=== PATIENT | female | born 1955 | race Caucasian/White ===

== ENCOUNTER → 2016-08-04 | Outpatient (CLI) | payer BC ==
[2016-08-04 10:11] LABS: Anion Gap 9 mmol/L; Blood Urea Nitrogen 7 mg/dL (7-17); Carbon Dioxide 29 mmol/L (22-30); Chloride 103 mmol/L (98-107); Non-African American GFR(MDRD) >60 (>60 ml/min/1.73 sqM); Sodium 141 mmol/L (137-145)
== END | disposition home or self-care (01) ==
LOC: LABWHC1 09:13
PROVIDERS: ATTEND Internal Medicine Clinical Cardiac Electrophysiology
DX: E78.00 Pure hypercholesterolemia, unspecified (principal)
CPT/HCPCS: 36415; 80051; 82565; 84520

== ENCOUNTER 2016-08-05 08:43 | Day surgery (SDC) | payer BC ==
[2016-07-31 12:44] VITALS: BMI 24.1
[~2016-08-05 08:43] MED LIST: ALPRAZolam 0.25 MG TAB PO PRN; ALPRAZolam 0.5 MG TAB PO PRN; ASPIRIN 325 MG TAB PO STA; ATORVASTATIN 80 MG TAB PO STA; NITROGLYCERIN SL TABS 0.4 MG TAB SUBLINGUAL PRN; SODIUM CHLORIDE 0.9% 1,000 ML in EMPTY BAG 1 BAG IV ONE
[2016-08-05] MEDS ORDERED: diphenhydrAMINE 50 MG/ML 1 ML VIAL IVP ONE (10:22)
[2016-08-05] MEDS: MIDAZOLAM 2 MG/2 ML VIAL IV ONE ×2 (10:23→10:28)
[2016-08-05] MEDS ORDERED: LIDOCAINE 2% INJ 20 MG/ML SQ ONE (10:27)
[2016-08-05] MEDS ORDERED: RX INFO: IV CONTRAST WAS GIVEN 1 EACH MISC MISCELLANE PRN (10:53)
[2016-08-05] MEDS ORDERED: IOHEXOL 350 MG/ML 100 ML BOTTLE INJ ONE (11:11)
--- NOTE | 2016-08-05 11:32 | CC ---
DATE OF SERVICE: INDICATION: Ischemic cardiomyopathy. This is a 61-year-old lady that I was asked to do a cardiac catheterization because of cardiomyopathy and abnormal stress test. The patient was explained of risks, benefits, and alternatives, understood and accepted. The patient had hyperkalemia prior to cardiac cath, the exact etiology of which was unclear. PROCEDURE NOTE: After obtaining informed consent, left heart catheterization and coronary angiogram are performed via the right femoral artery using standard Catarino catheters. Patient tolerated the procedure well without any obvious immediate complications. FINDINGS: 1. HEMODYNAMICS: Left ventricular end-diastolic pressure is 18 mm. There is no significant gradient across the aortic valve. 2. LEFT VENTRICULOGRAM: Left ventriculogram was performed in [place] position, shows a dilated left ventricle with severe LV dysfunction with an ejection fraction of around 30%. Basal inferior wall is akinetic and there is diffuse global hypokinesis noted. There is 1 to 2+ mitral regurgitation noted. 3. ANGIOGRAPHIC DATA: LEFT MAIN CORONARY ARTERY: Left main coronary artery is a normal-sized vessel and is free of stenosis. It divides into left anterior descending coronary artery and circumflex coronary artery. Mid LAD shows a 70% stenosis. Circumflex coronary artery segment has segmental lesions that are 60% to 70% stenosed. Right coronary artery is a large dominant vessel that is subtotally occluded in its midportion. CONCLUSION: 1. Three-vessel coronary artery disease as described above. 2. Ischemic cardiomyopathy with severe left ventricular dysfunction. 3. One to two+ mitral regurgitation. PLAN: I am going to ask cardiothoracic surgeon Dr. Manzo to evaluate the patient for bypass surgery. Patient will need a ANDREA prior to cath to rule out significant mitral regurgitation. I will keep her here overnight and she will need lytes, BUN, and creatinine done in the morning too.
[2016-08-05 11:58] VITALS: RESP 16
[2016-08-05] MEDS: NICOTINE 21MG/24HR PATCH TRANSDERM SCH (14:16)
[2016-08-05 14:37] LABS: Basophils # (A) 0.1 k/uL (0-0.2); Basophils % (A) 2 %; CHCM 32.6; Eosinophils # (A) 0.3 k/uL (0-0.7); Eosinophils % (A) 4 %; HCT 39.6 % (34.0-46.0); HDW 2.61; HGB 12.8 gm/dL (11.4-16.0); Luc # (Auto) 0.14; Luc % (Auto) 2; Lymphocytes # (A) 2.2 k/uL (1.0-4.8); Lymphocytes % (A) 34 %; MCHC 32.4 g/dL (31.0-37.0); MCV 92.5 fL (80.0-100.0); Monocytes # (A) 0.3 k/uL (0-1.0); Monocytes % (A) 5 %; Neutrophils # (A) 3.4 k/uL (1.3-7.7); Neutrophils % (A) 53 %; RBC 4.28 m/uL (3.80-5.40); RDW 13.7 % (11.5-15.5); WBC 6.5 k/uL (3.8-10.6); WBC (Perox) 6.72
[2016-08-05 14:45] LABS: Partial Thromboplastin Time 24.7 sec (22.0-30.0); Prothrombin Time 10.4 sec (9.0-12.0)
[2016-08-05 14:51] LABS: ALT 26 U/L (9-52); AST 16 U/L (14-36); Alkaline Phosphatase 70 U/L (38-126); Anion Gap 8 mmol/L; Blood Urea Nitrogen 8 mg/dL (7-17); Calcium 8.9 mg/dL (8.4-10.2); Carbon Dioxide 25 mmol/L (22-30); Chloride 108 mmol/L (98-107); Cholesterol 169 mg/dL (<200); Glucose 122 mg/dL (74-99); HDL Cholesterol 43 mg/dL (40-60); Magnesium 1.9 mg/dL (1.6-2.3); Non-African American GFR(MDRD) >60 (>60 ml/min/1.73 sqM); Sodium 141 mmol/L (137-145); Total Bilirubin 0.3 mg/dL (0.2-1.3); Total Protein 6.4 g/dL (6.3-8.2); Triglycerides 146 mg/dL (<150)
--- NOTE | 2016-08-05 15:16 | P.GSCN ---
History of Present Illness Consult date: 08/05/16 Reason for Consult: Evaluation for potential coronary artery bypass grafting Requesting physician: Eric Geiger History of present illness: 61 y old lady followed by Dr. murphy history of palpitation and presyncope found to have evidence of recent decline in her left ventricular function on stress test. Cardiac catheterization today performed by Dr Geiger showed an old super-dominant right coronary artery occlusion with [id number]-[id number] collateral, as well as significant stenosis in the LAD and the proximal circumflex. On further questioning patient admits to effort angina that's been going on for around 1 year along with dyspnea on exertion. She recalls an episode of severe epigastric pain that lasted several hours and 2 years ago. Occasional orthopnea. No rest pain Review of Systems - EENT Ears, nose, mouth and throat: Reports nasal congestion, Reports post-nasal drip , Reports sinus pressure - Cardiovascular Reports chest pain, Reports dyspnea on exertion, Reports palpitations, Reports shortness of breath - Respiratory Reports congestion, Reports cough Past Medical History Past Medical History: Chest Pain / Angina, Fibromyalgia, GERD/Reflux, Hyperlipidemia, Hypertension, Musculoskeletal Disorder, Osteoarthritis (OA), Vascular Disorder Additional Past Medical History / Comment(s): recent EKG abnormal per pt. & echo , SOB w/exertion recently, herniated discs in neck & lower back, tingling lower legs-"they fall asleep" History of Any Multi-Drug Resistant Organisms: None Reported Past Surgical History: Hysterectomy, Orthopedic Surgery Additional Past Surgical History / Comment(s): foot surg. Past Anesthesia/Blood Transfusion Reactions: Previous Problems w/ Anesthesia Additional Past Anesthesia/Blood Transfusion Reaction / Comm: slow to wake up Past Psychological History: ADD/ADHD Smoking Status: Current every day smoker Past Alcohol Use History: None Reported Additional Past Alcohol Use History / Comment(s): down to 1ppd, smoked since age of 17 Past Drug Use History: None Reported - Past Family History Mother Family Medical History: No Reported History Medications and Allergies Home Medications Medication Instructions Recorded Confirmed Type Aspirin 162 mg PO DAILY 07/24/16 08/05/16 History Atorvastatin [Lipitor] 20 mg PO HS 07/24/16 08/05/16 History Dextroamphetamine/Amphetamine 30 mg PO TID 07/24/16 08/05/16 History [Adderall] HYDROcodone/APAP 10-325MG [[place] 1 tab PO Q6H PRN 07/24/16 08/05/16 History 10-325] Metoprolol Succinate [Toprol XL] 25 mg PO HS 07/24/16 08/05/16 History Allergies Allergy/AdvReac Type Severity Reaction Status Date / Time acetaminophen [From Percocet] Allergy Unknown Verified 07/31/16 12:41 oxycodone [From Percocet] Allergy Unknown Verified 07/31/16 12:41 sulfamethoxazole Allergy Hallucinati Verified 07/31/16 12:41 [From Bactrim] ons trimethoprim [From Bactrim] Allergy Hallucinati Verified 07/31/16 12:41 ons aspirin AdvReac GI upset Verified 07/31/16 12:41 Surgical - Exam Vital Signs Temp Pulse Resp BP Pulse Ox 99.0 F 104 H 18 158/79 100 08/05/16 09:01 08/05/16 09:01 08/05/16 09:01 08/05/16 09:01 08/05/16 09:01 Negative left-sided modified Raman's test, no varicose veins, 2+ dorsalis pedis bilaterally Results - Labs 08/05/16 13:51 08/05/16 09:10 Diabetes panel 08/05/16 Range/Units 09:10 Potassium 5.1 (3.5-5.1) mmol/L Pituitary panel 08/05/16 Range/Units 09:10 Potassium 5.1 (3.5-5.1) mmol/L Adrenal panel 08/05/16 Range/Units 09:10 Potassium 5.1 (3.5-5.1) mmol/L - Imaging Additional studies: Patient had a carotid duplex that was normal as an outpatient on 07/04/2016. Holter monitor had ruled out any atrial fibrillation 2-D echo showed an EF of 50% with hypokinesia of the basal inferior and inferior septal romero without significant mitral valve regurgitation. Lexiscan performed on 07/15/2016 showed a technically suboptimal nuclear scan with moderate to severe left ventricular dysfunction and ejection fraction estimated at 30% with suggestion of a fixed distal anterior wall defect which could be due to soft tissue attenuation. She did not have significant EKG changes. Heart catheterization shows totally occluded collateralized dominant right coronary artery, proximal LAD stenosis as well as a mid stenosis beyond the takeoff of a diagonal proximal circumflex artery stenosis leading to a mid ventricular marginal artery. There is moderate left ventricular dysfunction and evidence of 1-2+ mitral valve regurgitation Assessment and Plan Plan: 61s old lady with evidence of ischemic cardiomyopathy and a totally occluded right coronary artery with what seems to be a proximal basal inferior wall aneurysm and significant left system disease. Patient needs ANDREA to rule out any significant mitral valve regurgitation in view of the basal aneurysm. Pulmonary consult to be obtained to optimize her pulmonary status and smoking cessation is strongly recommended before surgery. Patient would benefit from afterload reduction in view of her left ventricular dysfunction. We will be following the patient closely with you. Final plan to follow ANDREA and pulmonary assessment. Thank you Dr. Geiger for the privilege of this consult.
[2016-08-05 15:21] LABS: Hepatitis B Surface Ag Index 0.07
[2016-08-05 15:27] LABS: Hepatitis B Core IgM Index 0.07
[2016-08-05 15:38] LABS: Hepatitis C Virus IgG Index 0.01
[2016-08-05 15:53] LABS: Hepatitis C Virus IgG Ab Negative (Negative)
--- NOTE | 2016-08-05 15:53 | P.CNPUL ---
History of Present Illness Consult date: 08/05/16 Requesting physician: Dennis Shrestha Reason for consult: COPD Chief complaint: Shortness of breath History of present illness: This is a very pleasant 61-year-old female patient who follows with Dr. Shrestha as her primary care physician who has a history of chronic and ongoing nicotine addiction, ADHD, cardiomyopathy and recent positive stress test for ischemia. She presented here today for an elective cardiac catheterization which was performed by Dr. Geiger. She was found to have significant triple-vessel disease including mid LAD stenosis of 70%, circumflex artery was 77% stenosis and a subtotally occluded right coronary artery. She was also noted to have severe left ventricular systolic dysfunction with ejection fraction of 30%. There is also 1-2+ mitral valve regurgitation. An echocardiogram dated 05/30/2016 revealed preserved left ventricular systolic function with estimated ejection fraction 50-55%. She is seen today in the observation unit for preop evaluation prior to proposed coronary artery bypass surgery. A ANDREA is also to be performed to rule out significant mitral regurgitation prior to her surgery. She currently denies any significant shortness of breath. She did have issues with a bronchitis type picture which she states she gets this time of year. She has had a dry nonproductive cough. No chills or night sweats. Afebrile. No leukocytosis. No chest pain, palpitations, lightheadedness or dizziness. Review of Systems 14 point review of system was conducted. All negative other than as mentioned in HPI. Past Medical History Past Medical History: Chest Pain / Angina, Fibromyalgia, GERD/Reflux, Hyperlipidemia, Hypertension, Musculoskeletal Disorder, Osteoarthritis (OA), Vascular Disorder Additional Past Medical History / Comment(s): recent EKG abnormal per pt. & echo , SOB w/exertion recently, herniated discs in neck & lower back, tingling lower legs-"they fall asleep" History of Any Multi-Drug Resistant Organisms: None Reported Past Surgical History: Hysterectomy, Orthopedic Surgery Additional Past Surgical History / Comment(s): foot surg. Past Anesthesia/Blood Transfusion Reactions: Previous Problems w/ Anesthesia Additional Past Anesthesia/Blood Transfusion Reaction / Comment(s): slow to wake up Past Psychological History: ADD/ADHD Smoking Status: Current every day smoker Past Alcohol Use History: None Reported Additional Past Alcohol Use History / Comment(s): down to 1ppd, smoked since age of 17 Past Drug Use History: None Reported - Past Family History Mother Family Medical History: No Reported History Medications and Allergies Home Medications Medication Instructions Recorded Confirmed Type Aspirin 162 mg PO DAILY 07/24/16 08/05/16 History Atorvastatin [Lipitor] 20 mg PO HS 07/24/16 08/05/16 History Dextroamphetamine/Amphetamine 30 mg PO TID 07/24/16 08/05/16 History [Adderall] HYDROcodone/APAP 10-325MG [[place] 1 tab PO Q6H PRN 07/24/16 08/05/16 History 10-325] Metoprolol Succinate [Toprol XL] 25 mg PO HS 07/24/16 08/05/16 History Allergies Allergy/AdvReac Type Severity Reaction Status Date / Time acetaminophen [From Percocet] Allergy Unknown Verified 07/31/16 12:41 oxycodone [From Percocet] Allergy Unknown Verified 07/31/16 12:41 sulfamethoxazole Allergy Hallucinati Verified 07/31/16 12:41 [From Bactrim] ons trimethoprim [From Bactrim] Allergy Hallucinati Verified 07/31/16 12:41 ons aspirin AdvReac GI upset Verified 07/31/16 12:41 Physical Exam Vitals: Vital Signs Temp Pulse Pulse Resp BP BP BP 08/05/16 13:35 145/65 08/05/16 13:05 76 146/66 08/05/16 12:40 79 148/67 08/05/16 12:25 90 150/66 08/05/16 12:10 83 168/71 08/05/16 11:55 94 16 143/80 08/05/16 11:30 98.8 F 78 16 156/73 08/05/16 09:01 99.0 F 104 H 18 158/79 161/91 Pulse Ox 08/05/16 13:35 08/05/16 13:05 98 08/05/16 12:40 92 L 08/05/16 12:25 86 L 08/05/16 12:10 94 L 08/05/16 11:55 97 08/05/16 11:30 98 08/05/16 09:01 100 Intake and Output 08/05/16 08/05/16 08/05/16 06:59 14:59 22:59 Intake Total 75 Balance 75 Intake: IV 75 Results - Laboratory Findings CBC and BMP: 08/05/16 13:51 08/05/16 13:51 PT/INR, D-dimer PT 10.4 sec (9.0-12.0) 08/05/16 13:51 INR 1.0 (<1.1) 08/05/16 13:51 Abnormal lab findings: Abnormal Labs 08/05/16 13:51 Chloride 108 H Glucose 122 H Assessment and Plan Plan: Impression: #1 Triple-vessel coronary artery disease including 70% stenosis of the mid LAD, 70% stenosis of the circumflex, subtotally occluded midportion of the right coronary artery. #2 Severe ischemic cardiomyopathy with estimated ejection fraction 30%. #3 Mitral regurgitation, outpatient ANDREA is pending. #4 Chronic and ongoing tobacco dependence, 40+ years at greater than or equal to 1 pack per day. #5 Attention deficit disorder. #6 Hyperlipidemia. #7 Hypertension. #8 Fibromyalgia. #9 Gastric esophageal reflux disease. Plan: The patient was seen and evaluated by Dr. Ty. She is currently stable from the pulmonary standpoint however based on her recent complaints of cough and congestion we will treat her with the azithromycin Felix along with the Medrol Dosepak to optimize her prior to her surgery. We'll obtain a chest x- ray. She is also educated regarding the importance of complete smoking cessation. A NicoDerm patch has been applied. She'll need full pulmonary function testing to evaluate the suspected chronic obstructive pulmonary disease and an to optimize her medications. She'll be educated regarding the use of the incentive spirometer. The plan is for discharge home and return for an elective surgery in 1-2 weeks' time. We'll continue to follow make further recommendations based on her clinical status.
[2016-08-05] MEDS ORDERED: AZITHROMYCIN 500 MG TAB PO SCH (16:00)
--- NOTE | 2016-08-05 17:04 | XR ---
EXAMINATION TYPE: XR chest 2V DATE OF EXAM: 08/05/2016 4:51 PM COMPARISON: Prior chest x-ray 26 July 2014 HISTORY: Preop cardiac surgery TECHNIQUE: Frontal and lateral views of the chest are obtained. FINDINGS: There is no focal air space opacity, pleural effusion, or pneumothorax seen. The cardiac silhouette size is within normal limits. The patient is rotated. There are overlying cardiac leads. Prominent lung volume could be indicative of underlying COPD. The osseous structures are intact. IMPRESSION: No acute cardiopulmonary process.
[2016-08-05] MEDS ORDERED: HYDROcodone/APAP 10-325MG 1 EACH TAB PO PRN (18:11)
[2016-08-05] MEDS: hydrALAZINE HCL 25 MG TAB PO SCH ×3 (18:25→22:43)
[2016-08-05] MEDS: SODIUM CHLORIDE 0.9% 1,000 ML IV SCH (18:55)
[2016-08-05 19:21] LABS: Appearance,Urine Clear (Clear); Bilirubin,Urine Negative (Negative); Glucose,Urine (UA) Negative (Negative); Ketones,Urine Negative (Negative); Leukocyte Esterase,Urine Negative (Negative); Nitrite,Urine Negative (Negative); PH, Urine 5.5 (5.0-8.0); Protein,Urine Negative (Negative); Specific Gravity,Urine 1.034 (1.001-1.035); UA Billing (MACRO vs. MICRO) CHEM; Urobilinogen,Urine <2.0 mg/dL (<2.0)
[2016-08-05] MEDS: MUPIROCIN 2% OINT 22 GM TUBE NASAL SCH (20:29)
[2016-08-05] MEDS ORDERED: ATORVASTATIN 20 MG TAB PO SCH (21:00)
[2016-08-05] MEDS ORDERED: METOPROLOL SUCCINATE (ER) 25 MG TAB.ER.24H PO SCH (21:00)
[2016-08-05 22:23] LABS: Hemoglobin A1C 5.4 % (4.2-6.1)
[2016-08-06 00:54] VITALS: TEMP 98
[2016-08-06 07:32] LABS: Anion Gap 9 mmol/L; Blood Urea Nitrogen 8 mg/dL (7-17); Calcium 8.9 mg/dL (8.4-10.2); Carbon Dioxide 23 mmol/L (22-30); Chloride 111 mmol/L (98-107); Glucose 101 mg/dL (74-99); Non-African American GFR(MDRD) >60 (>60 ml/min/1.73 sqM); Potassium 4.7 mmol/L (3.5-5.1); Sodium 143 mmol/L (137-145)
[2016-08-06] MEDS ORDERED: MIDAZOLAM 2 MG/2 ML VIAL ONE (07:47)
[2016-08-06] MEDS ORDERED: fentaNYL (PF) 50 MCG/ML 2 ML AMP ONE (07:48)
[2016-08-06] MEDS ORDERED: IV FLUID CONTINUATION 700 ML IV ONE (08:22)
[2016-08-06] MEDS: BENZOCAINE SPRAY 100 APPLIC/CAN TOPICAL ONE ×2 (08:24→08:27)
[2016-08-06] MEDS ORDERED: MIDAZOLAM 2 MG/2 ML VIAL IVP ONE (08:27)
[2016-08-06] MEDS ORDERED: fentaNYL (PF) 50 MCG/ML 2 ML AMP IV ONE (08:27)
--- NOTE | 2016-08-06 08:54 | P.PN ---
<RenettaFarzad T - Last Filed: 08/06/16 08:46> Progress Note - Text CV Surgery Preop Nursing Patient having transesophageal echocardiogram right now Vital Signs: Afebrile, T-max 98.7F Labs: Short CBC 08/05/16 Range/Units 13:51 WBC 6.5 (3.8-10.6) k/uL Hgb 12.8 (11.4-16.0) gm/dL Hct 39.6 (34.0-46.0) % Plt Count 225 (150-450) k/uL Neutrophils # 3.4 (1.3-7.7) k/uL BMP 08/05/16 08/05/16 08/06/16 09:10 13:51 06:45 Sodium 141 143 Potassium 5.1 4.0 4.7 Chloride 108 H 111 H Carbon Dioxide 25 23 BUN 8 8 Creatinine 0.92 0.92 Glucose 122 H 101 H Calcium 8.9 8.9 Cardiac Enzymes 08/05/16 Range/Units 13:51 Troponin I <0.012 (0.000-0.034) ng/mL Liver Function 08/05/16 Range/Units 13:51 Total Bilirubin 0.3 (0.2-1.3) mg/dL AST 16 (14-36) U/L ALT 26 (9-52) U/L Alkaline Phosphatase 70 (38-126) U/L Albumin 3.6 (3.5-5.0) g/dL Urine 08/05/16 Range/Units 18:05 Urine Color Light Yellow Urine Appearance Clear (Clear) Urine pH 5.5 (5.0-8.0) Ur Specific [place] 1.034 (1.001-1.035) Urine Protein Negative (Negative) Urine Glucose (UA) Negative (Negative) O2 sat: 99% on room air CBGs: 101-122 mg/dl Intake & Output 08/04/16 08/05/16 08/06/16 08/07/16 06:59 06:59 06:59 06:59 Intake Total 275 75 Balance 275 75 Weight 65.771 kg Active Medications Acetaminophen/Hydrocodone Bitart ([place] 10) 1 each PO Q6H PRN PRN Reason: Pain Last Admin: 08/05/16 18:53 Dose: 1 each Alprazolam (Xanax) 0.25 mg PO Q6HR PRN PRN Reason: Mild Anxiety Last Admin: 08/05/16 09:30 Dose: 0.25 mg Alprazolam (Xanax) 0.5 mg PO Q6HR PRN PRN Reason: Moderate Anxiety Aspirin (Aspirin) 162 mg PO DAILY [facility] Atorvastatin Calcium (Lipitor) 20 mg PO HS [facility] Last Admin: 08/05/16 20:09 Dose: 20 mg Azithromycin (Zithromax) 500 mg PO DAILY@1600 [facility] Last Admin: 08/05/16 18:54 Dose: 500 mg Hydralazine HCl (Apresoline) 25 mg PO QID [facility] Last Admin: 08/05/16 22:43 Dose: Not Given Sodium Chloride (Saline 0.9%) 1,000 mls @ 75 mls/hr IV .[id number] [facility] Last Admin: 08/05/16 18:55 Dose: 75 mls/hr Isosorbide Mononitrate (Imdur) 30 mg PO DAILY [facility] Methylprednisolone (Medrol Dose Pack) 24 mg PO DAILY [facility] PRN Reason: Taper Stop: 08/12/16 08:59 Metoprolol Succinate (Toprol Xl) 25 mg PO [facility] Last Admin: 08/05/16 20:09 Dose: 25 mg Miscellaneous Information (Rx Info: Iv Contrast Was Given) 1 each MISCELLANE DAILY PRN PRN Reason: Per Protocol Stop: 08/07/16 10:53 Mupirocin (Bactroban Oint) 1 applic NASAL BID [facility] Stop: 08/10/16 21:01 Last Admin: 08/05/16 20:29 Dose: 1 applic Nicotine (Habitrol 21mg/24hr Patch) 1 patch TRANSDERM DAILY [facility] Last Admin: 08/05/16 14:16 Dose: 1 patch Nitroglycerin (Nitrostat) 0.4 mg SUBLINGUAL Q5M PRN PRN Reason: Chest Pain Plan: Await transesophageal echocardiogram result. Probable discharge home later today to return for elective CABG in the future. <Tyron Manzo - Last Filed: 08/06/16 14:22> Progress Note - Text ANDREA showed moderate mitral central MR with dyskinetic infero-basal wall, PFO, and EF 30%. In view of above, I am deciding to combine mitral valve repair to her CABG along with exclusion DARION and closure PFO. Patient to come back to the office on Aug 15 before final planning as we are optimizing her pulmonary status.
[2016-08-06 08:56] VITALS: BP 148/67; PULSE 70
[2016-08-06] MEDS ORDERED: methylPREDNISolone 4 MG TAB TAPER PO SCH (09:00)
[2016-08-06] MEDS ORDERED: ASPIRIN 81 MG CHEW PO SCH (09:00)
[2016-08-06] MEDS ORDERED: ISOSORBIDE MONONITRATE ER 30 MG TAB.ER.24H PO SCH (09:00)
--- NOTE | 2016-08-06 09:13 | ECHOT ---
DATE OF SERVICE: INDICATION: Mitral regurgitation. Balbina is a 61-year-old lady who underwent cardiac catheterization yesterday for cardiomyopathy and was found to have severe 3-vessel coronary artery disease with akinetic inferior wall and 1 to 2+ mitral regurgitation. She was advised to undergo transesophageal echo to rule out transesophageal echo to rule out significant MR prior to bypass surgery. Patient had been explained of risks, benefits, and alternatives, understood and accepted. PROCEDURE NOTE: After obtaining informed consent, transesophageal echocardiogram was performed in the left lateral position using an Omniplane probe. Local and IV sedation were obtained using Xylocaine spray and intravenous Versed. Patient tolerated the procedure well without any obvious immediate complications. FINDINGS: MITRAL VALVE: Mitral valve appears anatomically normal. There is dilatation of the mitral annulus noted with poor coaptation of the mitral leaflets. There is mild to moderate central mitral regurgitation noted. Aortic valve is a 3 leaflet valve. There is no evidence of aortic stenosis or regurgitation. Tricuspid valve appears normal. Left atrium appears mildly enlarged. Right atrium and right ventricle seen within normal limits. Left ventricle appears enlarged shows severe LV dysfunction with an ejection fraction of 30% to 35%. Inferior wall is akinetic. Proximal third of the inferior wall appears dyskinetic. INTERATRIAL SEPTUM: There is no evidence of gafbz-[id number] shunt by agitated saline contrast study but there is evidence of vfzm-[id number]-[id number] shunt by color flow Doppler. CONCLUSIONS: 1. Mild to moderate central mitral regurgitation secondary to mitral annulus dilatation. 2. Ischemic cardiomyopathy with severe left ventricular dysfunction. 3. Evidence of [id number]-[id number] shunt across the interatrial septum. PLAN: Patient will undergo bypass surgery. May have the PFO closure. I will inform the surgeon of these findings.
--- NOTE | 2016-08-06 09:28 | DS ---
DATE OF ADMISSION: 08/05/2016 DATE OF DISCHARGE: 08/06/2016 PROCEDURES PERFORMED: 1. Left heart catheterization. 2. Transesophageal echocardiogram. CONSULTATIONS: The patient was seen by cardiothoracic surgeon. Balbina is a 61-year-old lady with history of cardiomyopathy who was brought in electively for cardiac catheterization. She was found to have three-vessel coronary artery disease and underwent transesophageal echo to evaluate the mitral regurgitation. The patient has mild to moderate mitral regurgitation with severe LV systolic dysfunction and evidence of [id number] shunting across the interatrial septum. I do not believe mitral regurgitation is significant enough for her to require mitral valve repair at this time, but she however will undergo bypass surgery. She currently on aspirin, metoprolol, Imdur and hydralazine along with the statin. CONDITION AT THE TIME OF DISCHARGE: Patient is comfortable at rest. Vital signs are stable. There is no jugular venous distention. Carotid upstroke is normal. There is no bruit. Chest exam reveals good air entry bilaterally. Heart exam reveals first and second heart sounds. No gallop. Abdomen is soft. Exam of extremities did not reveal edema. Groin is free of bleeding, bruit, hematoma. O2 sat is a 99% on room air. FOLLOW-UP PLAN: Patient will be followed by Dr. Mota in the office and will come back for bypass surgery.
[2016-08-06] MEDS: hydrALAZINE HCL 25 MG TAB PO SCH (09:54)
[2016-08-06] MEDS: NICOTINE 21MG/24HR PATCH TRANSDERM SCH (12:50)
[2016-08-06] MEDS: SODIUM CHLORIDE 0.9% 1,000 ML IV SCH (12:52)
[2016-08-06] MEDS: MUPIROCIN 2% OINT 22 GM TUBE NASAL SCH (12:52)
--- NOTE | 2016-08-13 13:28 | P.VSCSTY ---
Greater Saphenous Vein Mapping This is bilateral lower extremity greater saphenous vein mapping. Date of service 08/05/2016 Vein quality and ultrasound appearance normal appearance. Vein size groin right 6.1 x 4.5 groin left 6.2 x 4.7 High thigh right 5.3 x 4.9 high thigh left 4.4 x 4.0 Mid thigh right 5.1 x 4.7 mid thigh left 4.4 x 4.0 Above-knee right 5.8 x 4.9 above- knee left 4.6 x 3.4 Below knee right 4.5 x 3.2 below-knee left 3.0 x 2.3 Mid calf right 4.1 x 3.7 mid calf left 3.3 x 2.9 Ankle right 4.1 x 2.8 ankle left 3.8 x 2.7 Impression usable bilateral greater saphenous vein..
--- NOTE | 2016-08-13 13:29 | P.ARTDOP ---
Arterial Doppler LOWER EXTREMITY ARTERIAL DOPPLER: DATE OF SERVICE: 08/06/2016 Reason for study: Pre-CABG. Doppler waveforms: Multiphasic bilaterally throughout. Pulse volume recording: Normal configuration. Pressure gradients: None. Ankle-brachial indices: Greater than 1 bilaterally. Toe pressures: 129 on the right, 129 on the left Impression: Normal study.
== END 2016-08-06 12:10 | disposition home or self-care (01) ==
LOC: CATHCVL 08:43 → 3OBS 11:10 → CATHCVL 08-06 12:10
PROVIDERS: ATTEND Internal Medicine Cardiovascular Disease
DX: I25.118 Atherosclerotic heart disease of native coronary artery with other forms of angina pectoris (principal); I25.5 Ischemic cardiomyopathy; E78.00 Pure hypercholesterolemia, unspecified; F90.9 Attention-deficit hyperactivity disorder, unspecified type; E78.5 Hyperlipidemia, unspecified; I10 Essential (primary) hypertension; M19.90 Unspecified osteoarthritis, unspecified site; M79.7 Fibromyalgia; F17.210 Nicotine dependence, cigarettes, uncomplicated; Z79.82 Long term (current) use of aspirin; Z79.899 Other long term (current) drug therapy; Z88.5 Allergy status to narcotic agent; Z88.2 Allergy status to sulfonamides; Z82.49 Family history of ischemic heart disease and other diseases of the circulatory system
CPT/HCPCS: 93458 ×2; 94150; 93312; 93320; 93325; 86900; 86901; 83880; 80061; 80053; 80048; 80074; 84443; 83036; 83735; 84132; 84484; 85025; 85610; 85730; 86850; 81003; 87070; 87086; 71020; 93970; 93923; C1760; C1894; C1769; S4990; J2001; J2250 ×2; J1200; Q9967; J3010; J7509

== ENCOUNTER 2016-08-19 05:50 | Inpatient (IN) | payer BC ==
[~2016-08-19 05:50] MED LIST changes: +ALBUMIN HUMAN 25% 50 ML IV ONE; +ALBUMIN HUMAN 5% 500 ML IVPB ONE; -ALPRAZolam 0.25 MG TAB PO PRN; -ALPRAZolam 0.5 MG TAB PO PRN; +AMINOCAPROIC ACID 250 MG/ML 20 ML VIAL IV ONE; +AMINOCAPROIC ACID 5,000 MG in DEXTROSE 5% IN WATER 50 ML IV ONE; +ASPIRIN 325 MG TAB PO ONE; -ASPIRIN 325 MG TAB PO STA; +ATORVASTATIN 10 MG TAB PO ONE; -ATORVASTATIN 80 MG TAB PO STA; +CALCIUM CHLORIDE 100 MG/ML 10 ML SYRINGE IV ONE; +CHLORHEXIDINE GLUCONATE 15 ML CUP MUCOUS MEM ONE; +CLEVIDIPINE BUTYRATE 25 MG in EMPTY BAG 1 BAG IV ONE; +DEXTROSE 5% IN WATER 1,000 ML with POTASSIUM CHLORIDE 110 MEQ, MAGNESIUM SULFATE 16 MEQ... IV ONE; +DEXTROSE 5% IN WATER 1,000 ML with POTASSIUM CHLORIDE 25 MEQ, SODIUM CHLORIDE 4MEQ/ML V... IV ONE; +HEPARIN SODIUM 1,000 UNIT/ML VIAL IV ONE; +HEPARIN SODIUM,PORCINE 5,000 UNIT in SODIUM CHLORIDE 0.9% 500 ML IV ONE; +INSULIN REGULAR 100 UNIT in SODIUM CHLORIDE 0.9% 100 ML IV ONE; +LACTATED RINGERS 1,000 ML IV ONE; +LACTATED RINGERS 1,000 ML IV SCH; +MAGNESIUM SULFATE MG 500 MG/ML VIAL IV ONE; +MANNITOL 25% 12.5 GM/50 ML VIAL IV ONE; +METOPROLOL TARTRATE 12.5 MG TAB PO ONE; +MIDAZOLAM 2 MG/2 ML VIAL IV PRN; +NITROGLYCERIN SL TABS 0.4 MG TAB SUBLINGUAL ONE; -NITROGLYCERIN SL TABS 0.4 MG TAB SUBLINGUAL PRN; +NITROGLYCERIN-D5W PMX 25 MG/250 ML BTL IV ONE; +NITROGLYCERIN-D5W PMX 50 MG in DEXTROSE/WATER 1 250ML.BAG IV ONE; +NOREPINEPHRINE 4 MG in SODIUM CHLORIDE 0.9% 250 ML IV ONE; +PAPAVERINE 360 MG in SODIUM CHLORIDE 0.9% 90 ML IV ONE; +PHENYLEPHRINE 40 MG in SODIUM CHLORIDE 0.9% 250 ML IV ONE; +PHENYLEPHRINE-0.9% NACL SYG 1 MG/10 ML SYRINGE IV ONE; +PROPOFOL 50 ML IV ONE; +PROTAMINE SULFATE 10 MG/ML 25 ML VIAL IV ONE; +PROTAMINE SULFATE 250 MG in EMPTY BAG 1 BAG IV ONE; +SODIUM BICARB 8.4% 50 ML SYR (1 MEQ/ML) IV ONE; +SODIUM CHLORIDE 0.9% 1,000 ML IV ONE; -SODIUM CHLORIDE 0.9% 1,000 ML in EMPTY BAG 1 BAG IV ONE; +ceFAZolin 2,000 MG in SODIUM CHLORIDE 0.9% 30 ML IVPB ONE
[2016-08-19] MEDS ORDERED: MAGNESIUM SULFATE 4 MEQ/ML 2 ML VIAL ONE (07:46)
[2016-08-19] MEDS ORDERED: LIDOCAINE 2% SYG (PF) 100 MG/5 ML ONE (07:46)
[2016-08-19] MEDS ORDERED: VASOPRESSIN 20 UNIT/ML 1 ML VIAL ONE (07:46)
[2016-08-19] MEDS ORDERED: SUFentanil 50 MCG/ML 2ML AMP ONE (07:46)
[2016-08-19] MEDS ORDERED: POTASSIUM CHLORIDE OPEN HEART 20 MEQ/50 ML BAG IVPB ONE (07:46)
[2016-08-19] MEDS ORDERED: ALBUTEROL INHALER 60 PUFF/8 GM INHALER INHALATION ONE (07:46)
[2016-08-19] MEDS ORDERED: SODIUM CHLORIDE 0.9% IRRIG 1,000 ML BTL IRRIGATION ONE (07:46)
[2016-08-19] MEDS ORDERED: VECURONIUM 10 MG VIAL IV ONE (07:46)
[2016-08-19] MEDS ORDERED: fentaNYL (PF) 50 MCG/ML 50 ML VIAL ONE (07:46)
[2016-08-19] MEDS ORDERED: ELECTROLYTE-R (PH 7.4) 1,000 ML IV.SOLN IV ONE (07:46)
[2016-08-19] MEDS ORDERED: PROPOFOL 10 MG/ML 20 ML VIAL IV ONE (07:46)
[2016-08-19] MEDS ORDERED: HEPARIN SODIUM 1,000 UNIT/ML VIAL ONE (07:46)
[2016-08-19] MEDS ORDERED: fentaNYL (PF) 50 MCG/ML 2 ML AMP ONE (07:46)
[2016-08-19] MEDS ORDERED: MIDAZOLAM 2 MG/2 ML VIAL ONE (07:46)
[2016-08-19] MEDS ORDERED: HEPARIN SODIUM,PORCINE 10,000 UNIT/ML 1 ML VIAL ONE (07:46)
[2016-08-19 09:07] LABS: Glucose,Whole Blood 99 mg/dL (75-99)
[2016-08-19 09:16] LABS: Appearance,Urine Clear (Clear); Bilirubin,Urine Negative (Negative); Glucose,Urine (UA) Negative (Negative); Ketones,Urine Negative (Negative); Leukocyte Esterase,Urine Negative (Negative); Nitrite,Urine Negative (Negative); Protein,Urine Negative (Negative); Specific Gravity,Urine 1.005 (1.001-1.035); UA Billing (MACRO vs. MICRO) CHEM; Urobilinogen,Urine <2.0 mg/dL (<2.0)
[2016-08-19 10:52] LABS: Glucose,Whole Blood 130 mg/dL (75-99)
[2016-08-19 12:26] LABS: Glucose,Whole Blood 107 mg/dL (75-99)
[2016-08-19] MEDS ORDERED: SODIUM CHLORIDE 0.9% 99 ML with VASOPRESSIN 20 UNIT IV SCH ×2 (12:45)
[2016-08-19 13:07] LABS: Glucose,Whole Blood 205 mg/dL (75-99)
[2016-08-19 13:58] LABS: Glucose,Whole Blood 232 mg/dL (75-99)
[2016-08-19] MEDS: ceFAZolin 1,000 MG in SODIUM CHLORIDE 0.9% IRRIGATIO 1,000 ML IRRIGATION ONE ×2 (14:06→16:51)
[2016-08-19 14:07] LABS: Glucose,Whole Blood 291 mg/dL (75-99)
[2016-08-19 14:40] LABS: Glucose,Whole Blood 261 mg/dL (75-99)
[2016-08-19 15:17] LABS: Glucose,Whole Blood 230 mg/dL (75-99)
[2016-08-19 15:54] LABS: Glucose,Whole Blood 217 mg/dL (75-99)
[2016-08-19 16:34] LABS: Glucose,Whole Blood 201 mg/dL (75-99)
[2016-08-19 17:21] LABS: Glucose,Whole Blood 138 mg/dL (75-99)
[2016-08-19] MEDS: PROPOFOL 500 MG in EMPTY BAG 1 BAG IV SCH (18:00)
[2016-08-19] MEDS: LACTATED RINGERS 1,000 ML IV SCH (18:00)
[2016-08-19] MEDS ORDERED: INSULIN REGULAR 100 UNIT in SODIUM CHLORIDE 0.9% 100 ML IV SCH (18:00)
[2016-08-19] MEDS ORDERED: PHENYLEPHRINE 40 MG in SODIUM CHLORIDE 0.9% 250 ML IV SCH (18:00)
[2016-08-19] MEDS ORDERED: NOREPINEPHRINE 16 MG in SODIUM CHLORIDE 0.9% 250 ML IV SCH (18:00)
[2016-08-19] MEDS ORDERED: ONDANSETRON 4 MG/2 ML VIAL IVP PRN (18:09)
[2016-08-19] MEDS ORDERED: BENZOCAINE/MENTHOL LOZENG 1 EACH LOZENGE MUCOUS MEM PRN (18:09)
[2016-08-19] MEDS ORDERED: Potassium Replacement Protocol 1 EACH MISC MISCELLANE PRN (18:09)
[2016-08-19] MEDS ORDERED: INSULIN REGULAR BOLUS (FROM DRIP BAG) IV PRN (18:09)
[2016-08-19] MEDS ORDERED: CALCIUM GLUCONATE 2,000 MG in SODIUM CHLORIDE 0.9% 100 ML IVPB ONE (18:09)
[2016-08-19] MEDS ORDERED: MILRINONE-D5W PMX 20 MG in DEXTROSE/WATER 1 100ML.BAG IV SCH (18:09)
[2016-08-19] MEDS ORDERED: ALBUMIN HUMAN 5% 250 ML in EMPTY BAG 1 BAG IVPB PRN (18:09)
[2016-08-19] MEDS ORDERED: MORPHINE SULFATE 2 MG/ML SYRINGE IVP PRN (18:09)
[2016-08-19] MEDS ORDERED: Magnesium Replacement Protocol 1 EACH MISC MISCELLANE PRN (18:09)
[2016-08-19] MEDS ORDERED: NOREPINEPHRINE 4 MG in SODIUM CHLORIDE 0.9% 250 ML IV SCH (18:09)
[2016-08-19] MEDS ORDERED: Phosphorus Replacement Protoco 1 EACH MISC MISCELLANE PRN (18:09)
[2016-08-19 18:10] LABS: Glucose,Whole Blood 83 mg/dL (75-99)
[2016-08-19 18:23] LABS: ABG Base Excess -0.6 mmol/L; ABG HCO3 23 mmol/L (21-25); ABG PCO2 37 mmHg (35-45); ABG PH 7.42 (7.35-7.45); ABG PO2 196 mmHg (83-108); ABG TCO2 25 mmol/L (19-24)
[2016-08-19 18:24] LABS: ABG Oxygen Saturation 99.7 % (94-97)
[2016-08-19 18:32] LABS: Basophils # (A) 0.1 k/uL (0-0.2); Basophils % (A) 0 %; CH 29.5; CHCM 33.1; Eosinophils # (A) 0.1 k/uL (0-0.7); Eosinophils % (A) 0 %; HCT 20.1 % (34.0-46.0); HDW 2.79; Luc # (Auto) 0.16; Luc % (Auto) 1; Lymphocytes # (A) 1.1 k/uL (1.0-4.8); Lymphocytes % (A) 7 %; MCH 30.2 pg (25.0-35.0); MCHC 33.6 g/dL (31.0-37.0); MCV 89.8 fL (80.0-100.0); Mean Platelet Volume 7.6; Monocytes # (A) 0.9 k/uL (0-1.0); Monocytes % (A) 6 %; Neutrophils # (A) 13.9 k/uL (1.3-7.7); Neutrophils % (A) 86 %; RBC 2.24 m/uL (3.80-5.40); RDW 14.4 % (11.5-15.5); WBC 16.2 k/uL (3.8-10.6); WBC (Perox) 16.73
--- NOTE | 2016-08-19 18:32 | XR ---
EXAMINATION TYPE: XR chest 1V portable DATE OF EXAM: 08/19/2016 6:18 PM COMPARISON: NONE HISTORY: Cardiac surgery TECHNIQUE: Single frontal view of the chest is obtained. FINDINGS: There are bilateral chest tubes. There are sternal wires. Endotracheal tube is in good pos ition. There is right jugular catheter with tip in the main pulmonary artery. There is no pneumothora x. Trachea is midline. There is a nasogastric tube. There is mild subsegmental atelectasis at the doris g bases. IMPRESSION: Mild subsegmental atelectasis at the lung bases. Recent surgery. No pulmonary consolidat ion or heart failure.
[2016-08-19 18:34] LABS: HGB 6.7 gm/dL (11.4-16.0)
[2016-08-19 18:35] LABS: Glucose,Whole Blood 69 mg/dL (75-99)
[2016-08-19 18:57] LABS: Glucose,Whole Blood 111 mg/dL (75-99)
[2016-08-19 19:12] LABS: Ionized Calcium 4.3 mg/dL (4.5-5.3)
[2016-08-19 19:13] LABS: Glucose,Whole Blood 101 mg/dL (75-99)
[2016-08-19 19:19] LABS: ALT 33 U/L (9-52); AST 44 U/L (14-36); Alkaline Phosphatase 27 U/L (38-126); Anion Gap 9 mmol/L; Blood Urea Nitrogen 7 mg/dL (7-17); Carbon Dioxide 26 mmol/L (22-30); Chloride 109 mmol/L (98-107); Glucose 73 mg/dL (74-99); Magnesium 2.5 mg/dL (1.6-2.3); Non-African American GFR(MDRD) >60 (>60 ml/min/1.73 sqM); Potassium 3.3 mmol/L (3.5-5.1); Sodium 144 mmol/L (137-145); Total Bilirubin 1.3 mg/dL (0.2-1.3); Total Protein 3.7 g/dL (6.3-8.2)
[2016-08-19 19:21] LABS: Calcium 6.5 mg/dL (8.4-10.2)
[2016-08-19] MEDS: IPRATROPIUM-ALBUTEROL 3 ML NEB INHALATION SCH ×2 (19:41→23:34)
[2016-08-19 19:45] LABS: INR 1.5 (<1.1); Partial Thromboplastin Time 44.3 sec (22.0-30.0); Prothrombin Time 14.2 sec (9.0-12.0)
[2016-08-19 19:48] LABS: Glucose,Whole Blood 102 mg/dL (75-99)
[2016-08-19 20:01] LABS: Glucose,Whole Blood 103 mg/dL (75-99)
[2016-08-19 20:35] LABS: Hemoglobin A1C 5.6 % (4.2-6.1)
[2016-08-19] MEDS: ceFAZolin 2 GM in SODIUM CHLORIDE 0.9% 100 ML IVPB SCH (20:38)
[2016-08-19] MEDS: NITROGLYCERIN-D5W PMX 50 MG in DEXTROSE/WATER 1 250ML.BAG IV SCH (20:45)
[2016-08-19] MEDS: SODIUM CHLORIDE 0.9% 99 ML with VASOPRESSIN 20 UNIT IV SCH ×2 (20:47)
[2016-08-19] MEDS: ACETAMINOPHEN IV (For NPO) 1,000 MG in EMPTY BAG 1 BAG IVPB SCH (20:54)
[2016-08-19 21:13] LABS: Glucose,Whole Blood 122 mg/dL (75-99)
[2016-08-19] MEDS ORDERED: CALCIUM GLUCONATE 1,000 MG in SODIUM CHLORIDE 0.9% 100 ML IVPB ONE (22:06)
[2016-08-19] MEDS: MUPIROCIN 2% OINT 22 GM TUBE NASAL SCH (22:08)
[2016-08-19 22:11] LABS: Glucose,Whole Blood 131 mg/dL (75-99)
[2016-08-19 22:24] LABS: Basophils # (A) 0.1 k/uL (0-0.2); Basophils % (A) 0 %; CH 29.9; CHCM 34.1; Eosinophils % (A) 0 %; HCT 20.7 % (34.0-46.0); HDW 3.05; Luc # (Auto) 0.15; Luc % (Auto) 1; Lymphocytes # (A) 0.7 k/uL (1.0-4.8); Lymphocytes % (A) 4 %; MCH 29.6 pg (25.0-35.0); MCHC 33.5 g/dL (31.0-37.0); MCV 88.4 fL (80.0-100.0); Mean Platelet Volume 9.2; Monocytes # (A) 1.3 k/uL (0-1.0); Monocytes % (A) 7 %; Neutrophils # (A) 16.1 k/uL (1.3-7.7); Neutrophils % (A) 88 %; RBC 2.34 m/uL (3.80-5.40); RDW 14.3 % (11.5-15.5); WBC 18.2 k/uL (3.8-10.6); WBC (Perox) 18.82
[2016-08-19 22:33] LABS: HGB 6.9 gm/dL (11.4-16.0)
[2016-08-19 22:59] LABS: Ionized Calcium 4.3 mg/dL (4.5-5.3)
[2016-08-19 23:06] LABS: ALT 39 U/L (9-52); AST 76 U/L (14-36); Alkaline Phosphatase 25 U/L (38-126); Anion Gap 6 mmol/L; Blood Urea Nitrogen 9 mg/dL (7-17); Calcium 6.8 mg/dL (8.4-10.2); Carbon Dioxide 27 mmol/L (22-30); Chloride 112 mmol/L (98-107); Glucose 113 mg/dL (74-99); Magnesium 2.5 mg/dL (1.6-2.3); Non-African American GFR(MDRD) >60 (>60 ml/min/1.73 sqM); Potassium 3.9 mmol/L (3.5-5.1); Sodium 145 mmol/L (137-145); Total Bilirubin 1.6 mg/dL (0.2-1.3); Total Protein 3.8 g/dL (6.3-8.2)
[2016-08-19 23:17] LABS: Glucose,Whole Blood 136 mg/dL (75-99)
[2016-08-19 23:18] LABS: Phosphorous 0.8 mg/dL (2.5-4.5)
[2016-08-20] MEDS ORDERED: POTASSIUM CHLORIDE ORAL LIQUID 40 MEQ/30 ML CUP NG-TUBE SCH
[2016-08-20 00:05] LABS: Glucose,Whole Blood 136 mg/dL (75-99)
[2016-08-20] MEDS: POTASSIUM PHOSPHATE 10 MMOL in SODIUM CHLORIDE 0.9% 100 ML IV SCH ×2 (01:07→01:08)
[2016-08-20] MEDS: HEPARIN SODIUM,PORCINE 5,000 UNIT/ML 1 ML VIAL SQ SCH ×3 (01:11→17:04)
[2016-08-20 01:14] LABS: Glucose,Whole Blood 133 mg/dL (75-99)
[2016-08-20] MEDS: ACETAMINOPHEN IV (For NPO) 1,000 MG in EMPTY BAG 1 BAG IVPB SCH ×4 (01:15→16:53)
[2016-08-20] MEDS: PROPOFOL 500 MG in EMPTY BAG 1 BAG IV SCH ×4 (01:16→09:07)
[2016-08-20 02:09] LABS: Glucose,Whole Blood 133 mg/dL (75-99)
[2016-08-20] MEDS: SODIUM PHOSPHATE 10 MMOL in SODIUM CHLORIDE 0.9% 250 ML IVPB SCH ×3 (02:38→07:52)
[2016-08-20 03:05] LABS: Glucose,Whole Blood 134 mg/dL (75-99)
[2016-08-20] MEDS: IPRATROPIUM-ALBUTEROL 3 ML NEB INHALATION SCH ×8 (03:15→19:21)
[2016-08-20 04:01] LABS: Glucose,Whole Blood 127 mg/dL (75-99)
[2016-08-20 05:04] LABS: ABG Base Excess -2.1 mmol/L; ABG HCO3 22 mmol/L (21-25); ABG PCO2 33 mmHg (35-45); ABG PH 7.43 (7.35-7.45); ABG PO2 144 mmHg (83-108); ABG TCO2 23 mmol/L (19-24)
[2016-08-20 05:05] LABS: Basophils % (A) 0 %; Eosinophils % (A) 0 %; HCT 20.5 % (34.0-46.0); HDW 3.26; Luc % (Auto) 1; Lymphocytes # (A) 0.9 k/uL (1.0-4.8); Lymphocytes % (A) 7 %; MCH 29.5 pg (25.0-35.0); MCHC 33.2 g/dL (31.0-37.0); MCV 88.8 fL (80.0-100.0); Mean Platelet Volume 9.9; Monocytes # (A) 0.8 k/uL (0-1.0); Monocytes % (A) 6 %; Neutrophils # (A) 11.2 k/uL (1.3-7.7); Neutrophils % (A) 86 %; RBC 2.31 m/uL (3.80-5.40); RDW 14.8 % (11.5-15.5); WBC 12.9 k/uL (3.8-10.6); WBC (Perox) 14.12
[2016-08-20 05:07] LABS: Ionized Calcium 4.5 mg/dL (4.5-5.3)
[2016-08-20 05:16] LABS: ALT 40 U/L (9-52); AST 161 U/L (14-36); Alkaline Phosphatase 28 U/L (38-126); Anion Gap 5 mmol/L; Blood Urea Nitrogen 9 mg/dL (7-17); Calcium 7.1 mg/dL (8.4-10.2); Carbon Dioxide 26 mmol/L (22-30); Chloride 114 mmol/L (98-107); Glucose 125 mg/dL (74-99); Magnesium 2.3 mg/dL (1.6-2.3); Non-African American GFR(MDRD) >60 (>60 ml/min/1.73 sqM); Phosphorous 3.5 mg/dL (2.5-4.5); Potassium 4.6 mmol/L (3.5-5.1); Sodium 145 mmol/L (137-145); Total Bilirubin 0.7 mg/dL (0.2-1.3); Total Protein 3.9 g/dL (6.3-8.2)
[2016-08-20 05:18] LABS: HGB 6.8 gm/dL (11.4-16.0)
[2016-08-20] MEDS: ceFAZolin 2 GM in SODIUM CHLORIDE 0.9% 100 ML IVPB SCH ×2 (05:24→13:28)
[2016-08-20 05:54] LABS: INR 1.2 (<1.1); Prothrombin Time 11.5 sec (9.0-12.0)
[2016-08-20 06:03] LABS: Glucose,Whole Blood 134 mg/dL (75-99)
[2016-08-20 06:56] LABS: Glucose,Whole Blood 138 mg/dL (75-99)
[2016-08-20 08:30] LABS: Glucose,Whole Blood 130 mg/dL (75-99)
[2016-08-20] MEDS ORDERED: ASPIRIN 325 MG TAB PO SCH (09:00)
--- NOTE | 2016-08-20 09:00 | P.CNPUL ---
History of Present Illness Consult date: 08/20/16 Reason for consult: other Chief complaint: Postoperative respiratory failure, status post bypass grafting History of present illness: This is a 61-year-old female who is postop day #1 status post four-vessel bypass grafting and mitral valve repair patent foramen ovale repair and excision of left atrial appendage. The patient's doing reasonably well. There was a long procedure. The patient's on the ventilator. Vent settings include the assist control mode rate of 14 Atabrine 550 FiO2 50% PEEP of 8. Blood gases on the same settings except a PEEP of 10 show pO2 of 144 pCO2 33 to patient 0.43. The patient's currently on propofol at 40 mics per kilogram per minute LR at 50 mL an hour insulin drip at 1 unit an hour and Primacor 0.2 g kilogram per minute. Again she is postop day #1. Review of Systems ROS unobtainable: due to endotracheal tube Past Medical History Past Medical History: Chest Pain / Angina, Fibromyalgia, GERD/Reflux, Hyperlipidemia, Hypertension, Musculoskeletal Disorder, Osteoarthritis (OA), Vascular Disorder Additional Past Medical History / Comment(s): recent EKG abnormal per pt. & echo , SOB w/exertion recently, herniated discs in neck & lower back, tingling lower legs-"they fall asleep" History of Any Multi-Drug Resistant Organisms: None Reported Past Surgical History: Hysterectomy, Orthopedic Surgery Additional Past Surgical History / Comment(s): foot surg. Past Anesthesia/Blood Transfusion Reactions: Previous Problems w/ Anesthesia Additional Past Anesthesia/Blood Transfusion Reaction / Comment(s): slow to wake up Past Psychological History: ADD/ADHD Smoking Status: Current every day smoker Past Alcohol Use History: None Reported Additional Past Alcohol Use History / Comment(s): down <1ppd, smoked since age of 17 Past Drug Use History: None Reported - Past Family History Mother Family Medical History: No Reported History Medications and Allergies Home Medications Medication Instructions Recorded Confirmed Type Aspirin 162 mg PO DAILY 07/24/16 08/19/16 History Atorvastatin [Lipitor] 20 mg PO HS 07/24/16 08/19/16 History Dextroamphetamine/Amphetamine 30 mg PO TID 07/24/16 08/19/16 History [Adderall] HYDROcodone/APAP 10-325MG [[place] 1 tab PO Q6H PRN 07/24/16 08/19/16 History 10-325] Metoprolol Succinate [Toprol XL] 25 mg PO QAM 07/24/16 08/19/16 History ALPRAZolam [Xanax] 1 mg PO Q8HR PRN 08/15/16 08/19/16 History Isosorbide Mononitrate ER [Imdur] 30 mg PO DAILY 08/15/16 08/19/16 History hydrALAZINE HCL [Apresoline] 25 mg PO TID 08/15/16 08/19/16 History Allergies Allergy/AdvReac Type Severity Reaction Status Date / Time acetaminophen [From Percocet] Allergy Unknown Verified 08/15/16 15:46 oxycodone [From Percocet] Allergy Unknown Verified 08/15/16 15:46 sulfamethoxazole Allergy Hallucinati Verified 08/15/16 15:46 [From Bactrim] ons trimethoprim [From Bactrim] Allergy Hallucinati Verified 08/15/16 15:46 ons aspirin AdvReac GI upset Verified 08/15/16 15:46 Physical Exam Osteopathic Statement: *. No significant issues noted on an osteopathic structural exam other than those noted in the History and Physical/Consult. Vitals: Vital Signs Temp Pulse Pulse Resp BP Pulse Ox 08/20/16 08:50 98.8 F 80 14 130/41 99 08/20/16 08:40 99.0 F 80 14 132/42 99 08/20/16 08:00 99.0 F 80 14 98 08/20/16 07:27 79 08/20/16 07:19 83 08/20/16 07:00 98.8 F 80 14 98 08/20/16 06:00 98.7 F 79 13 96 08/20/16 05:00 78 13 98 08/20/16 04:00 98.6 F 80 13 96 08/20/16 03:17 79 08/20/16 03:15 95 08/20/16 03:07 79 08/20/16 03:00 98.2 F 80 14 97 08/20/16 02:00 98.1 F 80 13 96 08/20/16 01:00 98 F 80 14 100 08/20/16 00:00 98 F 79 36 H 99 08/19/16 23:43 76 08/19/16 23:31 79 08/19/16 23:00 97.9 F 80 14 97 08/19/16 22:18 79 14 96 08/19/16 22:15 80 13 95 08/19/16 22:00 97.9 F 79 13 96 08/19/16 21:45 97.9 F 79 13 98 08/19/16 21:30 97.9 F 79 14 98 08/19/16 21:15 97.9 F 79 14 99 08/19/16 21:00 97.9 F 79 13 100 08/19/16 20:45 97.9 F 80 14 100 08/19/16 20:30 97.9 F 79 14 99 08/19/16 20:15 97.7 F 80 14 100 08/19/16 20:12 97.7 F 82 15 109/48 100 08/19/16 20:00 97.5 F L 80 14 100 08/19/16 19:45 97.5 F L 77 13 100 08/19/16 19:44 79 08/19/16 19:42 97.7 F 79 14 109/46 100 08/19/16 19:34 79 08/19/16 19:32 97.9 F 82 14 108/48 100 08/19/16 19:30 97.9 F 79 12 100 08/19/16 19:15 97.9 F 77 14 100 08/19/16 19:00 97.7 F 79 13 100 08/19/16 18:45 97.9 F 80 16 99 08/19/16 18:39 82 08/19/16 18:30 97.7 F 79 14 99 08/19/16 18:15 98.4 F 80 11 L 100 08/19/16 18:09 98.4 F 100 08/19/16 18:00 98.4 F 80 14 100 08/19/16 13:24 97.9 F 82 14 108/48 100 Intake and Output 08/19/16 08/20/16 08/20/16 22:59 06:59 14:59 Intake Total 1040 390.837 244.41 Output Total 3861 784 196 Balance -2821 -393.163 48.41 Intake: IV 730 255 235 CO/CI 230 80 10 Lactated Ringers 1,000 ml 50 100 @ 50 mls/hr IV .Q20H [facility] Rx#:[id number] Sodium Phosphate 10 mmol 125 125 In Sodium Chloride 0.9% 250 ml @ 125 mls/hr IVPB Q2H [facility] Rx#:[id number] Intake, IV Titration 135.837 9.41 Amount Insulin Regular 100 unit 9.41 In Sodium Chloride 0.9% 100 ml @ Per Protocol IV .Q0M [facility] Rx#:[id number] Milrinone-D5w Pmx 20 mg 31.067 In Dextrose/Water 1 100ml .bag @ Per Protocol IV . Q0M [facility] Rx#:[id number] Norepinephrine 16 mg In 9.97 Sodium Chloride 0.9% 250 ml @ Titrate IV .Q0M [facility] Rx#:[id number] Propofol 500 mg In Empty 94.800 Bag 1 bag @ Titrate IV . Q0M [facility] Rx#:[id number] Blood Product 310 0 Rc As-1 Unit 310 [id number] Rc As-1 Unit 0 [id number] Output: Chest Tube Drainage 510 294 86 Chest Tube Mediastinal 265 160 50 Left Left Pleural/ 136 99 30 Mediastinal Right Right Pleural/ 109 35 6 Mediastinal Drainage 60 30 Left Thigh 50 30 Right Thigh 10 Urine 1291 460 110 Estimated Blood Loss 1999 Other: Voiding Method Indwelling Catheter Indwelling Catheter Weight 67.4 kg 77.3 kg Patient Weight 08/21/16 06:59 Weight 77.3 kg ABP, PAP, CO, CI - Last 8 Hours Arterial Blood Pressure 133/44 Arterial Blood Pressure 128/45 Arterial Blood Pressure 130/47 Arterial Blood Pressure 123/51 Arterial Blood Pressure 128/49 Arterial Blood Pressure 134/50 Arterial Blood Pressure 122/49 Arterial Blood Pressure 121/46 Pulmonary Artery Pressure 20/10 Pulmonary Artery Pressure 21/11 Pulmonary Artery Pressure 24/16 Pulmonary Artery Pressure 28/17 Pulmonary Artery Pressure 28/17 Pulmonary Artery Pressure 28/17 Pulmonary Artery Pressure 33/19 Pulmonary Artery Pressure 29/17 Cardiac Output 4.3 Cardiac Output 4.3 Cardiac Output 4.3 Cardiac Output 4.3 Cardiac Output 4.6 Cardiac Output 4.6 Cardiac Output 5.6 Cardiac Output 5.6 Cardiac Index 2.1 Cardiac Index 2.1 Cardiac Index 2.7 Cardiac Index 3.2 Cardiac Index 3.2 No acute distress, currently sedated on the ventilator. NG tube and endotracheal tube in place. HEENT examination is grossly unremarkable. Neck supple. Cardiovascular examination reveals regular rhythm rate. S1-S2 normal. Lungs reveal a few scattered mild rhonchi. No wheezes. No crackles. Abdomen soft bowel sounds are heard. Extremities are intact. Results - Laboratory Findings CBC and BMP: 08/20/16 04:55 08/20/16 04:55 ABG ABG pH 7.43 (7.35-7.45) 08/20/16 04:45 ABG pCO2 33 mmHg (35-45) L 08/20/16 04:45 ABG pO2 144 mmHg (83-108) H 08/20/16 04:45 ABG O2 Saturation 99.0 % (94-97) H 08/20/16 04:45 PT/INR, D-dimer PT 11.5 sec (9.0-12.0) 08/20/16 04:55 INR 1.2 (<1.1) 08/20/16 04:55 Abnormal lab findings: Abnormal Labs 08/16/16 08/19/16 08/19/16 08:54 10:51 12:24 WBC RBC Hgb Hct Plt Count Neutrophils # Lymphocytes # Monocytes # PT APTT ABG pCO2 ABG pO2 ABG Total CO2 ABG O2 Saturation Potassium Chloride Glucose POC Glucose (mg/dL) 130 H 107 H Calcium Ionized Calcium Maura Phosphorus Magnesium Total Bilirubin AST Alkaline Phosphatase Total Protein Albumin Crossmatch See Detail 08/19/16 08/19/16 08/19/16 13:05 13:37 14:05 WBC RBC Hgb Hct Plt Count Neutrophils # Lymphocytes # Monocytes # PT APTT ABG pCO2 ABG pO2 ABG Total CO2 ABG O2 Saturation Potassium Chloride Glucose POC Glucose (mg/dL) 205 H 232 H 291 H Calcium Ionized Calcium Maura Phosphorus Magnesium Total Bilirubin AST Alkaline Phosphatase Total Protein Albumin Crossmatch 08/19/16 08/19/16 08/19/16 14:37 15:13 15:40 WBC RBC Hgb Hct Plt Count Neutrophils # Lymphocytes # Monocytes # PT APTT ABG pCO2 ABG pO2 ABG Total CO2 ABG O2 Saturation Potassium Chloride Glucose POC Glucose (mg/dL) 261 H 230 H 217 H Calcium Ionized Calcium Maura Phosphorus Magnesium Total Bilirubin AST Alkaline Phosphatase Total Protein Albumin Crossmatch 08/19/16 08/19/16 08/19/16 16:27 17:18 18:09 WBC RBC Hgb Hct Plt Count Neutrophils # Lymphocytes # Monocytes # PT APTT ABG pCO2 ABG pO2 ABG Total CO2 ABG O2 Saturation Potassium 3.3 L Chloride 109 H Glucose 73 L POC Glucose (mg/dL) 201 H 138 H Calcium 6.5 L* Ionized Calcium Maura 4.3 L Phosphorus Magnesium 2.5 H Total Bilirubin AST 44 H Alkaline Phosphatase 27 L Total Protein 3.7 L Albumin 2.3 L Crossmatch 08/19/16 08/19/16 08/19/16 18:09 18:10 18:14 WBC 16.2 H RBC 2.24 L Hgb 6.7 L* D Hct 20.1 L Plt Count 135 L Neutrophils # 13.9 H Lymphocytes # Monocytes # PT 14.2 H APTT 44.3 H ABG pCO2 ABG pO2 196 H ABG Total CO2 25 H ABG O2 Saturation 99.7 H Potassium Chloride Glucose POC Glucose (mg/dL) Calcium Ionized Calcium Maura Phosphorus Magnesium Total Bilirubin AST Alkaline Phosphatase Total Protein Albumin Crossmatch 08/19/16 08/19/16 08/19/16 18:33 18:54 19:12 WBC RBC Hgb Hct Plt Count Neutrophils # Lymphocytes # Monocytes # PT APTT ABG pCO2 ABG pO2 ABG Total CO2 ABG O2 Saturation Potassium Chloride Glucose POC Glucose (mg/dL) 69 L 111 H 101 H Calcium Ionized Calcium [place] Phosphorus Magnesium Total Bilirubin AST Alkaline Phosphatase Total Protein Albumin Crossmatch 08/19/16 08/19/16 08/19/16 19:42 19:59 21:06 WBC RBC Hgb Hct Plt Count Neutrophils # Lymphocytes # Monocytes # PT APTT ABG pCO2 ABG pO2 ABG Total CO2 ABG O2 Saturation Potassium Chloride Glucose POC Glucose (mg/dL) 102 H 103 H 122 H Calcium Ionized Calcium [place] Phosphorus Magnesium Total Bilirubin AST Alkaline Phosphatase Total Protein Albumin Crossmatch 08/19/16 08/19/16 08/19/16 22:10 22:10 22:10 WBC 18.2 H RBC 2.34 L Hgb 6.9 L* Hct 20.7 L Plt Count 128 L Neutrophils # 16.1 H Lymphocytes # 0.7 L Monocytes # 1.3 H PT APTT ABG pCO2 ABG pO2 ABG Total CO2 ABG O2 Saturation Potassium Chloride 112 H Glucose 113 H POC Glucose (mg/dL) 131 H Calcium 6.8 L Ionized Calcium Maura 4.3 L Phosphorus 0.8 L* Magnesium 2.5 H Total Bilirubin 1.6 H AST 76 H Alkaline Phosphatase 25 L Total Protein 3.8 L Albumin 2.5 L Crossmatch 08/19/16 08/20/16 08/20/16 23:16 00:03 01:06 WBC RBC Hgb Hct Plt Count Neutrophils # Lymphocytes # Monocytes # PT APTT ABG pCO2 ABG pO2 ABG Total CO2 ABG O2 Saturation Potassium Chloride Glucose POC Glucose (mg/dL) 136 H 136 H 133 H Calcium Ionized Calcium [place] Phosphorus Magnesium Total Bilirubin AST Alkaline Phosphatase Total Protein Albumin Crossmatch 08/20/16 08/20/16 08/20/16 02:08 03:04 04:00 WBC RBC Hgb Hct Plt Count Neutrophils # Lymphocytes # Monocytes # PT APTT ABG pCO2 ABG pO2 ABG Total CO2 ABG O2 Saturation Potassium Chloride Glucose POC Glucose (mg/dL) 133 H 134 H 127 H Calcium Ionized Calcium Maura Phosphorus Magnesium Total Bilirubin AST Alkaline Phosphatase Total Protein Albumin Crossmatch 08/20/16 08/20/16 08/20/16 04:45 04:55 04:55 WBC 12.9 H RBC 2.31 L Hgb 6.8 L* Hct 20.5 L Plt Count 115 L Neutrophils # 11.2 H Lymphocytes # 0.9 L Monocytes # PT APTT ABG pCO2 33 L ABG pO2 144 H ABG Total CO2 ABG O2 Saturation 99.0 H Potassium Chloride 114 H Glucose 125 H POC Glucose (mg/dL) Calcium 7.1 L Ionized Calcium Maura Phosphorus Magnesium Total Bilirubin AST 161 H Alkaline Phosphatase 28 L Total Protein 3.9 L Albumin 2.4 L Crossmatch 08/20/16 08/20/16 08/20/16 06:01 06:54 08:29 WBC RBC Hgb Hct Plt Count Neutrophils # Lymphocytes # Monocytes # PT APTT ABG pCO2 ABG pO2 ABG Total CO2 ABG O2 Saturation Potassium Chloride Glucose POC Glucose (mg/dL) 134 H 138 H 130 H Calcium Ionized Calcium [place] Phosphorus Magnesium Total Bilirubin AST Alkaline Phosphatase Total Protein Albumin Crossmatch - Diagnostic Findings Chest x-ray: image reviewed (Chest x-ray labs are reviewed.) Assessment and Plan (1) S/P CABG x 4 Status: Acute Plan: Plan The patient has been evaluated. Labs x-rays are reviewed. Medications are reviewed. We'll continue to follow. Not quite yet ready for extubation. The patient's PEEP levels a. Blood gases are reasonable. We'll continue to follow closely. Prognosis is guarded. Time with Patient: Greater than 30
[2016-08-20 09:13] LABS: Glucose,Whole Blood 139 mg/dL (75-99)
[2016-08-20] MEDS: CLOPIDOGREL 75 MG TAB PO SCH (09:19)
[2016-08-20] MEDS: ATORVASTATIN 40 MG TAB PO SCH (09:19)
[2016-08-20] MEDS: MUPIROCIN 2% OINT 22 GM TUBE NASAL SCH ×2 (09:20→20:17)
[2016-08-20] MEDS: PANTOPRAZOLE 40 MG/10 ML VIAL IVP SCH (09:20)
--- NOTE | 2016-08-20 09:42 | XR ---
EXAMINATION TYPE: XR chest 1V portable DATE OF EXAM: 08/20/2016 6:54 AM COMPARISON: 08/19/2016 HISTORY: Postop cardiac surgery TECHNIQUE: Single frontal view of the chest is obtained. FINDINGS: ET and NG tube noted. Law[place]-Rolf catheter seen. Bilateral chest tubes. No sizable pneumotho rax. Subsegmental consolidation of both lung bases likely the basis of postoperative atelectasis. IMPRESSION: 1. Postsurgical changes.
[2016-08-20] MEDS: HYDROcodone/APAP 5-325MG 1 EACH TAB PO PRN ×2 (09:55→13:06)
[2016-08-20 10:34] LABS: Glucose,Whole Blood 135 mg/dL (75-99)
[2016-08-20] MEDS: SODIUM CHLORIDE 0.9% 99 ML with VASOPRESSIN 20 UNIT IV SCH ×2 (11:11)
[2016-08-20] MEDS: KETOROLAC 30 MG/ML 1 ML VIAL IVP PRN ×2 (11:18→17:08)
--- NOTE | 2016-08-20 11:49 | OP ---
DATE OF SERVICE: 08/19/2016 SURGEON: Tyron Manzo MD PROFILER HAND: GEMMA Pearce PREOPERATIVE DIAGNOSES: Triple vessel coronary artery disease with an old inferior wall myocardial infarction, moderate left ventricular dysfunction, moderate mitral valve regurgitation, infero-basal aneurysm, hypertension, hyperlipidemia, fibromyalgia, gastroesophageal reflux disease, tobacco abuse. POSTOPERATIVE DIAGNOSES: Triple vessel coronary artery disease with an old inferior wall myocardial infarction, moderate left ventricular dysfunction, moderate mitral valve regurgitation, infero-basal aneurysm, hypertension, hyperlipidemia, fibromyalgia, gastroesophageal reflux disease, tobacco abuse. OPERATION: 1. Quadruple coronary artery bypass grafting using the left internal mammary artery to the left anterior descending artery, reverse saphenous vein graft from the aorta to the diagonal artery, reverse saphenous vein graft from the aorta to the obtuse marginal artery, reverse saphenous vein graft from the aorta to the distal right coronary artery at its bifurcation after endarterectomy of the proximal posterior descending artery, and posterolateral branch. 2. Mitral valve repair with complete ring annuloplasty using a 28 mm dixie 3-D ring. 3. Exclusion of the left atrial appendage using a 35 mm AtriClip. 4. Intraoperative transesophageal echocardiogram and epiaortic scanning. INDICATIONS FOR SURGERY: Patient is a 61-year-old lady who has been worked up in view of chest pain and dyspnea on exertion with an echo showing decreased left ventricular function and had a cardiac catheterization that showed a chronically occluded right coronary artery that was super dominant as well as severe disease of the proximal LAD and circumflex system. Two-D echo and ANDREA shows what seems to be moderate mitral valve regurgitation from tethering of the posterior leaflet in view of an old inferior wall myocardial infarction and a inferobasal dyskinetic/aneurysmal segment. Plan is to proceed with coronary artery bypass grafting and mitral valve repair in view of the basal aneurysm and the potential for progression of the mitral regurgitation in the future in view of the patient's young age. Patient is a heavy smoker and she has been advised to stop smoking before surgery, however, she only did cut down on smoking. She was seen by pulmonary also and optimized. Risks, benefits, and alternatives were discussed with her and her . They understood them and agreed to proceed. DESCRIPTION OF THE PROCEDURE: Patient had a right internal jugular [place] catheter and the left radial arterial line inserted in the preoperative holding area. She was brought to the operating room where general endotracheal anesthesia was induced uneventfully. She had normal PA pressure and good cardiac index. Almanza catheter was inserted and another specimen for urinalysis and urine culture was sent. The patient received 2 grams of cefazolin intravenously. The chest, abdomen and both lower extremities were prepped and draped using ChloraPrep. Ioban was used to cover the skin. Transesophageal echocardiogram confirmed the preoperative finding of moderate eccentric mitral valve regurgitation with a posterior jet from tethering of the posterior leaflet. There was moderate left ventricular dysfunction. Midline sternotomy was performed and no bone wax was used. The left hemisternum was elevated and left internal mammary artery was harvested in a somewhat skeletonized fashion. The left pleura was intentionally opened in this process and was drained with 28 Albanian chest tube. The right pleura was also opened inadvertently and was drained with another 28 Albanian chest tube. In the same setting, initially the left greater saphenous vein was harvested endoscopically from groin to above ankle level using endoscopic technique after administration of 2000 units of heparin intravenously. The branches were tied. That vein appeared to be small up to the knee level however, at the thigh level and it was usable, around 4 mm in diameter, but was not enough, so we proceeded at harvesting the right greater saphenous vein between the groin and knee level and that segment was also good. The branches were tied and both leg incisions were closed over a AJ drain. Mediastinal fat was transected between 2 ties and epiaortic scanning revealed normal ascending aorta. Pericardium was opened in an inverted T fashion and pericardial cradle was created. Findings included a normal size aorta and heart with small diffuse coronary arteries. After systemic heparinization and after placement of respective pursestrings in the ascending aorta in the [facility] directly in the right atrial IVC junction, arterial cannulation with a 21 [place] soft flow cannula, SVC cannulation with a 28 [place] right angle cannula, and IVC cannulation with a 50 [place] straight cannula was performed. Antegrade as well as retrograde cardioplegia catheters were also inserted via pledgeted pursestrings. The mammary artery was double clipped distally and transected and had an excellent pulsatile flow in it and was prepared and was around 1.3 mm in diameter. The cardiopulmonary bypass was initiated and the patient temperature was allowed to drift down to around 34 degrees Celsius. During aortic clamping myocardial protection was achieved with an initial dose of 500 mL of antegrade cold blood cardioplegia followed by another 500 mL of retrograde cold blood cardioplegia. All subsequent doses were given retrograde as well as at through the constructed vein graft to the right coronary system. The first part of the surgery was to complete oral distal anastomosis. The first distal anastomosis was seen in a segment of reverse saphenous vein graft and the right coronary artery, which was opened in its bifurcation, was occluded at that level and I proceeded at endarterectomizing the proximal aspect of the PDA and we obtained tapered end of the plaque as well as a good endarterectomy also, which was around 4 cm in length of the plaque going to the posterolateral branch of the right coronary artery and was also tapered. So the anastomosis basically covered the RCA and its bifurcation into the PDA and posterolateral branch using Prolene 7-0 in continuous fashion. There was adequate flow through the vein and it was hemostatic. That vein was connected to a side arm on the retrograde cardioplegia delivery system and as mentioned above all maintenance doses went additionally through this vein to insure better right ventricular protection. The second distal anastomosis was between another segment of reverse saphenous vein graft of good quality and the proximal aspect of the obtuse marginal artery, which was a small vessel, was around 1.2 mm in diameter, using Prolene 7-0 in continuous fashion. I used a 1 mm shunt to help define the edges of the artery and that was removed before completing the anastomosis, which was hemostatic. The third distal anastomosis was between another segment of vein, which was of good quality. The last diagonal artery, which was also small, and thin-walled, which was opened, was around 1.2 mm in diameter, accepted 1 mm shunt using Prolene 7-0 in continuous fashion. Shunt was removed before completing the anastomosis, which was hemostatic and had good flow in it. It. The fourth and last distal anastomosis was between the left internal mammary artery and the mid to distal aspect of the left anterior descending artery after the takeoff the last diagonal beyond the stenosis at that level using Prolene 7-0 in continuous fashion. The left anterior descending artery was around 1.4 mm in diameter and I put a shunt to help define its edges also and the shunt was removed before completing the anastomosis, which was hemostatic. The mammary pedicle was affixed to the epicardium with 1 Prolene silk 0 suture. The Aubrey mitral retractor was used during the case to help into the mitral valve repair part. The intra-atrial groove was developed and the left atrium was opened transversely in a standard fashion. Exposure of the mitral valve was adequate. There were no ruptured cords. There was some annular dilatation and tethering of the posterior leaflet. I placed a total of 10 Tycron 2-0 non-pledgeted suture all around the circumference of the mitral valve and I selected a 28 mm Dixie 3-D ring and all the sutures were passed in the ring symmetrically and the ring was seated nicely. All the needles were cut and tied using the core knot device. Testing of the valve revealed excellent seal. I had excluded the left atrial appendage from outside using a 35 mm AtriClip. CO2 was flooding over the field as the left atrium was opened. The left atriotomy was closed using Prolene 4 - 0 pledgeted on each corner in a single running technique. De-airing maneuvers were performed before completing the closure of the left atrium. Attention was moved at this point at performing the 3 proximal anastomosis. Rewarming was started and 3 buttons of 4 mm each were punched out the ascending aorta and all 3 proximal anastomosis performed using Prolene 6-0 in continuous fashion. We had given around 1 liter of warm blood via the retrograde route during the construction of the last proximal anastomosis. Patient was given lidocaine and magnesium and the aorta was unclamped. Patient regained spontaneous junctional rhythm. One bipolar ventricular wire was driven via the inferior aspect of the right ventricle. Two monopolar atrial pacing wires were affixed to the medial aspect of the right atrial appendage away from the vein graft using Prolene 6-0 in a looped fashion. De-airing maneuvers were performed and I used guided by ANDREA and I had to stick the apex with an 18-gauge needle that hole was closed using pledgeted Prolene 4-0 DB. After a period of reperfusion and after instituting atrial ventricular pacing at 80 in view of some AV conduction issues, we were able to wean off cardiopulmonary bypass with the use of Levophed and low-dose Primacor. Patient also eventually required low-dose vasopressin for pressure support. The ANDREA had showed good mitral functioning with no regurgitation and improved left ventricular function and a mild right ventricular dysfunction that eventually also improved. There was no air in the ventricle. Test dose and full dose protamine was given. Decannulation proceeded. The retrograde and SVC sites were reinforced with Prolene. A groove was made in the left pleural pericardial fat to accommodate the mammary artery medial to the lung and away from the posterior sternal table. There was minimal pericardial fat to close over the heart so the pericardium was not closed. However, all the grafts were covered. Two substernal chest tubes were placed. After ensuring adequate hemostasis and hemodynamics and after correct sponge, instrument and needle count, the sternum was closed using 7 interrupted stainless steel wires after interposing fibrillar between the sternal edges. Thorough irrigation with cefazolin followed. The rest of the closure proceeded in layers. Skin glue sealant was applied. Patient received 1 unit of packed red blood cell on pump and was transferred to the ICU with good hemodynamics. PA pressure of 30/17, mean arterial pressure of 70, DDD paced at 80 with a CVP of 15 on 0.2 mcg/kg per minute of Primacor and low-dose Levophed and vasopressin. MTDD
--- NOTE | 2016-08-20 12:01 | P.PN ---
Progress Note - Text CV Surgery Nursing POD: #1, coronary artery bypass grafts 4 utilizing a left internal mammary artery to left anterior descending artery, reverse saphenous vein graft to the diagonal, first obtuse marginal, and right coronary artery. Mitral valve repair using a Lev dixie 3-D 28 mm mitral ring. Excision of left atrial appendage with the 35 mm AtriCure clip, repair of patent foramen ovale, bilateral endoscopic vein harvesting, intraoperative transesophageal echocardiogram and epi-aortic ultrasonography. Patient sedated on vent, responds appropriately to stimuli. Vital Signs: Afebrile, T-max is 99.1F Vital Signs - 24 hr 08/19/16 08/19/16 08/19/16 13:24 18:00 18:09 Temperature 97.9 F 98.4 F 98.4 F Pulse Rate 82 80 Pulse Rate [ Right Sitting Pulse Oximetery ] Respiratory 14 14 Rate Blood Pressure 108/48 O2 Sat by Pulse 100 100 100 Oximetry 08/19/16 08/19/16 08/19/16 18:15 18:30 18:39 Temperature 98.4 F 97.7 F Pulse Rate 80 79 Pulse Rate [ 82 Right Sitting Pulse Oximetery ] Respiratory 11 L 14 Rate Blood Pressure O2 Sat by Pulse 100 99 Oximetry 08/19/16 08/19/16 08/19/16 18:45 19:00 19:15 Temperature 97.9 F 97.7 F 97.9 F Pulse Rate 80 79 77 Pulse Rate [ Right Sitting Pulse Oximetery ] Respiratory 16 13 14 Rate Blood Pressure O2 Sat by Pulse 99 100 100 Oximetry 08/19/16 08/19/16 08/19/16 19:30 19:32 19:34 Temperature 97.9 F 97.9 F Pulse Rate 79 82 79 Pulse Rate [ Right Sitting Pulse Oximetery ] Respiratory 12 14 Rate Blood Pressure 108/48 O2 Sat by Pulse 100 100 Oximetry 08/19/16 08/19/16 08/19/16 19:42 19:44 19:45 Temperature 97.7 F 97.5 F L Pulse Rate 79 79 77 Pulse Rate [ Right Sitting Pulse Oximetery ] Respiratory 14 13 Rate Blood Pressure 109/46 O2 Sat by Pulse 100 100 Oximetry 08/19/16 08/19/16 08/19/16 20:00 20:12 20:15 Temperature 97.5 F L 97.7 F 97.7 F Pulse Rate 80 82 80 Pulse Rate [ Right Sitting Pulse Oximetery ] Respiratory 14 15 14 Rate Blood Pressure 109/48 O2 Sat by Pulse 100 100 100 Oximetry 08/19/16 08/19/16 08/19/16 20:30 20:45 21:00 Temperature 97.9 F 97.9 F 97.9 F Pulse Rate 79 80 79 Pulse Rate [ Right Sitting Pulse Oximetery ] Respiratory 14 14 13 Rate Blood Pressure O2 Sat by Pulse 99 100 100 Oximetry 08/19/16 08/19/16 08/19/16 21:15 21:30 21:45 Temperature 97.9 F 97.9 F 97.9 F Pulse Rate 79 79 79 Pulse Rate [ Right Sitting Pulse Oximetery ] Respiratory 14 14 13 Rate Blood Pressure O2 Sat by Pulse 99 98 98 Oximetry 08/19/16 08/19/16 08/19/16 22:00 22:15 22:18 Temperature 97.9 F Pulse Rate 79 80 79 Pulse Rate [ Right Sitting Pulse Oximetery ] Respiratory 13 13 14 Rate Blood Pressure O2 Sat by Pulse 96 95 96 Oximetry 08/19/16 08/19/16 08/19/16 23:00 23:31 23:43 Temperature 97.9 F Pulse Rate 80 79 76 Pulse Rate [ Right Sitting Pulse Oximetery ] Respiratory 14 Rate Blood Pressure O2 Sat by Pulse 97 Oximetry 08/20/16 08/20/16 08/20/16 00:00 01:00 02:00 Temperature 98 F 98 F 98.1 F Pulse Rate 79 80 80 Pulse Rate [ Right Sitting Pulse Oximetery ] Respiratory 36 H 14 13 Rate Blood Pressure O2 Sat by Pulse 99 100 96 Oximetry 08/20/16 08/20/16 08/20/16 03:00 03:07 03:15 Temperature 98.2 F Pulse Rate 80 79 Pulse Rate [ Right Sitting Pulse Oximetery ] Respiratory 14 Rate Blood Pressure O2 Sat by Pulse 97 95 Oximetry 08/20/16 08/20/16 08/20/16 03:17 04:00 05:00 Temperature 98.6 F Pulse Rate 79 80 78 Pulse Rate [ Right Sitting Pulse Oximetery ] Respiratory 13 13 Rate Blood Pressure O2 Sat by Pulse 96 98 Oximetry 08/20/16 08/20/16 08/20/16 06:00 07:00 07:19 Temperature 98.7 F 98.8 F Pulse Rate 79 80 83 Pulse Rate [ Right Sitting Pulse Oximetery ] Respiratory 13 14 Rate Blood Pressure O2 Sat by Pulse 96 98 Oximetry 08/20/16 08/20/16 08/20/16 07:27 08:00 08:40 Temperature 99.0 F 99.0 F Pulse Rate 79 80 80 Pulse Rate [ Right Sitting Pulse Oximetery ] Respiratory 14 14 Rate Blood Pressure 132/42 O2 Sat by Pulse 98 99 Oximetry 08/20/16 08/20/16 08/20/16 08:50 09:00 09:20 Temperature 98.8 F 99.1 F 99.0 F Pulse Rate 80 80 80 Pulse Rate [ Right Sitting Pulse Oximetery ] Respiratory 14 13 14 Rate Blood Pressure 130/41 143/50 O2 Sat by Pulse 99 100 Oximetry 08/20/16 10:00 Temperature Pulse Rate 79 Pulse Rate [ Right Sitting Pulse Oximetery ] Respiratory 13 Rate Blood Pressure 101/42 O2 Sat by Pulse 98 Oximetry ABP, PAP, CO, CI - Last 8 Hours Arterial Blood Pressure 129/46 Arterial Blood Pressure 139/49 Arterial Blood Pressure 133/44 Arterial Blood Pressure 128/45 Arterial Blood Pressure 130/47 Arterial Blood Pressure 123/51 Arterial Blood Pressure 128/49 Pulmonary Artery Pressure 26/14 Pulmonary Artery Pressure 28/17 Pulmonary Artery Pressure 20/10 Pulmonary Artery Pressure 21/11 Pulmonary Artery Pressure 24/16 Pulmonary Artery Pressure 28/17 Pulmonary Artery Pressure 28/17 Cardiac Output 4.8 Cardiac Output 4.8 Cardiac Output 4.3 Cardiac Output 4.3 Cardiac Output 4.3 Cardiac Output 4.3 Cardiac Output 4.6 Cardiac Index 2.1 Cardiac Index 2.1 Labs: Short CBC 08/19/16 08/19/16 08/20/16 Range/Units 18:10 22:10 04:55 WBC 16.2 H 18.2 H 12.9 H (3.8-10.6) k/uL Hgb 6.7 L* D 6.9 L* 6.8 L* (11.4-16.0) gm/dL Hct 20.1 L 20.7 L 20.5 L (34.0-46.0) % Plt Count 135 L 128 L 115 L (150-450) k/uL Neutrophils # 13.9 H 16.1 H 11.2 H (1.3-7.7) k/uL BMP 08/19/16 08/19/1617 18:09 22:10 04:55 Sodium 144 145 145 Potassium 3.3 L 3.9 4.6 Chloride 109 H 112 H 114 H Carbon Dioxide 26 27 26 BUN 7 9 9 Creatinine 0.75 0.80 0.81 Glucose 73 L 113 H 125 H Calcium 6.5 L* 6.8 L 7.1 L Liver Function 08/19/16 08/19/16 08/20/16 Range/Units 18:09 22:10 04:55 Total Bilirubin 1.3 1.6 H 0.7 (0.2-1.3) mg/dL AST 44 H 76 H 161 H (14-36) U/L ALT 33 39 40 (9-52) U/L Alkaline Phosphatase 27 L 25 L 28 L (38-126) U/L Albumin 2.3 L 2.5 L 2.4 L (3.5-5.0) g/dL IV Fluids: Milrinone drip is at 0.2 mcg/kg/m Clevidipine drip at 2 mg per hour Insulin drip at 2 units per hour Propofol drip at 20 mcg/kg/m Cardiac output: 4.8 L/m Cardiac index: 2.8 L/m Pulmonary artery pressures: 26/12 mmHg CVP: 10 mmHg Lungs: Lungs are clear to auscultation Heart: S1S2, atrially paced at a rate of 80, underlying rhythm there is from sinus rhythm of 70 to a junctional rhythm Sternum stable, chest incision clean with silverlon dressing clean and dry. Abdomen: Soft, hypoactive bowel sounds present in all 4 quadrants. CBGs: 103-217 mg/dL U/O: Almanza catheter to dependent drainage drained 1750 mL over the last 8 hours Chest Tubes: Mediastinal chest tube with small visible air leak drained 160 mL of serosanguineous fluid over the last 8 hours. Right pleural chest tube with no visible air leak drained 35 mL over the last 8 hours. Left pleural chest tube with no visible air leak drained 99 mL over the last 8 hours. 24 hr Total: Intake & Output 08/18/16 08/19/16 08/20/16 08/21/16 06:59 06:59 06:59 06:59 Intake Total 1781.837 772.010 Output Total 4645 448 Balance -2863.163 324.010 Weight 67.4 kg 77.3 kg Active Medications Acetaminophen/Hydrocodone Bitart ([place] 5-325) 2 each PO Q4HR PRN PRN Reason: Severe Pain Last Admin: 08/20/16 09:55 Dose: 2 each Acetaminophen/Hydrocodone Bitart ([place] 5-325) 1 each PO Q4HR PRN PRN Reason: Moderate Pain Albuterol/Ipratropium (Duoneb 0.5 Mg-3 Mg/3 Ml Soln) 3 ml INHALATION RT-Q4H [facility] Last Admin: 08/20/16 11:21 Dose: 3 ml Albuterol/Ipratropium (Duoneb 0.5 Mg-3 Mg/3 Ml Soln) 3 ml INHALATION RT-Q2H PRN PRN Reason: Shortness Of Breath Or Wheezing Albuterol/Ipratropium (Duoneb 0.5 Mg-3 Mg/3 Ml Soln) 3 ml INHALATION RT-QID [facility]OTHY Aspirin (Aspirin) 325 mg PO DAILY [facility] Last Admin: 08/20/16 09:19 Dose: 325 mg Atorvastatin Calcium (Lipitor) 40 mg PO DAILY [facility] Last Admin: 08/20/16 09:19 Dose: 40 mg Benzocaine/Menthol (Cepacol Lozenge) 1 each MUCOUS MEM Q2H PRN PRN Reason: Sore Throat Bisacodyl (Dulcolax) 10 mg RECTAL DAILY PRN PRN Reason: Constipation Clopidogrel Bisulfate (Plavix) 75 mg PO DAILY [facility] Last Admin: 08/20/16 09:19 Dose: 75 mg Heparin Sodium (Porcine) (Heparin) 5,000 unit SQ Q8HR [facility] Last Admin: 08/20/16 09:19 Dose: 5,000 unit Insulin Human Regular 100 unit (/ Sodium Chloride) 101 mls @ 0 mls/hr IV .Q0M TIMOTHY; Per Protocol PRN Reason: Protocol Last Titration: 08/20/16 07:19 Dose: 2 units/hr, 2.02 mls/hr Norepinephrine Bitartrate 16 (mg/ Sodium Chloride) 266 mls @ 0 mls/hr IV .Q0M TIMOTHY; Titrate PRN Reason: Protocol Last Titration: 08/20/16 02:39 Dose: 1 mcg/min, 0.99 mls/hr Phenylephrine HCl 40 mg/ (Sodium Chloride) 254 mls @ 0 mls/hr IV .Q0M TIMOTHY; Titrate PRN Reason: Protocol Acetaminophen 1,000 mg/ IV (Solution) 100 mls @ 400 mls/hr IVPB Q6HR TIMOTHY Stop: 08/20/16 18:31 Last Admin: 08/20/16 04:30 Dose: Not Given Albumin Human 250 ml/ IV (Solution) 250 mls @ 250 mls/hr IVPB Q1HR PRN PRN Reason: For Volume Stop: 08/21/16 18:10 Lactated Ringer's (Lactated Ringers) 1,000 mls @ 50 mls/hr IV .Q20H TIMOTHY Last Admin: 08/19/16 18:00 Dose: 50 mls/hr Milrinone Lactate/Dextrose 20 (mg/ IV Solution) 100 mls @ 0 mls/hr IV .Q0M TIMOTHY ; Per Protocol PRN Reason: Protocol Last Titration: 08/20/16 01:46 Dose: 0.2 mcg/kg/min, 4 mls/hr Nitroglycerin/Dextrose 50 mg/ (IV Solution) 250 mls @ 3 mls/hr IV .Q24H TIMOTHY; 10 MCG/MIN PRN Reason: Protocol Last Admin: 08/19/16 20:45 Dose: Not Given Propofol 500 mg/ IV Solution 50 mls @ 0 mls/hr IV .Q0M TIMOTHY; Titrate PRN Reason: Protocol Last Titration: 08/20/16 10:26 Dose: 0 mcg/kg/min, 0 mls/hr Vasopressin 20 unit/ Sodium (Chloride) 100 mls @ 6 mls/hr IV .[id number] TIMOTHY; 0.02 UNITS/MIN PRN Reason: Protocol Last Admin: 08/20/16 11:11 Dose: Not Given Cefazolin Sodium 2 gm/ Sodium (Chloride) 100 mls @ 100 mls/hr IVPB Q8H TIMOTHY Stop: 08/20/16 13:59 Last Admin: 08/20/16 05:24 Dose: 100 mls/hr Clevidipine 25 mg/ IV Solution 50 mls @ 2 mls/hr IV .Q24H TIMOTHY; 1 MG/HR PRN Reason: Protocol Ketorolac Tromethamine (Toradol) 15 mg IVP Q6HR PRN PRN Reason: Pain Stop: 08/24/16 11:06 Last Admin: 08/20/16 11:18 Dose: 15 mg Magnesium Hydroxide (Milk Of Magnesia) 2,400 mg PO BID PRN PRN Reason: Constipation Metoprolol Tartrate (Lopressor) 12.5 mg PO BID [facility] Miscellaneous Information (Magnesium Per Protocol) 1 each MISCELLANE DAILY PRN ; Protocol PRN Reason: Per Protocol Miscellaneous Information (Phosphorus Per Protocol) 1 each MISCELLANE DAILY PRN ; Protocol PRN Reason: Per Protocol Miscellaneous Information (Potassium Per Protocol) 1 each MISCELLANE DAILY PRN ; Protocol PRN Reason: Per Protocol Morphine Sulfate (Morphine Sulfate (Inj)) 2 mg IVP Q2H PRN PRN Reason: Severe Pain Mupirocin (Bactroban Oint) 1 applic NASAL BID [facility] Stop: 08/22/16 21:01 Last Admin: 08/20/16 09:20 Dose: 1 applic Ondansetron HCl (Zofran) 4 mg IVP Q6HR PRN PRN Reason: Nausea And Vomiting Pantoprazole Sodium (Protonix) 40 mg IVP DAILY [facility] Last Admin: 08/20/16 09:20 Dose: 40 mg Senna/Docusate Sodium (Senokot-S) 2 each PO HS [facility] Sodium Chloride (Saline Flush) 10 ml IV BID [facility] Last Admin: 08/20/16 09:20 Dose: 10 ml Plan: Wean from vent as tolerated per pulmonology. Wean propofol drip Patient being transfused with a unit of packed cells will monitor hemoglobin and hematocrit
[2016-08-20 12:07] LABS: Glucose,Whole Blood 132 mg/dL (75-99)
[2016-08-20 12:25] LABS: CH 29.7; CHCM 33.2; HCT 23.7 % (34.0-46.0); HDW 3.25; HGB 7.9 gm/dL (11.4-16.0); MCH 29.9 pg (25.0-35.0); MCHC 33.1 g/dL (31.0-37.0); MCV 90.4 fL (80.0-100.0); Mean Platelet Volume 9.1; RBC 2.62 m/uL (3.80-5.40); RDW 14.7 % (11.5-15.5); WBC 14.2 k/uL (3.8-10.6)
[2016-08-20] MEDS: METOPROLOL TARTRATE 12.5 MG TAB PO SCH ×2 (13:28→20:17)
[2016-08-20 14:30] LABS: Glucose,Whole Blood 129 mg/dL (75-99)
[2016-08-20] MEDS: LACTATED RINGERS 1,000 ML IV SCH (15:03)
[2016-08-20 16:02] LABS: Glucose,Whole Blood 125 mg/dL (75-99)
[2016-08-20] MEDS ORDERED: HYDROcodone/APAP 5-325MG 1 EACH TAB PO PRN ×2 (16:43)
[2016-08-20] MEDS ORDERED: MAGNESIUM HYDROXIDE 2,400 MG/10 ML CUP PO PRN (16:45)
[2016-08-20] MEDS ORDERED: BISACODYL 10 MG SUPP RECTAL PRN (16:45)
[2016-08-20] MEDS ORDERED: IPRATROPIUM-ALBUTEROL 3 ML NEB INHALATION PRN (16:46)
[2016-08-20] MEDS: CLEVIDIPINE BUTYRATE 25 MG in EMPTY BAG 1 BAG IV SCH (16:50)
[2016-08-20] MEDS ORDERED: METOPROLOL TARTRATE 12.5 MG TAB PO STA (17:41)
[2016-08-20 18:01] LABS: Glucose,Whole Blood 131 mg/dL (75-99)
[2016-08-20] MEDS: NITROGLYCERIN-D5W PMX 50 MG in DEXTROSE/WATER 1 250ML.BAG IV SCH (18:24)
[2016-08-20] MEDS ORDERED: CLOPIDOGREL 75 MG TAB PO STA (19:03)
[2016-08-20 20:08] LABS: Glucose,Whole Blood 137 mg/dL (75-99)
[2016-08-20] MEDS: SENNOSIDES-DOCUSATE SODIUM 1 EACH TAB PO SCH (20:17)
--- NOTE | 2016-08-20 20:43 | PN ---
Balbina May is a 61-year-old female patient of [facility] who has severe triple-vessel coronary artery disease and underwent coronary artery bypass grafting yesterday. She has been extubated. She is doing well. She is sitting up in a chair. She is mildly short of breath. Pulse rate is in the 90s. She is atrially paced. She has an underlying junctional rhythm. Blood pressure is 101/49 mmHg. PA pressures are 17/5 mmHg. Breath sounds are reduced bilaterally. Conducted sounds are heard on the precordium. IMPRESSION: Coronary artery disease, status post coronary artery bypass grafting. SUGGEST: Continue postoperative ICU care and resume statins and antiplatelet agents. We will start introducing beta blockers and will keep an eye on her underlying rhythm.
[2016-08-20 22:10] LABS: Glucose,Whole Blood 140 mg/dL (75-99)
--- NOTE | 2016-08-20 22:54 | P.CONS ---
History of Present Illness - Reason for Consult Consult date: 08/20/16 Medical management Requesting physician: Tyron Manzo - Chief Complaint Post CABG, post mitral valve repair, patent morelos ovale repair, hypertens - History of Present Illness 61-year-old female one of Dr. Shrestha patient with past medical history of osteoarthritis hypertension hyperlipidemia and previous history of TIA and chronic lower back pain who had developed significant shortness of breath with minimum exertion was seen Dr. Verde recently and was diagnosed with possible coronary artery disease was [facility] and ended up having testing with Dr. Ann and furthermore heart catheter showed significant multiple coronary artery disease. 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 Review of Systems ROS unobtainable: due to endotracheal tube Constitutional: Reports lethargy, Reports malaise, Denies as per HPI, Denies anorexia, Denies chills, Denies chronic headaches, Denies chronic pain, Denies daytime sleepiness, Denies fatigue, Denies fever, Denies night sweats, Denies poor appetite, Denies sweats, Denies weakness, Denies weight gain, Denies weight loss Eyes: bilateral as per HPI Ears: bilateral: decreased hearing Ears, nose, mouth and throat: Denies as per HPI, Denies ant. neck pain, Denies bleeding gums, Denies dental pain, Denies dysphagia, Denies epistaxis, Denies headache, Denies hoarseness, Denies mouth pain, Denies nasal congestion, Denies nasal discharge, Denies neck fullness/pressure, Denies neck lump, Denies nose pain, Denies odynophagia, Denies post-nasal drip, Denies sinus pain, Denies sinus pressure, Denies swelling in mouth, Denies swelling in throat, Denies sore throat, Denies vertigo, Denies voice changes Cardiovascular: Reports leg edema, Denies as per HPI, Denies chest pain, Denies claudication, Denies decreased exercise tolerance, Denies dyspnea on exertion, Denies edema, Denies high blood pressure, Denies irregular heart beat, Denies lightheadedness, Denies orthopnea, Denies palpitations, Denies paroxysmal nocturnal dyspnea, Denies phlebitis, Denies rapid heart beat, Denies shortness of breath, Denies syncope Respiratory: Denies as per HPI, Denies congestion, Denies cough, Denies cough with sputum, Denies dyspnea, Denies excessive sputum, Denies hemoptysis, Denies home oxygen, Denies pain, Denies pain on inspiration, Denies pleurisy, Denies respiratory infections, Denies sleep apnea, Denies snoring, Denies wheezing Gastrointestinal: Denies as per HPI, Denies abdominal pain, Denies belching, Denies bloating, Denies BRBPR, Denies change in bowel habits, Denies coffee ground emesis, Denies constipation, Denies diarrhea, Denies dyspepsia, Denies early satiety, Denies excessive gas, Denies heartburn, Denies hematemesis, Denies hematochezia, Denies indigestion, Denies jaundice, Denies lactose intolerance, Denies loss of appetite, Denies melena, Denies nausea, Denies vomiting Genitourinary: Denies as per HPI, Denies abnormal vaginal bleeding, Denies decreased libido, Denies difficulty conceiving, Denies difficulty voiding, Denies dysmenorrhea, Denies dyspareunia, Denies dysuria, Denies flank pain, Denies genital sores, Denies hematuria, Denies hot flashes, Denies incomplete emptying, Denies kidney stones, Denies menorrhagia, Denies mixed incontinence, Denies nocturia, Denies pelvic pain, Denies post void dribbling, Denies , Denies prolapse symptoms, Denies stress incontinence, Denies urge incontinence , Denies urgency, Denies urinary frequency, Denies vaginal discharge, Denies vaginal dryness, Denies vaginal itching, Denies vaginal odor Integumentary: Reports rash, Reports sores, Denies as per HPI, Denies acne, Denies boils, Denies brittle nails, Denies change in hair/nails, Denies color changes, Denies darkening of skin, Denies depigmentation, Denies dryness, Denies foot/leg ulcers, Denies growths, Denies hirsutism, Denies lesions, Denies onychomycosis, Denies pruritus, Denies striae, Denies unusual bruising, Denies wounds Neurological: Denies as per HPI, Denies aphasia, Denies ataxia, Denies balance difficulties, Denies burning pain, Denies change in mentation, Denies change in smell/taste, Denies change in speech, Denies confusion, Denies convulsions, Denies double vision, Denies gait dysfunction, Denies head injury, Denies headaches, Denies hearing difficulties, Denies lack of coordination, Denies loss of vision, Denies memory loss, Denies migraines, Denies motor disturbance, Denies numbness, Denies paralysis, Denies paresthesias, Denies seizures, Denies sensory deficit, Denies spasticity, Denies syncope, Denies tic, Denies tingling , Denies transient paralysis, Denies tremors, Denies vertigo, Denies weakness, Denies visual changes Psychiatric: Denies as per HPI, Denies anhedonia, Denies anxiety, Denies anxiety attacks, Denies change in appetite, Denies change in libido, Denies change in sleep habits, Denies confusion, Denies depression, Denies difficulty concentrating, Denies disorientation, Denies hallucinations, Denies hopelessness , Denies hypersomnia, Denies insomnia, Denies irritability, Denies memory loss, Denies mood swings, Denies paranoia, Denies sadness/tearfulness, Denies sleep disturbances, Denies suicidal ideation Endocrine: Denies as per HPI, Denies cold intolerance, Denies deepening of the voice, Denies excessive sweating, Denies excessive thirst, Denies fatigue, Denies flushing, Denies heat intolerance, Denies high blood sugars, Denies increase in ring/shoe/hat size, Denies low blood sugars, Denies nocturia, Denies palpitations, Denies polydipsia, Denies polyphagia, Denies polyuria, Denies proptosis, Denies recent glucocorticoid use, Denies thyroid mass, Denies weight change Hematologic/Lymphatic: Reports easy bruising, Denies as per HPI, Denies easy bleeding, Denies lymphadenopathy, Denies lymphedema, Denies thrombophilia Allergic/Immunologic: Reports allergic rhinitis, Denies as per HPI, Denies anaphylaxis, Denies angioedema, Denies gluten intolerance, Denies persistent infections, Denies seasonal allergies, Denies urticaria, Denies wheezing Past Medical History Past Medical History: Chest Pain / Angina, Fibromyalgia, GERD/Reflux, Hyperlipidemia, Hypertension, Musculoskeletal Disorder, Osteoarthritis (OA), Vascular Disorder Additional Past Medical History / Comment(s): recent EKG abnormal per pt. & echo , SOB w/exertion recently, herniated discs in neck & lower back, tingling lower legs-"they fall asleep" History of Any Multi-Drug Resistant Organisms: None Reported Past Surgical History: Hysterectomy, Orthopedic Surgery Additional Past Surgical History / Comment(s): foot surg. Past Anesthesia/Blood Transfusion Reactions: Previous Problems w/ Anesthesia Additional Past Anesthesia/Blood Transfusion Reaction / Comm: slow to wake up Past Psychological History: ADD/ADHD Smoking Status: Current every day smoker Past Alcohol Use History: None Reported Additional Past Alcohol Use History / Comment(s): down <1ppd, smoked since age of 17 Past Drug Use History: None Reported - Past Family History Mother Family Medical History: No Reported History Medications and Allergies Home Medications Medication Instructions Recorded Confirmed Type Aspirin 162 mg PO DAILY 07/24/16 08/19/16 History Atorvastatin [Lipitor] 20 mg PO HS 07/24/16 08/19/16 History Dextroamphetamine/Amphetamine 30 mg PO TID 07/24/16 08/19/16 History [Adderall] HYDROcodone/APAP 10-325MG [[place] 1 tab PO Q6H PRN 07/24/16 08/19/16 History 10-325] Metoprolol Succinate [Toprol XL] 25 mg PO QAM 07/24/16 08/19/16 History ALPRAZolam [Xanax] 1 mg PO Q8HR PRN 08/15/16 08/19/16 History Isosorbide Mononitrate ER [Imdur] 30 mg PO DAILY 08/15/16 08/19/16 History hydrALAZINE HCL [Apresoline] 25 mg PO TID 08/15/16 08/19/16 History Allergies Allergy/AdvReac Type Severity Reaction Status Date / Time sulfamethoxazole Allergy Hallucinati Verified 08/15/16 15:46 [From Bactrim] ons trimethoprim [From Bactrim] Allergy Hallucinati Verified 08/15/16 15:46 ons Physical Exam Vitals: Vital Signs Temp Pulse Pulse Resp BP Pulse Ox 08/20/16 11:00 79 13 106/46 100 08/20/16 10:00 79 13 101/42 98 08/20/16 09:20 99.0 F 80 14 143/50 08/20/16 09:00 99.1 F 80 13 100 08/20/16 08:50 98.8 F 80 14 130/41 99 08/20/16 08:40 99.0 F 80 14 132/42 99 08/20/16 08:00 99.0 F 80 14 98 08/20/16 07:27 79 08/20/16 07:19 83 08/20/16 07:00 98.8 F 80 14 98 08/20/16 06:00 98.7 F 79 13 96 08/20/16 05:00 78 13 98 08/20/16 04:00 98.6 F 80 13 96 08/20/16 03:17 79 08/20/16 03:15 95 08/20/16 03:07 79 08/20/16 03:00 98.2 F 80 14 97 08/20/16 02:00 98.1 F 80 13 96 08/20/16 01:00 98 F 80 14 100 08/20/16 00:00 98 F 79 36 H 99 08/19/16 23:43 76 08/19/16 23:31 79 08/19/16 23:00 97.9 F 80 14 97 08/19/16 22:18 79 14 96 08/19/16 22:15 80 13 95 08/19/16 22:00 97.9 F 79 13 96 08/19/16 21:45 97.9 F 79 13 98 08/19/16 21:30 97.9 F 79 14 98 08/19/16 21:15 97.9 F 79 14 99 08/19/16 21:00 97.9 F 79 13 100 08/19/16 20:45 97.9 F 80 14 100 08/19/16 20:30 97.9 F 79 14 99 08/19/16 20:15 97.7 F 80 14 100 08/19/16 20:12 97.7 F 82 15 109/48 100 08/19/16 20:00 97.5 F L 80 14 100 08/19/16 19:45 97.5 F L 77 13 100 08/19/16 19:44 79 08/19/16 19:42 97.7 F 79 14 109/46 100 08/19/16 19:34 79 08/19/16 19:32 97.9 F 82 14 108/48 100 08/19/16 19:30 97.9 F 79 12 100 08/19/16 19:15 97.9 F 77 14 100 08/19/16 19:00 97.7 F 79 13 100 08/19/16 18:45 97.9 F 80 16 99 08/19/16 18:39 82 08/19/16 18:30 97.7 F 79 14 99 08/19/16 18:15 98.4 F 80 11 L 100 08/19/16 18:09 98.4 F 100 08/19/16 18:00 98.4 F 80 14 100 08/19/16 13:24 97.9 F 82 14 108/48 100 Intake and Output 08/19/16 08/20/16 08/20/16 22:59 06:59 14:59 Intake Total 1040 390.837 772.010 Output Total 3861 784 448 Balance -2821 -393.163 324.010 Intake: IV 730 255 395 CO/CI 230 80 20 Lactated Ringers 1,000 ml 50 250 @ 50 mls/hr IV .Q20H [facility] Rx#:[id number] Sodium Phosphate 10 mmol 125 125 In Sodium Chloride 0.9% 250 ml @ 125 mls/hr IVPB Q2H [facility] Rx#:[id number] Intake, IV Titration 135.837 67.010 Amount Insulin Regular 100 unit 9.41 In Sodium Chloride 0.9% 100 ml @ Per Protocol IV .Q0M [facility] Rx#:[id number] Milrinone-D5w Pmx 20 mg 31.067 In Dextrose/Water 1 100ml .bag @ Per Protocol IV . Q0M [facility] Rx#:[id number] Norepinephrine 16 mg In 9.97 Sodium Chloride 0.9% 250 ml @ Titrate IV .Q0M [facility] Rx#:[id number] Propofol 500 mg In Empty 94.800 57.600 Bag 1 bag @ Titrate IV . Q0M [facility] Rx#:[id number] Blood Product 310 310 Rc As-1 Unit 310 [id number] Rc As-1 Unit 310 [id number] Output: Chest Tube Drainage 510 294 208 Chest Tube Mediastinal 265 160 150 Left Left Pleural/ 136 99 50 Mediastinal Right Right Pleural/ 109 35 8 Mediastinal Drainage 60 30 Left Thigh 50 30 Right Thigh 10 Urine 1291 460 240 Estimated Blood Loss 1999 Other: Voiding Method Indwelling Catheter Indwelling Catheter Weight 67.4 kg 77.3 kg Patient Weight 08/21/16 06:59 Weight 77.3 kg ABP, PAP, CO, CI - Last 8 Hours Arterial Blood Pressure 120/51 Arterial Blood Pressure 129/46 Arterial Blood Pressure 139/49 Arterial Blood Pressure 133/44 Arterial Blood Pressure 128/45 Arterial Blood Pressure 130/47 Arterial Blood Pressure 123/51 Arterial Blood Pressure 128/49 Pulmonary Artery Pressure 24/12 Pulmonary Artery Pressure 26/14 Pulmonary Artery Pressure 28/17 Pulmonary Artery Pressure 20/10 Pulmonary Artery Pressure 21/11 Pulmonary Artery Pressure 24/16 Pulmonary Artery Pressure 28/17 Pulmonary Artery Pressure 28/17 Cardiac Output 5.2 Cardiac Output 4.8 Cardiac Output 4.8 Cardiac Output 4.3 Cardiac Output 4.3 Cardiac Output 4.3 Cardiac Output 4.3 Cardiac Output 4.6 Cardiac Index 2.1 Cardiac Index 2.1 - Constitutional General appearance: average body habitus, no cooperative, no disheveled, no mild distress, no morbidly obese, no acute distress, no obese, no severe distress, no thin - EENT Eyes: no abnormal pupil, no anicteric sclerae, no disc margins sharp, no edentulous, no EOMI, no PERRLA, no fundus normal, no photophobia, no dentition normal, no poor dentition, no ptosis, no scleral icterus, normal appearance ENT: no hard of hearing, no hearing grossly normal, no NA/AT, no normal oropharynx, no other, no pharyngeal erythema, no thrush, no tonsillar exudates, no tonsillar swelling Ears: bilateral: normal - Neck Neck: no lymphadenopathy, normal ROM, no other, no rigidity, no stridor, no thyromegaly Carotids: bilateral: upstroke normal Thyroid: bilateral: normal size - Respiratory Respiratory: bilateral: diminished, dullness, rales - Cardiovascular Rhythm: regular Heart sounds: normal: S1, S2 Abnormal Heart Sounds: systolic murmur, no diastolic murmur, no rub, no S3 Gallop, no S4 Gallop, no click, no other - Gastrointestinal General gastrointestinal: no absent bowel sounds, decreased bowel sounds, no distended, no hepatomegaly, no hyperactive bowel sounds, normal bowel sounds, no organomegaly, no rigid, no scaphoid, soft, no splenomegaly, no tenderness, no umbilical hernia, no ventral hernia - Integumentary Integumentary: no calor, no cellulitis, no cyanotic, no decreased turgor, no flushed, no jaundiced, normal, no normal turgor, pale, rash, no ulcer - Neurologic Neurologic: CNII-XII intact - Musculoskeletal Patient is on mechanical ventilation Musculoskeletal: no gait normal, no generalized weakness, no strength equal bilaterally, no right sided weakness, no left sided weakness - Psychiatric Psychiatric: no A&O x's 3, no appropriate affect, no intact judgment & insight Results CBC & Chem 7: 08/20/16 12:06 08/20/16 04:55 Labs: Abnormal Lab Results - Last 24 Hours (Table) 08/16/16 08/19/16 08/19/16 Range/Units 08:54 12:24 13:05 WBC (3.8-10.6) k/uL RBC (3.80-5.40) m/uL Hgb (11.4-16.0) gm/dL Hct (34.0-46.0) % Plt Count (150-450) k/uL Neutrophils # (1.3-7.7) k/uL Lymphocytes # (1.0-4.8) k/uL Monocytes # (0-1.0) k/uL PT (9.0-12.0) sec APTT (22.0-30.0) sec ABG pCO2 (35-45) mmHg ABG pO2 (83-108) mmHg ABG Total CO2 (19-24) mmol/L ABG O2 Saturation (94-97) % Potassium (3.5-5.1) mmol/L Chloride (98-107) mmol/L Glucose (74-99) mg/dL POC Glucose (mg/dL) 107 H 205 H (75-99) mg/dL Calcium (8.4-10.2) mg/dL Ionized Calcium Maura (4.5-5.3) mg/dL Phosphorus (2.5-4.5) mg/dL Magnesium (1.6-2.3) mg/dL Total Bilirubin (0.2-1.3) mg/dL AST (14-36) U/L Alkaline Phosphatase (38-126) U/L Total Protein (6.3-8.2) g/dL Albumin (3.5-5.0) g/dL Crossmatch See Detail 08/19/16 08/19/16 08/19/16 Range/Units 13:37 14:05 14:37 WBC (3.8-10.6) k/uL RBC (3.80-5.40) m/uL Hgb (11.4-16.0) gm/dL Hct (34.0-46.0) % Plt Count (150-450) k/uL Neutrophils # (1.3-7.7) k/uL Lymphocytes # (1.0-4.8) k/uL Monocytes # (0-1.0) k/uL PT (9.0-12.0) sec APTT (22.0-30.0) sec ABG pCO2 (35-45) mmHg ABG pO2 (83-108) mmHg ABG Total CO2 (19-24) mmol/L ABG O2 Saturation (94-97) % Potassium (3.5-5.1) mmol/L Chloride (98-107) mmol/L Glucose (74-99) mg/dL POC Glucose (mg/dL) 232 H 291 H 261 H (75-99) mg/dL Calcium (8.4-10.2) mg/dL Ionized Calcium Maura (4.5-5.3) mg/dL Phosphorus (2.5-4.5) mg/dL Magnesium (1.6-2.3) mg/dL Total Bilirubin (0.2-1.3) mg/dL AST (14-36) U/L Alkaline Phosphatase (38-126) U/L Total Protein (6.3-8.2) g/dL Albumin (3.5-5.0) g/dL Crossmatch 08/19/16 08/19/16 08/19/16 Range/Units 15:13 15:40 16:27 WBC (3.8-10.6) k/uL RBC (3.80-5.40) m/uL Hgb (11.4-16.0) gm/dL Hct (34.0-46.0) % Plt Count (150-450) k/uL Neutrophils # (1.3-7.7) k/uL Lymphocytes # (1.0-4.8) k/uL Monocytes # (0-1.0) k/uL PT (9.0-12.0) sec APTT (22.0-30.0) sec ABG pCO2 (35-45) mmHg ABG pO2 (83-108) mmHg ABG Total CO2 (19-24) mmol/L ABG O2 Saturation (94-97) % Potassium (3.5-5.1) mmol/L Chloride (98-107) mmol/L Glucose (74-99) mg/dL POC Glucose (mg/dL) 230 H 217 H 201 H (75-99) mg/dL Calcium (8.4-10.2) mg/dL Ionized Calcium Maura (4.5-5.3) mg/dL Phosphorus (2.5-4.5) mg/dL Magnesium (1.6-2.3) mg/dL Total Bilirubin (0.2-1.3) mg/dL AST (14-36) U/L Alkaline Phosphatase (38-126) U/L Total Protein (6.3-8.2) g/dL Albumin (3.5-5.0) g/dL Crossmatch 08/19/16 08/19/16 08/19/16 Range/Units 17:18 18:09 18:09 WBC (3.8-10.6) k/uL RBC (3.80-5.40) m/uL Hgb (11.4-16.0) gm/dL Hct (34.0-46.0) % Plt Count (150-450) k/uL Neutrophils # (1.3-7.7) k/uL Lymphocytes # (1.0-4.8) k/uL Monocytes # (0-1.0) k/uL PT 14.2 H (9.0-12.0) sec APTT 44.3 H (22.0-30.0) sec ABG pCO2 (35-45) mmHg ABG pO2 (83-108) mmHg ABG Total CO2 (19-24) mmol/L ABG O2 Saturation (94-97) % Potassium 3.3 L (3.5-5.1) mmol/L Chloride 109 H (98-107) mmol/L Glucose 73 L (74-99) mg/dL POC Glucose (mg/dL) 138 H (75-99) mg/dL Calcium 6.5 L* (8.4-10.2) mg/dL Ionized Calcium Maura 4.3 L (4.5-5.3) mg/dL Phosphorus (2.5-4.5) mg/dL Magnesium 2.5 H (1.6-2.3) mg/dL Total Bilirubin (0.2-1.3) mg/dL AST 44 H (14-36) U/L Alkaline Phosphatase 27 L (38-126) U/L Total Protein 3.7 L (6.3-8.2) g/dL Albumin 2.3 L (3.5-5.0) g/dL Crossmatch 08/19/16 08/19/16 08/19/16 Range/Units 18:10 18:14 18:33 WBC 16.2 H (3.8-10.6) k/uL RBC 2.24 L (3.80-5.40) m/uL Hgb 6.7 L* D (11.4-16.0) gm/dL Hct 20.1 L (34.0-46.0) % Plt Count 135 L (150-450) k/uL Neutrophils # 13.9 H (1.3-7.7) k/uL Lymphocytes # (1.0-4.8) k/uL Monocytes # (0-1.0) k/uL PT (9.0-12.0) sec APTT (22.0-30.0) sec ABG pCO2 (35-45) mmHg ABG pO2 196 H (83-108) mmHg ABG Total CO2 25 H (19-24) mmol/L ABG O2 Saturation 99.7 H (94-97) % Potassium (3.5-5.1) mmol/L Chloride (98-107) mmol/L Glucose (74-99) mg/dL POC Glucose (mg/dL) 69 L (75-99) mg/dL Calcium (8.4-10.2) mg/dL Ionized Calcium Maura (4.5-5.3) mg/dL Phosphorus (2.5-4.5) mg/dL Magnesium (1.6-2.3) mg/dL Total Bilirubin (0.2-1.3) mg/dL AST (14-36) U/L Alkaline Phosphatase (38-126) U/L Total Protein (6.3-8.2) g/dL Albumin (3.5-5.0) g/dL Crossmatch 08/19/16 08/19/16 08/19/16 Range/Units 18:54 19:12 19:42 WBC (3.8-10.6) k/uL RBC (3.80-5.40) m/uL Hgb (11.4-16.0) gm/dL Hct (34.0-46.0) % Plt Count (150-450) k/uL Neutrophils # (1.3-7.7) k/uL Lymphocytes # (1.0-4.8) k/uL Monocytes # (0-1.0) k/uL PT (9.0-12.0) sec APTT (22.0-30.0) sec ABG pCO2 (35-45) mmHg ABG pO2 (83-108) mmHg ABG Total CO2 (19-24) mmol/L ABG O2 Saturation (94-97) % Potassium (3.5-5.1) mmol/L Chloride (98-107) mmol/L Glucose (74-99) mg/dL POC Glucose (mg/dL) 111 H 101 H 102 H (75-99) mg/dL Calcium (8.4-10.2) mg/dL Ionized Calcium Maura (4.5-5.3) mg/dL Phosphorus (2.5-4.5) mg/dL Magnesium (1.6-2.3) mg/dL Total Bilirubin (0.2-1.3) mg/dL AST (14-36) U/L Alkaline Phosphatase (38-126) U/L Total Protein (6.3-8.2) g/dL Albumin (3.5-5.0) g/dL Crossmatch 08/19/16 08/19/16 08/19/16 Range/Units 19:59 21:06 22:10 WBC 18.2 H (3.8-10.6) k/uL RBC 2.34 L (3.80-5.40) m/uL Hgb 6.9 L* (11.4-16.0) gm/dL Hct 20.7 L (34.0-46.0) % Plt Count 128 L (150-450) k/uL Neutrophils # 16.1 H (1.3-7.7) k/uL Lymphocytes # 0.7 L (1.0-4.8) k/uL Monocytes # 1.3 H (0-1.0) k/uL PT (9.0-12.0) sec APTT (22.0-30.0) sec ABG pCO2 (35-45) mmHg ABG pO2 (83-108) mmHg ABG Total CO2 (19-24) mmol/L ABG O2 Saturation (94-97) % Potassium (3.5-5.1) mmol/L Chloride (98-107) mmol/L Glucose (74-99) mg/dL POC Glucose (mg/dL) 103 H 122 H (75-99) mg/dL Calcium (8.4-10.2) mg/dL Ionized Calcium Maura (4.5-5.3) mg/dL Phosphorus (2.5-4.5) mg/dL Magnesium (1.6-2.3) mg/dL Total Bilirubin (0.2-1.3) mg/dL AST (14-36) U/L Alkaline Phosphatase (38-126) U/L Total Protein (6.3-8.2) g/dL Albumin (3.5-5.0) g/dL Crossmatch 08/19/16 08/19/16 08/19/16 Range/Units 22:10 22:10 23:16 WBC (3.8-10.6) k/uL RBC (3.80-5.40) m/uL Hgb (11.4-16.0) gm/dL Hct (34.0-46.0) % Plt Count (150-450) k/uL Neutrophils # (1.3-7.7) k/uL Lymphocytes # (1.0-4.8) k/uL Monocytes # (0-1.0) k/uL PT (9.0-12.0) sec APTT (22.0-30.0) sec ABG pCO2 (35-45) mmHg ABG pO2 (83-108) mmHg ABG Total CO2 (19-24) mmol/L ABG O2 Saturation (94-97) % Potassium (3.5-5.1) mmol/L Chloride 112 H (98-107) mmol/L Glucose 113 H (74-99) mg/dL POC Glucose (mg/dL) 131 H 136 H (75-99) mg/dL Calcium 6.8 L (8.4-10.2) mg/dL Ionized Calcium Maura 4.3 L (4.5-5.3) mg/dL Phosphorus 0.8 L* (2.5-4.5) mg/dL Magnesium 2.5 H (1.6-2.3) mg/dL Total Bilirubin 1.6 H (0.2-1.3) mg/dL AST 76 H (14-36) U/L Alkaline Phosphatase 25 L (38-126) U/L Total Protein 3.8 L (6.3-8.2) g/dL Albumin 2.5 L (3.5-5.0) g/dL Crossmatch 08/20/16 08/20/16 08/20/16 Range/Units 00:03 01:06 02:08 WBC (3.8-10.6) k/uL RBC (3.80-5.40) m/uL Hgb (11.4-16.0) gm/dL Hct (34.0-46.0) % Plt Count (150-450) k/uL Neutrophils # (1.3-7.7) k/uL Lymphocytes # (1.0-4.8) k/uL Monocytes # (0-1.0) k/uL PT (9.0-12.0) sec APTT (22.0-30.0) sec ABG pCO2 (35-45) mmHg ABG pO2 (83-108) mmHg ABG Total CO2 (19-24) mmol/L ABG O2 Saturation (94-97) % Potassium (3.5-5.1) mmol/L Chloride (98-107) mmol/L Glucose (74-99) mg/dL POC Glucose (mg/dL) 136 H 133 H 133 H (75-99) mg/dL Calcium (8.4-10.2) mg/dL Ionized Calcium Maura (4.5-5.3) mg/dL Phosphorus (2.5-4.5) mg/dL Magnesium (1.6-2.3) mg/dL Total Bilirubin (0.2-1.3) mg/dL AST (14-36) U/L Alkaline Phosphatase (38-126) U/L Total Protein (6.3-8.2) g/dL Albumin (3.5-5.0) g/dL Crossmatch 08/20/16 08/20/16 08/20/16 Range/Units 03:04 04:00 04:45 WBC (3.8-10.6) k/uL RBC (3.80-5.40) m/uL Hgb (11.4-16.0) gm/dL Hct (34.0-46.0) % Plt Count (150-450) k/uL Neutrophils # (1.3-7.7) k/uL Lymphocytes # (1.0-4.8) k/uL Monocytes # (0-1.0) k/uL PT (9.0-12.0) sec APTT (22.0-30.0) sec ABG pCO2 33 L (35-45) mmHg ABG pO2 144 H (83-108) mmHg ABG Total CO2 (19-24) mmol/L ABG O2 Saturation 99.0 H (94-97) % Potassium (3.5-5.1) mmol/L Chloride (98-107) mmol/L Glucose (74-99) mg/dL POC Glucose (mg/dL) 134 H 127 H (75-99) mg/dL Calcium (8.4-10.2) mg/dL Ionized Calcium Maura (4.5-5.3) mg/dL Phosphorus (2.5-4.5) mg/dL Magnesium (1.6-2.3) mg/dL Total Bilirubin (0.2-1.3) mg/dL AST (14-36) U/L Alkaline Phosphatase (38-126) U/L Total Protein (6.3-8.2) g/dL Albumin (3.5-5.0) g/dL Crossmatch 08/20/16 08/20/16 08/20/16 Range/Units 04:55 04:55 06:01 WBC 12.9 H (3.8-10.6) k/uL RBC 2.31 L (3.80-5.40) m/uL Hgb 6.8 L* (11.4-16.0) gm/dL Hct 20.5 L (34.0-46.0) % Plt Count 115 L (150-450) k/uL Neutrophils # 11.2 H (1.3-7.7) k/uL Lymphocytes # 0.9 L (1.0-4.8) k/uL Monocytes # (0-1.0) k/uL PT (9.0-12.0) sec APTT (22.0-30.0) sec ABG pCO2 (35-45) mmHg ABG pO2 (83-108) mmHg ABG Total CO2 (19-24) mmol/L ABG O2 Saturation (94-97) % Potassium (3.5-5.1) mmol/L Chloride 114 H (98-107) mmol/L Glucose 125 H (74-99) mg/dL POC Glucose (mg/dL) 134 H (75-99) mg/dL Calcium 7.1 L (8.4-10.2) mg/dL Ionized Calcium Maura (4.5-5.3) mg/dL Phosphorus (2.5-4.5) mg/dL Magnesium (1.6-2.3) mg/dL Total Bilirubin (0.2-1.3) mg/dL AST 161 H (14-36) U/L Alkaline Phosphatase 28 L (38-126) U/L Total Protein 3.9 L (6.3-8.2) g/dL Albumin 2.4 L (3.5-5.0) g/dL Crossmatch 08/20/16 08/20/16 08/20/16 Range/Units 06:54 08:29 09:12 WBC (3.8-10.6) k/uL RBC (3.80-5.40) m/uL Hgb (11.4-16.0) gm/dL Hct (34.0-46.0) % Plt Count (150-450) k/uL Neutrophils # (1.3-7.7) k/uL Lymphocytes # (1.0-4.8) k/uL Monocytes # (0-1.0) k/uL PT (9.0-12.0) sec APTT (22.0-30.0) sec ABG pCO2 (35-45) mmHg ABG pO2 (83-108) mmHg ABG Total CO2 (19-24) mmol/L ABG O2 Saturation (94-97) % Potassium (3.5-5.1) mmol/L Chloride (98-107) mmol/L Glucose (74-99) mg/dL POC Glucose (mg/dL) 138 H 130 H 139 H (75-99) mg/dL Calcium (8.4-10.2) mg/dL Ionized Calcium Maura (4.5-5.3) mg/dL Phosphorus (2.5-4.5) mg/dL Magnesium (1.6-2.3) mg/dL Total Bilirubin (0.2-1.3) mg/dL AST (14-36) U/L Alkaline Phosphatase (38-126) U/L Total Protein (6.3-8.2) g/dL Albumin (3.5-5.0) g/dL Crossmatch 08/20/16 Range/Units 10:33 WBC (3.8-10.6) k/uL RBC (3.80-5.40) m/uL Hgb (11.4-16.0) gm/dL Hct (34.0-46.0) % Plt Count (150-450) k/uL Neutrophils # (1.3-7.7) k/uL Lymphocytes # (1.0-4.8) k/uL Monocytes # (0-1.0) k/uL PT (9.0-12.0) sec APTT (22.0-30.0) sec ABG pCO2 (35-45) mmHg ABG pO2 (83-108) mmHg ABG Total CO2 (19-24) mmol/L ABG O2 Saturation (94-97) % Potassium (3.5-5.1) mmol/L Chloride (98-107) mmol/L Glucose (74-99) mg/dL POC Glucose (mg/dL) 135 H (75-99) mg/dL Calcium (8.4-10.2) mg/dL Ionized Calcium Amura (4.5-5.3) mg/dL Phosphorus (2.5-4.5) mg/dL Magnesium (1.6-2.3) mg/dL Total Bilirubin (0.2-1.3) mg/dL AST (14-36) U/L Alkaline Phosphatase (38-126) U/L Total Protein (6.3-8.2) g/dL Albumin (3.5-5.0) g/dL Crossmatch Assessment and Plan Plan: 1 multiple coronary artery disease: Post 4 vessel CABG, doing slightly but better postsurgery stable at this point postsurgical care including chest tube, respirator, IV drip. Continue to watch patient for any change in hemodynamic status including arrhythmia or other. 2 post mitral valve repair: Has been doing well. 3 post patent morelos ovale repair: Stable so far. For acute respiratory failure: Post surgery and because of open heart surgery, continue present management with Dr. Martins of for now patient hopefully will be extubated soon. 4 hypertension: Was on hydralazine and metoprolol resume medication when more stable. 5 ADD: Has been on Adderall 30 mg 3 times a day patient is off medication currently. 6 hyperlipidemia: Remain on Lipitor 20 mg daily. 7 hyperglycemia: Continue Accu-Chek post surgery. GI prophylaxis: Patient remain on Protonix IV. CODE STATUS: Full code. Dr. Manzo thank you very much for the consult if I can be any further help to please let me know thank you.
[2016-08-21 00:18] LABS: Glucose,Whole Blood 134 mg/dL (75-99)
[2016-08-21] MEDS ORDERED: ALBUMIN HUMAN 5% 500 ML in EMPTY BAG 1 BAG IVPB ONE (00:40)
[2016-08-21 02:12] LABS: Glucose,Whole Blood 118 mg/dL (75-99)
[2016-08-21] MEDS: KETOROLAC 30 MG/ML 1 ML VIAL IVP PRN ×3 (02:38→17:00)
[2016-08-21 04:04] LABS: Glucose,Whole Blood 175 mg/dL (75-99)
[2016-08-21 05:13] LABS: Glucose,Whole Blood 127 mg/dL (75-99)
[2016-08-21 05:50] LABS: Basophils % (A) 0 %; CH 29.6; Eosinophils # (A) 0.1 k/uL (0-0.7); Eosinophils % (A) 1 %; HCT 20.1 % (34.0-46.0); HDW 3.34; Luc # (Auto) 0.13; Luc % (Auto) 1; Lymphocytes # (A) 1.4 k/uL (1.0-4.8); Lymphocytes % (A) 14 %; MCH 30.3 pg (25.0-35.0); MCHC 33.4 g/dL (31.0-37.0); MCV 90.7 fL (80.0-100.0); Mean Platelet Volume 9.1; Monocytes # (A) 0.4 k/uL (0-1.0); Monocytes % (A) 4 %; Neutrophils # (A) 7.9 k/uL (1.3-7.7); Neutrophils % (A) 80 %; RBC 2.22 m/uL (3.80-5.40); WBC 9.9 k/uL (3.8-10.6); WBC (Perox) 10.12
[2016-08-21 05:55] LABS: INR 1.2 (<1.1); Prothrombin Time 11.7 sec (9.0-12.0)
[2016-08-21 06:14] LABS: Glucose,Whole Blood 104 mg/dL (75-99)
[2016-08-21 06:23] LABS: Ionized Calcium 4.8 mg/dL (4.5-5.3)
[2016-08-21 06:28] LABS: ALT 41 U/L (9-52); AST 124 U/L (14-36); Alkaline Phosphatase 36 U/L (38-126); Anion Gap 6 mmol/L; Blood Urea Nitrogen 14 mg/dL (7-17); Calcium 7.2 mg/dL (8.4-10.2); Carbon Dioxide 26 mmol/L (22-30); Chloride 110 mmol/L (98-107); Glucose 109 mg/dL (74-99); Magnesium 2.3 mg/dL (1.6-2.3); Non-African American GFR(MDRD) >60 (>60 ml/min/1.73 sqM); Potassium 3.9 mmol/L (3.5-5.1); Sodium 142 mmol/L (137-145); Total Bilirubin 0.5 mg/dL (0.2-1.3); Total Protein 4.1 g/dL (6.3-8.2)
[2016-08-21 06:36] LABS: HGB 6.7 gm/dL (11.4-16.0)
[2016-08-21] MEDS ORDERED: ALBUMIN HUMAN 5% 500 ML in EMPTY BAG 1 BAG IVPB STA (06:52)
[2016-08-21 07:01] LABS: Glucose,Whole Blood 99 mg/dL (75-99)
[2016-08-21 07:07] LABS: Manual Review Performed
[2016-08-21] MEDS: IPRATROPIUM-ALBUTEROL 3 ML NEB INHALATION SCH ×4 (07:23→19:18)
[2016-08-21 07:39] LABS: Glucose,Whole Blood 102 mg/dL (75-99)
[2016-08-21 08:22] LABS: Glucose,Whole Blood 97 mg/dL (75-99)
[2016-08-21] MEDS: HEPARIN SODIUM,PORCINE 5,000 UNIT/ML 1 ML VIAL SQ SCH ×3 (08:29→16:43)
[2016-08-21] MEDS: MUPIROCIN 2% OINT 22 GM TUBE NASAL SCH ×2 (08:29→22:22)
[2016-08-21] MEDS: ATORVASTATIN 40 MG TAB PO SCH (08:29)
[2016-08-21] MEDS: PANTOPRAZOLE 40 MG/10 ML VIAL IVP SCH (08:29)
[2016-08-21 09:05] LABS: Glucose,Whole Blood 84 mg/dL (75-99)
[2016-08-21] MEDS: CLOPIDOGREL 75 MG TAB PO SCH (09:29)
[2016-08-21] MEDS: ASPIRIN 81 MG CHEW PO SCH (09:39)
[2016-08-21] MEDS ORDERED: FUROSEMIDE 10 MG/ML 2 ML VIAL IV ONE ×3 (10:00→22:04)
--- NOTE | 2016-08-21 10:02 | P.PN ---
Subjective Principal diagnosis: Triple vessel coronary artery disease with an old inferior wall myocardial infarction, moderate left ventricular dysfunction, moderate mitral valve regurgitation, infero-basal aneurysm, hypertension, hyperlipidemia, fibromyalgia , gastroesophageal reflux disease, tobacco abuse. POD #2 quadruple coronary artery bypass grafting using the left internal mammary artery to the left anterior descending artery, reverse saphenous vein graft from the aorta to the diagonal artery, reverse saphenous vein graft from the aorta to the obtuse marginal artery, reverse saphenous vein graft from the aorta to the distal right coronary artery at its bifurcation after endarterectomy of the proximal posterior descending artery, and posterolateral branch. Mitral valve repair with complete ring annuloplasty using a 28 mm dixie 3-D ring. Exclusion of the left atrial appendage using a 35 mm AtriClip. Intraoperative transesophageal echocardiogram and epi-aortic scanning. Patient sitting up in chair, complains of incisional pain. States she didn't sleep well the night before. Objective - Vital Signs Vital signs: Vital Signs Temp 98.2 F 08/21/16 06:00 Pulse 93 08/21/16 09:30 Resp 21 08/21/16 09:30 BP 103/46 08/21/16 09:30 Pulse Ox 93 L 08/21/16 09:30 Intake & Output 08/20/16 08/21/16 08/21/16 18:59 06:59 18:59 Intake Total 0002.734 8758.26 600 Output Total 1118 850 135 Balance 154.943 396.26 465 Weight 77.3 kg Intake: IV 765 720 100 CO/CI 40 120 20 Lactated Ringers 1,000 ml 600 600 80 @ 50 mls/hr IV .Q20H [facility] Rx#:[id number] Sodium Phosphate 10 mmol 125 In Sodium Chloride 0.9% 250 ml @ 125 mls/hr IVPB Q2H [facility] Rx#:[id number] Intake, IV Titration 197.943 526.26 500 Amount Albumin Human 5% 500 ml 500 In Empty Bag 1 bag @ 250 mls/hr IVPB ONCE ONE Rx#: [id number] Albumin Human 5% 500 ml 500 In Empty Bag 1 bag @ 250 mls/hr IVPB ONCE STA Rx#: [id number] Insulin Regular 100 unit 9.41 26.26 In Sodium Chloride 0.9% 100 ml @ Per Protocol IV .Q0M [facility] Rx#:[id number] Milrinone-D5w Pmx 20 mg 30.933 In Dextrose/Water 1 100ml .bag @ Per Protocol IV . Q0M [facility] Rx#:[id number] Propofol 500 mg In Empty 57.600 Bag 1 bag @ Titrate IV . Q0M [facility] Rx#:[id number] ceFAZolin 2 gm In Sodium 100 Chloride 0.9% 100 ml @ 100 mls/hr IVPB Q8H [facility] Rx#:[id number] Blood Product 310 Rc As-1 Unit 310 [id number] Output: Chest Tube Drainage 573 460 100 Chest Tube Mediastinal 370 160 0 Left Left Pleural/ 150 130 40 Mediastinal Right Right Pleural/ 53 170 60 Mediastinal Drainage 30 20 Left Thigh 30 Right Thigh 20 Urine 515 370 35 Other: Voiding Method Indwelling Catheter Indwelling Catheter ABP, PAP, CO, CI - Last Documented Arterial Blood Pressure 94/63 Pulmonary Artery Pressure 35/12 Cardiac Output 5.5 Cardiac Index 3.2 - Constitutional General appearance: Present: no acute distress - Respiratory Details: Lungs diminished bilaterally, respirations shallow as patient is asked to demonstrate incentive spirometry use. O2 requirements increased from 4 L nasal cannula to 6 L nasal cannula. Barely able to get 500 mL on her incentive spirometer. Mediastinal chest tube connected to -20 cm wall suction, serous drainage, 160 mL last 12 hours, 530 mL last 24 hours. Left pleural chest tube connected to -20 cm wall suction, serous drainage, 130 mL the last 12 hours, 280 mL in the last 24 hours. Right pleural chest tube connected to -20 cm wall suction, serous drainage, 170 mL last 12 hours 223 mL drainage in the last 24 hours. No air leak and any chest tube. - Cardiovascular Details: S1, S2 present. No murmurs rubs or gallops. Chest stable. Heart hugger in place with patient attempting to use appropriately. Pulmonary artery catheter remains through Cordis inserted in the right IJ. 1-2+ edema present x all 4 extremities. Palpable radial, DP, PT pulses. Teds, SCDs present bilaterally. - Gastrointestinal Gastrointestinal Comment(s): Abdomen soft, nontender, nondistended. Hypoactive bowel sounds 4 quadrants. Negative flatus. - Genitourinary Genitourinary Comment(s): Almanza present draining clear, yellow urine. - Musculoskeletal Musculoskeletal Comment(s): Strength equal bilaterally, able to get up to the chair with assist 2. - Psychiatric Psychiatric: Present: A&O x's 3 - Allied health notes Allied health notes reviewed: RT - Labs CBC & Chem 7: 08/21/16 05:10 08/21/16 05:10 Labs: Abnormal Lab Results - Last 24 Hours (Table) 08/16/16 08/20/16 08/20/16 Range/Units 08:54 10:33 12:06 WBC (3.8-10.6) k/uL RBC (3.80-5.40) m/uL Hgb (11.4-16.0) gm/dL Hct (34.0-46.0) % Plt Count (150-450) k/uL Neutrophils # (1.3-7.7) k/uL Chloride (98-107) mmol/L Glucose (74-99) mg/dL POC Glucose (mg/dL) 135 H 132 H (75-99) mg/dL Calcium (8.4-10.2) mg/dL AST (14-36) U/L Alkaline Phosphatase (38-126) U/L Total Protein (6.3-8.2) g/dL Albumin (3.5-5.0) g/dL Crossmatch See Detail 08/20/16 08/20/16 08/20/16 Range/Units 12:06 14:28 16:00 WBC 14.2 H (3.8-10.6) k/uL RBC 2.62 L (3.80-5.40) m/uL Hgb 7.9 L (11.4-16.0) gm/dL Hct 23.7 L (34.0-46.0) % Plt Count 120 L (150-450) k/uL Neutrophils # (1.3-7.7) k/uL Chloride (98-107) mmol/L Glucose (74-99) mg/dL POC Glucose (mg/dL) 129 H 125 H (75-99) mg/dL Calcium (8.4-10.2) mg/dL AST (14-36) U/L Alkaline Phosphatase (38-126) U/L Total Protein (6.3-8.2) g/dL Albumin (3.5-5.0) g/dL Crossmatch 08/20/16 08/20/16 08/20/16 Range/Units 17:59 20:07 22:08 WBC (3.8-10.6) k/uL RBC (3.80-5.40) m/uL Hgb (11.4-16.0) gm/dL Hct (34.0-46.0) % Plt Count (150-450) k/uL Neutrophils # (1.3-7.7) k/uL Chloride (98-107) mmol/L Glucose (74-99) mg/dL POC Glucose (mg/dL) 131 H 137 H 140 H (75-99) mg/dL Calcium (8.4-10.2) mg/dL AST (14-36) U/L Alkaline Phosphatase (38-126) U/L Total Protein (6.3-8.2) g/dL Albumin (3.5-5.0) g/dL Crossmatch 08/21/16 08/21/16 08/21/16 Range/Units 00:17 02:10 04:02 WBC (3.8-10.6) k/uL RBC (3.80-5.40) m/uL Hgb (11.4-16.0) gm/dL Hct (34.0-46.0) % Plt Count (150-450) k/uL Neutrophils # (1.3-7.7) k/uL Chloride (98-107) mmol/L Glucose (74-99) mg/dL POC Glucose (mg/dL) 134 H 118 H 175 H (75-99) mg/dL Calcium (8.4-10.2) mg/dL AST (14-36) U/L Alkaline Phosphatase (38-126) U/L Total Protein (6.3-8.2) g/dL Albumin (3.5-5.0) g/dL Crossmatch 08/21/16 08/21/16 08/21/16 Range/Units 05:10 05:10 05:10 WBC (3.8-10.6) k/uL RBC 2.22 L (3.80-5.40) m/uL Hgb 6.7 L* (11.4-16.0) gm/dL Hct 20.1 L (34.0-46.0) % Plt Count 78 L (150-450) k/uL Neutrophils # 7.9 H (1.3-7.7) k/uL Chloride 110 H (98-107) mmol/L Glucose 109 H (74-99) mg/dL POC Glucose (mg/dL) 127 H (75-99) mg/dL Calcium 7.2 L (8.4-10.2) mg/dL AST 124 H (14-36) U/L Alkaline Phosphatase 36 L (38-126) U/L Total Protein 4.1 L (6.3-8.2) g/dL Albumin 2.6 L (3.5-5.0) g/dL Crossmatch 08/21/16 08/21/16 Range/Units 06:13 07:19 WBC (3.8-10.6) k/uL RBC (3.80-5.40) m/uL Hgb (11.4-16.0) gm/dL Hct (34.0-46.0) % Plt Count (150-450) k/uL Neutrophils # (1.3-7.7) k/uL Chloride (98-107) mmol/L Glucose (74-99) mg/dL POC Glucose (mg/dL) 104 H 102 H (75-99) mg/dL Calcium (8.4-10.2) mg/dL AST (14-36) U/L Alkaline Phosphatase (38-126) U/L Total Protein (6.3-8.2) g/dL Albumin (3.5-5.0) g/dL Crossmatch - Imaging and Cardiology Chest x-ray: image reviewed Assessment and Plan (1) CAD (coronary artery disease) Status: Acute (2) Mitral valve regurgitation Status: Acute (3) Hypertension Status: Acute (4) Hyperlipidemia Status: Acute (5) GERD (gastroesophageal reflux disease) Status: Acute (6) Tobacco dependence Status: Acute Plan: 1. Continue, aspirin, Plavix, Lopressor, statin. Will give extra dose of Plavix this morning. Will increase beta bernardino as tolerated. 2. Will transfuse 1 unit PRBCs, will give 20 mg IV Lasix 1 time post transfusion. 3. Will DC mediastinal chest tube, pulmonary artery catheter, Almanza catheter. 4. Will monitor labs, vital signs, output and treat accordingly. 5. Encourage coughing and deep breathing, with incentive spirometry use. 6. Encourage increased activity, would like patient to be up in chair all day. 7. GI/DVT prophylaxis. 8. Will work on pain control. 9. More recs as patient progresses. Time with Patient: Greater than 30
--- NOTE | 2016-08-21 10:02 | XR ---
EXAMINATION TYPE: XR chest 1V portable DATE OF EXAM: 08/21/2016 6:21 AM COMPARISON: Prior chest x-ray 20 August 2016 HISTORY: Extubated, left chest tube and right chest tube TECHNIQUE: Single frontal view of the chest is obtained. FINDINGS: Bilateral chest tubes are present, mediastinal drains are noted. Epicardial pacing leads, overlying cardiac leads are present. Right jugular central venous catheter shows the distal tip over the pulmonary artery. No sizable pneumothorax is evident. The heart is enlarged. There is been interv al increase in density at the lung bases, obscuration of the hemidiaphragms. Interstitium and central vascularity are prominent. IMPRESSION: Correlate to exclude congestive heart failure, there may be basilar atelectasis versus e tesha and associated effusion, pneumonia not excluded. Interval extubation. Additional follow-up recom mended.
--- NOTE | 2016-08-21 11:09 | P.PN ---
Subjective Principal diagnosis: Coronary artery disease, moderate mitral valve regurgitation This is a very pleasant 61-year-old female patient who was found to have triple- vessel coronary artery disease with moderate left ventricular dysfunction, moderate mitral valve regurgitation, inferobasal aneurysm. She also had a history of hypertension hyperlipidemia fibromyalgia, gastroesophageal reflux disease and chronic tobacco use. She is now status post coronary artery bypass grafting 4 utilizing a SMILEY to the LAD, reverse saphenous vein graft to the diagonal artery, obtuse marginal artery and distal right coronary artery. She had also undergone mitral valve repair with complete ring annuloplasty utilizing a 28 mm 3-D ring. This is postoperative day #2. She is currently seen in the intensive care unit sitting up in the chair at the bedside. She is awake and alert in no acute distress. Her pain is well controlled. She has been weaned off the Primacor approximately 8:30 AM this morning. Her cardiac output is 5.1 cardiac index 3.2. She did receive 500 mg of albumin 2 for hypotension and decreased urinary output. She is also to receive a unit of packed red blood cells followed by Wil[facility] today. Her pulmonary artery pressures 34/12, CVP 8, current blood pressure 114/50 with emptying arterial pressure of 73. She is in sinus rhythm with first-degree heart block. She is on a lactated Ringer's at KVO. No other drips. Her chest x-ray reveals bilateral effusions. She continues with right left and mediastinal chest tubes. He is requiring 6 L per nasal cannula to maintain O2 saturation in the low 90s. She is only pulling approximately 250 MLS on her incentive spirometer. Objective - Vital Signs Vital signs: Vital Signs Temp 99.0 F 08/21/16 10:57 Pulse 92 08/21/16 10:57 Resp 28 H 08/21/16 10:57 BP 108/49 08/21/16 10:57 Pulse Ox 93 L 08/21/16 10:00 Intake & Output 08/20/16 08/21/16 08/21/16 18:59 06:59 18:59 Intake Total 8905.066 8737.26 660 Output Total 1118 850 245 Balance 154.943 396.26 415 Weight 77.3 kg Intake: IV 765 720 160 CO/CI 40 120 40 Lactated Ringers 1,000 ml 600 600 120 @ 50 mls/hr IV .Q20H [facility] Rx#:[id number] Sodium Phosphate 10 mmol 125 In Sodium Chloride 0.9% 250 ml @ 125 mls/hr IVPB Q2H [facility] Rx#:[id number] Intake, IV Titration 197.943 526.26 500 Amount Albumin Human 5% 500 ml 500 In Empty Bag 1 bag @ 250 mls/hr IVPB ONCE ONE Rx#: [id number] Albumin Human 5% 500 ml 500 In Empty Bag 1 bag @ 250 mls/hr IVPB ONCE STA Rx#: [id number] Insulin Regular 100 unit 9.41 26.26 In Sodium Chloride 0.9% 100 ml @ Per Protocol IV .Q0M [facility] Rx#:[id number] Milrinone-D5w Pmx 20 mg 30.933 In Dextrose/Water 1 100ml .bag @ Per Protocol IV . Q0M [facility] Rx#:[id number] Propofol 500 mg In Empty 57.600 Bag 1 bag @ Titrate IV . Q0M [facility] Rx#:[id number] ceFAZolin 2 gm In Sodium 100 Chloride 0.9% 100 ml @ 100 mls/hr IVPB Q8H [facility] Rx#:[id number] Blood Product 310 0 Rc As-1 Unit 310 [id number] Rc As-1 Unit 0 [id number] Output: Chest Tube Drainage 573 460 170 Chest Tube Mediastinal 370 160 0 Left Left Pleural/ 150 130 60 Mediastinal Right Right Pleural/ 53 170 110 Mediastinal Drainage 30 20 Left Thigh 30 Right Thigh 20 Urine 515 370 75 Other: Voiding Method Indwelling Catheter Indwelling Catheter ABP, PAP, CO, CI - Last Documented Arterial Blood Pressure 94/63 Pulmonary Artery Pressure 33/13 Cardiac Output 5.5 Cardiac Index 3.2 - Exam GENERAL EXAM: Alert, comfortable in no apparent distress. HEAD: Normocephalic. EYES: Normal reaction of pupils, equal size. NOSE: Clear with pink turbinates. THROAT: No erythema or exudates. NECK: No masses, no JVD. Lung exam Remains in place. CHEST: No chest wall deformity. Dressing is dry and intact. LUNGS: Equal air entry with crackles in the posterior bases. CVS: S1 and S2 normal with no audible murmurs, regular rhythm. ABDOMEN: No hepatosplenomegaly, normal bowel sounds, no guarding or rigidity. SPINE: No scoliosis or deformity SKIN: No rashes CENTRAL NERVOUS SYSTEM: No focal deficits, tone is normal in all 4 extremities. Extremities: There is trace peripheral edema. No clubbing, no cyanosis. Peripheral pulses are intact. - Labs CBC & Chem 7: 08/21/16 05:10 08/21/16 05:10 Labs: Abnormal Lab Results - Last 24 Hours (Table) 08/16/16 08/20/16 08/20/16 Range/Units 08:54 12:06 12:06 WBC 14.2 H (3.8-10.6) k/uL RBC 2.62 L (3.80-5.40) m/uL Hgb 7.9 L (11.4-16.0) gm/dL Hct 23.7 L (34.0-46.0) % Plt Count 120 L (150-450) k/uL Neutrophils # (1.3-7.7) k/uL Chloride (98-107) mmol/L Glucose (74-99) mg/dL POC Glucose (mg/dL) 132 H (75-99) mg/dL Calcium (8.4-10.2) mg/dL AST (14-36) U/L Alkaline Phosphatase (38-126) U/L Total Protein (6.3-8.2) g/dL Albumin (3.5-5.0) g/dL Crossmatch See Detail 08/20/16 08/20/16 08/20/16 Range/Units 14:28 16:00 17:59 WBC (3.8-10.6) k/uL RBC (3.80-5.40) m/uL Hgb (11.4-16.0) gm/dL Hct (34.0-46.0) % Plt Count (150-450) k/uL Neutrophils # (1.3-7.7) k/uL Chloride (98-107) mmol/L Glucose (74-99) mg/dL POC Glucose (mg/dL) 129 H 125 H 131 H (75-99) mg/dL Calcium (8.4-10.2) mg/dL AST (14-36) U/L Alkaline Phosphatase (38-126) U/L Total Protein (6.3-8.2) g/dL Albumin (3.5-5.0) g/dL Crossmatch 08/20/16 08/20/16 08/21/16 Range/Units 20:07 22:08 00:17 WBC (3.8-10.6) k/uL RBC (3.80-5.40) m/uL Hgb (11.4-16.0) gm/dL Hct (34.0-46.0) % Plt Count (150-450) k/uL Neutrophils # (1.3-7.7) k/uL Chloride (98-107) mmol/L Glucose (74-99) mg/dL POC Glucose (mg/dL) 137 H 140 H 134 H (75-99) mg/dL Calcium (8.4-10.2) mg/dL AST (14-36) U/L Alkaline Phosphatase (38-126) U/L Total Protein (6.3-8.2) g/dL Albumin (3.5-5.0) g/dL Crossmatch 08/21/16 08/21/16 08/21/16 Range/Units 02:10 04:02 05:10 WBC (3.8-10.6) k/uL RBC (3.80-5.40) m/uL Hgb (11.4-16.0) gm/dL Hct (34.0-46.0) % Plt Count (150-450) k/uL Neutrophils # (1.3-7.7) k/uL Chloride 110 H (98-107) mmol/L Glucose 109 H (74-99) mg/dL POC Glucose (mg/dL) 118 H 175 H (75-99) mg/dL Calcium 7.2 L (8.4-10.2) mg/dL AST 124 H (14-36) U/L Alkaline Phosphatase 36 L (38-126) U/L Total Protein 4.1 L (6.3-8.2) g/dL Albumin 2.6 L (3.5-5.0) g/dL Crossmatch 08/21/16 08/21/16 08/21/16 Range/Units 05:10 05:10 06:13 WBC (3.8-10.6) k/uL RBC 2.22 L (3.80-5.40) m/uL Hgb 6.7 L* (11.4-16.0) gm/dL Hct 20.1 L (34.0-46.0) % Plt Count 78 L (150-450) k/uL Neutrophils # 7.9 H (1.3-7.7) k/uL Chloride (98-107) mmol/L Glucose (74-99) mg/dL POC Glucose (mg/dL) 127 H 104 H (75-99) mg/dL Calcium (8.4-10.2) mg/dL AST (14-36) U/L Alkaline Phosphatase (38-126) U/L Total Protein (6.3-8.2) g/dL Albumin (3.5-5.0) g/dL Crossmatch 08/21/16 08/21/16 Range/Units 07:19 08:56 WBC (3.8-10.6) k/uL RBC (3.80-5.40) m/uL Hgb (11.4-16.0) gm/dL Hct (34.0-46.0) % Plt Count (150-450) k/uL Neutrophils # (1.3-7.7) k/uL Chloride (98-107) mmol/L Glucose (74-99) mg/dL POC Glucose (mg/dL) 102 H (75-99) mg/dL Calcium (8.4-10.2) mg/dL AST (14-36) U/L Alkaline Phosphatase (38-126) U/L Total Protein (6.3-8.2) g/dL Albumin (3.5-5.0) g/dL Crossmatch See Detail Assessment and Plan Plan: Impression: #1 Coronary artery disease. Status post coronary artery bypass grafting 5 utilizing a SMILEY to the LAD, reverse saphenous vein grafts to the first obtuse marginal, right coronary artery and diagonal branch. Also, status post patent foramen ovale repair. Postoperative day #2. #2 Mitral valve regurgitation status post mitral valve repair utilizing a 28 mm mitral ring. Postoperative day #2. #3 Ventilatory dependent respiratory failure as an expected outcome of thoracotomy, recovered. #4 Hyper lipidemia. #5 Hypertension. #6 Chronic and ongoing tobacco dependence. #7 Osteoarthritis. #8 Gastroesophageal reflux disease. #9 Fibromyalgia. #10 Attention deficit disorder. Plan: The patient was seen and evaluated by Dr. Hahn. Her chest x-ray and labs were reviewed. She requires increased encouragement regarding the use of the incentive spirometer and cough and deep breathing exercises. She will receive a unit of packed red blood cells followed by IV Lasix today. She did receive the 2 500 mg albumin infusions as well. We'll continue to monitor her here closely in the intensive care unit. The plan is for the mediastinal chest tubes to be removed today. We'll repeat her chest x-ray and labs in the a.m. We'll increase her activity as tolerated and continue to follow and make further recommendations based on her clinical status.
[2016-08-21] MEDS: LACTATED RINGERS 1,000 ML IV SCH (11:21)
[2016-08-21] MEDS: METOPROLOL TARTRATE 12.5 MG TAB PO SCH ×2 (11:21→20:00)
[2016-08-21] MEDS: CLEVIDIPINE BUTYRATE 25 MG in EMPTY BAG 1 BAG IV SCH (11:40)
--- NOTE | 2016-08-21 11:40 | P.PN ---
Subjective 61-year-old female one of Dr. Shrestha patient with past medical history of osteoarthritis hypertension hyperlipidemia and previous history of TIA and chronic lower back pain who had developed significant shortness of breath with minimum exertion was seen Dr. Verde recently and was diagnosed with possible coronary artery disease was [facility] and ended up having testing with Dr. Ann and furthermore heart catheter showed significant multiple coronary artery disease. 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 08/21: Patient remains in the intensive care unit. Patient has been successfully extubated this morning. She is found sitting up in a chair. She did not sleep well last night and does not feel well in general. O2 at 6L with pulse ox 93%. Hemoglobin 6.7 and currently receiving 1 unit of Blood. IS about 500 ml. Objective - Vital Signs Vital signs: Vital Signs Temp 98.2 F 08/21/16 06:00 Pulse 94 08/21/16 08:00 Resp 15 08/21/16 08:00 BP 110/45 08/21/16 08:00 Pulse Ox 92 L 08/21/16 08:00 Intake & Output 08/20/16 08/21/16 08/21/16 18:59 06:59 18:59 Intake Total 6894.970 2369.26 540 Output Total 1118 850 90 Balance 154.943 396.26 450 Weight 77.3 kg Intake: IV 765 720 40 CO/CI 40 120 Lactated Ringers 1,000 ml 600 600 40 @ 50 mls/hr IV .Q20H [facility] Rx#:[id number] Sodium Phosphate 10 mmol 125 In Sodium Chloride 0.9% 250 ml @ 125 mls/hr IVPB Q2H [facility] Rx#:[id number] Intake, IV Titration 197.943 526.26 500 Amount Albumin Human 5% 500 ml 500 In Empty Bag 1 bag @ 250 mls/hr IVPB ONCE ONE Rx#: [id number] Albumin Human 5% 500 ml 500 In Empty Bag 1 bag @ 250 mls/hr IVPB ONCE STA Rx#: [id number] Insulin Regular 100 unit 9.41 26.26 In Sodium Chloride 0.9% 100 ml @ Per Protocol IV .Q0M [facility] Rx#:[id number] Milrinone-D5w Pmx 20 mg 30.933 In Dextrose/Water 1 100ml .bag @ Per Protocol IV . Q0M [facility] Rx#:[id number] Propofol 500 mg In Empty 57.600 Bag 1 bag @ Titrate IV . Q0M [facility] Rx#:[id number] ceFAZolin 2 gm In Sodium 100 Chloride 0.9% 100 ml @ 100 mls/hr IVPB Q8H [facility] Rx#:[id number] Blood Product 310 Rc As-1 Unit 310 [id number] Output: Chest Tube Drainage 573 460 70 Chest Tube Mediastinal 370 160 0 Left Left Pleural/ 150 130 30 Mediastinal Right Right Pleural/ 53 170 40 Mediastinal Drainage 30 20 Left Thigh 30 Right Thigh 20 Urine 515 370 20 Other: Voiding Method Indwelling Catheter Indwelling Catheter ABP, PAP, CO, CI - Last Documented Arterial Blood Pressure 94/63 Pulmonary Artery Pressure 35/12 Cardiac Output 5.5 Cardiac Index 3.2 - Exam General appearance: average body habitus, no cooperative, no disheveled, no mild distress, no morbidly obese, no acute distress, no obese, no severe distress, no thin - EENT Eyes: no abnormal pupil, no anicteric sclerae, no disc margins sharp, no edentulous, no EOMI, no PERRLA, no fundus normal, no photophobia, no dentition normal, no poor dentition, no ptosis, no scleral icterus, normal appearance ENT: no hard of hearing, no hearing grossly normal, no NA/AT, no normal oropharynx, no other, no pharyngeal erythema, no thrush, no tonsillar exudates, no tonsillar swelling Ears: bilateral: normal - Neck Neck: no lymphadenopathy, normal ROM, no other, no rigidity, no stridor, no thyromegaly Carotids: bilateral: upstroke normal Thyroid: bilateral: normal size - Respiratory Respiratory: bilateral: diminished, dullness, rales - Cardiovascular Rhythm: regular Heart sounds: normal: S1, S2 Abnormal Heart Sounds: systolic murmur, no diastolic murmur, no rub, no S3 Gallop, no S4 Gallop, no click, no other - Gastrointestinal General gastrointestinal: no absent bowel sounds, decreased bowel sounds, no distended, no hepatomegaly, no hyperactive bowel sounds, normal bowel sounds, no organomegaly, no rigid, no scaphoid, soft, no splenomegaly, no tenderness, no umbilical hernia, no ventral hernia - Integumentary Integumentary: no calor, no cellulitis, no cyanotic, no decreased turgor, no flushed, no jaundiced, normal, no normal turgor, pale, rash, no ulcer - Neurologic Neurologic: CNII-XII intact - Musculoskeletal Patient is on mechanical ventilation Musculoskeletal: no gait normal, no generalized weakness, no strength equal bilaterally, no right sided weakness, no left sided weakness - Psychiatric Psychiatric: A&O x's 3, appropriate affect, intact judgment & insight - Labs CBC & Chem 7: 08/21/16 05:10 08/21/16 05:10 Labs: Abnormal Lab Results - Last 24 Hours (Table) 08/16/16 08/20/16 08/20/16 Range/Units 08:54 10:33 12:06 WBC (3.8-10.6) k/uL RBC (3.80-5.40) m/uL Hgb (11.4-16.0) gm/dL Hct (34.0-46.0) % Plt Count (150-450) k/uL Neutrophils # (1.3-7.7) k/uL Chloride (98-107) mmol/L Glucose (74-99) mg/dL POC Glucose (mg/dL) 135 H 132 H (75-99) mg/dL Calcium (8.4-10.2) mg/dL AST (14-36) U/L Alkaline Phosphatase (38-126) U/L Total Protein (6.3-8.2) g/dL Albumin (3.5-5.0) g/dL Crossmatch See Detail 08/20/16 08/20/16 08/20/16 Range/Units 12:06 14:28 16:00 WBC 14.2 H (3.8-10.6) k/uL RBC 2.62 L (3.80-5.40) m/uL Hgb 7.9 L (11.4-16.0) gm/dL Hct 23.7 L (34.0-46.0) % Plt Count 120 L (150-450) k/uL Neutrophils # (1.3-7.7) k/uL Chloride (98-107) mmol/L Glucose (74-99) mg/dL POC Glucose (mg/dL) 129 H 125 H (75-99) mg/dL Calcium (8.4-10.2) mg/dL AST (14-36) U/L Alkaline Phosphatase (38-126) U/L Total Protein (6.3-8.2) g/dL Albumin (3.5-5.0) g/dL Crossmatch 08/20/16 08/20/16 08/20/16 Range/Units 17:59 20:07 22:08 WBC (3.8-10.6) k/uL RBC (3.80-5.40) m/uL Hgb (11.4-16.0) gm/dL Hct (34.0-46.0) % Plt Count (150-450) k/uL Neutrophils # (1.3-7.7) k/uL Chloride (98-107) mmol/L Glucose (74-99) mg/dL POC Glucose (mg/dL) 131 H 137 H 140 H (75-99) mg/dL Calcium (8.4-10.2) mg/dL AST (14-36) U/L Alkaline Phosphatase (38-126) U/L Total Protein (6.3-8.2) g/dL Albumin (3.5-5.0) g/dL Crossmatch 08/21/16 08/21/16 08/21/16 Range/Units 00:17 02:10 04:02 WBC (3.8-10.6) k/uL RBC (3.80-5.40) m/uL Hgb (11.4-16.0) gm/dL Hct (34.0-46.0) % Plt Count (150-450) k/uL Neutrophils # (1.3-7.7) k/uL Chloride (98-107) mmol/L Glucose (74-99) mg/dL POC Glucose (mg/dL) 134 H 118 H 175 H (75-99) mg/dL Calcium (8.4-10.2) mg/dL AST (14-36) U/L Alkaline Phosphatase (38-126) U/L Total Protein (6.3-8.2) g/dL Albumin (3.5-5.0) g/dL Crossmatch 08/21/16 08/21/16 08/21/16 Range/Units 05:10 05:10 05:10 WBC (3.8-10.6) k/uL RBC 2.22 L (3.80-5.40) m/uL Hgb 6.7 L* (11.4-16.0) gm/dL Hct 20.1 L (34.0-46.0) % Plt Count 78 L (150-450) k/uL Neutrophils # 7.9 H (1.3-7.7) k/uL Chloride 110 H (98-107) mmol/L Glucose 109 H (74-99) mg/dL POC Glucose (mg/dL) 127 H (75-99) mg/dL Calcium 7.2 L (8.4-10.2) mg/dL AST 124 H (14-36) U/L Alkaline Phosphatase 36 L (38-126) U/L Total Protein 4.1 L (6.3-8.2) g/dL Albumin 2.6 L (3.5-5.0) g/dL Crossmatch 08/21/16 08/21/16 Range/Units 06:13 07:19 WBC (3.8-10.6) k/uL RBC (3.80-5.40) m/uL Hgb (11.4-16.0) gm/dL Hct (34.0-46.0) % Plt Count (150-450) k/uL Neutrophils # (1.3-7.7) k/uL Chloride (98-107) mmol/L Glucose (74-99) mg/dL POC Glucose (mg/dL) 104 H 102 H (75-99) mg/dL Calcium (8.4-10.2) mg/dL AST (14-36) U/L Alkaline Phosphatase (38-126) U/L Total Protein (6.3-8.2) g/dL Albumin (3.5-5.0) g/dL Crossmatch Assessment and Plan Plan: 1 multiple coronary artery disease: Post 4 vessel CABG, doing slightly but better postsurgery stable at this point postsurgical care including chest tube, respirator, IV drip. Continue to watch patient for any change in hemodynamic status including arrhythmia or other. 2 post mitral valve repair: Has been doing well. 3 post patent morelos ovale repair: Stable so far. 4 acute respiratory failure expected postsurgery, successfully extubated. Dr. Hahn is following. 4 hypertension: Was on hydralazine and metoprolol resume medication when more stable. 5 ADD: Has been on Adderall 30 mg 3 times a day patient is off medication currently. 6 hyperlipidemia: Remain on Lipitor 20 mg daily. 7 hyperglycemia: Continue Accu-Chek post surgery. 8. Acute blood loss anemia s/p transfusion post operatively. GI prophylaxis: Patient remain on Protonix IV. CODE STATUS: Full code. Discharge plan: To be determined Impression and plan of care have been directed as dictated by the signing physician. Christiane Garza nurse practitioner acting as scribe for signing physician. Time with Patient: Greater than 30
[2016-08-21 12:07] LABS: Glucose,Whole Blood 150 mg/dL (75-99)
[2016-08-21] MEDS ORDERED: POTASSIUM CHLORIDE ER 20 MEQ TAB.ER PO SCH (13:00)
[2016-08-21 14:11] LABS: Glucose,Whole Blood 124 mg/dL (75-99)
[2016-08-21 16:02] LABS: ABG PCO2 34 mmHg (35-45); ABG PH 7.44 (7.35-7.45); ABG PO2 52 mmHg (83-108)
[2016-08-21 16:03] LABS: ABG Base Excess -1.2 mmol/L; ABG HCO3 22 mmol/L (21-25); ABG TCO2 23 mmol/L (19-24)
--- NOTE | 2016-08-21 16:08 | XR ---
EXAMINATION TYPE: XR chest 1V DATE OF EXAM: 08/21/2016 3:21 PM COMPARISON: 08/21/2016 earlier today in the day. INDICATION: Post cardiac surgery, shortness of breath TECHNIQUE: Single frontal view of the chest is obtained. FINDINGS: The heart size is normal. Pulmonary vasculature is prominent. Correlate for volume overload. Bilateral chest tubes are present. Sternotomy wires are present from previous CABG. Left lower lobe i nfiltrate is present. [place] catheter is been removed. Mediastinal tubes have been removed. IMPRESSION: 1. Bibasilar infiltrates. Correlate for atelectasis and pneumonia. Atypical pulmonary edema could be considered. 2. Bilateral chest tubes. No pneumothorax is evident. Artifacts overlie the chest in close follow-up is recommended.
[2016-08-21 16:12] LABS: Basophils % (A) 0 %; CH 29.7; CHCM 33.8; Eosinophils % (A) 0 %; HCT 24.3 % (34.0-46.0); HDW 3.38; Luc # (Auto) 0.16; Luc % (Auto) 1; Lymphocytes # (A) 1.1 k/uL (1.0-4.8); Lymphocytes % (A) 9 %; MCHC 32.8 g/dL (31.0-37.0); MCV 88.7 fL (80.0-100.0); Mean Platelet Volume 9.4; Monocytes # (A) 0.5 k/uL (0-1.0); Monocytes % (A) 4 %; Neutrophils # (A) 9.9 k/uL (1.3-7.7); Neutrophils % (A) 85 %; RBC 2.74 m/uL (3.80-5.40); RDW 15.1 % (11.5-15.5); WBC 11.7 k/uL (3.8-10.6); WBC (Perox) 12.27
[2016-08-21] MEDS: INSULIN LISPRO (humaLOG) 300 UNIT/3 ML VIAL SQ SCH ×3 (16:16→21:40)
--- NOTE | 2016-08-21 16:35 | PN ---
Mrs. May is doing well. She is lying flat in bed. She looks comfortable. Breath sounds are reduced bilaterally. Heart sounds are soft, they are conducted sounds. ABDOMEN: Soft. Nontender. EXTREMITIES: Warm. No edema. Blood pressures 118/50 mmHg. Pulse rate in the 80s and 90s, she is now in sinus rhythm. She has not used atrial pacing anymore. Reviewed cardiac medications. She is back on her usual medications. She is on beta blockers and statins, aspirin, and Plavix is being doubled today. IMPRESSION: Coronary artery disease, status post coronary artery bypass grafting along with a coronary atherectomy. SUGGEST: Maximize cardiac medications gradually. Postop management per CD surgery.
[2016-08-21 18:29] LABS: Glucose,Whole Blood 115 mg/dL (75-99)
[2016-08-21] MEDS ORDERED: CLOPIDOGREL 75 MG TAB PO ONE (20:00)
[2016-08-21] MEDS: NITROGLYCERIN-D5W PMX 50 MG in DEXTROSE/WATER 1 250ML.BAG IV SCH (20:06)
[2016-08-21 21:29] LABS: Glucose,Whole Blood 122 mg/dL (75-99)
[2016-08-21] MEDS ORDERED: ALPRAZolam 0.5 MG TAB PO PRN (22:04)
[2016-08-21] MEDS: SENNOSIDES-DOCUSATE SODIUM 1 EACH TAB PO SCH (22:22)
[2016-08-22] MEDS: HEPARIN SODIUM,PORCINE 5,000 UNIT/ML 1 ML VIAL SQ SCH ×3 (00:29→17:39)
[2016-08-22 06:04] LABS: Ionized Calcium 4.8 mg/dL (4.5-5.3)
[2016-08-22 06:12] LABS: INR 1.3 (<1.1); Prothrombin Time 12.7 sec (9.0-12.0)
[2016-08-22 06:12] LABS: Basophils % (A) 0 %; CH 29.6; CHCM 32.8; Eosinophils % (A) 0 %; HDW 3.18; Luc # (Auto) 0.28; Luc % (Auto) 2; Lymphocytes # (A) 1.3 k/uL (1.0-4.8); Lymphocytes % (A) 8 %; MCH 30.5 pg (25.0-35.0); MCHC 33.4 g/dL (31.0-37.0); MCV 91.1 fL (80.0-100.0); Mean Platelet Volume 8.8; Monocytes # (A) 0.7 k/uL (0-1.0); Monocytes % (A) 4 %; Neutrophils # (A) 13.5 k/uL (1.3-7.7); Neutrophils % (A) 86 %; RBC 2.31 m/uL (3.80-5.40); RDW 14.9 % (11.5-15.5); WBC 15.7 k/uL (3.8-10.6); WBC (Perox) 16.25
[2016-08-22 06:15] LABS: ALT 46 U/L (9-52); AST 68 U/L (14-36); Alkaline Phosphatase 52 U/L (38-126); Anion Gap 9 mmol/L; Blood Urea Nitrogen 22 mg/dL (7-17); Calcium 7.9 mg/dL (8.4-10.2); Carbon Dioxide 23 mmol/L (22-30); Chloride 109 mmol/L (98-107); Glucose 101 mg/dL (74-99); Magnesium 2.2 mg/dL (1.6-2.3); Non-African American GFR(MDRD) >60 (>60 ml/min/1.73 sqM); Potassium 4.5 mmol/L (3.5-5.1); Sodium 141 mmol/L (137-145); Total Bilirubin 0.9 mg/dL (0.2-1.3); Total Protein 4.9 g/dL (6.3-8.2)
--- NOTE | 2016-08-22 07:38 | XR ---
EXAMINATION TYPE: XR chest 1V portable DATE OF EXAM: 08/22/2016 6:29 AM COMPARISON: Prior chest x-ray 21 August 2016 HISTORY: Postoperative cardiac surgery TECHNIQUE: Single frontal view of the chest is obtained. FINDINGS: Patient is post median sternotomy. The heart is enlarged. Bilateral chest tubes in place. No pneumothorax. Patchy basilar density is present. There are epicardial pacing leads, overlying card iac leads. IMPRESSION: There may be a component of congestive heart failure. Bilateral basilar atelectasis vers us edema, correlate to exclude pneumonia.
[2016-08-22] MEDS: IPRATROPIUM-ALBUTEROL 3 ML NEB INHALATION SCH ×4 (07:40→20:40)
[2016-08-22 07:52] LABS: Glucose,Whole Blood 105 mg/dL (75-99)
[2016-08-22] MEDS: INSULIN LISPRO (humaLOG) 300 UNIT/3 ML VIAL SQ SCH ×4 (07:52→21:23)
[2016-08-22] MEDS: ATORVASTATIN 40 MG TAB PO SCH (08:01)
[2016-08-22] MEDS: CLOPIDOGREL 75 MG TAB PO SCH (08:02)
[2016-08-22] MEDS: ASPIRIN 81 MG CHEW PO SCH (08:02)
[2016-08-22] MEDS: PANTOPRAZOLE 40 MG/10 ML VIAL IVP SCH (08:02)
[2016-08-22] MEDS: METOPROLOL TARTRATE 25 MG TAB PO SCH ×2 (08:07→21:24)
--- NOTE | 2016-08-22 08:35 | P.PN ---
Subjective Principal diagnosis: Triple vessel coronary artery disease with an old inferior wall myocardial infarction, moderate left ventricular dysfunction, moderate mitral valve regurgitation, infero-basal aneurysm, hypertension, hyperlipidemia, fibromyalgia , gastroesophageal reflux disease, tobacco abuse. POD #3 quadruple coronary artery bypass grafting using the left internal mammary artery to the left anterior descending artery, reverse saphenous vein graft from the aorta to the diagonal artery, reverse saphenous vein graft from the aorta to the obtuse marginal artery, reverse saphenous vein graft from the aorta to the distal right coronary artery at its bifurcation after endarterectomy of the proximal posterior descending artery, and posterolateral branch. Mitral valve repair with complete ring annuloplasty using a 28 mm dixie 3-D ring. Exclusion of the left atrial appendage using a 35 mm AtriClip. Intraoperative transesophageal echocardiogram and epi-aortic scanning. Patient sitting up in chair with BiPAP mask on, complains of incisional pain. Complains she wants the BiPAP mask off. Per nursing she desaturates anytime the BiPAP mask is off. Objective - Vital Signs Vital signs: Vital Signs Temp 97.7 F 08/22/16 04:00 Pulse 85 08/22/16 07:00 Resp 23 08/22/16 07:00 BP 141/62 08/22/16 07:00 Pulse Ox 64 L 08/22/16 07:00 Intake & Output 08/21/16 08/22/16 08/22/16 18:59 06:59 18:59 Intake Total 1130 390 20 Output Total 1685 1449 83 Balance -555 -1059 -63 Weight 78.5 kg 75.9 kg Intake: IV 320 220 20 CO/CI 40 Lactated Ringers 1,000 ml 280 220 20 @ 50 mls/hr IV .Q20H [facility] Rx#:[id number] Intake, IV Titration 500 20 Amount Albumin Human 5% 500 ml 500 In Empty Bag 1 bag @ 250 mls/hr IVPB ONCE STA Rx#: [id number] Lactated Ringers 1,000 ml 20 @ 20 mls/hr IV .Q24H [facility] Rx#:[id number] Oral 150 Blood Product 310 Rc As-1 Unit 310 [id number] Output: Chest Tube Drainage 650 615 65 Chest Tube Mediastinal 0 Left Left Pleural/ 220 185 15 Mediastinal Right Right Pleural/ 430 430 50 Mediastinal Drainage 180 50 Left Thigh 120 30 Right Thigh 60 20 Urine 855 784 18 Other: Voiding Method Indwelling Catheter Indwelling Catheter ABP, PAP, CO, CI - Last Documented Arterial Blood Pressure 94/63 Pulmonary Artery Pressure 35/15 Cardiac Output 5.5 Cardiac Index 3.2 - Constitutional General appearance: Present: mild distress - Respiratory Details: Lung sounds very diminished bilaterally, faint expiratory wheezes posteriorly. Respirations even but slightly shallow. Currently on BiPAP with FiO2 of 70%. Right pleural chest tube to -20 cm wall suction, draining serosanguineous fluid , 380 mL last 12 hours, 810 mL last 24 hours. Left pleural chest tube -20 cm wall suction, draining serosanguineous fluid, 170 mL last 12 hours, 390 mL total last 24 hours. - Cardiovascular Details: S1, S2 present no murmurs, rubs, gallops. Regular rate, rhythm, sinus rhythm on telemetry. Chest stable. Heart hugger in place with patient demonstrating semi-effective use. Generalized edema present, however, appears less than yesterday. Palpable radial, DP, PT pulses bilaterally. - Gastrointestinal Gastrointestinal Comment(s): Abdomen soft, nontender, nondistended. Positive active bowel sounds 4 quadrants. Positive flatus, negative BM. Tolerating diet. - Genitourinary Genitourinary Comment(s): Almanza present draining clear, yellow urine. - Musculoskeletal Musculoskeletal Comment(s): Equal strength bilaterally, up to chair with assist 2. - Psychiatric Psychiatric Comment(s): Patient highly anxious. Psychiatric: Present: A&O x's 3 - Allied health notes Allied health notes reviewed: RT - Labs CBC & Chem 7: 08/22/16 05:00 08/22/16 05:00 Labs: Abnormal Lab Results - Last 24 Hours (Table) 08/21/16 08/21/16 08/21/16 Range/Units 07:19 08:56 12:05 WBC (3.8-10.6) k/uL RBC (3.80-5.40) m/uL Hgb (11.4-16.0) gm/dL Hct (34.0-46.0) % Plt Count (150-450) k/uL Neutrophils # (1.3-7.7) k/uL PT (9.0-12.0) sec ABG pCO2 (35-45) mmHg ABG pO2 (83-108) mmHg ABG O2 Saturation (94-97) % Chloride (98-107) mmol/L BUN (7-17) mg/dL Glucose (74-99) mg/dL POC Glucose (mg/dL) 102 H 150 H (75-99) mg/dL Calcium (8.4-10.2) mg/dL AST (14-36) U/L Total Protein (6.3-8.2) g/dL Albumin (3.5-5.0) g/dL Crossmatch See Detail 08/21/16 08/21/16 08/21/16 Range/Units 14:09 15:25 15:30 WBC 11.7 H (3.8-10.6) k/uL RBC 2.74 L (3.80-5.40) m/uL Hgb 8.0 L (11.4-16.0) gm/dL Hct 24.3 L (34.0-46.0) % Plt Count 81 L (150-450) k/uL Neutrophils # 9.9 H (1.3-7.7) k/uL PT (9.0-12.0) sec ABG pCO2 34 L (35-45) mmHg ABG pO2 52 L (83-108) mmHg ABG O2 Saturation 88.0 L (94-97) % Chloride (98-107) mmol/L BUN (7-17) mg/dL Glucose (74-99) mg/dL POC Glucose (mg/dL) 124 H (75-99) mg/dL Calcium (8.4-10.2) mg/dL AST (14-36) U/L Total Protein (6.3-8.2) g/dL Albumin (3.5-5.0) g/dL Crossmatch 08/21/16 08/21/16 08/22/16 Range/Units 18:25 21:26 05:00 WBC 15.7 H (3.8-10.6) k/uL RBC 2.31 L (3.80-5.40) m/uL Hgb 7.0 L* (11.4-16.0) gm/dL Hct 21.0 L (34.0-46.0) % Plt Count 96 L (150-450) k/uL Neutrophils # 13.5 H (1.3-7.7) k/uL PT (9.0-12.0) sec ABG pCO2 (35-45) mmHg ABG pO2 (83-108) mmHg ABG O2 Saturation (94-97) % Chloride (98-107) mmol/L BUN (7-17) mg/dL Glucose (74-99) mg/dL POC Glucose (mg/dL) 115 H 122 H (75-99) mg/dL Calcium (8.4-10.2) mg/dL AST (14-36) U/L Total Protein (6.3-8.2) g/dL Albumin (3.5-5.0) g/dL Crossmatch 08/22/16 08/22/16 Range/Units 05:00 05:45 WBC (3.8-10.6) k/uL RBC (3.80-5.40) m/uL Hgb (11.4-16.0) gm/dL Hct (34.0-46.0) % Plt Count (150-450) k/uL Neutrophils # (1.3-7.7) k/uL PT 12.7 H (9.0-12.0) sec ABG pCO2 (35-45) mmHg ABG pO2 (83-108) mmHg ABG O2 Saturation (94-97) % Chloride 109 H (98-107) mmol/L BUN 22 H (7-17) mg/dL Glucose 101 H (74-99) mg/dL POC Glucose (mg/dL) (75-99) mg/dL Calcium 7.9 L (8.4-10.2) mg/dL AST 68 H (14-36) U/L Total Protein 4.9 L (6.3-8.2) g/dL Albumin 2.8 L (3.5-5.0) g/dL Crossmatch - Imaging and Cardiology Chest x-ray: image reviewed Assessment and Plan (1) CAD (coronary artery disease) Status: Acute (2) Mitral valve regurgitation Status: Acute (3) Hypertension Status: Acute (4) Hyperlipidemia Status: Acute (5) GERD (gastroesophageal reflux disease) Status: Acute (6) Tobacco dependence Status: Acute (7) Anxiety Status: Acute Plan: 1. Continue, aspirin, Plavix, Lopressor, statin. Will increase beta bernardino. 2. Will wean off BiPAP. 3. Will DC Almanza catheter, monitor urine output. 4. Will monitor labs, vital signs, output and treat accordingly. 5. Encourage coughing and deep breathing, with incentive spirometry use. 6. Encourage increased activity, would like patient to ambulate in hallway. 7. GI/DVT prophylaxis. 8. Will work on pain control. 9. Patient needs aggressive encouragement to participate in care. Time with Patient: Greater than 30
[2016-08-22] MEDS ORDERED: FUROSEMIDE 10 MG/ML 2 ML VIAL IV ONE (09:17)
[2016-08-22 09:59] VITALS: BMI 27.8
--- NOTE | 2016-08-22 10:34 | P.PN ---
Subjective Principal diagnosis: Coronary artery disease, moderate mitral valve regurgitation This is a very pleasant 61-year-old female patient who was found to have triple- vessel coronary artery disease with moderate left ventricular dysfunction, moderate mitral valve regurgitation, inferobasal aneurysm. She also had a history of hypertension hyperlipidemia fibromyalgia, gastroesophageal reflux disease and chronic tobacco use. She is now status post coronary artery bypass grafting 4 utilizing a SMILEY to the LAD, reverse saphenous vein graft to the diagonal artery, obtuse marginal artery and distal right coronary artery. She had also undergone mitral valve repair with complete ring annuloplasty utilizing a 28 mm 3-D ring. This is postoperative day #3. She is seen again today 08/22/2016 in follow-up. She did require BiPAP support yesterday afternoon and throughout the evening. She has a sitting up in the chair at the bedside. She continues to need increased encouragement regarding the use of the incentive spirometer and cough and deep breathing exercises. Her chest x-ray continues to show basilar atelectasis. Chest tubes remain in place. White count remains elevated at 15.7. Current temp 99.3. She is utilizing 15 L of high flow nasal cannula to maintain O2 saturations in the low 90s. She's been hemodynamically stable. Objective - Vital Signs Vital signs: Vital Signs Temp 98.3 F 08/22/16 10:17 Pulse 80 08/22/16 10:17 Resp 23 08/22/16 10:17 BP 120/58 08/22/16 10:17 Pulse Ox 91 L 08/22/16 10:17 Intake & Output 08/21/16 08/22/16 08/22/16 18:59 06:59 18:59 Intake Total 1130 390 80 Output Total 1685 1449 213 Balance -555 -1059 -133 Weight 78.5 kg 75.9 kg 75.9 kg Intake: IV 320 220 20 CO/CI 40 Lactated Ringers 1,000 ml 280 220 20 @ 50 mls/hr IV .Q20H [facility] Rx#:[id number] Intake, IV Titration 500 20 60 Amount Albumin Human 5% 500 ml 500 In Empty Bag 1 bag @ 250 mls/hr IVPB ONCE [facility] Rx#: [id number] Lactated Ringers 1,000 ml 20 60 @ 20 mls/hr IV .Q24H [facility] Rx#:[id number] Oral 150 Blood Product 310 0 Rc As-1 Unit 310 [id number] Rc As-1 Unit 0 [id number] Output: Chest Tube Drainage 650 615 155 Chest Tube Mediastinal 0 Left Left Pleural/ 220 185 65 Mediastinal Right Right Pleural/ 430 430 90 Mediastinal Drainage 180 50 Left Thigh 120 30 Right Thigh 60 20 Urine 855 784 58 Other: Voiding Method Indwelling Catheter Indwelling Catheter ABP, PAP, CO, CI - Last Documented Arterial Blood Pressure 94/63 Pulmonary Artery Pressure 35/15 Cardiac Output 5.5 Cardiac Index 3.2 - Exam GENERAL EXAM: Alert, comfortable in no apparent distress. HEAD: Normocephalic. EYES: Normal reaction of pupils, equal size. NOSE: Clear with pink turbinates. THROAT: No erythema or exudates. NECK: No masses, no JVD. CHEST: No chest wall deformity. Dressing is dry and intact. LUNGS: Equal air entry with crackles in the posterior bases. Chest tubes in place. CVS: S1 and S2 normal with no audible murmurs, regular rhythm. ABDOMEN: No hepatosplenomegaly, normal bowel sounds, no guarding or rigidity. SPINE: No scoliosis or deformity SKIN: No rashes CENTRAL NERVOUS SYSTEM: No focal deficits, tone is normal in all 4 extremities. Extremities: There is trace peripheral edema. No clubbing, no cyanosis. Peripheral pulses are intact. - Labs CBC & Chem 7: 08/22/16 05:00 08/22/16 05:00 Labs: Abnormal Lab Results - Last 24 Hours (Table) 08/21/16 08/21/16 08/21/16 Range/Units 08:56 12:05 14:09 WBC (3.8-10.6) k/uL RBC (3.80-5.40) m/uL Hgb (11.4-16.0) gm/dL Hct (34.0-46.0) % Plt Count (150-450) k/uL Neutrophils # (1.3-7.7) k/uL PT (9.0-12.0) sec ABG pCO2 (35-45) mmHg ABG pO2 (83-108) mmHg ABG O2 Saturation (94-97) % Chloride (98-107) mmol/L BUN (7-17) mg/dL Glucose (74-99) mg/dL POC Glucose (mg/dL) 150 H 124 H (75-99) mg/dL Calcium (8.4-10.2) mg/dL AST (14-36) U/L Total Protein (6.3-8.2) g/dL Albumin (3.5-5.0) g/dL Crossmatch See Detail 08/21/16 08/21/16 08/21/16 Range/Units 15:25 15:30 18:25 WBC 11.7 H (3.8-10.6) k/uL RBC 2.74 L (3.80-5.40) m/uL Hgb 8.0 L (11.4-16.0) gm/dL Hct 24.3 L (34.0-46.0) % Plt Count 81 L (150-450) k/uL Neutrophils # 9.9 H (1.3-7.7) k/uL PT (9.0-12.0) sec ABG pCO2 34 L (35-45) mmHg ABG pO2 52 L (83-108) mmHg ABG O2 Saturation 88.0 L (94-97) % Chloride (98-107) mmol/L BUN (7-17) mg/dL Glucose (74-99) mg/dL POC Glucose (mg/dL) 115 H (75-99) mg/dL Calcium (8.4-10.2) mg/dL AST (14-36) U/L Total Protein (6.3-8.2) g/dL Albumin (3.5-5.0) g/dL Crossmatch 08/21/16 08/22/16 08/22/16 Range/Units 21:26 05:00 05:00 WBC 15.7 H (3.8-10.6) k/uL RBC 2.31 L (3.80-5.40) m/uL Hgb 7.0 L* (11.4-16.0) gm/dL Hct 21.0 L (34.0-46.0) % Plt Count 96 L (150-450) k/uL Neutrophils # 13.5 H (1.3-7.7) k/uL PT (9.0-12.0) sec ABG pCO2 (35-45) mmHg ABG pO2 (83-108) mmHg ABG O2 Saturation (94-97) % Chloride 109 H (98-107) mmol/L BUN 22 H (7-17) mg/dL Glucose 101 H (74-99) mg/dL POC Glucose (mg/dL) 122 H (75-99) mg/dL Calcium 7.9 L (8.4-10.2) mg/dL AST 68 H (14-36) U/L Total Protein 4.9 L (6.3-8.2) g/dL Albumin 2.8 L (3.5-5.0) g/dL Crossmatch 08/22/16 08/22/16 Range/Units 05:45 07:50 WBC (3.8-10.6) k/uL RBC (3.80-5.40) m/uL Hgb (11.4-16.0) gm/dL Hct (34.0-46.0) % Plt Count (150-450) k/uL Neutrophils # (1.3-7.7) k/uL PT 12.7 H (9.0-12.0) sec ABG pCO2 (35-45) mmHg ABG pO2 (83-108) mmHg ABG O2 Saturation (94-97) % Chloride (98-107) mmol/L BUN (7-17) mg/dL Glucose (74-99) mg/dL POC Glucose (mg/dL) 105 H (75-99) mg/dL Calcium (8.4-10.2) mg/dL AST (14-36) U/L Total Protein (6.3-8.2) g/dL Albumin (3.5-5.0) g/dL Crossmatch Assessment and Plan Plan: Impression: #1 Coronary artery disease. Status post coronary artery bypass grafting 5 utilizing a SMILEY to the LAD, reverse saphenous vein grafts to the first obtuse marginal, right coronary artery and diagonal branch. Also, status post patent foramen ovale repair. Postoperative day #3. #2 Mitral valve regurgitation status post mitral valve repair utilizing a 28 mm mitral ring. Postoperative day #3. #3 Ventilatory dependent respiratory failure as an expected outcome of thoracotomy. She has been requiring BiPAP support. #4 Hyperlipidemia. #5 Hypertension. #6 Chronic and ongoing tobacco dependence. #7 Osteoarthritis. #8 Gastroesophageal reflux disease. #9 Fibromyalgia. #10 Attention deficit disorder. #11 Postoperative anemia, current hemoglobin 7.0. To receive another unit of packed red blood cells today. She has received 4 thus far. Plan: The patient was seen and evaluated by Dr. Hahn. Her chest x-ray and labs were reviewed. We will go ahead and initiate antibiotics in the form of Levaquin. She has required BiPAP support for her hypoxemia. She remains on bronchodilators. She requires increased encouragement regarding the use of the incentive spirometer and cough and deep breathing exercises. She is receiving another unit of packed red blood cells followed by IV Lasix today. We'll repeat her chest x-ray and labs in the a.m. We'll increase her activity as tolerated and continue to follow and make further recommendations based on her clinical status.
[2016-08-22] MEDS: MUPIROCIN 2% OINT 22 GM TUBE NASAL SCH ×2 (10:53→21:24)
[2016-08-22] MEDS: LEVOFLOXACIN 500 MG TAB PO SCH (11:31)
[2016-08-22] MEDS: LACTATED RINGERS 1,000 ML IV SCH (11:31)
[2016-08-22] MEDS ORDERED: FUROSEMIDE 10 MG/ML 4 ML VIAL IV STA (12:17)
[2016-08-22 12:57] LABS: Glucose,Whole Blood 91 mg/dL (75-99)
--- NOTE | 2016-08-22 14:32 | P.PN ---
Subjective 61-year-old female one of Dr. Shrestha patient with past medical history of osteoarthritis hypertension hyperlipidemia and previous history of TIA and chronic lower back pain who had developed significant shortness of breath with minimum exertion was seen Dr. Verde recently and was diagnosed with possible coronary artery disease was [facility] and ended up having testing with Dr. Ann and furthermore heart catheter showed significant multiple coronary artery disease. 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 08/21: Patient remains in the intensive care unit. Patient has been successfully extubated this morning. She is found sitting up in a chair. She did not sleep well last night and does not feel well in general. O2 at 6L with pulse ox 93%. Hemoglobin 6.7 and currently receiving 1 unit of Blood. IS about 500 ml. 08/22: Patient remains in intensive care unit. She is found sitting up in a chair. Her pain is better controlled today. Patient's pulse ox was dropping when off BiPAP. Almanza to be discontinued today. Hemoglobin is 7 and patient is receiving 1 unit of packed RBCs today. Objective - Vital Signs Vital signs: Vital Signs Temp 97.8 F 08/22/16 10:37 Pulse 80 08/22/16 11:43 Resp 24 08/22/16 11:00 BP 126/59 08/22/16 11:00 Pulse Ox 92 L 08/22/16 11:33 Intake & Output 08/21/16 08/22/16 08/22/16 18:59 06:59 18:59 Intake Total 1130 390 80 Output Total 2149 4189 233 Balance -253 -1186 -153 Weight 78.5 kg 75.9 kg 75.9 kg Intake: IV 320 220 20 CO/CI 40 Lactated Ringers 1,000 ml 280 220 20 @ 50 mls/hr IV .Q20H [facility] Rx#:[id number] Intake, IV Titration 500 20 60 Amount Albumin Human 5% 500 ml 500 In Empty Bag 1 bag @ 250 mls/hr IVPB ONCE STA Rx#: [id number] Lactated Ringers 1,000 ml 20 60 @ 20 mls/hr IV .Q24H [facility] Rx#:[id number] Oral 150 Blood Product 310 0 Rc As-1 Unit 310 [id number] Rc As-1 Unit 0 [id number] Output: Chest Tube Drainage 650 615 155 Chest Tube Mediastinal 0 Left Left Pleural/ 220 185 65 Mediastinal Right Right Pleural/ 430 430 90 Mediastinal Drainage 180 50 20 Left Thigh 120 30 Right Thigh 60 20 20 Urine 855 784 58 Other: Voiding Method Indwelling Catheter Indwelling Catheter ABP, PAP, CO, CI - Last Documented Arterial Blood Pressure 94/63 Pulmonary Artery Pressure 35/15 Cardiac Output 5.5 Cardiac Index 3.2 - Exam General appearance: average body habitus, no cooperative, no disheveled, no mild distress, no morbidly obese, no acute distress, no obese, no severe distress, no thin - EENT Eyes: no abnormal pupil, no anicteric sclerae, no disc margins sharp, no edentulous, no EOMI, no PERRLA, no fundus normal, no photophobia, no dentition normal, no poor dentition, no ptosis, no scleral icterus, normal appearance ENT: no hard of hearing, no hearing grossly normal, no NA/AT, no normal oropharynx, no other, no pharyngeal erythema, no thrush, no tonsillar exudates, no tonsillar swelling Ears: bilateral: normal - Neck Neck: no lymphadenopathy, normal ROM, no other, no rigidity, no stridor, no thyromegaly Carotids: bilateral: upstroke normal Thyroid: bilateral: normal size - Respiratory Respiratory: bilateral: diminished, dullness, rales - Cardiovascular Rhythm: regular Heart sounds: normal: S1, S2 Abnormal Heart Sounds: systolic murmur, no diastolic murmur, no rub, no S3 Gallop, no S4 Gallop, no click, no other - Gastrointestinal General gastrointestinal: no absent bowel sounds, decreased bowel sounds, no distended, no hepatomegaly, no hyperactive bowel sounds, normal bowel sounds, no organomegaly, no rigid, no scaphoid, soft, no splenomegaly, no tenderness, no umbilical hernia, no ventral hernia - Integumentary Integumentary: no calor, no cellulitis, no cyanotic, no decreased turgor, no flushed, no jaundiced, normal, no normal turgor, pale, rash, no ulcer - Neurologic Neurologic: CNII-XII intact - Musculoskeletal Patient is on mechanical ventilation Musculoskeletal: no gait normal, no generalized weakness, no strength equal bilaterally, no right sided weakness, no left sided weakness - Psychiatric Psychiatric: A&O x's 3, appropriate affect, intact judgment & insight - Labs CBC & Chem 7: 08/22/16 05:00 08/22/16 05:00 Labs: Abnormal Lab Results - Last 24 Hours (Table) 08/21/16 08/21/16 08/21/16 Range/Units 08:56 12:05 14:09 WBC (3.8-10.6) k/uL RBC (3.80-5.40) m/uL Hgb (11.4-16.0) gm/dL Hct (34.0-46.0) % Plt Count (150-450) k/uL Neutrophils # (1.3-7.7) k/uL PT (9.0-12.0) sec ABG pCO2 (35-45) mmHg ABG pO2 (83-108) mmHg ABG O2 Saturation (94-97) % Chloride (98-107) mmol/L BUN (7-17) mg/dL Glucose (74-99) mg/dL POC Glucose (mg/dL) 150 H 124 H (75-99) mg/dL Calcium (8.4-10.2) mg/dL AST (14-36) U/L Total Protein (6.3-8.2) g/dL Albumin (3.5-5.0) g/dL Crossmatch See Detail 08/21/16 08/21/16 08/21/16 Range/Units 15:25 15:30 18:25 WBC 11.7 H (3.8-10.6) k/uL RBC 2.74 L (3.80-5.40) m/uL Hgb 8.0 L (11.4-16.0) gm/dL Hct 24.3 L (34.0-46.0) % Plt Count 81 L (150-450) k/uL Neutrophils # 9.9 H (1.3-7.7) k/uL PT (9.0-12.0) sec ABG pCO2 34 L (35-45) mmHg ABG pO2 52 L (83-108) mmHg ABG O2 Saturation 88.0 L (94-97) % Chloride (98-107) mmol/L BUN (7-17) mg/dL Glucose (74-99) mg/dL POC Glucose (mg/dL) 115 H (75-99) mg/dL Calcium (8.4-10.2) mg/dL AST (14-36) U/L Total Protein (6.3-8.2) g/dL Albumin (3.5-5.0) g/dL Crossmatch 08/21/16 08/22/16 08/22/16 Range/Units 21:26 05:00 05:00 WBC 15.7 H (3.8-10.6) k/uL RBC 2.31 L (3.80-5.40) m/uL Hgb 7.0 L* (11.4-16.0) gm/dL Hct 21.0 L (34.0-46.0) % Plt Count 96 L (150-450) k/uL Neutrophils # 13.5 H (1.3-7.7) k/uL PT (9.0-12.0) sec ABG pCO2 (35-45) mmHg ABG pO2 (83-108) mmHg ABG O2 Saturation (94-97) % Chloride 109 H (98-107) mmol/L BUN 22 H (7-17) mg/dL Glucose 101 H (74-99) mg/dL POC Glucose (mg/dL) 122 H (75-99) mg/dL Calcium 7.9 L (8.4-10.2) mg/dL AST 68 H (14-36) U/L Total Protein 4.9 L (6.3-8.2) g/dL Albumin 2.8 L (3.5-5.0) g/dL Crossmatch 08/22/16 08/22/16 Range/Units 05:45 07:50 WBC (3.8-10.6) k/uL RBC (3.80-5.40) m/uL Hgb (11.4-16.0) gm/dL Hct (34.0-46.0) % Plt Count (150-450) k/uL Neutrophils # (1.3-7.7) k/uL PT 12.7 H (9.0-12.0) sec ABG pCO2 (35-45) mmHg ABG pO2 (83-108) mmHg ABG O2 Saturation (94-97) % Chloride (98-107) mmol/L BUN (7-17) mg/dL Glucose (74-99) mg/dL POC Glucose (mg/dL) 105 H (75-99) mg/dL Calcium (8.4-10.2) mg/dL AST (14-36) U/L Total Protein (6.3-8.2) g/dL Albumin (3.5-5.0) g/dL Crossmatch Assessment and Plan Plan: 1 multiple coronary artery disease: Post 4 vessel CABG, doing slightly but better postsurgery stable at this point postsurgical care including chest tube, respirator, IV drip. Continue to watch patient for any change in hemodynamic status including arrhythmia or other. 2 post mitral valve repair: Has been doing well. 3 post patent morelos ovale repair: Stable so far. 4 acute respiratory failure expected postsurgery, successfully extubated. Dr. Hahn is following. 4 hypertension: Was on hydralazine and metoprolol resume medication when more stable. 5 ADD: Has been on Adderall 30 mg 3 times a day patient is off medication currently. 6 hyperlipidemia: Remain on Lipitor 20 mg daily. 7 hyperglycemia: Continue Accu-Chek post surgery. 8. Acute blood loss anemia s/p transfusion post operatively. GI prophylaxis: Patient remain on Protonix IV. CODE STATUS: Full code. Discharge plan: To be determined Impression and plan of care have been directed as dictated by the signing physician. Christiane Garza nurse practitioner acting as scribe for signing physician. Time with Patient: Greater than 30
[2016-08-22 15:35] LABS: Basophils % (A) 0 %; CH 30.1; CHCM 34.5; Eosinophils # (A) 0.1 k/uL (0-0.7); Eosinophils % (A) 1 %; HCT 28.2 % (34.0-46.0); Luc # (Auto) 0.23; Luc % (Auto) 2; Lymphocytes # (A) 1.1 k/uL (1.0-4.8); Lymphocytes % (A) 8 %; MCH 30.1 pg (25.0-35.0); MCHC 34.2 g/dL (31.0-37.0); MCV 88.1 fL (80.0-100.0); Mean Platelet Volume 9.6; Monocytes # (A) 0.8 k/uL (0-1.0); Monocytes % (A) 5 %; Neutrophils # (A) 12.5 k/uL (1.3-7.7); Neutrophils % (A) 85 %; Poikilocytosis Slight; RDW 14.8 % (11.5-15.5); WBC 14.8 k/uL (3.8-10.6); WBC (Perox) 15.18
[2016-08-22 15:42] LABS: HGB 9.6 gm/dL (11.4-16.0)
[2016-08-22 17:40] LABS: Glucose,Whole Blood 123 mg/dL (75-99)
[2016-08-22 21:20] LABS: Glucose,Whole Blood 140 mg/dL (75-99)
[2016-08-22] MEDS: SENNOSIDES-DOCUSATE SODIUM 1 EACH TAB PO SCH (21:27)
[2016-08-23] MEDS: HEPARIN SODIUM,PORCINE 5,000 UNIT/ML 1 ML VIAL SQ SCH ×4 (00:35→23:47)
[2016-08-23 06:16] LABS: Basophils % (A) 0 %; CH 30.1; CHCM 34.2; Eosinophils # (A) 0.1 k/uL (0-0.7); Eosinophils % (A) 0 %; HCT 26.8 % (34.0-46.0); HDW 3.23; Luc # (Auto) 0.32; Luc % (Auto) 3; Lymphocytes # (A) 1.1 k/uL (1.0-4.8); Lymphocytes % (A) 9 %; MCH 29.8 pg (25.0-35.0); MCHC 33.6 g/dL (31.0-37.0); MCV 88.8 fL (80.0-100.0); Mean Platelet Volume 9.1; Monocytes # (A) 0.7 k/uL (0-1.0); Monocytes % (A) 5 %; Neutrophils % (A) 82 %; RBC 3.01 m/uL (3.80-5.40); RDW 14.8 % (11.5-15.5); WBC 12.1 k/uL (3.8-10.6); WBC (Perox) 13.06
[2016-08-23 06:22] LABS: ALT 47 U/L (9-52); AST 57 U/L (14-36); Alkaline Phosphatase 74 U/L (38-126); Anion Gap 7 mmol/L; Blood Urea Nitrogen 24 mg/dL (7-17); Carbon Dioxide 28 mmol/L (22-30); Chloride 104 mmol/L (98-107); Glucose 99 mg/dL (74-99); Magnesium 2.3 mg/dL (1.6-2.3); Non-African American GFR(MDRD) >60 (>60 ml/min/1.73 sqM); Potassium 3.8 mmol/L (3.5-5.1); Sodium 139 mmol/L (137-145); Total Bilirubin 0.9 mg/dL (0.2-1.3)
--- NOTE | 2016-08-23 07:36 | XR ---
EXAMINATION TYPE: XR chest 1V portable DATE OF EXAM: 08/23/2016 6:30 AM COMPARISON: 08/22/2016 HISTORY: Postop cardiac surgery FINDINGS: There are bilateral pleural effusions with cardiomegaly and bibasilar infiltrate. There is a diffuse interstitial pattern. Postsurgical changes noted. Bilateral chest tubes in size. IMPRESSION: 1. Stable bilateral airspace disease and pleural effusion. Correlate for CHF.
[2016-08-23 07:38] LABS: Glucose,Whole Blood 110 mg/dL (75-99)
[2016-08-23] MEDS: INSULIN LISPRO (humaLOG) 300 UNIT/3 ML VIAL SQ SCH ×4 (08:15→22:02)
[2016-08-23] MEDS: CLOPIDOGREL 75 MG TAB PO SCH (08:16)
[2016-08-23] MEDS: ASPIRIN 81 MG CHEW PO SCH (08:16)
[2016-08-23] MEDS: PANTOPRAZOLE 40 MG TABLET PO SCH (08:16)
[2016-08-23] MEDS: ATORVASTATIN 40 MG TAB PO SCH (08:16)
[2016-08-23] MEDS: METOPROLOL TARTRATE 25 MG TAB PO SCH (08:16)
[2016-08-23] MEDS: LACTATED RINGERS 1,000 ML IV SCH (08:17)
--- NOTE | 2016-08-23 09:00 | P.PN ---
Subjective 61-year-old female one of Dr. Shrestha patient with past medical history of osteoarthritis hypertension hyperlipidemia and previous history of TIA and chronic lower back pain who had developed significant shortness of breath with minimum exertion was seen Dr. Verde recently and was diagnosed with possible coronary artery disease was [facility] and ended up having testing with Dr. Ann and furthermore heart catheter showed significant multiple coronary artery disease. 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 08/21: Patient remains in the intensive care unit. Patient has been successfully extubated this morning. She is found sitting up in a chair. She did not sleep well last night and does not feel well in general. O2 at 6L with pulse ox 93%. Hemoglobin 6.7 and currently receiving 1 unit of Blood. IS about 500 ml. 08/22: Patient remains in intensive care unit. She is found sitting up in a chair. Her pain is better controlled today. Patient's pulse ox was dropping when off BiPAP. Almanza to be discontinued today. Hemoglobin is 7 and patient is receiving 1 unit of packed RBCs today. 08/23: Patient has had both mediastinal chest tubes removed and remains with 1 right and one left with greater than 100 out of each per 24 hours. Urine output has been marginal running between 30 and 50 mL per hour. Almanza catheter remains in place. Incentive spirometry is 500-750. Hemoglobin today is at 9. Pressure dressings are in place for AJ drains were removed from bilateral lower extremity wounds. Patient was placed on BiPAP during the night and did receive some sleep. Patient requires aggressive pulmonary toileting and she has been reluctant to follow recommendations.. Objective - Vital Signs Vital signs: Vital Signs Temp 98.6 F 08/23/16 04:00 Pulse 81 08/23/16 06:00 Resp 21 08/23/16 06:00 BP 144/63 08/23/16 06:00 Pulse Ox 99 08/23/16 06:00 Intake & Output 01/27/17 01/28/17 01/28/17 18:59 06:59 18:59 Intake Total 550 240 Output Total 3666 866 Balance -9667 -672 Weight 75.9 kg Intake: IV 20 Lactated Ringers 1,000 ml 20 @ 50 mls/hr IV .Q20H [facility] Rx#:[id number] Intake, IV Titration 220 240 Amount Lactated Ringers 1,000 ml 220 240 @ 20 mls/hr IV .Q24H [facility] Rx#:[id number] Blood Product 310 Rc As-1 Unit 310 [id number] Output: Chest Tube Drainage 365 440 Chest Tube Mediastinal 20 Left Left Pleural/ 185 200 Mediastinal Right Right Pleural/ 180 220 Mediastinal Drainage 40 Right Thigh 40 Urine 1553 421 Other: Voiding Method Indwelling Catheter Indwelling Catheter ABP, PAP, CO, CI - Last Documented Arterial Blood Pressure 94/63 Pulmonary Artery Pressure 35/15 Cardiac Output 5.5 Cardiac Index 3.2 - Exam General appearance: average body habitus, no cooperative, no disheveled, no mild distress, no morbidly obese, no acute distress, no obese, no severe distress, no thin - EENT Eyes: no abnormal pupil, no anicteric sclerae, no disc margins sharp, no edentulous, no EOMI, no PERRLA, no fundus normal, no photophobia, no dentition normal, no poor dentition, no ptosis, no scleral icterus, normal appearance ENT: no hard of hearing, no hearing grossly normal, no NA/AT, no normal oropharynx, no other, no pharyngeal erythema, no thrush, no tonsillar exudates, no tonsillar swelling Ears: bilateral: normal - Neck Neck: no lymphadenopathy, normal ROM, no other, no rigidity, no stridor, no thyromegaly Carotids: bilateral: upstroke normal Thyroid: bilateral: normal size - Respiratory Respiratory: bilateral: diminished, dullness, rales - Cardiovascular Rhythm: regular Heart sounds: normal: S1, S2 Abnormal Heart Sounds: systolic murmur, no diastolic murmur, no rub, no S3 Gallop, no S4 Gallop, no click, no other - Gastrointestinal General gastrointestinal: no absent bowel sounds, decreased bowel sounds, no distended, no hepatomegaly, no hyperactive bowel sounds, normal bowel sounds, no organomegaly, no rigid, no scaphoid, soft, no splenomegaly, no tenderness, no umbilical hernia, no ventral hernia - Integumentary Integumentary: no calor, no cellulitis, no cyanotic, no decreased turgor, no flushed, no jaundiced, normal, no normal turgor, pale, rash, no ulcer - Neurologic Neurologic: CNII-XII intact - Musculoskeletal Patient is on mechanical ventilation Musculoskeletal: no gait normal, no generalized weakness, no strength equal bilaterally, no right sided weakness, no left sided weakness - Psychiatric Psychiatric: A&O x's 3, appropriate affect, intact judgment & insight - Labs CBC & Chem 7: 08/23/16 05:55 08/23/16 05:55 Labs: Abnormal Lab Results - Last 24 Hours (Table) 08/21/16 08/22/16 08/22/16 Range/Units 08:56 07:50 15:24 WBC 14.8 H (3.8-10.6) k/uL RBC 3.20 L (3.80-5.40) m/uL Hgb 9.6 L D (11.4-16.0) gm/dL Hct 28.2 L (34.0-46.0) % Plt Count 100 L (150-450) k/uL Neutrophils # 12.5 H (1.3-7.7) k/uL BUN (7-17) mg/dL POC Glucose (mg/dL) 105 H (75-99) mg/dL Calcium (8.4-10.2) mg/dL AST (14-36) U/L Total Protein (6.3-8.2) g/dL Albumin (3.5-5.0) g/dL Crossmatch See Detail 08/22/16 08/22/16 08/23/16 Range/Units 17:38 21:19 05:55 WBC 12.1 H (3.8-10.6) k/uL RBC 3.01 L (3.80-5.40) m/uL Hgb 9.0 L (11.4-16.0) gm/dL Hct 26.8 L (34.0-46.0) % Plt Count 110 L (150-450) k/uL Neutrophils # 10.0 H (1.3-7.7) k/uL BUN (7-17) mg/dL POC Glucose (mg/dL) 123 H 140 H (75-99) mg/dL Calcium (8.4-10.2) mg/dL AST (14-36) U/L Total Protein (6.3-8.2) g/dL Albumin (3.5-5.0) g/dL Crossmatch 08/23/16 Range/Units 05:55 WBC (3.8-10.6) k/uL RBC (3.80-5.40) m/uL Hgb (11.4-16.0) gm/dL Hct (34.0-46.0) % Plt Count (150-450) k/uL Neutrophils # (1.3-7.7) k/uL BUN 24 H (7-17) mg/dL POC Glucose (mg/dL) (75-99) mg/dL Calcium 8.0 L (8.4-10.2) mg/dL AST 57 H (14-36) U/L Total Protein 5.0 L (6.3-8.2) g/dL Albumin 2.9 L (3.5-5.0) g/dL Crossmatch Assessment and Plan Plan: 1 multiple coronary artery disease: Post 4 vessel CABG, doing slightly but better postsurgery stable at this point postsurgical care including chest tube, respirator, IV drip. Continue to watch patient for any change in hemodynamic status including arrhythmia or other. 2 acute hypoxic respiratory failure requiring continued BiPAP extended period after surgery. Continue to encourage incentive spirometry, deep breathing and cough. 3. post mitral valve repair: Has been doing well. 4 post patent morelos ovale repair: Stable so far. 5 acute respiratory failure expected postsurgery, successfully extubated. Dr. Hahn is following. 6 hypertension: Was on hydralazine and metoprolol resume medication when more stable. 7 ADD: Has been on Adderall 30 mg 3 times a day patient is off medication currently. 8 hyperlipidemia: Remain on Lipitor 20 mg daily. 9 hyperglycemia: Continue Accu-Chek post surgery. 10. Acute blood loss anemia s/p transfusion post operatively. GI prophylaxis: Patient remain on Protonix IV. CODE STATUS: Full code. Discharge plan: To be determined Impression and plan of care have been directed as dictated by the signing physician. Christiane Garza nurse practitioner acting as scribe for signing physician. Time with Patient: Greater than 30
[2016-08-23] MEDS: IPRATROPIUM-ALBUTEROL 3 ML NEB INHALATION SCH ×4 (09:25→19:14)
[2016-08-23] MEDS ORDERED: ASPIRIN 325 MG TAB PO SCH (09:45)
[2016-08-23] MEDS ORDERED: FUROSEMIDE 10 MG/ML 2 ML VIAL IV ONE (09:45)
--- NOTE | 2016-08-23 09:49 | P.PN ---
Progress Note - Text CV Surgery Nursing POD: #4, status post quadruple coronary artery bypass grafting using the left internal mammary artery to the left anterior descending artery, reverse saphenous vein graft from the aorta to the diagonal artery, reverse saphenous vein graft from the aorta to the obtuse marginal artery, reverse saphenous vein graft from the aorta to the distal right coronary artery at its bifurcation after endarterectomy of the proximal posterior descending artery, and posterolateral branch. Mitral valve repair with complete ring annuloplasty using a 28 mm dixie 3-D ring. Exclusion of the left atrial appendage using a 35 mm AtriClip. Intraoperative transesophageal echocardiogram and epi-aortic scanning. Patient awake and alert, no distress noted, no specific complaints, patient is sitting up to the bedside chair. We ambulated the patient at her bedside and she marched in place for approximately 3-5 minutes, and tolerated well. Vital Signs: Afebrile Vital Signs - 24 hr 08/22/16 08/22/16 08/22/16 09:00 10:00 10:07 Temperature 98.3 F Pulse Rate 84 80 83 Respiratory 28 H 23 23 Rate Blood Pressure 140/56 140/56 128/57 O2 Sat by Pulse 92 L 90 L 92 L Oximetry 08/22/16 08/22/16 08/22/16 10:17 10:30 10:37 Temperature 98.3 F 97.8 F Pulse Rate 80 80 80 Respiratory 23 20 26 H Rate Blood Pressure 120/58 120/58 126/59 O2 Sat by Pulse 91 L 96 96 Oximetry 08/22/16 08/22/16 08/22/16 10:47 11:00 11:30 Temperature 97.1 F L Pulse Rate 83 79 80 Respiratory 28 H 24 35 H Rate Blood Pressure 126/57 126/59 124/53 O2 Sat by Pulse 93 L 92 L 91 L Oximetry 08/22/16 08/22/16 08/22/16 11:33 11:43 12:00 Temperature Pulse Rate 80 80 80 Respiratory 22 Rate Blood Pressure 124/58 O2 Sat by Pulse 92 L 91 L Oximetry 08/22/16 08/22/16 08/22/16 12:30 13:00 13:30 Temperature Pulse Rate 81 80 84 Respiratory 29 H 28 H 31 H Rate Blood Pressure 126/57 126/57 134/60 O2 Sat by Pulse 92 L 94 L 91 L Oximetry 08/22/16 08/22/16 08/22/16 14:00 15:00 15:39 Temperature Pulse Rate 87 91 84 Respiratory 30 H 28 H Rate Blood Pressure 134/60 130/60 O2 Sat by Pulse 93 L 98 98 Oximetry 08/22/16 08/22/16 08/22/16 15:52 16:00 17:00 Temperature 99.5 F Pulse Rate 85 91 86 Respiratory 28 H 27 H Rate Blood Pressure 117/56 130/64 O2 Sat by Pulse 98 100 Oximetry 08/22/16 08/22/16 08/22/16 18:00 19:00 20:00 Temperature Pulse Rate 84 83 85 Respiratory 28 H 28 H 29 H Rate Blood Pressure 117/54 123/57 110/55 O2 Sat by Pulse 100 97 90 L Oximetry 08/22/16 08/22/16 08/22/16 20:41 20:55 21:00 Temperature 99.5 F Pulse Rate 87 88 90 Respiratory 28 H Rate Blood Pressure 117/54 O2 Sat by Pulse 94 L Oximetry 08/22/16 08/22/16 08/22/16 22:00 22:30 23:00 Temperature Pulse Rate 86 80 80 Respiratory 24 29 H 28 H Rate Blood Pressure 126/58 126/59 O2 Sat by Pulse 95 91 L 90 L Oximetry 08/22/16 08/22/16 08/23/16 23:30 23:45 00:00 Temperature Pulse Rate 79 81 Respiratory 28 H 24 Rate Blood Pressure 117/60 O2 Sat by Pulse 93 L 91 L 91 L Oximetry 08/23/16 08/23/16 08/23/16 00:30 01:00 01:30 Temperature Pulse Rate 85 83 80 Respiratory 48 H 36 H 29 H Rate Blood Pressure 119/59 142/65 O2 Sat by Pulse 87 L 94 L 93 L Oximetry 08/23/16 08/23/16 08/23/16 02:00 02:30 03:00 Temperature Pulse Rate 80 80 81 Respiratory 25 H 26 H 24 Rate Blood Pressure 142/65 142/59 142/59 O2 Sat by Pulse 100 100 100 Oximetry 08/23/16 08/23/16 08/23/16 03:30 04:00 04:30 Temperature 98.6 F Pulse Rate 83 80 80 Respiratory 26 H 22 23 Rate Blood Pressure 145/62 O2 Sat by Pulse 100 99 99 Oximetry 08/23/16 08/23/1617 05:00 05:30 06:00 Temperature Pulse Rate 80 80 81 Respiratory 20 22 21 Rate Blood Pressure 131/59 126/66 144/63 O2 Sat by Pulse 99 100 99 Oximetry 08/23/16 08/23/16 08/23/16 06:30 07:00 07:30 Temperature Pulse Rate 79 78 79 Respiratory 22 20 20 Rate Blood Pressure 140/67 129/63 139/65 O2 Sat by Pulse 99 99 99 Oximetry 08/23/16 08:00 Temperature 98.0 F Pulse Rate 95 Respiratory 29 H Rate Blood Pressure 150/71 O2 Sat by Pulse 92 L Oximetry Labs: Short CBC 08/22/16 08/23/16 Range/Units 15:24 05:55 WBC 14.8 H 12.1 H (3.8-10.6) k/uL Hgb 9.6 L D 9.0 L (11.4-16.0) gm/dL Hct 28.2 L 26.8 L (34.0-46.0) % Plt Count 100 L 110 L (150-450) k/uL Neutrophils # 12.5 H 10.0 H (1.3-7.7) k/uL BMP 08/22/16 08/23/16 15:24 05:55 Sodium 139 Potassium 4.0 3.8 Chloride 104 Carbon Dioxide 28 BUN 24 H Creatinine 0.70 Glucose 99 Calcium 8.0 L Liver Function 08/23/16 Range/Units 05:55 Total Bilirubin 0.9 (0.2-1.3) mg/dL AST 57 H (14-36) U/L ALT 47 (9-52) U/L Alkaline Phosphatase 74 (38-126) U/L Albumin 2.9 L (3.5-5.0) g/dL IV Fluids: Lactated Ringer's at 20 mL per hour per her Cordis. CVP: 3 Lungs: Diminished bilateral bases right greater than left. Respirations are unlabored. Essentially clear to her bilateral upper lobes. The patient was on BiPAP with settings of 12 over 5, rate 8, FiO2 60%. O2 sat: 92% on 3 L nasal cannula. I/S: 500-750 mL, reviewed with the patient the importance of using her incentive spirometry every hour while awake. The patient did demonstrate proper use of the incentive spirometry. She is using it independently. Heart: S1S2, regular rhythm and rate, negative for S3, gallop or murmur. Bedside telemetry showing normal sinus rhythm heart rate 79. Sternum stable, chest incision clean with silverlon dressing clean and dry. Heart hugger in place, the patient is demonstrating proper use of her heart hugger. Left and right leg incisions clean dry and well approximated. Scant serosanguineous drainage noted to her old AJ sites to her bilateral lower legs. Knee-high JANICE hose and sequential compression devices in place to bilateral lower extremity Yayo. Abdomen: Soft, Positive bowel sounds present in all 4 quadrants, positive flatus. CBGs: 91-140 mg/dL the last 24 hours U/O: Adequate, Almanza catheter for accurate I&O. 310 mL output in the last 8 hours. Chest Tubes: Left pleural chest tube without air leak, draining thin serosanguineous drainage. 160 mL output last 8 hours, 340 mL output in the last 24 hours. Right pleural chest tube without air leak, draining thin serosanguineous drainage. 160 mL output in the last 8 hours, 350 mL output in the last 24 hours. 24 hr Total: Intake & Output 08/21/16 08/22/16 08/23/16 08/24/16 06:59 06:59 06:59 06:59 Intake Total 2519.203 1520 790 40 Output Total 1968 3034 2819 160 Balance 551.203 -1514 -9 -120 Weight 78.5 kg 75.9 kg 75.9 kg Active Medications Generic Name Dose Route Start Last Admin Trade Name Freq PRN Reason Stop Dose Admin Acetaminophen/Hydrocodone Bitart 2 each 08/20/16 09:50 08/20/16 13:06 Eldon 5-325 PO 2 each Q4HR PRN Administration Severe Pain Acetaminophen/Hydrocodone Bitart 1 each 08/20/16 09:51 Eldon 5-325 PO Q4HR PRN Moderate Pain Albuterol/Ipratropium 3 ml 08/20/16 16:46 Duoneb 0.5 Mg-3 Mg/3 Ml Soln INHALATION RT-Q2H PRN Shortness Of Breath Or Wheezing Albuterol/Ipratropium 3 ml 08/20/16 12:00 08/22/16 20:40 Duoneb 0.5 Mg-3 Mg/3 Ml Soln INHALATION 3 ml RT-QID TIMOTHY Administration Alprazolam 0.5 mg 08/21/16 22:04 Xanax PO ONCE PRN Anxiety Aspirin 81 mg 08/21/16 09:15 08/23/16 08:16 Aspirin PO 81 mg DAILY TIMOT[facility] Administration Atorvastatin Calcium 40 mg 08/20/16 09:00 08/23/16 08:16 Lipitor PO 40 mg DAILY TIMOT[facility] Administration Benzocaine/Menthol 1 each 08/19/16 18:09 Cepacol Lozenge MUCOUS MEM Q2H PRN Sore Throat Bisacodyl 10 mg 08/20/16 16:45 Dulcolax RECTAL DAILY PRN Constipation Clopidogrel Bisulfate 75 mg 08/20/16 09:00 08/23/16 08:16 Plavix PO 75 mg DAILY [facility] Administration Heparin Sodium (Porcine) 5,000 unit 08/20/16 01:00 08/23/16 08:16 Heparin SQ 5,000 unit Q8HR TIMOTHY Administration Lactated Ringer's 1,000 mls @ 20 mls/hr 08/21/16 09:15 08/23/16 08:17 Lactated Ringers IV 20 mls/hr .Q24H [facility] Administration Insulin Human Lispro 0 unit 08/21/16 12:30 08/23/16 08:15 Humalog SQ Not Given ACHS [facility] Protocol Ketorolac Tromethamine 15 mg 08/20/16 11:06 08/21/16 17:00 Toradol IVP 08/24/16 11:06 15 mg Q6HR PRN Administration Pain Levofloxacin 500 mg 08/22/16 10:45 08/22/16 11:31 Levaquin PO 500 mg Q24H [facility] Administration Magnesium Hydroxide 2,400 mg 08/20/16 16:45 Milk Of Magnesia PO BID PRN Constipation Metoprolol Tartrate 25 mg 08/22/16 09:00 08/23/16 08:16 Lopressor PO 25 mg BID [facility]OT[facility] Administration Miscellaneous Information 1 each 08/19/16 18:09 Magnesium Per Protocol MISCELLANE DAILY PRN Per Protocol Protocol Miscellaneous Information 1 each 08/19/16 18:09 Phosphorus Per Protocol MISCELLANE DAILY PRN Per Protocol Protocol Miscellaneous Information 1 each 08/19/16 18:09 Potassium Per Protocol MISCELLANE DAILY PRN Per Protocol Protocol Morphine Sulfate 2 mg 08/19/16 18:09 Morphine Sulfate (Inj) IVP Q2H PRN Severe Pain Ondansetron HCl 4 mg 08/19/16 18:09 Zofran IVP Q6HR PRN Nausea And Vomiting Pantoprazole Sodium 40 mg 08/23/16 07:30 08/23/16 08:16 Protonix PO 40 mg [id number] [facility]OT[facility] Administration Senna/Docusate Sodium 2 each 08/20/16 21:00 08/22/16 21:27 Senokot-S PO 2 each HS [facility]OT[facility] Administration Sodium Chloride 10 ml 08/19/16 21:00 08/23/16 08:17 Saline Flush IV Not Given BID TIMOTHY Plan: The patient's aspirin will be increased to 325 mg by mouth daily, she will be given Lasix 20 mg IV 1. Her Almanza catheter and right IJ Cordis were discontinued. She'll be transferred to [address] [place] [address] for further monitoring and rehabilitation. Encourage ambulating in the hallway and working with physical therapy. Encourage use of her incentive spirometry every hour while awake. Repeat portable chest x-ray, CBC and CMP in a.m. Right pleural and left pleural chest tube will remain in place for now and will be reevaluated in the a.m.
[2016-08-23] MEDS ORDERED: ASPIRIN 81 MG CHEW PO ONE (10:00)
[2016-08-23] MEDS: LEVOFLOXACIN 500 MG TAB PO SCH (11:08)
--- NOTE | 2016-08-23 12:06 | P.PN ---
Subjective Principal diagnosis: Coronary artery disease, moderate mitral valve regurgitation This is a very pleasant 61-year-old female patient who was found to have triple- vessel coronary artery disease with moderate left ventricular dysfunction, moderate mitral valve regurgitation, inferobasal aneurysm. She also had a history of hypertension hyperlipidemia fibromyalgia, gastroesophageal reflux disease and chronic tobacco use. She is now status post coronary artery bypass grafting 4 utilizing a SMILEY to the LAD, reverse saphenous vein graft to the diagonal artery, obtuse marginal artery and distal right coronary artery. She had also undergone mitral valve repair with complete ring annuloplasty utilizing a 28 mm 3-D ring. This is postoperative day #4. She is seen again today 08/23/2016 in follow-up. She is doing quite a bit better today as compared to yesterday. She is doing better on her incentive spirometer. Her chest x-ray is improving. Chest tubes remain. She has been up ambulating with assistance. She currently denies any worsening shortness of breath. She has a loose nonproductive cough. Continues to require 6 L of high flow nasal cannula to maintain O2 saturations in the 90s. She's been hemodynamically stable. Objective - Vital Signs Vital signs: Vital Signs Temp 98.0 F 08/23/16 08:00 Pulse 82 08/23/16 11:00 Resp 17 08/23/16 11:00 BP 120/62 08/23/16 11:00 Pulse Ox 91 L 08/23/16 11:00 Intake & Output 08/22/16 08/23/16 08/23/16 18:59 06:59 18:59 Intake Total 550 240 280 Output Total 5625 861 878 [facility] -1408 -621 -595 Weight 75.9 kg 75.9 kg Intake: IV 20 Lactated Ringers 1,000 ml 20 @ 50 mls/hr IV .Q20H [facility]OT[facility] Rx#:[id number] Intake, IV Titration 220 240 80 Amount Lactated Ringers 1,000 ml 220 240 80 @ 20 mls/hr IV .Q24H [facility]OT[facility] Rx#:[id number] Oral 200 Blood Product 310 Rc As-1 Unit 310 [id number] Output: Chest Tube Drainage 365 440 180 Chest Tube Mediastinal 20 Left Left Pleural/ 185 200 100 Mediastinal Right Right Pleural/ 180 220 80 Mediastinal Drainage 40 Right Thigh 40 Urine 1553 421 695 Other: Voiding Method Indwelling Catheter Indwelling Catheter Indwelling Catheter ABP, PAP, CO, CI - Last Documented Arterial Blood Pressure 94/63 Pulmonary Artery Pressure 35/15 Cardiac Output 5.5 Cardiac Index 3.2 - Exam GENERAL EXAM: Alert, comfortable in no apparent distress. HEAD: Normocephalic. EYES: Normal reaction of pupils, equal size. NOSE: Clear with pink turbinates. THROAT: No erythema or exudates. NECK: No masses, no JVD. CHEST: No chest wall deformity. Dressing is dry and intact. LUNGS: Equal air entry with crackles in the posterior bases. Chest tubes in place. CVS: S1 and S2 normal with no audible murmurs, regular rhythm. ABDOMEN: No hepatosplenomegaly, normal bowel sounds, no guarding or rigidity. SPINE: No scoliosis or deformity SKIN: No rashes CENTRAL NERVOUS SYSTEM: No focal deficits, tone is normal in all 4 extremities. Extremities: There is trace peripheral edema. No clubbing, no cyanosis. Peripheral pulses are intact. - Labs CBC & Chem 7: 08/23/16 05:55 08/23/16 05:55 Labs: Abnormal Lab Results - Last 24 Hours (Table) 08/21/16 08/22/16 08/22/16 Range/Units 08:56 15:24 17:38 WBC 14.8 H (3.8-10.6) k/uL RBC 3.20 L (3.80-5.40) m/uL Hgb 9.6 L D (11.4-16.0) gm/dL Hct 28.2 L (34.0-46.0) % Plt Count 100 L (150-450) k/uL Neutrophils # 12.5 H (1.3-7.7) k/uL BUN (7-17) mg/dL POC Glucose (mg/dL) 123 H (75-99) mg/dL Calcium (8.4-10.2) mg/dL AST (14-36) U/L Total Protein (6.3-8.2) g/dL Albumin (3.5-5.0) g/dL Crossmatch See Detail 08/22/16 08/23/16 08/23/16 Range/Units 21:19 05:55 05:55 WBC 12.1 H (3.8-10.6) k/uL RBC 3.01 L (3.80-5.40) m/uL Hgb 9.0 L (11.4-16.0) gm/dL Hct 26.8 L (34.0-46.0) % Plt Count 110 L (150-450) k/uL Neutrophils # 10.0 H (1.3-7.7) k/uL BUN 24 H (7-17) mg/dL POC Glucose (mg/dL) 140 H (75-99) mg/dL Calcium 8.0 L (8.4-10.2) mg/dL AST 57 H (14-36) U/L Total Protein 5.0 L (6.3-8.2) g/dL Albumin 2.9 L (3.5-5.0) g/dL Crossmatch 08/23/16 Range/Units 07:32 WBC (3.8-10.6) k/uL RBC (3.80-5.40) m/uL Hgb (11.4-16.0) gm/dL Hct (34.0-46.0) % Plt Count (150-450) k/uL Neutrophils # (1.3-7.7) k/uL BUN (7-17) mg/dL POC Glucose (mg/dL) 110 H (75-99) mg/dL Calcium (8.4-10.2) mg/dL AST (14-36) U/L Total Protein (6.3-8.2) g/dL Albumin (3.5-5.0) g/dL Crossmatch Assessment and Plan Plan: Impression: #1 Coronary artery disease. Status post coronary artery bypass grafting 5 utilizing a SMILEY to the LAD, reverse saphenous vein grafts to the first obtuse marginal, right coronary artery and diagonal branch. Also, status post patent foramen ovale repair. Postoperative day #4. #2 Mitral valve regurgitation status post mitral valve repair utilizing a 28 mm mitral ring. Postoperative day #4. #3 Ventilatory dependent respiratory failure as an expected outcome of thoracotomy. She has been requiring BiPAP support. #4 Hyperlipidemia. #5 Hypertension. #6 Chronic and ongoing tobacco dependence. #7 Osteoarthritis. #8 Gastroesophageal reflux disease. #9 Fibromyalgia. #10 Attention deficit disorder. #11 Postoperative anemia, current hemoglobin 9.0. To receive another unit of packed red blood cells today. She has received 4 thus far. Plan: The patient was seen and evaluated by Dr. Hahn. Her chest x-ray and labs were reviewed. We will continue antibiotics in the form of Levaquin. She has required BiPAP support for her hypoxemia but has utilized it less and less. She remains on bronchodilators. She requires increased encouragement regarding the use of the incentive spirometer and cough and deep breathing exercises. We' ll repeat her chest x-ray and labs in the a.m. We'll increase her activity as tolerated and continue to follow and make further recommendations based on her clinical status.
[2016-08-23 12:59] LABS: Glucose,Whole Blood 83 mg/dL (75-99)
[2016-08-23 17:09] LABS: Glucose,Whole Blood 114 mg/dL (75-99)
[2016-08-23] MEDS: SPIRONOLACTONE 25 MG TAB PO SCH (17:21)
[2016-08-23] MEDS: LISINOPRIL 5 MG TAB PO SCH (17:21)
--- NOTE | 2016-08-23 17:41 | PN ---
Balbina Ramirez has coronary artery disease, triple vessel and she underwent coronary artery bypass grafting. She is extubated. She is sitting in a chair. Her white count was up yesterday and today it has improved, but she is on IV antibiotics. Blood pressure is 136/58 millimeters of mercury, respirations are 34, pulse rate is in the 80s oxygen saturation 81. Breath sounds are reduced bilaterally. Rhonchorous breath sounds. Heart sounds are soft. No lower extremity edema. LABS: Reviewed. White count is 12.1 thousand. Potassium is 3.8. Renal function is normal. IMPRESSION: 1. Ischemic cardiomyopathy and severe left ventricle dysfunction, triple vessel coronary artery disease, status post coronary artery bypass grafting. 2. Postoperative pneumonitis being treated with IV antibiotics. SUGGEST: Continue aspirin. Continue atorvastatin. Continue Plavix and Lasix and continue spironolactone 25 mg p.o. daily, metoprolol is being changed to 50 mg p.o. b.i.d. Once she improves I will maximize her cardiomyopathy medications. I will add KEMI inhibitors today since she has severe LV dysfunction, ( ) reduction.
--- NOTE | 2016-08-23 17:57 | PN ---
DATE OF SERVICE: 08/22/2016 Balbina May is a 61 -year-old female with severe ischemic cardiomyopathy, severe triple vessel coronary artery disease who underwent coronary artery bypass grafting. She appears to be short of breath. She has developed pneumonitis and is on IV antibiotics. She is up in the chair. Her pain is better but she is in hypoxemia. She is off the BIPAP. Hemoglobin is 7 and she received one unit of packed red cells and she will be given Lasix in between packed red cells. On examination, her pulse rate is in the 80s. She does not require atrial pacing now. Her junctional rhythm has resolved. Blood pressure 136/59 mmHg. Breath sounds are reduced bilaterally with crackles especially in the right side. ABDOMEN: Soft. Heart sounds soft. IMPRESSION: 1. Ischemic cardiomyopathy. 2. Coronary artery disease, status post coronary artery bypass grafting. 3. Developing post postoperative pneumonitis. SUGGEST: IV antibiotics, per ICU team and initiation of cardiac medications. This patient was seen on the 22 of August. I am dictating it on the but it refers to my examination of the patient on the 22 of August.
[2016-08-23] MEDS: METOPROLOL TARTRATE 50 MG TAB PO SCH (21:33)
[2016-08-23 21:57] LABS: Glucose,Whole Blood 103 mg/dL (75-99)
[2016-08-23] MEDS: SENNOSIDES-DOCUSATE SODIUM 1 EACH TAB PO SCH (22:02)
[2016-08-24 04:38] LABS: Basophils % (A) 0 %; CH 30.3; CHCM 33.9; Eosinophils # (A) 0.1 k/uL (0-0.7); Eosinophils % (A) 1 %; HCT 29.4 % (34.0-46.0); HDW 3.03; HGB 9.7 gm/dL (11.4-16.0); Luc # (Auto) 0.33; Luc % (Auto) 3; Lymphocytes # (A) 1.3 k/uL (1.0-4.8); Lymphocytes % (A) 13 %; MCH 29.6 pg (25.0-35.0); MCHC 32.9 g/dL (31.0-37.0); Monocytes # (A) 0.8 k/uL (0-1.0); Monocytes % (A) 8 %; Neutrophils # (A) 7.5 k/uL (1.3-7.7); Neutrophils % (A) 74 %; RBC 3.27 m/uL (3.80-5.40); RDW 14.8 % (11.5-15.5); WBC 10.1 k/uL (3.8-10.6); WBC (Perox) 10.64
[2016-08-24 04:52] LABS: ALT 54 U/L (9-52); AST 49 U/L (14-36); Alkaline Phosphatase 72 U/L (38-126); Anion Gap 12 mmol/L; Blood Urea Nitrogen 21 mg/dL (7-17); Carbon Dioxide 28 mmol/L (22-30); Chloride 101 mmol/L (98-107); Glucose 118 mg/dL (74-99); Non-African American GFR(MDRD) >60 (>60 ml/min/1.73 sqM); Potassium 3.5 mmol/L (3.5-5.1); Sodium 141 mmol/L (137-145); Total Protein 5.2 g/dL (6.3-8.2)
[2016-08-24] MEDS: KETOROLAC 30 MG/ML 1 ML VIAL IVP PRN (07:03)
--- NOTE | 2016-08-24 07:52 | XR ---
EXAMINATION TYPE: XR chest 1V portable DATE OF EXAM: 08/24/2016 7:17 AM COMPARISON: 08/23/2016 HISTORY: Postop cardiac surgery TECHNIQUE: Single frontal view of the chest is obtained. FINDINGS: There are bilateral pleural effusions with cardiomegaly and bibasilar infiltrate. There is a diffuse interstitial pattern. Postsurgical changes noted. Bilateral chest tubes in size. IMPRESSION: 1. Stable bilateral airspace disease and pleural effusion. Correlate for CHF.
[2016-08-24] MEDS: IPRATROPIUM-ALBUTEROL 3 ML NEB INHALATION SCH ×4 (09:19→19:15)
[2016-08-24 09:24] LABS: Glucose,Whole Blood 139 mg/dL (75-99)
[2016-08-24] MEDS: INSULIN LISPRO (humaLOG) 300 UNIT/3 ML VIAL SQ SCH ×4 (09:24→20:32)
[2016-08-24] MEDS: HEPARIN SODIUM,PORCINE 5,000 UNIT/ML 1 ML VIAL SQ SCH ×3 (09:25→23:58)
[2016-08-24] MEDS: PANTOPRAZOLE 40 MG TABLET PO SCH (09:25)
[2016-08-24] MEDS: CLOPIDOGREL 75 MG TAB PO SCH (09:25)
[2016-08-24] MEDS: ATORVASTATIN 40 MG TAB PO SCH (09:25)
[2016-08-24] MEDS: ASPIRIN 325 MG TAB PO SCH (09:25)
[2016-08-24] MEDS: SPIRONOLACTONE 25 MG TAB PO SCH (09:26)
[2016-08-24] MEDS: METOPROLOL TARTRATE 50 MG TAB PO SCH ×2 (09:26→20:28)
[2016-08-24] MEDS: LISINOPRIL 5 MG TAB PO SCH (09:26)
[2016-08-24] MEDS: LEVOFLOXACIN 500 MG TAB PO SCH (09:41)
[2016-08-24] MEDS: POTASSIUM CHLORIDE ER 20 MEQ TAB.ER PO SCH ×2 (09:41→12:22)
--- NOTE | 2016-08-24 10:09 | P.PN ---
Subjective Progress note dated 08/24/2016 This is a 61-year-old female who is status post postop bypass grafting 4. She also apparently had a repair of a patent foramen ovale excision of left atrial appendage and mitral valve repair. Still relatively well. We added Levaquin a couple days ago. Chest x-ray shows shows a touch of fluid overload. Feeling much better. Doing much better ON THE INCENTIVE SPIROMETER. SHE IS POSTOP DAY #6. Objective - Vital Signs Vital signs: Vital Signs Temp 98.8 F 08/24/16 00:00 Pulse 83 08/24/16 09:31 Resp 21 08/24/16 05:00 BP 109/53 08/24/16 00:00 Pulse Ox 93 L 08/24/16 09:21 Intake & Output 08/23/16 08/24/16 08/24/16 18:59 06:59 18:59 Intake Total 400 200 Output Total 2660 970 Balance -2260 -770 Weight 75.9 kg 74.9 kg Intake: Intake, IV Titration 80 Amount Lactated Ringers 1,000 ml 80 @ 20 mls/hr IV .Q24H [facility] Rx#:[id number] Oral 320 200 Output: Chest Tube Drainage 260 160 Left Left Pleural/ 160 110 Mediastinal Right Right Pleural/ 100 50 Mediastinal Urine 2400 810 Other: Voiding Method Bedside Commode Bedside Commode ABP, PAP, CO, CI - Last Documented Arterial Blood Pressure 94/63 Pulmonary Artery Pressure 35/15 Cardiac Output 5.5 Cardiac Index 3.2 - Exam No acute distress, oriented 3. HEENT examination is grossly unremarkable. Next memory to moist. Neck is supple. Full range of motion. No neck vein distention. Cardiovascular examination reveals regular rhythm rate. Lungs reveal few scattered rhonchi. No wheezes or crackles. Abdomen soft. Semis are intact. - Labs CBC & Chem 7: 08/24/16 04:12 08/24/16 04:12 Labs: Abnormal Lab Results - Last 24 Hours (Table) 08/23/16 08/23/16 08/24/16 Range/Units 17:06 21:55 04:12 RBC 3.27 L (3.80-5.40) m/uL Hgb 9.7 L (11.4-16.0) gm/dL Hct 29.4 L (34.0-46.0) % Plt Count 145 L (150-450) k/uL BUN (7-17) mg/dL Glucose (74-99) mg/dL POC Glucose (mg/dL) 114 H 103 H (75-99) mg/dL Calcium (8.4-10.2) mg/dL AST (14-36) U/L ALT (9-52) U/L Total Protein (6.3-8.2) g/dL Albumin (3.5-5.0) g/dL 08/24/16 08/24/16 Range/Units 04:12 09:21 RBC (3.80-5.40) m/uL Hgb (11.4-16.0) gm/dL Hct (34.0-46.0) % Plt Count (150-450) k/uL BUN 21 H (7-17) mg/dL Glucose 118 H (74-99) mg/dL POC Glucose (mg/dL) 139 H (75-99) mg/dL Calcium 8.0 L (8.4-10.2) mg/dL AST 49 H (14-36) U/L ALT 54 H (9-52) U/L Total Protein 5.2 L (6.3-8.2) g/dL Albumin 2.9 L (3.5-5.0) g/dL Assessment and Plan (1) S/P CABG x 4 Status: Acute Plan: Plan The patient has been evaluated. Labs x-rays are reviewed. Medications are reviewed. We'll continue to follow. Not quite yet ready for extubation. The patient's PEEP levels a. Blood gases are reasonable. We'll continue to follow closely. Prognosis is guarded. Plan dated 08/24/2016 The patient continues to progress nicely. We'll continue to follow. She's doing better on her incentive spirometer. Continue Levaquin. We'll continue the updrafts. We will encourage the incentive spirometer. Time with Patient: Less than 30
[2016-08-24] MEDS: HYDROcodone/APAP 5-325MG 1 EACH TAB PO PRN ×2 (10:15→23:58)
--- NOTE | 2016-08-24 12:04 | P.PN ---
Progress Note - Text CV Surgery Nursing POD: #5, status post quadruple coronary artery bypass grafting using the left internal mammary artery to the left anterior descending artery, reverse saphenous vein graft from the aorta to the diagonal artery, reverse saphenous vein graft from the aorta to the obtuse marginal artery, reverse saphenous vein graft from the aorta to the distal right coronary artery at its bifurcation after endarterectomy of the proximal posterior descending artery, and posterolateral branch. Mitral valve repair with complete ring annuloplasty using a 28 mm dixie 3-D ring. Exclusion of the left atrial appendage using a 35 mm AtriClip. Intraoperative transesophageal echocardiogram and epi-aortic scanning. Patient awake and alert, no distress noted, no specific complaints. The patient is sitting up to the bedside chair. Vital Signs: Afebrile Vital Signs - 24 hr 08/23/16 08/23/16 08/23/16 09:26 09:30 09:34 Temperature Pulse Rate 76 74 78 Respiratory 14 Rate Blood Pressure 121/63 O2 Sat by Pulse 95 98 Oximetry 08/23/16 08/23/16 08/23/16 10:00 10:30 11:00 Temperature Pulse Rate 80 80 82 Respiratory 18 16 17 Rate Blood Pressure 121/60 105/59 120/62 O2 Sat by Pulse 90 L 96 91 L Oximetry 08/23/16 08/23/16 08/23/16 12:00 12:22 12:31 Temperature Pulse Rate 82 84 84 Respiratory 22 Rate Blood Pressure 134/56 O2 Sat by Pulse 94 L Oximetry 08/23/16 08/23/16 08/23/16 13:00 14:00 15:36 Temperature Pulse Rate 90 87 85 Respiratory 34 H 40 H Rate Blood Pressure 136/58 136/58 O2 Sat by Pulse 96 81 L Oximetry 08/23/16 08/23/16 08/23/16 15:49 16:00 17:00 Temperature 98.2 F Pulse Rate 88 94 89 Respiratory 19 15 Rate Blood Pressure 111/55 109/52 O2 Sat by Pulse 95 94 L Oximetry 08/23/16 08/23/16 08/23/16 19:00 19:14 19:27 Temperature Pulse Rate 86 85 86 Respiratory 20 Rate Blood Pressure O2 Sat by Pulse 94 L Oximetry 08/23/16 08/23/16 08/23/16 20:00 20:56 21:00 Temperature 98.6 F Pulse Rate 92 87 88 Respiratory 31 H 21 29 H Rate Blood Pressure 118/55 118/55 O2 Sat by Pulse 96 98 96 Oximetry 08/23/16 08/23/16 08/24/16 22:00 23:00 00:00 Temperature 98.8 F Pulse Rate 87 88 77 Respiratory 26 H 22 21 Rate Blood Pressure 109/53 O2 Sat by Pulse 97 96 96 Oximetry 08/24/16 08/24/16 08/24/16 01:00 02:00 03:00 Temperature Pulse Rate 80 81 81 Respiratory 28 H 17 18 Rate Blood Pressure O2 Sat by Pulse 96 97 96 Oximetry 08/24/16 08/24/16 04:00 05:00 Temperature Pulse Rate 80 82 Respiratory 20 21 Rate Blood Pressure O2 Sat by Pulse 96 96 Oximetry Labs: Short CBC 08/24/16 Range/Units 04:12 WBC 10.1 (3.8-10.6) k/uL Hgb 9.7 L (11.4-16.0) gm/dL Hct 29.4 L (34.0-46.0) % Plt Count 145 L (150-450) k/uL Neutrophils # 7.5 (1.3-7.7) k/uL BMP 08/24/16 04:12 Sodium 141 Potassium 3.5 Chloride 101 Carbon Dioxide 28 BUN 21 H Creatinine 0.80 Glucose 118 H Calcium 8.0 L Liver Function 08/24/16 Range/Units 04:12 Total Bilirubin 1.0 (0.2-1.3) mg/dL AST 49 H (14-36) U/L ALT 54 H (9-52) U/L Alkaline Phosphatase 72 (38-126) U/L Albumin 2.9 L (3.5-5.0) g/dL IV Fluids: IV saline locked. Lungs: Essentially clear throughout, few scattered crackles to bilateral bases left greater than right. Respirations are unlabored. O2 sat: 96% on room air. I/S: 1000 mL, reviewed with the patient the importance of using her incentive spirometry every hour while awake. Patient demonstrated good use of her incentive spirometry. Heart: S1S2, regular rhythm and rate, negative for S3 gallop or murmur. Bedside telemetry showing normal sinus rhythm with first-degree heart block heart rate 82. Sternum stable, chest incision clean with silverlon dressing clean and dry. Heart hugger in place, patient demonstrating proper use of the heart hugger. Left and right leg incisions clean dry and well approximated. Dressing is clean dry and intact. Knee-high JANICE hose and sequential compression devices in place to bilateral lower extremity Yayo. Abdomen: Soft, Positive bowel sounds present in all 4 quadrants. CBGs: 83-114 mg/dL in the last 24 hours. U/O: Adequate, 725 mL output in the last 8 hours. Chest Tubes: Left pleural chest tube without air leak, thin serosanguineous drainage. 40 mL output in the last 8 hours, 330 mL output in the last 24 hours. Right pleural chest tube without air leak, thin serosanguineous drainage. 10 mL output in the last 8 hours, 200 mL output in the last 24 hours. 24 hr Total: Intake & Output 08/22/16 08/23/16 08/24/16 08/25/16 06:59 06:59 06:59 06:59 Intake Total 1520 790 600 Output Total 3034 5297 3630 Balance -1513 -2028 -3029 Weight 75.9 kg 75.9 kg 74.9 kg Active Medications Generic Name Dose Route Start Last Admin Trade Name Freq PRN Reason Stop Dose Admin Acetaminophen/Hydrocodone Bitart 2 each 08/20/16 09:50 08/20/16 13:06 Boyden 5-325 PO 2 each Q4HR PRN Administration Severe Pain Acetaminophen/Hydrocodone Bitart 1 each 08/20/16 09:51 Boyden 5-325 PO Q4HR PRN Moderate Pain Albuterol/Ipratropium 3 ml 08/20/16 16:46 Duoneb 0.5 Mg-3 Mg/3 Ml Soln INHALATION RT-Q2H PRN Shortness Of Breath Or Wheezing Albuterol/Ipratropium 3 ml 08/20/16 12:00 08/24/16 09:19 Duoneb 0.5 Mg-3 Mg/3 Ml Soln INHALATION 3 ml RT-QID TIMOTHY Administration Alprazolam 0.5 mg 08/21/16 22:04 Xanax PO ONCE PRN Anxiety Aspirin 325 mg 08/24/16 09:00 08/24/16 09:25 Aspirin PO 325 mg DAILY TIMOTHY Administration Atorvastatin Calcium 40 mg 08/20/16 09:00 08/24/16 09:25 Lipitor PO 40 mg DAILY TIMOTHY Administration Bisacodyl 10 mg 08/20/16 16:45 Dulcolax RECTAL DAILY PRN Constipation Clopidogrel Bisulfate 75 mg 08/20/16 09:00 08/24/16 09:25 Plavix PO 75 mg DAILY TIMOTHY Administration Heparin Sodium (Porcine) 5,000 unit 08/20/16 01:00 08/24/16 09:25 Heparin SQ 5,000 unit Q8HR TIMOTHY Administration Insulin Human Lispro 0 unit 08/21/16 12:30 08/24/16 09:24 Humalog SQ 1 unit ACHS TIMOTHY Administration Protocol Ketorolac Tromethamine 15 mg 08/20/16 11:06 08/24/16 07:03 Toradol IVP 08/24/16 11:06 15 mg Q6HR PRN Administration Pain Levofloxacin 500 mg 08/22/16 10:45 08/23/16 11:08 Levaquin PO 500 mg Q24H TIMOTHY Administration Lisinopril 5 mg 08/23/16 18:00 08/24/16 09:26 Zestril PO 5 mg DAILY [facility] Administration Magnesium Hydroxide 2,400 mg 08/20/16 16:45 Milk Of Magnesia PO BID PRN Constipation Metoprolol Tartrate 50 mg 08/23/16 21:00 08/24/16 09:26 Lopressor PO 50 mg BID [facility] Administration Ondansetron HCl 4 mg 08/19/16 18:09 Zofran IVP Q6HR PRN Nausea And Vomiting Pantoprazole Sodium 40 mg 08/23/16 07:30 08/24/16 09:25 Protonix PO 40 mg AC-BRKFST TIMOTHY Administration Potassium Chloride 20 meq 08/24/16 09:00 K-Dur 20 PO 08/24/16 10:01 Q1HR TIMOTHY Senna/Docusate Sodium 2 each 08/20/16 21:00 08/23/16 22:02 Senokot-S PO 2 each HS [facility] Administration Sodium Chloride 10 ml 08/19/16 21:00 08/24/16 09:26 Saline Flush IV 10 ml BID TIMOTHY Administration Spironolactone 25 mg 08/23/16 16:15 08/24/16 09:26 Aldactone PO 25 mg DAILY TIMOTHY Administration Plan: The patient's chest tubes will be removed this a.m. She will be placed on Lasix 20 mg IV daily. Transfer to [address] [place] [address] when bed available. Continue to encourage ambulating in the hallway and working with physical therapy. Continue to encourage use of her incentive spirometry. Pulmonary management per Dr. Hahn. Obtain a 2 view chest x-ray in a.m. Repeat CBC and BMP in a.m. Left pleural and right pleural chest tubes removed without incident, sutures secured in place. 4 x 4 gauze dressing placed over chest tube insertion sites and secured with tape. Epicardial pacemaker wires grounded.
[2016-08-24] MEDS: FUROSEMIDE 10 MG/ML 2 ML VIAL IV SCH (12:23)
[2016-08-24 13:12] LABS: Glucose,Whole Blood 114 mg/dL (75-99)
--- NOTE | 2016-08-24 16:27 | PN ---
Balbina May is doing better today. White count is down. Her breathing is a lot better. Blood pressure is 115/42 mmHg. Respirations slightly increased in rate. She is afebrile. Pulse rate is normal. Breath sounds are reduced bilaterally with crackles at both bases but they have improved since yesterday. Heart sounds are soft. S1, S2 normal. Extremities are warm. IMPRESSION: 1. Coronary artery disease, status post coronary artery bypass grafting. 2. Repair of a patent foramen ovale and excision of left atrial appendage and mitral valve repair. 3. Ischemic cardiomyopathy with severe left ventricle dysfunction, ejection fraction of less than 30%. SUGGEST: Continue current medications including aspirin, atorvastatin, Plavix, Lasix 20 mg IV, subcu heparin, lisinopril and metoprolol as well as ( ).
[2016-08-24 16:47] LABS: Glucose,Whole Blood 130 mg/dL (75-99)
[2016-08-24] MEDS ORDERED: POTASSIUM CHLORIDE ER 20 MEQ TAB.ER PO SCH (17:00)
[2016-08-24] MEDS: SENNOSIDES-DOCUSATE SODIUM 1 EACH TAB PO SCH (20:29)
[2016-08-24 20:34] LABS: Glucose,Whole Blood 143 mg/dL (75-99)
--- NOTE | 2016-08-24 23:39 | P.PN ---
Subjective Principal diagnosis: Post CABG, post mitral valve repair, patent morelos ovale repair, hypertension, hyperlipidemia, chronic smoking, acute respiratory failure post surgery, acute anemia required transfusion after surgery. 61-year-old female one of Dr. Shrestha patient with past medical history of osteoarthritis hypertension hyperlipidemia and previous history of TIA and chronic lower back pain who had developed significant shortness of breath with minimum exertion was seen Dr. Verde recently and was diagnosed with possible coronary artery disease was [facility] and ended up having testing with Dr. Ann and furthermore heart catheter showed significant multiple coronary artery disease. 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 08/21: Patient remains in the intensive care unit. Patient has been successfully extubated this morning. She is found sitting up in a chair. She did not sleep well last night and does not feel well in general. O2 at 6L with pulse ox 93%. Hemoglobin 6.7 and currently receiving 1 unit of Blood. IS about 500 ml. 08/22: Patient remains in intensive care unit. She is found sitting up in a chair. Her pain is better controlled today. Patient's pulse ox was dropping when off BiPAP. Almanza to be discontinued today. Hemoglobin is 7 and patient is receiving 1 unit of packed RBCs today. 08/23: Patient has had both mediastinal chest tubes removed and remains with 1 right and one left with greater than 100 out of each per 24 hours. Urine output has been marginal running between 30 and 50 mL per hour. Almanza catheter remains in place. Incentive spirometry is 500-750. Hemoglobin today is at 9. Pressure dressings are in place for AJ drains were removed from bilateral lower extremity wounds. Patient was placed on BiPAP during the night and did receive some sleep. Patient requires aggressive pulmonary toileting and she has been reluctant to follow recommendations.. Patient is doing much better chest tube been taking out today and she has no vasopressor no insulin drip currently still having no arrhythmia. Hemoglobin is down to to bed in no transfusion this morning. Objective - Vital Signs Vital signs: Vital Signs Temp 98.3 F 01/29/17 12:00 Pulse 87 08/24/16 12:00 Resp 53 H 08/24/16 12:00 BP 91/57 08/24/16 12:00 Pulse Ox 95 08/24/16 12:00 Intake & Output 08/23/16 08/24/16 08/24/16 18:59 06:59 18:59 Intake Total 400 200 Output Total 2660 970 Balance -2260 -770 Weight 75.9 kg 74.9 kg Intake: Intake, IV Titration 80 Amount Lactated Ringers 1,000 ml 80 @ 20 mls/hr IV .Q24H TIMOTHY Rx#:[id number] Oral 320 200 Output: Chest Tube Drainage 260 160 Left Left Pleural/ 160 110 Mediastinal Right Right Pleural/ 100 50 Mediastinal Urine 2400 810 Other: Voiding Method Bedside Commode Bedside Commode Bedside Commode # Voids 2 ABP, PAP, CO, CI - Last Documented Arterial Blood Pressure 94/63 Pulmonary Artery Pressure 35/15 Cardiac Output 5.5 Cardiac Index 3.2 - Constitutional General appearance: Present: cooperative, disheveled, no acute distress. Absent : average body habitus, mild distress, morbidly obese, obese, severe distress, thin - EENT Eyes: Present: fundus normal, normal appearance. Absent: abnormal pupil, anicteric sclerae, disc margins sharp, edentulous, EOMI, PERRLA, photophobia, dentition normal, poor dentition, ptosis, scleral icterus ENT: Present: hard of hearing, normal oropharynx. Absent: hearing grossly normal, NA/AT, other, pharyngeal erythema, thrush, tonsillar exudates, tonsillar swelling Ears: bilateral: normal - Neck Neck: Present: normal ROM. Absent: lymphadenopathy, other, rigidity, stridor, thyromegaly Carotids: bilateral: upstroke normal Thyroid: bilateral: normal size - Respiratory Details: During the exam patient still have 2 chest tube and still have slight decreased breath sound in the left side compared to the right. Respiratory: bilateral: diminished, dullness, rales, rhonchi, wheezing - Cardiovascular Rhythm: regular Heart sounds: normal: S1, S2 Abnormal Heart Sounds: Present: systolic murmur - Gastrointestinal General gastrointestinal: Present: normal bowel sounds, soft - Integumentary Integumentary Comment(s): Significant bruise on the lower legs bilaterally from the knee down Integumentary: Present: pale, rash. Absent: calor, cellulitis, cyanotic, decreased turgor, flushed, jaundiced, normal, normal turgor, ulcer - Neurologic Neurologic: Present: CNII-XII intact - Musculoskeletal Musculoskeletal: Present: gait normal, generalized weakness. Absent: strength equal bilaterally, right sided weakness, left sided weakness - Psychiatric Psychiatric: Present: A&O x's 3, appropriate affect. Absent: intact judgment & insight - Labs CBC & Chem 7: 08/24/16 04:12 08/24/16 20:37 Labs: Abnormal Lab Results - Last 24 Hours (Table) 08/23/16 08/23/16 08/24/16 Range/Units 17:06 21:55 04:12 RBC 3.27 L (3.80-5.40) m/uL Hgb 9.7 L (11.4-16.0) gm/dL Hct 29.4 L (34.0-46.0) % Plt Count 145 L (150-450) k/uL BUN (7-17) mg/dL Glucose (74-99) mg/dL POC Glucose (mg/dL) 114 H 103 H (75-99) mg/dL Calcium (8.4-10.2) mg/dL AST (14-36) U/L ALT (9-52) U/L Total Protein (6.3-8.2) g/dL Albumin (3.5-5.0) g/dL 08/24/16 08/24/16 08/24/16 Range/Units 04:12 09:21 13:10 RBC (3.80-5.40) m/uL Hgb (11.4-16.0) gm/dL Hct (34.0-46.0) % Plt Count (150-450) k/uL BUN 21 H (7-17) mg/dL Glucose 118 H (74-99) mg/dL POC Glucose (mg/dL) 139 H 114 H (75-99) mg/dL Calcium 8.0 L (8.4-10.2) mg/dL AST 49 H (14-36) U/L ALT 54 H (9-52) U/L Total Protein 5.2 L (6.3-8.2) g/dL Albumin 2.9 L (3.5-5.0) g/dL Assessment and Plan Plan: 1 multiple coronary artery disease: Post 4 vessel CABG, doing slightly but better postsurgery stable at this point postsurgical care including chest tube, respirator, IV drip. Continue to watch patient for any change in hemodynamic status including arrhythmia or other. 2 post mitral valve repair: Has been doing well. 3 post patent morelos ovale repair: Stable so far. 4 acute respiratory failure: Post surgery of the event doing very well so far with no complication BiPAP is on standby if needed at night. 5 hypertension: Was on hydralazine and metoprolol resume medication when more stable. 6 ADD: Has been on Adderall 30 mg 3 times a day patient is off medication currently. 7 hyperlipidemia: Remain on Lipitor 20 mg daily. 8 hyperglycemia: Continue Accu-Chek post surgery. 9 anemia: Post surgery transfusion was done hemoglobin been watch daily. 10 hyperglycemia: Patient is on Accu-Chek with sliding scales coverage. GI prophylaxis: Patient remain on Protonix IV. CODE STATUS: Full code.
[2016-08-25] MEDS ORDERED: POTASSIUM CHLORIDE ER 20 MEQ TAB.ER PO SCH
[2016-08-25 05:11] LABS: Basophils # (A) 0.1 k/uL (0-0.2); Basophils % (A) 1 %; CH 29.7; CHCM 33.2; Eosinophils # (A) 0.3 k/uL (0-0.7); Eosinophils % (A) 3 %; HCT 29.6 % (34.0-46.0); HGB 9.5 gm/dL (11.4-16.0); Luc # (Auto) 0.24; Luc % (Auto) 3; Lymphocytes # (A) 1.6 k/uL (1.0-4.8); Lymphocytes % (A) 17 %; MCH 29.1 pg (25.0-35.0); MCHC 32.2 g/dL (31.0-37.0); MCV 90.4 fL (80.0-100.0); Mean Platelet Volume 8.4; Monocytes # (A) 0.7 k/uL (0-1.0); Monocytes % (A) 8 %; Neutrophils # (A) 6.6 k/uL (1.3-7.7); Neutrophils % (A) 70 %; RBC 3.27 m/uL (3.80-5.40); RDW 14.9 % (11.5-15.5); WBC 9.5 k/uL (3.8-10.6); WBC (Perox) 9.61
[2016-08-25 05:19] LABS: Anion Gap 10 mmol/L; Blood Urea Nitrogen 21 mg/dL (7-17); Calcium 8.4 mg/dL (8.4-10.2); Carbon Dioxide 27 mmol/L (22-30); Chloride 102 mmol/L (98-107); Glucose 122 mg/dL (74-99); Non-African American GFR(MDRD) >60 (>60 ml/min/1.73 sqM); Potassium 4.1 mmol/L (3.5-5.1); Sodium 139 mmol/L (137-145)
[2016-08-25] MEDS: IPRATROPIUM-ALBUTEROL 3 ML NEB INHALATION SCH ×2 (07:34→11:14)
[2016-08-25 07:41] LABS: Glucose,Whole Blood 111 mg/dL (75-99)
[2016-08-25 07:48] LABS: ABG Base Excess -2.5 mmol/L; ABG HCO3 24 mmol/L (21-25); ABG Oxygen Saturation 99.9 % (94-97); ABG PCO2 48 mmHg (35-45); ABG PH 7.31 (7.35-7.45); ABG PO2 382 mmHg (83-108); ABG TCO2 25 mmol/L (19-24)
[2016-08-25 07:49] LABS: ABG PCO2 39 mmHg (35-45); ABG PH 7.39 (7.35-7.45); ABG PO2 389 mmHg (83-108)
[2016-08-25 07:50] LABS: ABG Base Excess -1.5 mmol/L; ABG HCO3 23 mmol/L (21-25); ABG TCO2 24 mmol/L (19-24)
[2016-08-25 07:50] LABS: ABG PH 7.36 (7.35-7.45)
[2016-08-25 07:51] LABS: ABG Base Excess -2.7 mmol/L; ABG HCO3 22 mmol/L (21-25); ABG Oxygen Saturation 99.9 % (94-97); ABG PCO2 39 mmHg (35-45); ABG PO2 316 mmHg (83-108); ABG TCO2 23 mmol/L (19-24)
[2016-08-25 07:52] LABS: ABG HCO3 24 mmol/L (21-25); ABG PCO2 36 mmHg (35-45); ABG PH 7.43 (7.35-7.45); ABG PO2 >420 mmHg (83-108); ABG TCO2 25 mmol/L (19-24)
[2016-08-25 07:54] LABS: ABG Base Excess -3.1 mmol/L; ABG HCO3 21 mmol/L (21-25); ABG Oxygen Saturation 99.9 % (94-97); ABG PCO2 38 mmHg (35-45); ABG PH 7.37 (7.35-7.45); ABG PO2 317 mmHg (83-108); ABG TCO2 23 mmol/L (19-24)
[2016-08-25 07:55] LABS: ABG PCO2 47 mmHg (35-45); ABG PH 7.32 (7.35-7.45)
[2016-08-25 07:56] LABS: ABG HCO3 23 mmol/L (21-25); ABG Oxygen Saturation 99.8 % (94-97); ABG PO2 231 mmHg (83-108); ABG TCO2 25 mmol/L (19-24)
[2016-08-25 07:57] LABS: ABG Base Excess -0.3 mmol/L; ABG HCO3 23 mmol/L (21-25); ABG Oxygen Saturation 99.9 % (94-97); ABG PCO2 36 mmHg (35-45); ABG PH 7.43 (7.35-7.45); ABG PO2 249 mmHg (83-108); ABG TCO2 25 mmol/L (19-24)
[2016-08-25 07:59] LABS: ABG Base Excess -3.6 mmol/L; ABG HCO3 22 mmol/L (21-25); ABG Oxygen Saturation 99.9 % (94-97); ABG PCO2 47 mmHg (35-45); ABG PO2 370 mmHg (83-108); ABG TCO2 23 mmol/L (19-24)
[2016-08-25 08:00] LABS: ABG Base Excess -4.1 mmol/L; ABG HCO3 22 mmol/L (21-25); ABG Oxygen Saturation 92.7 % (94-97); ABG PCO2 50 mmHg (35-45); ABG PH 7.27 (7.35-7.45); ABG PO2 76 mmHg (83-108); ABG TCO2 24 mmol/L (19-24)
[2016-08-25 08:02] LABS: ABG Base Excess -1.6 mmol/L; ABG HCO3 22 mmol/L (21-25); ABG Oxygen Saturation 87.3 % (94-97); ABG PCO2 36 mmHg (35-45); ABG PH 7.41 (7.35-7.45); ABG PO2 53 mmHg (83-108); ABG TCO2 23 mmol/L (19-24)
[2016-08-25 08:38] VITALS: PULSE 98
[2016-08-25] MEDS: INSULIN LISPRO (humaLOG) 300 UNIT/3 ML VIAL SQ SCH ×2 (08:41→14:40)
--- NOTE | 2016-08-25 08:50 | XR ---
EXAMINATION TYPE: XR chest 2V DATE OF EXAM: 08/25/2016 6:25 AM COMPARISON: 08/24/2016 HISTORY: Postop cardiac surgery FINDINGS: The lungs are clear and there is no pneumothorax, pleural effusion, or focal pneumonia. Postsurgical changes seen. Chest tubes have been removed. Less than 5% left apical pneumothorax suspected. Coarse lynn interstitium persists. IMPRESSION: 1. Less than 5% left apical pneumothorax. 2. Coarsened interstitium suggestive of venous congestion.
[2016-08-25] MEDS: PANTOPRAZOLE 40 MG TABLET PO SCH (09:22)
[2016-08-25] MEDS: CLOPIDOGREL 75 MG TAB PO SCH (09:23)
[2016-08-25] MEDS: ATORVASTATIN 40 MG TAB PO SCH (09:23)
[2016-08-25] MEDS: ASPIRIN 325 MG TAB PO SCH (09:23)
[2016-08-25] MEDS: FUROSEMIDE 10 MG/ML 2 ML VIAL IV SCH (09:23)
[2016-08-25] MEDS: HEPARIN SODIUM,PORCINE 5,000 UNIT/ML 1 ML VIAL SQ SCH (09:23)
[2016-08-25] MEDS: LISINOPRIL 5 MG TAB PO SCH (09:23)
[2016-08-25] MEDS: SPIRONOLACTONE 25 MG TAB PO SCH (09:24)
[2016-08-25] MEDS: LEVOFLOXACIN 500 MG TAB PO SCH (09:38)
[2016-08-25] MEDS: METOPROLOL TARTRATE 50 MG TAB PO SCH (09:39)
--- NOTE | 2016-08-25 10:25 | P.PN ---
Subjective Principal diagnosis: Triple vessel coronary artery disease with an old inferior wall myocardial infarction, moderate left ventricular dysfunction, moderate mitral valve regurgitation, infero-basal aneurysm, hypertension, hyperlipidemia, fibromyalgia , gastroesophageal reflux disease, tobacco abuse. POD #6 quadruple coronary artery bypass grafting using the left internal mammary artery to the left anterior descending artery, reverse saphenous vein graft from the aorta to the diagonal artery, reverse saphenous vein graft from the aorta to the obtuse marginal artery, reverse saphenous vein graft from the aorta to the distal right coronary artery at its bifurcation after endarterectomy of the proximal posterior descending artery, and posterolateral branch. Mitral valve repair with complete ring annuloplasty using a 28 mm dixie 3-D ring. Exclusion of the left atrial appendage using a 35 mm AtriClip. Intraoperative transesophageal echocardiogram and epi-aortic scanning. Patient sitting up in chair without any complaints. Objective - Vital Signs Vital signs: Vital Signs Temp 98.4 F 08/25/16 00:00 Pulse 80 08/25/16 07:35 Resp 23 08/25/16 04:06 BP 121/56 08/25/16 04:06 Pulse Ox 93 L 08/25/16 04:06 Intake & Output 08/24/16 08/25/16 08/25/16 18:59 06:59 18:59 Weight 71 kg Other: Voiding Method Bedside Commode Bedside Commode # Voids 3 1 # Bowel Movements 1 ABP, PAP, CO, CI - Last Documented Arterial Blood Pressure 94/63 Pulmonary Artery Pressure 35/15 Cardiac Output 5.5 Cardiac Index 3.2 - Constitutional General appearance: Present: cooperative, no acute distress - Respiratory Details: Lungs sounds diminished bilaterally, respirations even and nonlabored. Currently on room air. Able to achieve 1250 mL on incentive spirometry. Coughing effectively. - Cardiovascular Details: S1, S2 present. Regular rate and rhythm, sinus rhythm on telemetry. Chest stable. Trace bilateral lower extremity edema present. Epicardial AV wires still present but capped. Heart hugger in place with patient demonstrating appropriate use. Teds, SCDs in place. - Gastrointestinal Gastrointestinal Comment(s): Abdomen soft, nontender, nondistended. Active bowel sounds 4 quadrants. Positive bowel movement yesterday. Tolerating diet. - Genitourinary Genitourinary Comment(s): Patient voiding clear, yellow urine, unmeasured amount. - Integumentary Integumentary Comment(s): Skin warm, dry. Bilateral EVH sites well approximated. - Neurologic Neurologic: Present: CNII-XII intact - Musculoskeletal Musculoskeletal Comment(s): Ambulating in hallway without difficulty. - Psychiatric Psychiatric: Present: A&O x's 3, appropriate affect, intact judgment & insight - Allied health notes Allied health notes reviewed: case management - Labs CBC & Chem 7: 08/25/16 04:37 08/25/16 04:37 Labs: Abnormal Lab Results - Last 24 Hours (Table) 08/21/16 08/24/16 08/24/16 Range/Units 08:56 09:21 13:10 RBC (3.80-5.40) m/uL Hgb (11.4-16.0) gm/dL Hct (34.0-46.0) % BUN (7-17) mg/dL Glucose (74-99) mg/dL POC Glucose (mg/dL) 139 H 114 H (75-99) mg/dL Crossmatch See Detail 08/24/16 08/24/16 08/25/16 Range/Units 16:44 20:31 04:37 RBC 3.27 L (3.80-5.40) m/uL Hgb 9.5 L (11.4-16.0) gm/dL Hct 29.6 L (34.0-46.0) % BUN (7-17) mg/dL Glucose (74-99) mg/dL POC Glucose (mg/dL) 130 H 143 H (75-99) mg/dL Crossmatch 08/25/16 08/25/16 Range/Units 04:37 07:39 RBC (3.80-5.40) m/uL Hgb (11.4-16.0) gm/dL Hct (34.0-46.0) % BUN 21 H (7-17) mg/dL Glucose 122 H (74-99) mg/dL POC Glucose (mg/dL) 111 H (75-99) mg/dL Crossmatch - Imaging and Cardiology Chest x-ray: image reviewed Assessment and Plan (1) CAD (coronary artery disease) Status: Acute (2) Mitral valve regurgitation Status: Acute (3) Hypertension Status: Acute (4) Hyperlipidemia Status: Acute (5) GERD (gastroesophageal reflux disease) Status: Acute (6) Tobacco dependence Status: Acute (7) Anxiety Status: Acute Plan: 1. Continue, aspirin, Plavix, Lopressor, statin, Yayo, Aldactone. 2. Will monitor labs, vital signs, output and treat accordingly. 3. Encourage coughing and deep breathing, with incentive spirometry use. 4. Encourage increased activity, would like patient to ambulate in hallway. 5. GI/DVT prophylaxis 6. Continue aggressive encouragement to participate in care. 7. May transfer to [facility] when bed available. 8. Anticipate discharge to home soon. 9. Epicardial A/V pacer wires dc'd. Time with Patient: Greater than 30
[2016-08-25] MEDS ORDERED: NICOTINE 21MG/24HR PATCH TRANSDERM SCH (12:00)
[2016-08-25 12:11] VITALS: BP 104/50; RESP 14; TEMP 98.1
[2016-08-25 12:21] LABS: Glucose,Whole Blood 110 mg/dL (75-99)
--- NOTE | 2016-08-25 13:26 | P.PN ---
Subjective 61-year-old white female patient underwent carotid bypass surgery, mitral valve repair, repair of a PFO and today she is postop day #5. The patient also has history of hypertension, hyperlipidemia, COPD and she is a chronic smoker. Patient is doing well. No specific complaints for now. Surgical wound site is intact and clean. Chest tubes have been removed. Sternum stable clean and intact. Today's chest x-ray shows adequate expansion of both lungs without any acute abnormalities. For the most part, the patient has done well. Hemoglobin is stable at 9.5. Carotids are being made to discharge this patient home with home care. Objective - Vital Signs Vital signs: Vital Signs Temp 98.1 F 08/25/16 12:10 Pulse 98 08/25/16 08:02 Resp 14 08/25/16 12:10 BP 104/50 08/25/16 12:10 Pulse Ox 94 L 08/25/16 08:02 Intake & Output 08/24/16 08/25/16 08/25/16 18:59 06:59 18:59 Intake Total 280 Output Total 225 Balance 55 Weight 71 kg 71 kg Intake: Oral 280 Output: Urine 225 Other: Voiding Method Bedside Commode Bedside Commode Toilet # Voids 3 1 2 # Bowel Movements 1 ABP, PAP, CO, CI - Last Documented Arterial Blood Pressure 94/63 Pulmonary Artery Pressure 35/15 Cardiac Output 5.5 Cardiac Index 3.2 - Exam Head exam was generally normal. There was no scleral icterus or corneal arcus. Mucous membranes were moist.Neck was supple and without jugular venous distension, thyromegaly, or carotid bruits. Carotids were easily palpable bilaterally. There was no adenopathy. Lung sounds are diminished bilaterally otherwise clear. Heart sounds are regular rate and rhythm normal S1-S2 and there is no osseous were no murmurs. Sternum stable clean and intact.Abdominal exam revealed normal bowel sounds. The abdomen was soft, non-tender, and without masses, organomegaly, or appreciable enlargement of the abdominal aorta.Examination of the extremities revealed easily palpable radial, femoral and pedal pulses. There was no cyanosis, clubbing or edema. - Labs CBC & Chem 7: 08/25/16 04:37 08/25/16 04:37 Labs: Abnormal Lab Results - Last 24 Hours (Table) 08/19/16 08/19/16 08/19/16 Range/Units 08:25 10:52 12:23 RBC (3.80-5.40) m/uL Hgb (11.4-16.0) gm/dL Hct (34.0-46.0) % ABG pH 7.31 L (7.35-7.45) ABG pCO2 48 H (35-45) mmHg ABG pO2 389 H 382 H 316 H (83-108) mmHg ABG Total CO2 25 H (19-24) mmol/L ABG O2 Saturation 100.0 H 99.9 H 99.9 H (94-97) % ABG Hematocrit 24 L (34.0-46.0) % ABG Potassium (3.4-4.5) mmol/L BUN (7-17) mg/dL Glucose (74-99) mg/dL POC Glucose (mg/dL) (75-99) mg/dL Arterial Blood Potassium (3.4-4.5) mmol/L Crossmatch 08/19/16 08/19/16 08/19/16 Range/Units 13:13 13:38 14:38 RBC (3.80-5.40) m/uL Hgb (11.4-16.0) gm/dL Hct (34.0-46.0) % ABG pH 7.32 L (7.35-7.45) ABG pCO2 47 H (35-45) mmHg ABG pO2 >420 H 317 H 231 H (83-108) mmHg ABG Total CO2 25 H 25 H (19-24) mmol/L ABG O2 Saturation 100.0 H 99.9 H 99.8 H (94-97) % ABG Hematocrit 18 L* 23 L 20 L* (34.0-46.0) % ABG Potassium 4.7 H 4.8 H (3.4-4.5) mmol/L BUN (7-17) mg/dL Glucose (74-99) mg/dL POC Glucose (mg/dL) (75-99) mg/dL Arterial Blood Potassium 4.7 H 4.8 H (3.4-4.5) mmol/L Crossmatch 08/19/16 08/19/16 08/19/16 Range/Units 15:13 15:42 16:31 RBC (3.80-5.40) m/uL Hgb (11.4-16.0) gm/dL Hct (34.0-46.0) % ABG pH 7.30 L 7.27 L (7.35-7.45) ABG pCO2 47 H 50 H (35-45) mmHg ABG pO2 249 H 370 H 76 L (83-108) mmHg ABG Total CO2 25 H (19-24) mmol/L ABG O2 Saturation 99.9 H 99.9 H 92.7 L (94-97) % ABG Hematocrit 19 L* 20 L* 23 L (34.0-46.0) % ABG Potassium (3.4-4.5) mmol/L BUN (7-17) mg/dL Glucose (74-99) mg/dL POC Glucose (mg/dL) (75-99) mg/dL Arterial Blood Potassium (3.4-4.5) mmol/L Crossmatch 08/19/16 08/21/16 08/24/16 Range/Units 17:15 08:56 16:44 RBC (3.80-5.40) m/uL Hgb (11.4-16.0) gm/dL Hct (34.0-46.0) % ABG pH (7.35-7.45) ABG pCO2 (35-45) mmHg ABG pO2 53 L (83-108) mmHg ABG Total CO2 (19-24) mmol/L ABG O2 Saturation 87.3 L (94-97) % ABG Hematocrit 24 L (34.0-46.0) % ABG Potassium (3.4-4.5) mmol/L BUN (7-17) mg/dL Glucose (74-99) mg/dL POC Glucose (mg/dL) 130 H (75-99) mg/dL Arterial Blood Potassium (3.4-4.5) mmol/L Crossmatch See Detail 08/24/16 08/25/16 08/25/16 Range/Units 20:31 04:37 04:37 RBC 3.27 L (3.80-5.40) m/uL Hgb 9.5 L (11.4-16.0) gm/dL Hct 29.6 L (34.0-46.0) % ABG pH (7.35-7.45) ABG pCO2 (35-45) mmHg ABG pO2 (83-108) mmHg ABG Total CO2 (19-24) mmol/L ABG O2 Saturation (94-97) % ABG Hematocrit (34.0-46.0) % ABG Potassium (3.4-4.5) mmol/L BUN 21 H (7-17) mg/dL Glucose 122 H (74-99) mg/dL POC Glucose (mg/dL) 143 H (75-99) mg/dL Arterial Blood Potassium (3.4-4.5) mmol/L Crossmatch 08/25/16 08/25/16 Range/Units 07:39 12:18 RBC (3.80-5.40) m/uL Hgb (11.4-16.0) gm/dL Hct (34.0-46.0) % ABG pH (7.35-7.45) ABG pCO2 (35-45) mmHg ABG pO2 (83-108) mmHg ABG Total CO2 (19-24) mmol/L ABG O2 Saturation (94-97) % ABG Hematocrit (34.0-46.0) % ABG Potassium (3.4-4.5) mmol/L BUN (7-17) mg/dL Glucose (74-99) mg/dL POC Glucose (mg/dL) 111 H 110 H (75-99) mg/dL Arterial Blood Potassium (3.4-4.5) mmol/L Crossmatch Assessment and Plan Plan: Assessment 1 post four-vessel bypass surgery, mitral valve repair, closure of a PFO. Patient is clinically stable. The patient is hemodynamically stable. All chest tubes are removed. The patient is on no oxygen at this point. 2 first degree AV block, sinus rhythm 3 hypertension 4 ADD 5 hyperlipidemia 6 chronic anemia 7 nicotine addiction/smoking. Plan The patient can be discharged home today with her incentive spirometer and home care. Smoking cessation counseling was done. The patient was given a nicotine patch 21 mg on a daily basis. The patient will be following up with CT surgery and cardiology. The rest of the medication will include aspirin, Plavix, Lopressor, Aldactone, and the patient will be on a Lipitor and lisinopril.
--- NOTE | 2016-08-26 13:38 | P.DS ---
Providers Date of admission: 08/19/16 05:50 Expected date of discharge: 08/25/16 Attending physician: Tyron Manzo Consults: 08/19/16 18:09 Consult Physician Routine Consulting Provider: Sonia Ty Consult Reason/Comments: Machine Operator Packaging Consult: post cardiac surgery Do you want consulting provider notified?: Yes Consult Physician Routine Consulting Provider: Farzad Fernando Consult Reason/Comments: Medical management Do you want consulting provider notified?: Yes Consult Physician Routine Consulting Provider: Watson Mota Consult Reason/Comments: Railway Equipment Operator Consult: post cardiac surgery Do you want consulting provider notified?: Yes Primary care physician: [facility] Course: FINAL DIAGNOSIS: 1. Triple-vessel coronary artery disease with an old inferior wall myocardial infarction 2. Moderate left ventricular dysfunction 3. Moderate mitral valve regurgitation 4. Infero-basal aneurysm 5. Hypertension 6. Hyperlipidemia 7. Fibromyalgia 8. Gastroesophageal reflux disease 9. Recent tobacco dependence 10. Attention deficit hyperactivity disorder PRINCIPAL PROCEDURE: 1. Quadruple coronary artery bypass grafting using the left internal mammary artery to the left anterior descending artery, reverse saphenous vein graft from the aorta to the diagonal artery, reverse saphenous vein graft from the aorta to the obtuse marginal artery, reverse saphenous vein graft from the aorta to the distal right coronary artery at its bifurcation after endarterectomy of the proximal posterior descending artery, and posterior lateral branch 2. Mitral valve repair with complete ring annuloplasty using a 28 mm Macho 3-D ring 3. Exclusion of the left atrial appendage using a 35 mm AtriClip 4. Intraoperative transesophageal echocardiogram and epi-aortic scanning HISTORY OF PRESENT ILLNESS: [This 61-year-old female was being followed by Dr. Mota for a history of heart palpitations and pre-syncope, had a stress test demonstrating decrease in left ventricular function. She had a cardiac catheterization on August 05, which demonstrated an old super-dominant right coronary artery occlusion with left to right collateral, as well as significant stenosis in the LAD and the proximal circumflex. She also admitted to episodes of angina off and on for the previous year as well as dyspnea on exertion. She continued to smoke 2 packs of cigarettes a day despite having been counseled to quit. Cardiothoracic surgery was consulted for the possibility of coronary artery bypass grafting. All risks and benefits were explained to the patient, and she consented to surgery. Pre-operative testing was completed, and she received dental clearance.] HOSPITAL COURSE:[The patient was admitted as an outpatient, and after obtaining consent was brought to the operative suite, where she underwent a quadruple coronary artery bypass grafting, mitral valve repair, exclusion of the left atrial appendage, intraoperative ANDREA, and epi-aortic scanning. She was then transferred to the ICU for critical care monitoring and ventilatory support. She was extubated POD #1, all tubes/lines/drains were dc'd as appropriate. She did develop an acute blood loss anemia, and received blood transfusions accordingly. In addition, she exhibited hypoxic respiratory distress on POD #3 necessitating BiPap use overnight. She was eventually weaned down to room air, and was ready for discharge on POD #6. She received verbal as well as written discharge instructions, including strong encouragement to refrain from smoking, and was discharged home with her , to be followed by home care. ] COMPLICATIONS: [Postoperative blood loss anemia requiring blood transfusion; post-operative hypoxic respiratory distress requiring BiPap for <24 hours] CONSULTATIONS: 1.Dr. Mota for cardiology 2.Dr. Hahn/Karson for pulmonology 3.Dr. Fernando for medical management DISCHARGE INSTRUCTIONS: 1. No driving for 4 weeks, or until physician gives their ok. 2. The patient should sleep in their own bed, no medical bed needed. 3. Stairs are not an issue. If the bedroom is upstairs, it is advised that the patient go up at night and down in the morning for the first week. Go slowly, using handrail and take 1 step at a time. 4. JANICE hose are to be worn for 30 days or until physician discontinues. 5. Heart hugger is to be worn 100% of the time until physician discontinues.( excepet when showering) 6. No lifting, pushing, or pulling more than 10 pounds for 12 weeks. The physician will advise of any restriction changes. 7. The patient is expected to continue the prescribed walking program. 8. Continue pain control per as needed orders. 9. Continue with incentive spirometry and splinting/heart hugger until otherwise directed by the physician. 10. Must shower daily using liquid antibacterial soap and a separate white washcloth for each individual incision. 11. Please remove Silverlon chest dressing on September 01 with routine sternal incision care thereafter. HOME HEALTH SERVICES TO PROVIDE: RN SKILLED HOME CARE SERVICES FOR POST-OP SURGICAL PATIENTS WITH THE FOLLOWING: Coronary Artery Bypass Surgery (CABG), Mitral Valve Replacement/ Repair ( MVR) RN TO CONTINUE EDUCATION FROM ``ROAD TO A HEALTH HEART PATIENT EDUCATION MANUAL (GIVEN TO PATIENT IN THE HOSPITAL) MEDICATION RECONCILIATION WITH EDUCATION NEEDED ON FIRST HOME VISIT EMPHASIZE IMPORTANCE OF WEARING BREAST SUPPORT/HEART HUGGER ENCOURAGE USE OF INCENTIVE SPIROMETER 10 X EVERY HOUR WHILE AWAKE ENCOURAGE UTILIZATION OF LOWER EXTREMITY COMPRESSION STOCKINGS/JANICE HOSE and ELEVATE LEGS ABOVE LEVEL OF HEART WHILE AT REST. ENCOURAGE AMBULATION 3-5x/day INCREASING TOLERATES, WHILE AVOID EXTREMES IN TEMPERATURE FREQUENCY: RN TO OPEN THE PATIENT WITHIN 24 HOURS OF DISCHARGE FROM THE HOSPITAL WITH TELEHEALTH INSTALLED AT [facility] [place], RN TO VISIT 2-3 X A WEEK FOR 4 WEEKS ESTABLISHED BY PATIENT NEEDS. REMOVAL OF SUTURES: NURSING SERVICES TO REMOVE SUTURES TWO WEEKS POST SURGICAL DATE September 02. If any questions regarding suture removal please call the office at [phone]. LABORATORY: CBC, CMP TO BE DRAWN ON THE THIRD DAY HOME, Aug 28 (RAN STAT) FAX RESULTS TO [phone]. TELEHEALTH PARAMETERS: WEIGHT: NOTIFY MD OF WEIGHT GAIN OF 2 LBS IN 24 HOURS OR 5 LBS IN ONE WEEK HR: NOTIFY MD OF HR <55 BPM OR HR>100 BPM BP: NOTIFY MD IF BP <90/55 OR BP>140/100 O2 SAT: NOTIFY MD IF PO2<93% ON ROOM AIR SEND TELEHEALTH REPORT TO MOTIVATIONAL SPEAKER AND CARDIOVASCULAR SURGEON THE FIRST WEEK OF CARE AND THEN BI-WEEKLY. PLEASE ADDITIONALLY COMMUNICATE ANY ABNORMALS AND NEW FINDINGS TO THE SURGEONS OFFICE. Plan - Discharge Summary New Discharge Prescriptions: Aspirin 325 mg PO DAILY #30 tab Atorvastatin [Lipitor] 40 mg PO DAILY #30 tab Clopidogrel [Plavix] 75 mg PO DAILY #30 tab Furosemide [Lasix] 20 mg PO DAILY #3 tab HYDROcodone/APAP 5-325MG [Melvin 5-325] 1 - 2 each PO Q6HR PRN #30 tab PRN Reason: Moderate Pain Levofloxacin [Levaquin] 500 mg PO Q24H #3 tab Lisinopril [Zestril] 5 mg PO DAILY #30 tab Metoprolol Tartrate [Lopressor] 50 mg PO BID #60 tab Nicotine 21Mg/24Hr Patch [Habitrol] 1 patch TRANSDERM DAILY #30 patch Potassium Chloride ER [K-Dur 10] 10 meq PO DAILY #3 tab Spironolactone [Aldactone] 25 mg PO DAILY #30 tab Discharge Medication List ALPRAZolam [Xanax] 1 mg PO Q8HR PRN 08/15/16 [History] Aspirin 325 mg PO DAILY #30 tab 08/25/16 [Rx] Atorvastatin [Lipitor] 40 mg PO DAILY #30 tab 08/25/16 [Rx] Clopidogrel [Plavix] 75 mg PO DAILY #30 tab 08/25/16 [Rx] Furosemide [Lasix] 20 mg PO DAILY #3 tab 08/25/16 [Rx] HYDROcodone/APAP 5-325MG [Melvin 5-325] 1 - 2 each PO Q6HR PRN #30 tab 08/25/16 [ Rx] Levofloxacin [Levaquin] 500 mg PO Q24H #3 tab 08/25/16 [Rx] Lisinopril [Zestril] 5 mg PO DAILY #30 tab 08/25/16 [Rx] Metoprolol Tartrate [Lopressor] 50 mg PO BID #60 tab 08/25/16 [Rx] Nicotine 21Mg/24Hr Patch [Habitrol] 1 patch TRANSDERM DAILY #30 patch 08/25/16 [ Rx] Potassium Chloride ER [K-Dur 10] 10 meq PO DAILY #3 tab 08/25/16 [Rx] Spironolactone [Aldactone] 25 mg PO DAILY #30 tab 08/25/16 [Rx] Follow up Appointment(s)/Referral(s): Watson Mota MD [STAFF PHYSICIAN] - 09/02/16 8:30 am Tyron Manzo MD [STAFF PHYSICIAN] - 09/15/16 10:00 am Raleigh Hahn DO [Doctor of Osteopathic Medicine] - 09/03/16 8:30 am [facility], [NON-STAFF] - As Needed Dennis Shrestha DO [Primary Care Provider] - 09/10/16 11:40 am Ambulatory/Diagnostic Orders: Complete Blood Count w/diff [LAB.AMB] Time Frame: 08/28/16, Facility: [facility], Location: Laboratory [facility] Comprehensive Metabolic Panel [LAB.AMB] Time Frame: 08/28/16, Facility: [facility], Location: [facility] Activity/Diet/Wound Care/Special Instructions: DISCHARGE INSTRUCTIONS: 1. No driving for 4 weeks, or until physician gives their ok. 2. The patient should sleep in their own bed, no medical bed needed. 3. Stairs are not an issue. If the bedroom is upstairs, it is advised that the patient go up at night and down in the morning for the first week. Go slowly, using handrail and take 1 step at a time. 4. JANICE hose are to be worn for 30 days or until physician discontinues. 5. Heart hugger is to be worn 100% of the time until physician discontinues.( excepet when showering) 6. No lifting, pushing, or pulling more than 10 pounds for 12 weeks. The physician will advise of any restriction changes. 7. The patient is expected to continue the prescribed walking program. 8. Continue pain control per as needed orders. 9. Continue with incentive spirometry and splinting/heart hugger until otherwise directed by the physician. 10. Must shower daily using liquid antibacterial soap and a separate white washcloth for each individual incision. 11. Please remove Silverlon chest dressing on September 01 with routine sternal incision care thereafter. HOME HEALTH SERVICES TO PROVIDE: RN SKILLED HOME CARE SERVICES FOR POST-OP SURGICAL PATIENTS WITH THE FOLLOWING: Coronary Artery Bypass Surgery (CABG), Mitral Valve Replacement/ Repair ( MVR) RN TO CONTINUE EDUCATION FROM ``ROAD TO A HEALTH HEART PATIENT EDUCATION MANUAL (GIVEN TO PATIENT IN THE HOSPITAL) MEDICATION RECONCILIATION WITH EDUCATION NEEDED ON FIRST HOME VISIT EMPHASIZE IMPORTANCE OF WEARING BREAST SUPPORT/HEART HUGGER ENCOURAGE USE OF INCENTIVE SPIROMETER 10 X EVERY HOUR WHILE AWAKE ENCOURAGE UTILIZATION OF LOWER EXTREMITY COMPRESSION STOCKINGS/JANICE HOSE and ELEVATE LEGS ABOVE LEVEL OF HEART WHILE AT REST. ENCOURAGE AMBULATION 3-5x/day INCREASING TOLERATES, WHILE AVOID EXTREMES IN TEMPERATURE FREQUENCY: RN TO OPEN THE PATIENT WITHIN 24 HOURS OF DISCHARGE FROM THE HOSPITAL WITH TELEHEALTH INSTALLED AT [facility] [place], RN TO VISIT 2-3 X A WEEK FOR 4 WEEKS ESTABLISHED BY PATIENT NEEDS. REMOVAL OF SUTURES: NURSING SERVICES TO REMOVE SUTURES TWO WEEKS POST SURGICAL DATE September 02. If any questions regarding suture removal please call the office at [phone]. LABORATORY: CBC, CMP TO BE DRAWN ON THE THIRD DAY HOME, Aug 28 (RAN STAT) FAX RESULTS TO [phone]. TELEHEALTH PARAMETERS: WEIGHT: NOTIFY MD OF WEIGHT GAIN OF 2 LBS IN 24 HOURS OR 5 LBS IN ONE WEEK HR: NOTIFY MD OF HR <55 BPM OR HR>100 BPM BP: NOTIFY MD IF BP <90/55 OR BP>140/100 O2 SAT: NOTIFY MD IF PO2<93% ON ROOM AIR SEND TELEHEALTH REPORT TO MOTIVATIONAL SPEAKER AND CARDIOVASCULAR SURGEON THE FIRST WEEK OF CARE AND THEN BI-WEEKLY. PLEASE ADDITIONALLY COMMUNICATE ANY ABNORMALS AND NEW FINDINGS TO THE SURGEONS OFFICE. Discharge Disposition: HOME WITH HOME HEALTH SERVICES
--- NOTE | 2016-09-19 14:39 | PN ---
I had the pleasure of seeing in my office today Mrs. Balbina May for her first postoperative visit. As you may recall she is status post quadruple coronary artery bypass grafting, mitral valve repair with a 28 mm dixie 3-D ring and exclusion of her left atrial appendage performed on 08/19/2016 with essentially a smooth postoperative course. 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 Patient is overall doing denying any excessive chest pain or shortness of breath. She admits to having heard a crack in her right lateral chest wall and it has been painful when she sleeps on that side. Patient denies resuming smoking and denies again any shortness of breath at this point. On physical examination, her blood pressure 98/68 with a heart rate of 88 and her O2 saturation is 95% on room air. All her incisions are healing well. Her sternum is solid stable. Her lungs are clear bilaterally. There is no peripheral edema and the vein harvest site is well healed. I am very pleased with the clinical progression of Mrs. May who I am expecting to be joining cardiac rehab soon. She was not sure on the recommendation that you gave her during her last visit in terms of decreasing the dose of some of her medications and we will be in touch with your office to try to obtain the note and shed some light on that as her blood pressure seems to be borderline low. I will be seeing Mrs. May one more time in 2 months. Should you have any questions or concerns, please do not hesitate to call me. It is a pleasure to participate in the care of this nice lady. With warmest regards, NEETU
== END 2016-08-25 14:57 | disposition home health service (06) | DRG 219 ==
LOC: 2ORMAIN 05:50 → 6ICU 15:52
PROVIDERS: ADMIT Surgery; ATTEND Surgery
PROC: 06BQ4ZZ Excision of Left Saphenous Vein, Percutaneous Endoscopic Approach (ICD-10-PCS; principal; 2016-08-19 08:00)
PROC: 02100Z9 Bypass Coronary Artery, One Artery from Left Internal Mammary, Open Approach (ICD-10-PCS; principal; 2016-08-19 08:00)
PROC: B246ZZ4 Ultrasonography of Right and Left Heart, Transesophageal (ICD-10-PCS; principal; 2016-08-19 08:00)
PROC: 02UG0JZ Supplement Mitral Valve with Synthetic Substitute, Open Approach (ICD-10-PCS; principal; 2016-08-19 08:00)
PROC: 03B10ZZ Excision of Left Internal Mammary Artery, Open Approach (ICD-10-PCS; principal; 2016-08-19 08:00)
PROC: 021209W Bypass Coronary Artery, Three Arteries from Aorta with Autologous Venous Tissue, Open Approach (ICD-10-PCS; principal; 2016-08-19 08:00)
PROC: 02L70CK Occlusion of Left Atrial Appendage with Extraluminal Device, Open Approach (ICD-10-PCS; principal; 2016-08-19 08:00)
PROC: 5A1221Z Performance of Cardiac Output, Continuous (ICD-10-PCS; principal; 2016-08-19 08:00)
PROC: 30233N1 Transfusion of Nonautologous Red Blood Cells into Peripheral Vein, Percutaneous Approach (ICD-10-PCS; 2016-08-21)
DX: I25.119 Atherosclerotic heart disease of native coronary artery with unspecified angina pectoris (principal); J95.821 Acute postprocedural respiratory failure; J18.9 Pneumonia, unspecified organism; J44.0 Chronic obstructive pulmonary disease with (acute) lower respiratory infection; Q21.1 Atrial septal defect; D62 Acute posthemorrhagic anemia; J98.11 Atelectasis; E87.70 Fluid overload, unspecified; I10 Essential (primary) hypertension; E78.5 Hyperlipidemia, unspecified; F17.200 Nicotine dependence, unspecified, uncomplicated; F41.9 Anxiety disorder, unspecified; I25.2 Old myocardial infarction; I25.5 Ischemic cardiomyopathy; I34.0 Nonrheumatic mitral (valve) insufficiency; I44.0 Atrioventricular block, first degree; K21.9 Gastro-esophageal reflux disease without esophagitis; M19.90 Unspecified osteoarthritis, unspecified site; M79.7 Fibromyalgia; Z79.82 Long term (current) use of aspirin; Z86.73 Personal history of transient ischemic attack (TIA), and cerebral infarction without residual deficits; D64.9 Anemia, unspecified; Z79.899 Other long term (current) drug therapy; Z88.5 Allergy status to narcotic agent; Z88.2 Allergy status to sulfonamides
CPT/HCPCS: 36600; 36620; 71010; 71020; 80048; 80053; 81003; 82330; 82805; 83036; 83735; 84100; 84132; 85025; 85027; 85520; 85610; 85730; 86850; 86891; 86900; 86901; 86920; 88304; 94002; 94003; 94640; 94660

== ENCOUNTER 2016-08-28 10:38 | Emergency (ER) | payer BC ==
[2016-08-28 11:08] VITALS: TEMP 97.8
[2016-08-28] MEDS ORDERED: HYDROcodone/APAP 5-325MG 1 EACH TAB PO STA (11:21)
--- NOTE | 2016-08-28 12:29 | XR ---
EXAMINATION TYPE: XR ankle complete LT DATE OF EXAM: 08/28/2016 12:02 PM COMPARISON: NONE HISTORY: 61-year-old female complaining of left ankle pain for one day, swelling and bruising TECHNIQUE: 3 views FINDINGS: There is soft tissue swelling about the ankle. Ankle mortise is congruent with preservation of the di stal tibiofibular overlap. Possible interposed 5.4 x 1.5 mm loose body in the lateral talofibular hyacinth nt seen on the oblique view. Subtalar joint is aligned. Tiny plantar calcaneal spur. No acute fractur e or dislocation seen. IMPRESSION: 1. Diffuse soft tissue swelling at the ankle without acute osseous abnormality seen. 2. There may be an elongated 5 mm loose body within the lateral talofibular joint.
--- NOTE | 2016-08-28 12:53 | ED ---
General Adult HPI - General Chief complaint: Extremity Injury, Lower Stated complaint: Near Syncope Time Seen by Provider: 08/28/16 10:45 Source: patient, EMS, RN notes reviewed, old records reviewed Mode of arrival: EMS - History of Present Illness Initial comments: This is a 7-year-old female ER for evaluation of left pleural cavity pain. Patient has pain and edema and swelling to inside of her left leg. Patient recently had surgery, current Court cardiac bypass, left saphenous graft. Patient with no fevers, taking all medications as prescribed. She has no other complaints of pain - Related Data Home Medications Medication Instructions Recorded Confirmed ALPRAZolam [Xanax] 1 mg PO Q8HR PRN 08/15/16 08/28/16 HYDROcodone/APAP 5-325MG [[place] 1 - 2 tab PO Q6HR PRN 08/28/16 08/28/16 5-325] Previous Rx's Medication Instructions Recorded Aspirin 325 mg PO DAILY #30 tab 08/25/16 Atorvastatin [Lipitor] 40 mg PO DAILY #30 tab 08/25/16 Clopidogrel [Plavix] 75 mg PO DAILY #30 tab 08/25/16 Furosemide [Lasix] 20 mg PO DAILY #3 tab 08/25/16 Levofloxacin [Levaquin] 500 mg PO Q24H #3 tab 08/25/16 Lisinopril [Zestril] 5 mg PO DAILY #30 tab 08/25/16 Metoprolol Tartrate [Lopressor] 50 mg PO BID #60 tab 08/25/16 Potassium Chloride ER [K-Dur 10] 10 meq PO DAILY #3 tab 08/25/16 Spironolactone [Aldactone] 25 mg PO DAILY #30 tab 08/25/16 Allergies Allergy/AdvReac Type Severity Reaction Status Date / Time sulfamethoxazole Allergy Hallucinati Verified 08/28/16 11:26 [From Bactrim] ons trimethoprim [From Bactrim] Allergy Hallucinati Verified 08/28/16 11:26 ons Review of Systems ROS Statement: Those systems with pertinent positive or pertinent negative responses have been documented in the HPI. ROS Other: All systems not noted in ROS Statement are negative. Past Medical History Past Medical History: Chest Pain / Angina, Fibromyalgia, GERD/Reflux, Hyperlipidemia, Hypertension, Musculoskeletal Disorder, Osteoarthritis (OA), Vascular Disorder Additional Past Medical History / Comment(s): recent EKG abnormal per pt. & echo , SOB w/exertion recently, herniated discs in neck & lower back, tingling lower legs-"they fall asleep" History of Any Multi-Drug Resistant Organisms: None Reported Past Surgical History: Coronary Bypass/CABG, Hysterectomy, Orthopedic Surgery Additional Past Surgical History / Comment(s): foot surg. Past Anesthesia/Blood Transfusion Reactions: Previous Problems w/ Anesthesia Additional Past Anesthesia/Blood Transfusion Reaction / Comment(s): slow to wake up Past Psychological History: ADD/ADHD Smoking Status: Former smoker Past Alcohol Use History: None Reported Additional Past Alcohol Use History / Comment(s): down <1ppd, smoked since age of 17 Past Drug Use History: None Reported - Past Family History Mother Family Medical History: No Reported History General Exam General appearance: alert, in no apparent distress Head exam: Present: atraumatic, normocephalic, normal inspection Eye exam: Present: normal appearance, PERRL, EOMI. Absent: scleral icterus, conjunctival injection, periorbital swelling ENT exam: Present: normal exam, mucous membranes moist Neck exam: Present: normal inspection. Absent: tenderness, meningismus, lymphadenopathy Respiratory exam: Present: normal lung sounds bilaterally. Absent: respiratory distress, wheezes, rales, rhonchi, stridor Cardiovascular Exam: Present: regular rate, normal rhythm, normal heart sounds. Absent: systolic murmur, diastolic murmur, rubs, gallop, clicks GI/Abdominal exam: Present: soft, normal bowel sounds. Absent: distended, tenderness, guarding, rebound, rigid Extremities exam: Present: normal inspection, full ROM, normal capillary refill. Absent: tenderness, pedal edema, joint swelling, calf tenderness Back exam: Present: normal inspection Neurological exam: Present: alert, oriented X3, CN II-XII intact Psychiatric exam: Present: normal affect, normal mood Skin exam: Present: warm, dry, intact, normal color. Absent: rash Course Vital Signs 08/28/16 10:56 Temperature 97.8 F Pulse Rate 87 Respiratory 15 Rate Blood Pressure 110/51 O2 Sat by Pulse 97 Oximetry - Reevaluation(s) Reevaluation #1: 08/28/16 12:58 Patient being evaluated in emergency room by MONITOR TECHNICIAN from cardiovascular surgery Reevaluation #2: 08/28/16 12:58 Doppler pulses is appreciated, bounding EKG Findings - EKG Comments: EKG Findings:: EKG shows sinus rhythm rate of 86, ND 214, QRS 98, QTc 464 Medical Decision Making - Medical Decision Making 61. ER for left ankle pain, actually negative for fracture, ultrasound negative for DVT, pain is controlled the patient's to be discharged - Radiology Data Radiology results: report reviewed (X-ray left ankle negative for fracture, LEFT LEG NEGATIVE FOR DVT), image reviewed Disposition Clinical Impression: S/P CABG x 4, Anxiety, Left ankle pain, Ankle edema Disposition: HOME SELF-CARE Condition: Good Instructions: Leg Edema (ED) Referrals: Dennis Shrestha DO [Primary Care Provider] - 1-2 days
--- NOTE | 2016-08-28 13:50 | US ---
EXAMINATION TYPE: US venous doppler duplex LE LT DATE OF EXAM: 08/28/2016 12:23 PM COMPARISON: NONE CLINICAL HISTORY: 61-year-old female with Pain. Recent vein stripping for CABG, left ankle swelling n ow TECHNIQUE: Duplex Doppler ultrasound examination of the left lower extremity. FINDINGS: SIDE PERFORMED: Left VESSELS IMAGED: External Iliac Vein (EIV) Common Femoral Vein Deep Femoral Vein Greater Saphenous Vein * Femoral Vein Popliteal Vein Small Saphenous Vein * Proximal Calf Veins (* superficial vessels) Left Leg: Appears negative for DVT IMPRESSION: No evidence for DVT within the left lower extremity imaged from the groin to the upper calf.
[2016-08-28 14:37] VITALS: BP 98/52; PULSE 96; RESP 18
== END 2016-08-28 14:37 | disposition home or self-care (01) ==
LOC: EC 10:38
DX: Z95.1 Presence of aortocoronary bypass graft (principal); M25.572 Pain in left ankle and joints of left foot; R60.0 Localized edema; E78.5 Hyperlipidemia, unspecified; I10 Essential (primary) hypertension; F41.9 Anxiety disorder, unspecified; Z88.2 Allergy status to sulfonamides; Z88.1 Allergy status to other antibiotic agents; Z79.82 Long term (current) use of aspirin; Z79.02 Long term (current) use of antithrombotics/antiplatelets; Z87.891 Personal history of nicotine dependence; Z79.899 Other long term (current) drug therapy
CPT/HCPCS: 93005; 99284

== ENCOUNTER 2016-11-11 10:48 | Observation (INO) | payer BC ==
[2016-11-11] MEDS ORDERED: NITROGLYCERIN OINT 1 INCH/GM PACKET TOPICAL STA (11:34)
--- NOTE | 2016-11-11 11:46 | ED ---
General Adult HPI - General Chief complaint: Chest Pain Stated complaint: Chest Pain Time Seen by Provider: 11/11/16 11:05 Source: patient, family, EMS, RN notes reviewed Mode of arrival: EMS Limitations: no limitations - History of Present Illness Initial comments: This is a 61-year-old female who presents to the emergency department complaining of chest pain. Patient states his been intermittent over the last 3 days and sometimes been associated with diaphoresis. Patient states today she walked up a bunch of stairs started having shortness of breath and having chest pain on the lateral aspect of her left chest. Patient states she also became nauseated. Patient states when she got nitroglycerin in the ambulance she felt considerably better. Patient states she still has a little bit of residual pain on the lateral aspect of her left chest. Patient denies any recent fever or chills. Patient denies any palpitations. Patient denies any abdominal pain patient denies any vomiting or diarrhea. Patient denies any recent injury or trauma. Patient states this chest pain she's been having the last few days is new. - Related Data Home Medications Medication Instructions Recorded Confirmed ALPRAZolam [Xanax] 1 mg PO HS 08/15/16 11/11/16 Aspirin EC [Ecotrin Low Dose] 162 mg PO DAILY 11/11/16 11/11/16 Dextroamphetamine/Amphetamine 10 mg PO DAILY 11/11/16 11/11/16 [Adderall] Dextroamphetamine/Amphetamine 20 mg PO DAILY 11/11/16 11/11/16 [Dextroamp-Amphetamin 20 mg Tab] Hydrocodone/Acetaminophen 1 tab PO QID PRN 11/11/16 11/11/16 [Hydrocodon-Acetaminophn 10-325] Isosorbide Mononitrate ER [Imdur] 30 mg PO DAILY 11/11/16 11/11/16 Naproxen Sodium [Aleve] 110 mg PO HS 11/11/16 11/11/16 Nicotine 21Mg/24Hr Patch [Habitrol 1 patch TRANSDERM DAILY 11/11/16 11/11/16 21Mg/24Hr Patch] Suvorexant [Belsomra] 15 mg PO HS 11/11/16 11/11/16 amLODIPine [Norvasc] 7.5 mg PO DAILY 11/11/16 11/11/16 Previous Rx's Medication Instructions Recorded Clopidogrel [Plavix] 75 mg PO DAILY #30 tab 08/25/16 Lisinopril [Zestril] 5 mg PO DAILY #30 tab 08/25/16 Metoprolol Tartrate [Lopressor] 50 mg PO BID #60 tab 08/25/16 Spironolactone [Aldactone] 25 mg PO DAILY #30 tab 08/25/16 Allergies Allergy/AdvReac Type Severity Reaction Status Date / Time oxycodone [From Percocet] Allergy Confusion Verified 11/11/16 11:18 sulfamethoxazole Allergy Hallucinati Verified 11/11/16 11:18 [From Bactrim] ons trimethoprim [From Bactrim] Allergy Hallucinati Verified 11/11/16 11:18 ons Review of Systems ROS Statement: Those systems with pertinent positive or pertinent negative responses have been documented in the HPI. ROS Other: All systems not noted in ROS Statement are negative. Past Medical History Past Medical History: Chest Pain / Angina, Fibromyalgia, GERD/Reflux, Hyperlipidemia, Hypertension, Musculoskeletal Disorder, Osteoarthritis (OA), Vascular Disorder Additional Past Medical History / Comment(s): recent EKG abnormal per pt. & echo , SOB w/exertion recently, herniated discs in neck & lower back, tingling lower legs-"they fall asleep" History of Any Multi-Drug Resistant Organisms: None Reported Past Surgical History: Coronary Bypass/CABG, Hysterectomy, Orthopedic Surgery Additional Past Surgical History / Comment(s): foot surg. Past Anesthesia/Blood Transfusion Reactions: Previous Problems w/ Anesthesia Additional Past Anesthesia/Blood Transfusion Reaction / Comment(s): slow to wake up Past Psychological History: ADD/ADHD, Anxiety, Depression Smoking Status: Former smoker Past Alcohol Use History: None Reported Additional Past Alcohol Use History / Comment(s): down <1ppd, smoked since age of 17 Past Drug Use History: None Reported - Past Family History Mother Family Medical History: No Reported History General Exam - General Exam Comments Initial Comments: GENERAL: Patient is well-developed and well-nourished. Patient is nontoxic and well- hydrated and is in mild distress. ENT: Neck is soft and supple. No significant lymphadenopathy is noted. Oropharynx is clear. Moist mucous membranes. Neck has full range of motion without eliciting any pain. EYES: The sclera were anicteric and conjunctiva were pink and moist. Extraocular movements were intact and pupils were equal round and reactive to light. Eyelids were unremarkable. PULMONARY: Unlabored respirations. Good breath sounds bilaterally. No audible rales rhonchi or wheezing was noted. CARDIOVASCULAR: There is a regular rate and rhythm without any murmurs gallops or rubs. ABDOMEN: Soft and nontender with normal bowel sounds. No palpable organomegaly was noted. There is no palpable pulsatile mass. SKIN: Skin is clear with no lesions or rashes and otherwise unremarkable. NEUROLOGIC: Patient is alert and oriented x3. Cranial nerves II through XII are grossly intact. Motor and sensory are also intact. Normal speech, volume and content. Symmetrical smile. MUSCULOSKELETAL: Normal extremities with adequate strength and full range of motion. No lower extremity swelling or edema. No calf tenderness. LYMPHATICS: No significant lymphadenopathy is noted PSYCHIATRIC: Normal psychiatric evaluation. Normal interpersonal interactions appears functionally intact in deals appropriately with others. No signs of depression. No signs of anxiety. Limitations: no limitations Course Vital Signs 11/11/16 11/11/16 11/11/16 11:05 11:30 12:00 Temperature 97.9 F Pulse Rate 65 66 70 Respiratory 18 16 Rate Blood Pressure 123/67 109/58 104/55 O2 Sat by Pulse 100 100 100 Oximetry 11/11/16 13:02 Temperature 96.9 F L Pulse Rate 68 Respiratory 16 Rate Blood Pressure 119/57 O2 Sat by Pulse 100 Oximetry Medical Decision Making - Medical Decision Making EKG shows normal sinus rhythm at 66 bpm OK interval is 200 QRS is 94 Q-T intervals 4:30 QTC is 450. Patient's EKG shows no ST segment elevation or depression or T-wave abdomen is noted. Patient does have Q waves in the inferior leads. Chest x-ray shows no acute abnormality. Because the patient's recent bypass surgery in her significant symptoms I started the patient on heparin I consult cardiology I wrote admitting orders I spoke with Dr. Fernando - Lab Data Result diagrams: 11/11/16 11:42 11/11/16 11:42 Lab Results 11/11/16 11/11/16 11/11/16 Range/Units 11:42 11:42 11:42 WBC 6.5 (3.8-10.6) k/uL RBC 4.22 (3.80-5.40) m/uL Hgb 12.5 (11.4-16.0) gm/dL Hct 37.6 (34.0-46.0) % MCV 89.1 (80.0-100.0) fL MCH 29.7 (25.0-35.0) pg MCHC 33.3 (31.0-37.0) g/dL RDW 14.6 (11.5-15.5) % Plt Count 267 (150-450) k/uL Neutrophils % 54 % Lymphocytes % 31 % Monocytes % 7 % Eosinophils % 4 % Basophils % 1 % Neutrophils # 3.5 (1.3-7.7) k/uL Lymphocytes # 2.0 (1.0-4.8) k/uL Monocytes # 0.4 (0-1.0) k/uL Eosinophils # 0.3 (0-0.7) k/uL Basophils # 0.1 (0-0.2) k/uL PT (9.0-12.0) sec INR (<1.1) APTT (22.0-30.0) sec Sodium 141 (137-145) mmol/L Potassium 4.9 (3.5-5.1) mmol/L Chloride 105 (98-107) mmol/L Carbon Dioxide 27 (22-30) mmol/L Anion Gap 9 mmol/L BUN 11 (7-17) mg/dL Creatinine 0.89 (0.52-1.04) mg/dL Est GFR (MDRD) Af Amer >60 (>60 ml/min/1.73 sqM) Est GFR (MDRD) Non-Af >60 (>60 ml/min/1.73 sqM) Glucose 97 (74-99) mg/dL Calcium 9.4 (8.4-10.2) mg/dL Magnesium 2.1 (1.6-2.3) mg/dL Total Bilirubin 0.4 (0.2-1.3) mg/dL AST 18 (14-36) U/L ALT 33 (9-52) U/L Alkaline Phosphatase 72 (38-126) U/L Total Creatine Kinase 36 (30-135) U/L CK-MB (CK-2) 1.0 (0.0-2.4) ng/mL CK-MB (CK-2) Rel Index 2.8 Troponin I <0.012 (0.000-0.034) ng/mL Total Protein 7.4 (6.3-8.2) g/dL Albumin 4.0 (3.5-5.0) g/dL 11/11/16 Range/Units 11:42 WBC (3.8-10.6) k/uL RBC (3.80-5.40) m/uL Hgb (11.4-16.0) gm/dL Hct (34.0-46.0) % MCV (80.0-100.0) fL MCH (25.0-35.0) pg MCHC (31.0-37.0) g/dL RDW (11.5-15.5) % Plt Count (150-450) k/uL Neutrophils % % Lymphocytes % % Monocytes % % Eosinophils % % Basophils % % Neutrophils # (1.3-7.7) k/uL Lymphocytes # (1.0-4.8) k/uL Monocytes # (0-1.0) k/uL Eosinophils # (0-0.7) k/uL Basophils # (0-0.2) k/uL PT 10.0 (9.0-12.0) sec INR 1.0 (<1.1) APTT 23.6 (22.0-30.0) sec Sodium (137-145) mmol/L Potassium (3.5-5.1) mmol/L Chloride (98-107) mmol/L Carbon Dioxide (22-30) mmol/L Anion Gap mmol/L BUN (7-17) mg/dL Creatinine (0.52-1.04) mg/dL Est GFR (MDRD) Af Amer (>60 ml/min/1.73 sqM) Est GFR (MDRD) Non-Af (>60 ml/min/1.73 sqM) Glucose (74-99) mg/dL Calcium (8.4-10.2) mg/dL Magnesium (1.6-2.3) mg/dL Total Bilirubin (0.2-1.3) mg/dL AST (14-36) U/L ALT (9-52) U/L Alkaline Phosphatase (38-126) U/L Total Creatine Kinase (30-135) U/L CK-MB (CK-2) (0.0-2.4) ng/mL CK-MB (CK-2) Rel Index Troponin I (0.000-0.034) ng/mL Total Protein (6.3-8.2) g/dL Albumin (3.5-5.0) g/dL Disposition Clinical Impression: Unstable angina Disposition: ADMITTED IP TO THIS HOSP Referrals: Dennis Shrestha DO [Primary Care Provider] - 1-2 days Time of Disposition: 13:08
[2016-11-11 11:51] LABS: Basophils # (A) 0.1 k/uL (0-0.2); Basophils % (A) 1 %; CH 29.7; CHCM 33.5; Eosinophils # (A) 0.3 k/uL (0-0.7); Eosinophils % (A) 4 %; HCT 37.6 % (34.0-46.0); HDW 2.89; HGB 12.5 gm/dL (11.4-16.0); Luc # (Auto) 0.21; Luc % (Auto) 3; Lymphocytes % (A) 31 %; MCH 29.7 pg (25.0-35.0); MCHC 33.3 g/dL (31.0-37.0); MCV 89.1 fL (80.0-100.0); Mean Platelet Volume 7.2; Monocytes # (A) 0.4 k/uL (0-1.0); Monocytes % (A) 7 %; Neutrophils # (A) 3.5 k/uL (1.3-7.7); Neutrophils % (A) 54 %; RBC 4.22 m/uL (3.80-5.40); RDW 14.6 % (11.5-15.5); WBC 6.5 k/uL (3.8-10.6); WBC (Perox) 6.66
[2016-11-11 12:00] LABS: ALT 33 U/L (9-52); AST 18 U/L (14-36); Alkaline Phosphatase 72 U/L (38-126); Anion Gap 9 mmol/L; Blood Urea Nitrogen 11 mg/dL (7-17); Calcium 9.4 mg/dL (8.4-10.2); Carbon Dioxide 27 mmol/L (22-30); Chloride 105 mmol/L (98-107); Glucose 97 mg/dL (74-99); Magnesium 2.1 mg/dL (1.6-2.3); Non-African American GFR(MDRD) >60 (>60 ml/min/1.73 sqM); Potassium 4.9 mmol/L (3.5-5.1); Sodium 141 mmol/L (137-145); Total Bilirubin 0.4 mg/dL (0.2-1.3); Total Protein 7.4 g/dL (6.3-8.2)
[2016-11-11 12:12] LABS: Creatine Kinase 36 U/L (30-135)
[2016-11-11 12:17] LABS: Partial Thromboplastin Time 23.6 sec (22.0-30.0)
[2016-11-11 12:25] LABS: Troponin I <0.012 ng/mL (0.000-0.034)
--- NOTE | 2016-11-11 12:52 | XR ---
EXAMINATION TYPE: XR chest 2V DATE OF EXAM: 11/11/2016 12:04 PM COMPARISON: 08/25/2016 HISTORY: Shortness of breath TECHNIQUE: Frontal and lateral views of the chest are obtained. FINDINGS: Scattered senescent parenchymal changes noted. Hyperinflation compatible with COPD. No evidence for infiltrate. No evidence for atelectasis. Heart size is stable. Mediastinal structures are stable and grossly unremarkable. No evidence for hilar prominence. Degenerative changes dorsal spine. IMPRESSION: 1. No evidence for acute pulmonary disease.
[2016-11-11] MEDS ORDERED: HEPARIN SODIUM,PORCINE 5,000 UNIT/ML 1 ML VIAL IV ONE (13:07)
[2016-11-11] MEDS ORDERED: NITROGLYCERIN SL TABS 0.4 MG TAB SUBLINGUAL PRN (13:08)
[2016-11-11] MEDS ORDERED: HEPARIN SODIUM,PORCINE/D5W PMX 25,000 UNIT in DEXTROSE/WATER 1 500ML.BAG IV SCH (13:15)
[2016-11-11] MEDS ORDERED: ACETAMINOPHEN TAB 325 MG TAB PO STA (15:35)
[2016-11-11 18:49] LABS: Creatine Kinase 39 U/L (30-135)
[2016-11-11 19:03] LABS: Creatine Kinase MB 1.2 ng/mL (0.0-2.4); Troponin I <0.012 ng/mL (0.000-0.034)
[2016-11-11] MEDS: METOPROLOL TARTRATE 50 MG TAB PO SCH (19:53)
[2016-11-11] MEDS: NITROGLYCERIN OINT 1 INCH/GM PACKET TOPICAL SCH ×2 (19:53→22:46)
[2016-11-11] MEDS ORDERED: HEPARIN SODIUM,PORCINE 5,000 UNIT/ML 1 ML VIAL IV PRN (20:56)
[2016-11-11] MEDS ORDERED: SUVOREXANT 15 MG PO SCH (21:00)
[2016-11-11] MEDS: HYDROcodone/APAP 10-325MG 1 EACH TAB PO PRN (21:04)
[2016-11-11] MEDS: ALPRAZolam 0.5 MG TAB PO SCH (21:04)
[2016-11-12 02:11] LABS: Creatine Kinase 34 U/L (30-135)
[2016-11-12 02:25] LABS: Creatine Kinase MB 1.2 ng/mL (0.0-2.4); Troponin I <0.012 ng/mL (0.000-0.034)
[2016-11-12] MEDS: NICOTINE 21MG/24HR PATCH TRANSDERM SCH (04:41)
[2016-11-12 06:03] LABS: Cholesterol 186 mg/dL (<200); HDL Cholesterol 41 mg/dL (40-60); Triglycerides 172 mg/dL (<150)
[2016-11-12] MEDS: HYDROcodone/APAP 10-325MG 1 EACH TAB PO PRN (07:49)
--- NOTE | 2016-11-12 07:52 | P.PN ---
Progress Note - Text Balbina is my patient who was admitted to the hospital with chest discomfort. She'll be seen by Dr. Neumann today who is rounding oyster shucker. I reviewed her chart her cardiac enzymes are normal her pain seems atypical EKG is normal. Most importantly her medications are reviewed and she is not on atorvastatin. She was supposed to be on atorvastatin and therefore I have given her a prescription for 40 mg of atorvastatin once daily her LDL is 111 she has severe triple vessel coronary artery disease status post bypass surgery She has an appointment with me in November and she should keep this
--- NOTE | 2016-11-12 08:08 | P.HPIM ---
History of Present Illness H&P Date: 11/11/16 Chief Complaint: Unstable angina, CAD, arrhythmia, hypertension, ADD, hyperglycemia 61-year-old female [address] Shrestha patient who was hospitalized last in August 19 still August 25, 2016 ended up having a triple-vessel coronary artery disease with old inferior wall myocardial infarction patient ended up having a quadruple coronary artery bypass grafting with mitral valve repair with complete drink anoplasty and left atrial appendage patent [place] repair. Patient was doing well until today when developed to have recurrent chest pain with exertion associated with mild nausea palpitation and worsening shortness of breath. With her recurrent symptom with her recent coronary artery bypass surgery patient was scared" coming to the emergency Department [facility] where was seen and evaluated. Her EKG didn't show any major abnormality or change her CK with troponin was negative with her current symptoms decided to admit patient to the hospital CK with troponin 3 will be done repeat EKG in the morning and consult cardiology for potential further investigation either stress test or heart catheter. Review of Systems Constitutional: Reports fatigue, Reports weakness, Denies as per HPI, Denies anorexia, Denies chills, Denies chronic headaches, Denies chronic pain, Denies daytime sleepiness, Denies fever, Denies lethargy, Denies malaise, Denies night sweats, Denies poor appetite, Denies sweats, Denies weight gain, Denies weight loss Eyes: bilateral as per HPI Ears: bilateral: decreased hearing Ears, nose, mouth and throat: Reports ant. neck pain, Reports nasal congestion, Reports nasal discharge, Reports sinus pain, Reports sinus pressure, Denies as per HPI, Denies bleeding gums, Denies dental pain, Denies dysphagia, Denies epistaxis, Denies headache, Denies hoarseness, Denies mouth pain, Denies neck fullness/pressure, Denies neck lump, Denies nose pain, Denies odynophagia, Denies post-nasal drip, Denies swelling in mouth, Denies swelling in throat, Denies sore throat, Denies vertigo, Denies voice changes Breasts: bilateral: as per HPI Cardiovascular: Reports chest pain, Reports decreased exercise tolerance, Reports dyspnea on exertion, Reports edema, Reports high blood pressure, Reports irregular heart beat, Reports leg edema, Reports lightheadedness, Reports orthopnea, Reports palpitations, Reports rapid heart beat, Reports shortness of breath, Denies as per HPI, Denies claudication, Denies paroxysmal nocturnal dyspnea, Denies phlebitis, Denies syncope Respiratory: Reports congestion, Reports cough, Reports dyspnea, Reports sleep apnea, Denies as per HPI, Denies cough with sputum, Denies excessive sputum, Denies hemoptysis, Denies home oxygen, Denies pain, Denies pain on inspiration, Denies pleurisy, Denies respiratory infections, Denies snoring, Denies wheezing Gastrointestinal: Reports abdominal pain, Reports bloating, Reports constipation , Reports dyspepsia, Reports loss of appetite, Reports nausea, Denies as per HPI , Denies belching, Denies BRBPR, Denies change in bowel habits, Denies coffee ground emesis, Denies diarrhea, Denies early satiety, Denies excessive gas, Denies heartburn, Denies hematemesis, Denies hematochezia, Denies indigestion, Denies jaundice, Denies lactose intolerance, Denies melena, Denies vomiting Genitourinary: Denies as per HPI, Denies abnormal vaginal bleeding, Denies decreased libido, Denies difficulty conceiving, Denies difficulty voiding, Denies dysmenorrhea, Denies dyspareunia, Denies dysuria, Denies flank pain, Denies genital sores, Denies hematuria, Denies hot flashes, Denies incomplete emptying, Denies kidney stones, Denies menorrhagia, Denies mixed incontinence, Denies nocturia, Denies pelvic pain, Denies post void dribbling, Denies , Denies prolapse symptoms, Denies stress incontinence, Denies urge incontinence , Denies urgency, Denies urinary frequency, Denies vaginal discharge, Denies vaginal dryness, Denies vaginal itching, Denies vaginal odor Musculoskeletal: Reports loss of height, Reports low back pain, Reports myalgias , Reports neck pain, Denies as per HPI, Denies arm numbness/tingling, Denies atrophy, Denies fractures, Denies frequent falls, Denies gait dysfunction, Denies hot joints, Denies leg numbness/tingling, Denies limitation of motion, Denies morning stiffness, Denies muscle cramps, Denies muscle weakness, Denies neck stiffness, Denies prior amputations, Denies redness of joints, Denies shooting arm pain, Denies shooting leg pain Musculoskeletal: bilateral: ankle pain Integumentary: Reports rash, Reports sores, Denies as per HPI, Denies acne, Denies boils, Denies brittle nails, Denies change in hair/nails, Denies color changes, Denies darkening of skin, Denies depigmentation, Denies dryness, Denies foot/leg ulcers, Denies growths, Denies hirsutism, Denies lesions, Denies onychomycosis, Denies pruritus, Denies striae, Denies unusual bruising, Denies wounds Neurological: Denies as per HPI, Denies aphasia, Denies ataxia, Denies balance difficulties, Denies burning pain, Denies change in mentation, Denies change in smell/taste, Denies change in speech, Denies confusion, Denies convulsions, Denies double vision, Denies gait dysfunction, Denies head injury, Denies headaches, Denies hearing difficulties, Denies lack of coordination, Denies loss of vision, Denies memory loss, Denies migraines, Denies motor disturbance, Denies numbness, Denies paralysis, Denies paresthesias, Denies seizures, Denies sensory deficit, Denies spasticity, Denies syncope, Denies tic, Denies tingling , Denies transient paralysis, Denies tremors, Denies vertigo, Denies weakness, Denies visual changes Psychiatric: Reports anhedonia, Reports depression, Denies as per HPI, Denies anxiety, Denies anxiety attacks, Denies change in appetite, Denies change in libido, Denies change in sleep habits, Denies confusion, Denies difficulty concentrating, Denies disorientation, Denies hallucinations, Denies hopelessness , Denies hypersomnia, Denies insomnia, Denies irritability, Denies memory loss, Denies mood swings, Denies paranoia, Denies sadness/tearfulness, Denies sleep disturbances, Denies suicidal ideation Endocrine: Reports cold intolerance, Reports excessive sweating, Reports excessive thirst, Reports fatigue, Denies as per HPI, Denies deepening of the voice, Denies flushing, Denies heat intolerance, Denies high blood sugars, Denies increase in ring/shoe/hat size, Denies low blood sugars, Denies nocturia , Denies palpitations, Denies polydipsia, Denies polyphagia, Denies polyuria, Denies proptosis, Denies recent glucocorticoid use, Denies thyroid mass, Denies weight change Hematologic/Lymphatic: Reports easy bruising, Denies as per HPI, Denies easy bleeding, Denies lymphadenopathy, Denies lymphedema, Denies thrombophilia Allergic/Immunologic: Reports allergic rhinitis, Denies as per HPI, Denies anaphylaxis, Denies angioedema, Denies gluten intolerance, Denies persistent infections, Denies seasonal allergies, Denies urticaria, Denies wheezing Past Medical History Past Medical History: Chest Pain / Angina, Fibromyalgia, GERD/Reflux, Hyperlipidemia, Hypertension, Musculoskeletal Disorder, Osteoarthritis (OA), Vascular Disorder Additional Past Medical History / Comment(s): recent EKG abnormal per pt. & echo , herniated discs in neck & lower back, tingling lower legs-"they fall asleep," L lower lwt numbness and pain and very sensitive to touch since CABG-L foot was discolored and swollen and had blistering-all but 1 blister has healed, arthritis down spine and bilateral hips, PAD, migraines, palpitations and presyncopy in past, urine urgency. History of Any Multi-Drug Resistant Organisms: None Reported Past Surgical History: Breast Surgery, Coronary Bypass/CABG, Heart Catheterization, Hysterectomy, Orthopedic Surgery Additional Past Surgical History / Comment(s): cardiac cath, 08/20/16 CABG-4 vessel with coronary artery endartectomy, repair hole, excision L atrial appendage and ANDREA, R foot surg., EGD/colonoscopy. Past Anesthesia/Blood Transfusion Reactions: Previous Problems w/ Anesthesia Additional Past Anesthesia/Blood Transfusion Reaction / Comment(s): Slow to wake up. Pt has received blood without reaction. Past Psychological History: ADD/ADHD, Anxiety, Depression Additional Psychological History / Comment(s): Pt resides with her spouse. She is going to outpt PT. She drives. Smoking Status: Former smoker Past Alcohol Use History: None Reported Additional Past Alcohol Use History / Comment(s): Pt started smoking in 1971 and quit 08/19/16. Past Drug Use History: None Reported - Past Family History Mother Family Medical History: Diabetes Mellitus Father History Unknown: Yes Medications and Allergies Home Medications Medication Instructions Recorded Confirmed Type ALPRAZolam [Xanax] 1 mg PO HS 08/15/16 11/11/16 History Aspirin EC [Ecotrin Low Dose] 162 mg PO DAILY 11/11/16 11/11/16 History Dextroamphetamine/Amphetamine 10 mg PO DAILY 11/11/16 11/11/16 History [Adderall] Dextroamphetamine/Amphetamine 20 mg PO DAILY 11/11/16 11/11/16 History [Dextroamp-Amphetamin 20 mg Tab] Hydrocodone/Acetaminophen 1 tab PO QID PRN 11/11/16 11/11/16 History [Hydrocodon-Acetaminophn 10-325] Isosorbide Mononitrate ER [Imdur] 30 mg PO DAILY 11/11/16 11/11/16 History Naproxen Sodium [Aleve] 110 mg PO HS 11/11/16 11/11/16 History Nicotine 21Mg/24Hr Patch [Habitrol 1 patch TRANSDERM DAILY 11/11/16 11/11/16 History 21Mg/24Hr Patch] Suvorexant [Belsomra] 15 mg PO HS 11/11/16 11/11/16 History amLODIPine [Norvasc] 7.5 mg PO DAILY 11/11/16 11/11/16 History Allergies Allergy/AdvReac Type Severity Reaction Status Date / Time oxycodone [From Percocet] Allergy Confusion Verified 11/11/16 11:18 sulfamethoxazole Allergy Hallucinati Verified 11/11/16 11:18 [From Bactrim] ons trimethoprim [From Bactrim] Allergy Hallucinati Verified 11/11/16 11:18 ons Physical Exam Vitals: Vital Signs Temp Pulse Resp BP Pulse Ox 11/11/16 16:06 68 16 118/61 99 11/11/16 15:00 96.8 F L 86 16 128/58 98 11/11/16 14:00 67 16 115/62 100 - Constitutional General appearance: no average body habitus, cooperative, no disheveled, no mild distress, no morbidly obese, no acute distress, no obese, no severe distress, no thin - EENT Eyes: no abnormal pupil, no anicteric sclerae, no disc margins sharp, no edentulous, no EOMI, no PERRLA, no fundus normal, no photophobia, no dentition normal, no poor dentition, no ptosis, no scleral icterus, normal appearance ENT: no hard of hearing, no hearing grossly normal, no NA/AT, normal oropharynx , no other, no pharyngeal erythema, no thrush, no tonsillar exudates, no tonsillar swelling Ears: bilateral: normal - Neck Neck: no lymphadenopathy, normal ROM, no other, no rigidity, no stridor, no thyromegaly Carotids: bilateral: upstroke normal Thyroid: bilateral: normal size - Respiratory Respiratory: bilateral: CTA, diminished, dullness - Cardiovascular Rhythm: regular Heart sounds: normal: S1, S2 Abnormal Heart Sounds: systolic murmur, S3 Gallop - Gastrointestinal General gastrointestinal: no absent bowel sounds, decreased bowel sounds, no distended, no hepatomegaly, no hyperactive bowel sounds, normal bowel sounds, no organomegaly, no rigid, no scaphoid, soft, no splenomegaly, no tenderness, no umbilical hernia, no ventral hernia - Integumentary Integumentary: no calor, no cellulitis, no cyanotic, no decreased turgor, no flushed, no jaundiced, normal, no normal turgor, pale, rash, no ulcer - Neurologic Neurologic: CNII-XII intact - Musculoskeletal Musculoskeletal: gait normal, generalized weakness, no strength equal bilaterally, no right sided weakness, no left sided weakness - Psychiatric Psychiatric: A&O x's 3, no appropriate affect, no intact judgment & insight Results CBC & Chem 7: 11/11/16 11:42 11/11/16 11:42 Thrombosis Risk Factor Assmnt - DVT/VTE Prophylaxis DVT/VTE Prophylaxis: Pharmacologic Prophylaxis ordered, Mechanical Prophylaxis ordered - Choose All That Apply Any of the Below Risk Factors Present?: Yes Each Factor Represents 1 point: Age 41-60 years Other Risk Factors: No Other congenital or acquired thrombophilia - If yes, enter type in comment: No Thrombosis Risk Factor Assessment Total Risk Factor Score: 1 Thrombosis Risk Factor Assessment Level: Low Risk Assessment and Plan Plan: 1 unstable angina: With known coronary artery disease post recent bypass surgery , patient will be hospitalized CK with troponin 3 be done repeat EKG and continue Nitrol consult cardiology based on the testing through the night with decide for further management including either heart catheter or stress test. 2 multiple coronary disease post quadruple bypass surgery in July this year patient still on secondary prevention. 3 hypertension: Remain on Lopressor 50 mg twice a day along with Zestril 5 mg daily. 4 hyperlipidemia: Has been on atorvastatin 40 mg a day. 5 chronic edema: Remain on Lasix and spironolactone. 6 mitral valve disease: Post mitral valve repair has been doing well. 7 history of ADD: Patient has been on Adderall will resume medication in 48 hours. 8 hyperglycemia: On diet control Accu-Chek sliding skills coverage reviewed on. 9 GI prophylaxis: Patient will be on Pepcid 20 mg daily. 10 DVT prophylaxis: Early mobilization and heparin subcutaneous. CODE STATUS: Full code. Next Expectation from this admission: Patient in the hospital for 1-2 nights.
[2016-11-12] MEDS ORDERED: ASPIRIN 325 MG TAB PO SCH (09:00)
[2016-11-12] MEDS ORDERED: REGADENOSON 0.4 MG/5 ML SYRINGE IV ONE (09:09)
[2016-11-12] MEDS ORDERED: AMINOPHYLLINE 500 MG/20 ML VIAL IV PRN (09:09)
--- NOTE | 2016-11-12 09:16 | P.CRDCN ---
History of Present Illness Consult date: 11/12/16 History of present illness: This is a 61-year-old female with history of ischemic heart disease and old inferior wall myocardial infarction and also moderate mitral regurgitation. In July 2016 patient had a quadruple coronary artery bypass grafting with a SMILEY graft to the LAD and reverse saphenous vein graft to the diagonal and reverse saphenous vein graft to the OM branch and also to the distal right coronary artery. Patient also had some endarterectomy of the posterior descending coronary artery and also posterior lateral branch. In addition she had a mitral valve repair with complete ring annuloplasty using a 25 mm 3 disease in an exclusion of the left atrial appendage. Patient is going to rehab program. Over the last several weeks patient has been having intermittent burning back pain which was similar to the pain she had prior to the bypass surgery. Yesterday patient went to rehab center and claimed a couple of flights of stairs and walk to the center ,which was a long walk. At the end of the walk patient became very short of breath and started having some burning pain in the back. Patient was given oxygen by the rehab center and the paramedics were called in. Patient was given sublingual nitroglycerin with improvement of her symptoms. Since admission here patient has been stable. Her cardiac enzymes are negative. Patient is being scheduled for a Lexiscan stress test and also on echocardiogram. If the stress test is negative for ischemia, patient could be discharged home to have follow-up with Dr. Mota. However the stress test is positive, patient may need cardiac catheterization. Review of Systems REVIEW OF SYSTEMS: CONSTITUTIONAL:. Patient is doing well. No complaints of fever or chills EYES: Denies diplopia, blurring of vision EARS, NOSE, MOUTH, THROAT: Denies headaches, denies sore throat. CARDIOVASCULAR: As per the chart RESPIRATORY: Denies shortness of breath, denies cough. GASTROINTESTINAL: Denies change in appetite, denies abdominal pain, denies diarrhea GENITOURINARY: Denies hematuria, denies infections. MUSKULOSKELETAL: Denies pain, denies swelling. Denies any cramps or claudication INTEGUMENTARY: Denies rash, denies eczema. NEUROLOGICAL: Denies focal weakness, or visual disturbance. Denies any dizziness or syncope PSYCHIATRIC: Denies anxiety, denies depression. HEMATOLOGIC/LYMPHATIC: Denies any bleeding, denies enlarged lymph nodes. Past Medical History Past Medical History: Chest Pain / Angina, Fibromyalgia, GERD/Reflux, Hyperlipidemia, Hypertension, Musculoskeletal Disorder, Osteoarthritis (OA), Vascular Disorder Additional Past Medical History / Comment(s): recent EKG abnormal per pt. & echo , herniated discs in neck & lower back, tingling lower legs-"they fall asleep," L lower lwt numbness and pain and very sensitive to touch since CABG-L foot was discolored and swollen and had blistering-all but 1 blister has healed, arthritis down spine and bilateral hips, PAD, migraines, palpitations and presyncopy in past, urine urgency. History of Any Multi-Drug Resistant Organisms: None Reported Past Surgical History: Breast Surgery, Coronary Bypass/CABG, Heart Catheterization, Hysterectomy, Orthopedic Surgery Additional Past Surgical History / Comment(s): cardiac cath, 08/20/16 CABG-4 vessel with coronary artery endartectomy, repair hole, excision L atrial appendage and ANDREA, R foot surg., EGD/colonoscopy. Past Anesthesia/Blood Transfusion Reactions: Previous Problems w/ Anesthesia Additional Past Anesthesia/Blood Transfusion Reaction / Comment(s): Slow to wake up. Pt has received blood without reaction. Past Psychological History: ADD/ADHD, Anxiety, Depression Additional Psychological History / Comment(s): Pt resides with her spouse. She is going to outpt PT. She drives. Smoking Status: Former smoker Past Alcohol Use History: None Reported Additional Past Alcohol Use History / Comment(s): Pt started smoking in 1971 and quit 08/19/16. Past Drug Use History: None Reported - Past Family History Mother Family Medical History: Diabetes Mellitus Father History Unknown: Yes Medications and Allergies Home Medications Medication Instructions Recorded Confirmed Type ALPRAZolam [Xanax] 1 mg PO HS 08/15/16 11/11/16 History Aspirin EC [Ecotrin Low Dose] 162 mg PO DAILY 11/11/16 11/11/16 History Dextroamphetamine/Amphetamine 10 mg PO DAILY 11/11/16 11/11/16 History [Adderall] Dextroamphetamine/Amphetamine 20 mg PO DAILY 11/11/16 11/11/16 History [Dextroamp-Amphetamin 20 mg Tab] Hydrocodone/Acetaminophen 1 tab PO QID PRN 04/18/17 04/18/17 History [Hydrocodon-Acetaminophn 10325] Isosorbide Mononitrate ER [Imdur] 30 mg PO DAILY 11/11/16 11/11/16 History Naproxen Sodium [Aleve] 110 mg PO HS 11/11/16 11/11/16 History Nicotine 21Mg/24Hr Patch [Habitrol 1 patch TRANSDERM DAILY 11/11/16 11/11/16 History 21Mg/24Hr Patch] Suvorexant [Belsomra] 15 mg PO HS 11/11/16 11/11/16 History amLODIPine [Norvasc] 7.5 mg PO DAILY 11/11/16 11/11/16 History Allergies Allergy/AdvReac Type Severity Reaction Status Date / Time oxycodone [From Percocet] Allergy Confusion Verified 11/11/16 11:18 sulfamethoxazole Allergy Hallucinati Verified 11/11/16 11:18 [From Bactrim] ons trimethoprim [From Bactrim] Allergy Hallucinati Verified 11/11/16 11:18 ons Physical Exam Vitals: Vital Signs Temp Pulse Pulse Resp BP BP Pulse Ox 11/12/16 08:00 74 16 11/12/16 07:49 97.8 F 74 16 98/49 99 11/12/16 04:00 98.0 F 69 16 118/64 100 11/12/16 00:00 97.8 F 75 16 92/52 96 11/11/16 23:17 18 11/11/16 19:55 97.5 F L 79 18 119/69 99 11/11/16 19:45 16 11/11/16 17:48 97.9 F 71 14 98/53 95 11/11/16 17:09 97.0 F L 70 16 120/60 100 11/11/16 16:06 68 16 118/61 99 11/11/16 15:00 96.8 F L 86 16 128/58 98 11/11/16 14:00 67 16 115/62 100 Intake and Output 11/11/16 11/12/16 11/12/16 22:59 06:59 14:59 Intake Total 581.346 672.085 Balance 581.346 672.085 Intake: IV 150 0.9@20 80 Heparin Sodium,Porcine/ 70 D5w Pmx 25,000 unit In Dextrose/Water 1 500ml. bag @ 12 UNITS/KG/HR 15. 24 mls/hr IV .Q24H [facility] Rx #:[id number] Intake, IV Titration 101.346 172.085 Amount Heparin Sodium,Porcine/ 101.346 172.085 D5w Pmx 25,000 unit In Dextrose/Water 1 500ml. bag @ 12 UNITS/KG/HR 15. 24 mls/hr IV .Q24H [facility] Rx #:[id number] Oral 480 350 Other: Voiding Method Toilet Toilet Toilet # Voids 4 Weight 63.503 kg GENERAL EXAM: Patient is alert and oriented and doesn't appear to be in any acute distress HEENT: Normocephalic. Normal reaction of pupils, equal size, normal range of extraocular motion. No erythema or exudates in the throat. NECK: No masses, no nuchal rigidity. CHEST: No chest wall deformity. LUNGS: Equal air entry with no crackles or wheeze. HEART: S1 and S2 normal with no audible mumurs or gallops. Regular rhythm, femorals equal on both sides.. ABDOMEN: No hepatosplenomegaly, normal bowel sounds, no guarding or rigidity. SKIN: No rashes CENTRAL NERVOUS SYSTEM: No focal deficits. EXTREMITIES: No cyanosis, clubbing or edema. Results 11/11/16 11:42 11/11/16 11:42 Cardiac Enzymes 11/11/16 11/12/16 Range/Units 18:06 01:25 CK-MB (CK-2) 1.2 1.2 (0.0-2.4) ng/mL Troponin I <0.012 <0.012 (0.000-0.034) ng/mL Coagulation 11/11/16 11/12/16 Range/Units 20:25 05:20 APTT 33.2 H 54.5 H (22.0-30.0) sec Lipids 11/12/16 Range/Units 05:20 Triglycerides 172 H (<150) mg/dL Cholesterol 186 (<200) mg/dL HDL Cholesterol 41 (40-60) mg/dL Current Medications Generic Name Dose Route Start Last Admin Trade Name Freq PRN Reason Stop Dose Admin Hydrocodone Bitart/Acetaminophen 1 each 11/11/16 16:56 11/12/16 07:49 Mcalester 10 PO 0.5 each QID PRN Administration Pain Alprazolam 0.5 mg 11/11/16 21:00 11/11/16 21:04 Xanax PO 0.5 mg HS [facility] Administration Aminophylline 100 mg 11/12/16 09:09 Aminophylline IV 11/12/16 09:10 ONCE PRN Patient Response Amlodipine Besylate 7.5 mg 11/12/16 09:00 Norvasc PO DAILY [facility] Aspirin 162 mg 11/12/16 09:00 Aspirin PO DAILY [facility] Atorvastatin Calcium 40 mg 11/12/16 09:00 Lipitor PO DAILY [facility] Clopidogrel Bisulfate 75 mg 11/12/16 09:00 Plavix PO DAILY [facility] Heparin Sodium (Porcine) 0 unit 11/11/16 20:56 11/11/16 21:05 Heparin IV 3,150 unit PER PROTOCOL PRN Administration Low PTT Protocol Heparin Sodium/Dextrose 25,000 500 mls @ 15.24 mls/hr 11/11/16 13:15 06:01 unit/ IV Solution IV 15 units/kg/hr .Q24H [facility] 19.05 mls/hr Protocol Titration 12 UNITS/KG/HR Isosorbide Mononitrate 30 mg 11/12/16 09:00 Imdur PO DAILY [facility] Lisinopril 5 mg 11/12/16 09:00 Zestril PO DAILY [facility] Metoprolol Tartrate 50 mg 11/11/16 21:00 11/11/16 19:53 Lopressor PO 50 mg BID [facility] Administration Nicotine 1 patch 11/12/16 09:00 11/12/16 04:41 Habitrol 21mg/24hr Patch TRANSDERM 1 patch DAILY [facility] Administration Nitroglycerin 0.4 mg 11/11/16 13:08 Nitrostat SUBLINGUAL Q5M PRN Chest Pain Regadenoson 0.4 mg 11/12/16 09:09 Lexiscan IV 11/12/16 09:10 ONCE ONE Spironolactone 25 mg 11/12/16 09:00 Aldactone PO DAILY [facility] Intake and Output 11/11/16 11/12/16 11/12/16 22:59 06:59 14:59 Intake Total 581.346 672.085 Balance 581.346 672.085 Intake: IV 150 0.9@20 80 Heparin Sodium,Porcine/ 70 D5w Pmx 25,000 unit In Dextrose/Water 1 500ml. bag @ 12 UNITS/KG/HR 15. 24 mls/hr IV .Q24H [facility] Rx #:[id number] Intake, IV Titration 101.346 172.085 Amount Heparin Sodium,Porcine/ 101.346 172.085 D5w Pmx 25,000 unit In Dextrose/Water 1 500ml. bag @ 12 UNITS/KG/HR 15. 24 mls/hr IV .Q24H [facility] Rx #:[id number] Oral 480 350 Other: Voiding Method Toilet Toilet Toilet # Voids 4 Weight 63.503 kg EKG Interpretations (text) Sinus rhythm with nonspecific ST-T changes Assessment and Plan (1) Chest pain Status: Acute (2) CAD (coronary artery disease) Status: Acute (3) Hyperlipidemia Status: Acute (4) Hypertension Status: Acute (5) Mitral valve regurgitation Status: Acute (6) History of coronary artery bypass graft Status: Acute Plan: Patient has symptoms of exertional shortness of breath and burning back pain which could be suggestive of angina. Cardiac enzymes and EKGs are negative. Patient is going to be evaluated by Lexiscan stress test and echocardiogram. Further recommendations depend upon the findings on the above tests.
--- NOTE | 2016-11-12 11:07 | ECHOF ---
Referral Reason:Chest pain and cardiomyopathy MEASUREMENTS -------- HEIGHT: 165.1 cm WEIGHT: 63.5 kg BP: 98/49 RVIDd: 2.6 cm (< 3.3) IVSd: 1.4 cm (0.6 - 1.1) LVIDd: 3.5 cm (3.9 - 5.3) LVPWd: 1.3 cm (0.6 - 1.1) IVSs: 1.7 cm LVIDs: 2.7 cm LVPWs: 1.4 cm LA Diam: 2.7 cm (2.7 - 3.8) LAESV Index (A-L): 19.50 ml/m Ao Diam: 3.0 cm (2.0 - 3.7) AV Cusp: 1.5 cm (1.5 - 2.6) LA Diam: 2.7 cm (2.7 - 3.8) MV EXCURSION: 11.063 mm (> 18.000) MV EF SLOPE: 35 mm/s (70 - 150) EPSS: 0.4 cm MV E Anupam: 1.18 m/s MV DecT: 204 ms MV A Anupam: 0.96 m/s MV E/A Ratio: 1.24 FINDINGS -------- Sinus rhythm. This was a technically good study. There is moderate concentric left ventricular hypertrophy. Overall left ventricular systolic function is low-normal with, an EF between 50 - 55 %. Basal inferior LV wall motion is hypokinetic. Basal inferoseptal LV wall motion is dyskinetic. The right ventricle is normal in size. Normal LA size by volume 22+/-6 ml/m2. The right atrium is normal in size. The mitral valve leaflets are mildly thickened. Mild mitral annular calcification present. Mild mitral regurgitation is present. The peak and mean MV gradients are 6.35mmHg 2.99mmHg as measured by doppler. MV Repair. Trace tricuspid regurgitation present. Pulmonic valve appears structurally normal. The aortic root size is normal. Normal inferior vena cava with normal inspiratory collapse consistent with estimated right atrial pressure of 5 mmHg. There is no pericardial effusion. CONCLUSIONS -------- 1. Sinus rhythm. 2. The mitral valve leaflets are mildly thickened. 3. Mild mitral annular calcification present. 4. Mild mitral regurgitation is present. 5. The peak and mean MV gradients are 6.35mmHg 2.99mmHg as measured by doppler. 6. MV Repair. 7. Trace tricuspid regurgitation present. 8. Pulmonic valve appears structurally normal. 9. The aortic root size is normal. 10. Normal inferior vena cava with normal inspiratory collapse consistent with estimated right atrial pressure of 5 mmHg. 11. There is no pericardial effusion. 12. This was a technically good study. 13. There is moderate concentric left ventricular hypertrophy. 14. Overall left ventricular systolic function is low-normal with, an EF between 50 - 55 %. 15. Basal inferior LV wall motion is hypokinetic. 16. Basal inferoseptal LV wall motion is dyskinetic. 17. The right ventricle is normal in size. 18. Normal LA size by volume 22+/-6 ml/m2. 19. The right atrium is normal in size. MECHANICAL MAINTENANCE FOREMAN: Fam Curtis RDCS
--- NOTE | 2016-11-12 12:08 | EST ---
DATE OF SERVICE: 11/12/2016 AGE: 61Y SEX: F HT: 5'5" WT: 140 lbs. Lexiscan Cardiolite Stress Test *Heart Rate Blood Pressure *Rest: 70 Rest: 122/70 * *Max. Achieved: 89 Maximum BP: 122/70 85% PMHR: 136 100% PMHR: 160 *METS: - INDICATIONS: Chest pain. MEDICATIONS: - CLINICAL INFORMATION: Chest pain, shortness of breath and family history of coronary artery disease and cholesterolemia, 1-1/2 pack of cigarettes a day for 44 years, quite in 2017. Resting ECG shows sinus rhythm, rate of 70 beats per minute, IN interval of 0.16, QRS of 0.08, normal ST-T waves. Utilizing a standard Lexiscan protocol, Lexiscan was given IV push followed by serial EKGs without any chest pain or pressure or ST segment deviation, no evidence of ischemia on the monitoring 12 leads. Patient tolerated the procedure very well. Nuclear scintigrams to follow from Radiology Department. IMPRESSION: 1. Baseline rhythm is sinus with normal IN intervals, QRS, normal ST-T waves. 2. Negative Lexiscan Cardiolite study. 3. Nuclear scintigrams to follow from Radiology Department.
[2016-11-12] MEDS: SPIRONOLACTONE 25 MG TAB PO SCH (12:29)
[2016-11-12] MEDS: LISINOPRIL 5 MG TAB PO SCH (12:29)
[2016-11-12] MEDS: amLODIPine 2.5 MG TAB PO SCH (12:29)
[2016-11-12] MEDS: METOPROLOL TARTRATE 50 MG TAB PO SCH ×2 (12:30→22:16)
[2016-11-12] MEDS: ATORVASTATIN 40 MG TAB PO SCH (12:30)
[2016-11-12] MEDS: CLOPIDOGREL 75 MG TAB PO SCH (12:30)
[2016-11-12] MEDS: ISOSORBIDE MONONITRATE ER 30 MG TAB.ER.24H PO SCH (12:30)
[2016-11-12] MEDS: ASPIRIN 81 MG CHEW PO SCH (12:31)
[2016-11-12] MEDS ORDERED: ACETAMINOPHEN TAB 325 MG TAB PO PRN (12:38)
--- NOTE | 2016-11-12 13:52 | P.DS ---
Providers Date of admission: 11/11/16 13:08 Expected date of discharge: 11/12/16 Attending physician: Quoc Grant Primary care physician: Dennis Shrestha [place] [facility] Course: 61-year-old female [address] Shrestha patient who was hospitalized last in August 19 still August 25, 2016 ended up having a triple-vessel coronary artery disease with old inferior wall myocardial infarction patient ended up having a quadruple coronary artery bypass grafting with mitral valve repair with complete drink anoplasty and left atrial appendage patent morelos ovale repair. Patient was doing well until today when developed to have recurrent chest pain with exertion associated with mild nausea palpitation and worsening shortness of breath. With her recurrent symptom with her recent coronary artery bypass surgery patient was scared" coming to the emergency Department [facility] where was seen and evaluated. Her EKG didn't show any major abnormality or change her CK with troponin was negative with her current symptoms decided to admit patient to the hospital CK with troponin 3 will be done repeat EKG in the morning and consult cardiology for potential further investigation either stress test or heart catheter. 11/12: Patient underwent a Lexiscan stress test which was negative and patient will be discharged home today in stable condition. Patient was started on atorvastatin 40 mg and will be sent home on this. Otherwise no new in medications. Patient will be discharged home today in stable condition. Discharge diagnoses: 1 atypical chest pain 2 multiple coronary disease post quadruple bypass surgery in July this year 3 hypertension 4 hyperlipidemia 5 chronic edema 6 mitral valve disease: Post mitral valve repair 7 history of ADD 8 hyperglycemia: On diet control Impression and plan of care have been directed as dictated by the signing physician. Christiane Garza nurse practitioner acting as scribe for signing physician. Cc: Dr. Dennis Shrestha Patient Condition at Discharge: Good Plan - Discharge Summary New Discharge Prescriptions: Atorvastatin [Lipitor] 40 mg PO DAILY #30 tab Discharge Medication List ALPRAZolam [Xanax] 1 mg PO HS 08/15/16 [History] Clopidogrel [Plavix] 75 mg PO DAILY #30 tab 08/25/16 [Rx] Lisinopril [Zestril] 5 mg PO DAILY #30 tab 08/25/16 [Rx] Metoprolol Tartrate [Lopressor] 50 mg PO BID #60 tab 08/25/16 [Rx] Spironolactone [Aldactone] 25 mg PO DAILY #30 tab 08/25/16 [Rx] Aspirin EC [Ecotrin Low Dose] 162 mg PO DAILY 11/11/16 [History] Dextroamphetamine/Amphetamine [Adderall] 10 mg PO DAILY 11/11/16 [History] Dextroamphetamine/Amphetamine [Dextroamp-Amphetamin 20 mg Tab] 20 mg PO DAILY [History] Hydrocodone/Acetaminophen [Hydrocodon-Acetaminophn 10-325] 1 tab PO QID PRN [History] Isosorbide Mononitrate ER [Imdur] 30 mg PO DAILY 11/11/16 [History] Naproxen Sodium [Aleve] 110 mg PO HS 11/11/16 [History] Nicotine 21Mg/24Hr Patch [Habitrol] 1 patch TRANSDERM DAILY 11/11/16 [History] Suvorexant [Belsomra] 15 mg PO HS 11/11/16 [History] amLODIPine [Norvasc] 7.5 mg PO DAILY 11/11/16 [History] Atorvastatin [Lipitor] 40 mg PO DAILY #30 tab 11/12/16 [Rx] Follow up Appointment(s)/Referral(s): Watson Mota MD [STAFF PHYSICIAN] - 4 Weeks (Keep December 24 appointment as previously scheduled.) Dennis Shrestha DO [Primary Care Provider] - 1 Week Activity/Diet/Wound Care/Special Instructions: Please keep the appointment with Dr. Sandoval in the month of November as scheduled Discharge Disposition: HOME SELF-CARE
--- NOTE | 2016-11-12 14:10 | NM ---
EXAMINATION TYPE: NM stress lexiscan cardiolite DATE OF EXAM: 11/12/2016 11:39 AM COMPARISON: Chest x-ray 11 November 2016 HISTORY: Chest pain TECHNIQUE: After the intravenous administration of 10.688 mCi Tc 99m Sestamibi - Cardiolite resting SPECT images acquired 45 minutes post injection. The patient received 0.4mg Lexiscan, 27.3 mCi Tc 99m Sestamibi - Stress images obtained [address] injection FINDINGS: Review of stress and rest SPECT images demonstrates decreased radiopharmaceutical uptake along the an terior wall left ventricle as well as apical and inferior romero, can't activity is also present infer iorly. Decreased uptake is present along the areas of decreased reaffirms aquatic along the anterior wall, lateral wall towards the apex and inferior wall. Gated analysis shows normal wall motion with a n estimated left ventricular ejection fraction of 39 %. IMPRESSION: Findings suggest prior infarctions with dylon-infarct pharmacologically induced left ventricular myoca rdial ischemia.
[2016-11-12] MEDS ORDERED: ALPRAZolam 0.25 MG TAB PO PRN (15:28)
[2016-11-12] MEDS ORDERED: ASPIRIN 325 MG TAB PO STA (15:28)
[2016-11-12] MEDS ORDERED: NITROGLYCERIN SL TABS 0.4 MG TAB SUBLINGUAL PRN (15:28)
[2016-11-12] MEDS ORDERED: SODIUM CHLORIDE 0.9% 1,000 ML in EMPTY BAG 1 BAG IV ONE (15:28)
[2016-11-12] MEDS ORDERED: ATORVASTATIN 80 MG TAB PO STA (15:38)
[2016-11-12] MEDS: ALPRAZolam 0.5 MG TAB PO PRN (16:03)
[2016-11-13] MEDS: NICOTINE 21MG/24HR PATCH TRANSDERM SCH (04:34)
[2016-11-13] MEDS: ALPRAZolam 0.5 MG TAB PO SCH (04:37)
[2016-11-13] MEDS ORDERED: ASPIRIN 325 MG TAB PO ONE (06:00)
[2016-11-13] MEDS ORDERED: ATORVASTATIN 80 MG TAB PO ONE (06:00)
[2016-11-13] MEDS: METOPROLOL TARTRATE 50 MG TAB PO SCH ×2 (07:45→20:57)
[2016-11-13] MEDS: LISINOPRIL 5 MG TAB PO SCH (07:46)
[2016-11-13] MEDS: CLOPIDOGREL 75 MG TAB PO SCH (07:46)
[2016-11-13] MEDS: ATORVASTATIN 40 MG TAB PO SCH (07:46)
[2016-11-13] MEDS: SPIRONOLACTONE 25 MG TAB PO SCH (07:46)
[2016-11-13] MEDS: amLODIPine 2.5 MG TAB PO SCH (07:46)
[2016-11-13] MEDS: ISOSORBIDE MONONITRATE ER 30 MG TAB.ER.24H PO SCH (07:46)
[2016-11-13] MEDS: ASPIRIN 81 MG CHEW PO SCH (07:49)
[2016-11-13] MEDS: ALPRAZolam 0.5 MG TAB PO PRN ×2 (10:32→20:57)
[2016-11-13] MEDS ORDERED: diphenhydrAMINE 50 MG/ML 1 ML VIAL IVP ONE (11:05)
[2016-11-13] MEDS ORDERED: MIDAZOLAM 2 MG/2 ML VIAL IV ONE (11:05)
[2016-11-13] MEDS ORDERED: fentaNYL (PF) 50 MCG/ML 2 ML AMP IV ONE (11:09)
[2016-11-13] MEDS ORDERED: LIDOCAINE 2% INJ 20 MG/ML SQ ONE (11:10)
[2016-11-13] MEDS ORDERED: IV FLUID CONTINUATION 1,000 ML IV ONE (11:11)
[2016-11-13] MEDS ORDERED: SODIUM CHLORIDE 0.9% 250 ML IV ONE ×2 (11:12→12:01)
[2016-11-13] MEDS ORDERED: BIVALIRUDIN BOLUS 250 MG/50 ML IV ONE (11:48)
[2016-11-13] MEDS ORDERED: BIVALIRUDIN 250 MG in SODIUM CHLORIDE 0.9% 50 ML IV ONE (11:48)
--- NOTE | 2016-11-13 11:59 | P.PCN ---
Date of Procedure: 11/13/16 Preoperative Diagnosis: Unstable angina Postoperative Diagnosis: Severe triple-vessel disease with ectatic SMILEY graft to the LAD, patent graft to the diagonal OM branch and also to the distal right coronary artery. Procedure(s) Performed: Left heart catheterization with selective injections of the 3 vein grafts and the SMILEY graft. No LV gram was performed Description of Procedure: HISTORY: This is a 61-year-old female with history of ischemic heart disease who recently underwent prior to coronary bypass surgery with the SMILEY graft to the LAD, vein graft to the diagonal, vein graft to the OM branch and also distal right coronary artery. Patient had endarterectomy of the right coronary artery also. In addition patient had mitral valve repair and also closer of the atrial appendage. CONSENT:I have discussed the risks, benefits and alternative therapies for the above-mentioned procedure and for both sedation/analgesia as well as necessary blood product administration, if indicated, as they pertain to this patient. The patient has indicated understanding and acceptance of the risks and procedures discussed. PROCEDURE: Patient was brought to the lab in a fasting state. Patient was given some IV sedation. The right groin is infiltrated with lidocaine and right femoral artery was entered using Seldinger technique. A 6-Kiswahili catheter was left in place and selective coronary arteriography and left ventriculography was performed. Patient tolerated the procedure well. Femoral angiogram was performed and Angio-Seal was applied for hemostasis. No immediate complications were noted and patient was transferred to [facility] in a stable condition HEMODYNAMICS: The aortic pressure is 90/50. Left ankle end-diastolic pressure is about 12. There was no gradient across the aortic valve. SELECTIVE CORONARY ARTERIOGRAPHY: LEFT MAIN: Normal length and patent THE LEFT ANTERIOR DESCENDING CORONARY ARTERY: This is a good caliber vessel with 95% lesion proximally followed by 70% lesion in the midportion beyond the major diagonal which was bypassed. THE LEFT CIRCUMFLEX AND IS CORONARY ARTERY: Fair caliber vessel vessel with a moderate disease proximally. There is a computed to flow from vein graft to the OM branch. THE RIGHT CORONARY ARTERY: Presumed to be totally occluded and not selectively studied. THE SMILEY GRAFT TO THE LAD: This is ectatic without any meaningful antegrade flow. The vein graft to the DIAGONAL: This graft is patent at the proximal and distal anastomosis. Does have ectatic changes in the mid to distal portion. The diagonal branch beyond the insertion site appears to be patent. It also provides retrograde flow into the LAD. LAD has lesions both proximally and distally to the origin of the diagonal. THE VEIN GRAFT TO THE OM BRANCH: This is patent at the proximal and distal anastomosis. The OM branches free of any significant spectral disease be on the insertion site. LEFT VENTRICULOGRAPHY: Not performed FINAL IMPRESSION: #1. Unstable angina #2. 99% stenosis of the proximal LAD followed by 70% lesion in the mid LAD with competent to flow into the distal LAD from the vein graft #3. Mild disease in the OM branch of the circumflex with a patent graft to the OM #4. Total occlusion of the PDA and distal RCA. Patent vein graft to the distal RCA filling mainly PLV branch. PLAN: Stent placement of the proximal and mid LAD being attempted by Dr. Garg PROGNOSIS: Guarded
[2016-11-13] MEDS ORDERED: SODIUM CHLORIDE 0.9% 500 ML IV ONE (12:01)
[2016-11-13] MEDS: NITROGLYCERIN 1000MCG/10ML SYRINGE INTRACORON ONE ×2 (12:05→12:09)
[2016-11-13] MEDS ORDERED: IOHEXOL 350 MG/ML 100 ML BOTTLE INJ ONE (12:20)
[2016-11-13] MEDS ORDERED: CLOPIDOGREL 75 MG TAB PO ONE (12:21)
[2016-11-13] MEDS ORDERED: ZOLPIDEM 5 MG TAB PO PRN (12:38)
[2016-11-13] MEDS ORDERED: ATROPINE SULFATE 0.1 MG/ML 10ML SYRINGE IV PRN (12:38)
[2016-11-13] MEDS ORDERED: RX INFO: IV CONTRAST WAS GIVEN 1 EACH MISC MISCELLANE PRN (12:38)
[2016-11-13] MEDS ORDERED: MAG HYDROX/AL HYDROX/SIMETH 30 ML CUP PO PRN (12:38)
[2016-11-13] MEDS ORDERED: SODIUM CHLORIDE 0.9% 1,000 ML IV SCH (12:45)
--- NOTE | 2016-11-13 13:19 | P.PN ---
Subjective 61-year-old female [address] Shrestha patient who was hospitalized last in August 19 still August 25, 2016 ended up having a triple-vessel coronary artery disease with old inferior wall myocardial infarction patient ended up having a quadruple coronary artery bypass grafting with mitral valve repair with complete drink anoplasty and left atrial appendage patent morelos ovale repair. Patient was doing well until today when developed to have recurrent chest pain with exertion associated with mild nausea palpitation and worsening shortness of breath. With her recurrent symptom with her recent coronary artery bypass surgery patient was scared" coming to the emergency Department [facility] where was seen and evaluated. Her EKG didn't show any major abnormality or change her CK with troponin was negative with her current symptoms decided to admit patient to the hospital CK with troponin 3 will be done repeat EKG in the morning and consult cardiology for potential further investigation either stress test or heart catheter. 11/12: Patient underwent a Lexiscan stress test and patient was subsequently scheduled for heart catheterization in the morning. Patient was started on atorvastatin 40 mg. Objective - Vital Signs Vital signs: Vital Signs Temp 98.6 F 11/13/16 07:31 Pulse 94 11/13/16 07:31 Resp 16 11/13/16 07:31 BP 90/49 11/13/16 07:31 Pulse Ox 97 11/13/16 08:44 Intake & Output 11/12/16 11/13/16 11/13/16 18:59 06:59 18:59 Intake Total 1000 577.12 Balance 1000 577.12 Intake: IV 577.12 Oral 1000 Other: Voiding Method Toilet Toilet Toilet # Voids 1 - Exam General appearance: no average body habitus, cooperative, no disheveled, no mild distress, no morbidly obese, no acute distress, no obese, no severe distress, no thin - EENT Eyes: no abnormal pupil, no anicteric sclerae, no disc margins sharp, no edentulous, no EOMI, no PERRLA, no fundus normal, no photophobia, no dentition normal, no poor dentition, no ptosis, no scleral icterus, normal appearance ENT: no hard of hearing, no hearing grossly normal, no NA/AT, normal oropharynx , no other, no pharyngeal erythema, no thrush, no tonsillar exudates, no tonsillar swelling Ears: bilateral: normal - Neck Neck: no lymphadenopathy, normal ROM, no other, no rigidity, no stridor, no thyromegaly Carotids: bilateral: upstroke normal Thyroid: bilateral: normal size - Respiratory Respiratory: bilateral: CTA, diminished, dullness - Cardiovascular Rhythm: regular Heart sounds: normal: S1, S2 Abnormal Heart Sounds: systolic murmur, S3 Gallop - Gastrointestinal General gastrointestinal: no absent bowel sounds, decreased bowel sounds, no distended, no hepatomegaly, no hyperactive bowel sounds, normal bowel sounds, no organomegaly, no rigid, no scaphoid, soft, no splenomegaly, no tenderness, no umbilical hernia, no ventral hernia - Integumentary Integumentary: no calor, no cellulitis, no cyanotic, no decreased turgor, no flushed, no jaundiced, normal, no normal turgor, pale, rash, no ulcer - Neurologic Neurologic: CNII-XII intact - Musculoskeletal Musculoskeletal: gait normal, generalized weakness, no strength equal bilaterally, no right sided weakness, no left sided weakness - Psychiatric Psychiatric: A&O x's 3, no appropriate affect, no intact judgment & insight - Labs CBC & Chem 7: 11/11/16 11:42 11/11/16 11:42 Assessment and Plan Plan: 1 unstable angina: With known coronary artery disease post recent bypass surgery , patient will be hospitalized CK with troponin 3 be done repeat EKG and continue Nitrol consult cardiology based on the testing through the night with decide for further management including either heart catheter in the morning. 2 multiple coronary disease post quadruple bypass surgery in July this year patient still on secondary prevention. 3 hypertension: Remain on Lopressor 50 mg twice a day along with Zestril 5 mg daily. 4 hyperlipidemia: Has been on atorvastatin 40 mg a day. 5 chronic edema: Remain on Lasix and spironolactone. 6 mitral valve disease: Post mitral valve repair has been doing well. 7 history of ADD: Patient has been on Adderall will resume medication in 48 hours. 8 hyperglycemia: On diet control Accu-Chek sliding skills coverage reviewed on. 9 GI prophylaxis: Patient will be on Pepcid 20 mg daily. 10 DVT prophylaxis: Early mobilization and heparin subcutaneous. CODE STATUS: Full code. Next Impression and plan of care have been directed as dictated by the signing physician. Christiane Garza nurse practitioner acting as scribe for signing physician. Time with Patient: Greater than 30
[2016-11-13] MEDS: HYDROcodone/APAP 10-325MG 1 EACH TAB PO PRN (17:03)
[2016-11-13 20:49] VITALS: RESP 16
[2016-11-13] MEDS ORDERED: NAPROXEN 250 MG TAB PO SCH (21:00)
[2016-11-14] MEDS: NICOTINE 21MG/24HR PATCH TRANSDERM SCH (04:00)
[2016-11-14 06:30] LABS: Basophils % (A) 1 %; CH 28.9; CHCM 32.6; Eosinophils # (A) 0.3 k/uL (0-0.7); Eosinophils % (A) 4 %; HCT 36.8 % (34.0-46.0); HDW 2.84; HGB 12.2 gm/dL (11.4-16.0); Luc # (Auto) 0.23; Luc % (Auto) 3; Lymphocytes # (A) 1.3 k/uL (1.0-4.8); Lymphocytes % (A) 20 %; MCH 29.4 pg (25.0-35.0); MCV 89.1 fL (80.0-100.0); Mean Platelet Volume 6.9; Monocytes # (A) 0.5 k/uL (0-1.0); Monocytes % (A) 8 %; Neutrophils # (A) 4.3 k/uL (1.3-7.7); Neutrophils % (A) 65 %; RBC 4.13 m/uL (3.80-5.40); RDW 14.3 % (11.5-15.5); WBC 6.6 k/uL (3.8-10.6); WBC (Perox) 6.76
[2016-11-14 06:38] LABS: Anion Gap 7 mmol/L; Blood Urea Nitrogen 9 mg/dL (7-17); Calcium 8.9 mg/dL (8.4-10.2); Carbon Dioxide 24 mmol/L (22-30); Chloride 109 mmol/L (98-107); Glucose 90 mg/dL (74-99); Non-African American GFR(MDRD) 57 (>60 ml/min/1.73 sqM); Potassium 4.4 mmol/L (3.5-5.1); Sodium 140 mmol/L (137-145)
[2016-11-14] MEDS: LISINOPRIL 5 MG TAB PO SCH (08:20)
[2016-11-14] MEDS: METOPROLOL TARTRATE 50 MG TAB PO SCH (08:20)
[2016-11-14] MEDS: CLOPIDOGREL 75 MG TAB PO SCH (08:20)
[2016-11-14] MEDS: ASPIRIN 81 MG CHEW PO SCH (08:20)
[2016-11-14] MEDS: ATORVASTATIN 40 MG TAB PO SCH (08:20)
[2016-11-14] MEDS: ISOSORBIDE MONONITRATE ER 30 MG TAB.ER.24H PO SCH (08:20)
[2016-11-14] MEDS: amLODIPine 2.5 MG TAB PO SCH (08:21)
[2016-11-14] MEDS: SPIRONOLACTONE 25 MG TAB PO SCH (08:21)
[2016-11-14] MEDS: HYDROcodone/APAP 10-325MG 1 EACH TAB PO PRN (08:29)
[2016-11-14] MEDS ORDERED: NON-FORMULARY DRUG (Dextroamphetamine/Amphetamine [Adderall] 10 MG) PO SCH (09:00)
[2016-11-14] MEDS ORDERED: AMPHETAMINE PO SCH (09:00)
[2016-11-14] MEDS ORDERED: DEXTROAMPHETAMINE PO SCH (09:00)
[2016-11-14] MEDS ORDERED: [UNRECOGNIZED DRUG - OTHER] PO SCH (09:00)
--- NOTE | 2016-11-14 10:36 | PTCA ---
DATE OF SERVICE: November 13, 2016 Performing physician: Ollie Pimentel, [employer] football coach. PROCEDURE PERFORMED: 1. Successful stenting of the proximal LAD using 2.5 x 18 mm Xience JEFFREY with a good angiographic results. 2. Successful stenting of the mid LAD using 2.25 x 8 mm Xience JEFFREY with a good angiographic results. INDICATION: This is a pleasant 61-year-old female patient with a known history of coronary artery disease and prior coronary artery bypass grafting who was admitted to the hospital with chest discomfort and underwent myocardial perfusion imaging stress test which showed anterior ischemia. She underwent a heart catheterization by Dr. Neumann and was found to have atrophic SMILEY to LAD with severe disease involving the proximal and mid LAD. The decision was made toward percutaneous coronary intervention of the LAD. Approach: Right common femoral artery. COMPLICATIONS: None. Level of sedation: Moderate with sedation length of about a half hour. PROCEDURE DESCRIPTION: After diagnostic heart catheterization was performed by Dr. Neumann, we decided to pursue with a coronary intervention of the LAD. Anticoagulation was initiated using Angiomax. Subsequently, I took a JL 3.5 guiding catheter and the left main was engaged. A whisper wire was used to wire the left anterior descending artery where the wire was positioned in the distal LAD. Subsequently, I did balloon angioplasty of the LAD using 2.0 by 12 mm balloon. The balloon was inflated under 12 atmospheres for 20 seconds. After that, I did deploy in the proximal LAD 2.5 x 18 mm Xience JEFFREY, where the stent was positioned under fluoroscopy guidance and it was deployed under 16 atmospheres for 20 seconds. After that, I did deploy in the mid LAD 2.25 x 8 mm another Xience JEFFREY, where the stent was positioned under fluoroscopy guidance and deployed under 12 atmospheres for 20 seconds. The following angiogram showed good angiographic result without perforation and without dissection with excellent flow in the LAD. The procedure was completed without any complication. CONCLUSION: Successful stenting of the made successful stenting of the proximal and mid LAD using a drug-eluting stents with a good angiographic results in view of the atrophic SMILEY to LAD. POSTPROCEDURE MANAGEMENT: 1. Dual antiplatelet therapy. 2. Risk factor modifications. 3. Follow up with the patient.
[2016-11-14 13:33] VITALS: BP 104/56; PULSE 64; TEMP 97.6
--- NOTE | 2016-11-14 15:34 | P.PN ---
Subjective This is a pleasant 61-year-old female with a history of ischemic heart disease, old inferior wall [place] and moderate mitral regurgitation. In July 2016 patient had a quadruple coronary artery bypass grafting with a SMILEY graft to LAD and reverse saphenous vein graft to the diagonal and reverse saphenous vein graft to the OM branch and also to the distal right coronary artery. In addition she had a mitral valve repair. Since that time patient has been enrolled in cardiac rehab. Over the last several weeks patient has been having intermittent burning back pain which was similar to the pain she had prior to her bypass surgery. Patient came to the emergency center via EMS after developing extreme shortness of breath and burning back pain while at cardiac rehab. Patient will underwent a Lexiscan Cardiolite that showed prior infarctions with dylon-infarct pharmacologically induced left ventricular myocardial ischemia. Sequelae underwent cardiac catheterization yesterday by Dr. Neumann with stent placement to the LAD by Dr. Pimentel. Upon examination, patient is resting comfortably in bed. She denies any further complaints of burning back pain or shortness of breath. She was encouraged to ambulate and was pain-free with that as well. Objective - Vital Signs Vital signs: Vital Signs Temp 97.6 F 11/14/16 12:00 Pulse 64 11/14/16 12:00 Resp 16 11/14/16 12:00 BP 104/56 11/14/16 12:00 Pulse Ox 94 L 11/14/16 12:00 Intake & Output 11/13/16 11/14/16 11/14/16 18:59 06:59 18:59 Intake Total 577.12 600 800 Output Total 700 400 500 Balance -122.88 200 300 Weight 64.7 kg Intake: IV 577.12 Intake, IV Titration 0 Amount Sodium Chloride 0.9% 1, 0 000 ml @ 100 mls/hr IV . Q10H TIMOTHY Rx#:[id number] Oral 600 800 Output: Urine 700 400 500 Other: Voiding Method Toilet Toilet Toilet # Voids 1 - Exam PHYSICAL EXAMINATION: HEENT: Head is atraumatic, normocephalic. Pupils equal, round. Neck is supple. There is no elevated jugular venous pressure. HEART EXAMINATION: Heart sounds regular, S1 and S2 normal. No murmur or gallop heard. CHEST EXAMINATION: Lungs are clear to auscultation and precussion. No chest wall tenderness is noted on palpation or with deep breathing. ABDOMEN: Soft, nontender. Bowel sounds are heard. No organomegaly noted. EXTREMITIES: 2+ peripheral pulses with no evidence of peripheral edema and no calf tenderness noted. Right femoral puncture site without ecchymosis or hematoma, soft.. NEUROLOGIC patient is awake, alert and oriented x3. . - Labs CBC & Chem 7: 11/14/16 05:42 11/14/16 05:42 Labs: Abnormal Lab Results - Last 24 Hours (Table) 11/14/16 Range/Units 05:42 Chloride 109 H (98-107) mmol/L Assessment and Plan Plan: Assessment and plan 1 unstable angina #2 coronary artery disease, status post stent placement in the proximal and mid LAD #3 recent coronary artery bypass graft #4 smoker, currently trying to quit From cardiology perspective, patient may be discharged home today. She'll follow-up with Dr. Mota in the office in a week. We will give the patient a prescription for nicotine patch. She was reinforced the importance of smoking cessation. Continue aspirin 162 mg by mouth daily, atorvastatin 40 mg daily, Plavix 75 mg by mouth daily, Imdur 30 mg by mouth daily, lisinopril 5 mg by mouth daily and Aldactone 25 mg by mouth daily and metoprolol titrate 50 mg by mouth twice a day. [employer] note has been reviewed, I agree with a documented findings and plan of care. Patient was seen and examined.
--- NOTE | 2016-11-18 14:35 | P.DS ---
Providers Date of admission: 11/11/16 13:08 Expected date of discharge: 11/14/16 Attending physician: Quoc Grant Consults: 11/13/16 12:38 Consult Physician Routine Consulting Provider: [facility] Consult Reason/Comments: Post Interventional patient Do you want consulting provider notified?: Already Contacted Primary care physician: Dennis Shrestha [facility] Course: 61-year-old female [address] Shrestha patient who was hospitalized last in August 19 still August 25, 2016 ended up having a triple-vessel coronary artery disease with old inferior wall myocardial infarction patient ended up having a quadruple coronary artery bypass grafting with mitral valve repair with complete drink anoplasty and left atrial appendage patent morelos ovale repair. Patient was doing well until today when developed to have recurrent chest pain with exertion associated with mild nausea palpitation and worsening shortness of breath. With her recurrent symptom with her recent coronary artery bypass surgery patient was scared" coming to the emergency Department [facility] where was seen and evaluated. Her EKG didn't show any major abnormality or change her CK with troponin was negative with her current symptoms decided to admit patient to the hospital CK with troponin 3 will be done repeat EKG in the morning and consult cardiology for potential further investigation either stress test or heart catheter. 11/12: Patient underwent a Lexiscan stress test and patient was subsequently scheduled for heart catheterization in the morning. Patient was started on atorvastatin 40 mg. 11/13: Patient underwent a heart catheterization that showed 99% stenosis of the proximal LAD followed by 70% lesion in the mid LAD with competent flow into the distal LAD from the vein graft. Mild disease in the OM branch of circumflex and patent graft to the OM. Total occlusion of the PDA and distal RCA. Patent vein graft to the distal RCA filling mainly PLV branch. Plan for proximal and mid LAD stenting by Dr. Pimentel. 11/14: Patient has been cleared for discharge home today with recommendations for aspirin 162 mg and Plavix. Patient will be discharged home today in stable condition. Discharge diagnoses: 1 unstable angina: With known coronary artery disease post recent bypass surgery. Status post heart catheterization and stenting of the proximal and mid LAD. 2 multiple coronary disease post quadruple bypass surgery in July 29 hypertension 4 hyperlipidemia 5 chronic edema 6 mitral valve disease 7 history of ADD 8 hyperglycemia: On diet control Discharge plan: Return home Impression and plan of care have been directed as dictated by the signing physician. Christiane Garza nurse practitioner acting as scribe for signing physician. Cc: Dr. Dennis Shrestha Patient Condition at Discharge: Good Plan - Discharge Summary New Discharge Prescriptions: Atorvastatin [Lipitor] 40 mg PO DAILY #30 tab Nicotine 21Mg/24Hr Patch [Habitrol] 1 patch TRANSDERM DAILY #30 patch Nitroglycerin Sl Tabs [Nitrostat] 0.4 mg SUBLINGUAL Q5M PRN #25 tab PRN Reason: Chest Pain Discharge Medication List ALPRAZolam [Xanax] 1 mg PO HS 08/15/16 [History] Clopidogrel [Plavix] 75 mg PO DAILY #30 tab 08/25/16 [Rx] Lisinopril [Zestril] 5 mg PO DAILY #30 tab 08/25/16 [Rx] Metoprolol Tartrate [Lopressor] 50 mg PO BID #60 tab 08/25/16 [Rx] Spironolactone [Aldactone] 25 mg PO DAILY #30 tab 08/25/16 [Rx] Aspirin EC [Ecotrin Low Dose] 162 mg PO DAILY 11/11/16 [History] Dextroamphetamine/Amphetamine [Adderall] 10 mg PO DAILY 11/11/16 [History] Dextroamphetamine/Amphetamine [Dextroamp-Amphetamin 20 mg Tab] 20 mg PO DAILY [History] Hydrocodone/Acetaminophen [Hydrocodon-Acetaminophn 10-325] 1 tab PO QID PRN [History] Isosorbide Mononitrate ER [Imdur] 30 mg PO DAILY 11/11/16 [History] Naproxen Sodium [Aleve] 110 mg PO HS 11/11/16 [History] Suvorexant [Belsomra] 15 mg PO HS 11/11/16 [History] amLODIPine [Norvasc] 7.5 mg PO DAILY 11/11/16 [History] Atorvastatin [Lipitor] 40 mg PO DAILY #30 tab 11/12/16 [Rx] Nicotine 21Mg/24Hr Patch [Habitrol] 1 patch TRANSDERM DAILY #30 patch 11/14/16 [ Rx] Nitroglycerin Sl Tabs [Nitrostat] 0.4 mg SUBLINGUAL Q5M PRN #25 tab 11/14/16 [Rx ] Follow up Appointment(s)/Referral(s): Watson Mota MD [STAFF PHYSICIAN] - 10 Days (Keep December 24 appointment as previously scheduled.) Dennis Shrestha DO [Primary Care Provider] - 1 Week (Dr. Shrestha's office will call either later today or Thursday for your appointment.) Patient Instructions/Handouts: Heart Catheterization (GEN) Activity/Diet/Wound Care/Special Instructions: Please keep the appointment with Dr. Sandoval in the month of November as scheduled Discharge Disposition: HOME SELF-CARE
== END 2016-11-14 17:21 | disposition home or self-care (01) ==
LOC: EC 10:48 → 3OBS 13:08 → 6SEL 11-13 12:30
PROVIDERS: ADMIT Internal Medicine; ATTEND Internal Medicine
DX: I25.110 Atherosclerotic heart disease of native coronary artery with unstable angina pectoris (principal); I10 Essential (primary) hypertension; M79.7 Fibromyalgia; E78.5 Hyperlipidemia, unspecified; M19.90 Unspecified osteoarthritis, unspecified site; M50.20 Other cervical disc displacement, unspecified cervical region; F90.9 Attention-deficit hyperactivity disorder, unspecified type; F41.9 Anxiety disorder, unspecified; R73.9 Hyperglycemia, unspecified; R60.9 Edema, unspecified; I34.0 Nonrheumatic mitral (valve) insufficiency; I25.2 Old myocardial infarction; Z79.82 Long term (current) use of aspirin; Z79.899 Other long term (current) drug therapy; Z79.1 Long term (current) use of non-steroidal anti-inflammatories (NSAID); Z79.02 Long term (current) use of antithrombotics/antiplatelets; Z88.2 Allergy status to sulfonamides; Z88.5 Allergy status to narcotic agent; Z95.1 Presence of aortocoronary bypass graft; Z87.891 Personal history of nicotine dependence; Z83.3 Family history of diabetes mellitus; Z95.5 Presence of coronary angioplasty implant and graft; G43.909 Migraine, unspecified, not intractable, without status migrainosus
CPT/HCPCS: 99285; 96365; 96366 ×3; 96376; 36415; 94760; 93005; 93017; 93306; 93458; 80061; 80053; 80048; 82550 ×2; 82553 ×2; 83735; 84484 ×2; 85025 ×2; 85610; 85730 ×2; 71020; 78452; G0378 ×5; C1769 ×2; C1887; C1725; C1894; C1874; A9500; S4990 ×3; J2001; J2250; J1200; J1644 ×2; Q9967; J3010; J0583; J2785

== ENCOUNTER → 2016-11-18 | Outpatient (CLI) | payer BC ==
[~2016-11-18] MED LIST changes: -ALBUMIN HUMAN 25% 50 ML IV ONE; -ALBUMIN HUMAN 5% 500 ML IVPB ONE; -AMINOCAPROIC ACID 250 MG/ML 20 ML VIAL IV ONE; -AMINOCAPROIC ACID 5,000 MG in DEXTROSE 5% IN WATER 50 ML IV ONE; -ASPIRIN 325 MG TAB PO ONE; -ATORVASTATIN 10 MG TAB PO ONE; -CALCIUM CHLORIDE 100 MG/ML 10 ML SYRINGE IV ONE; -CHLORHEXIDINE GLUCONATE 15 ML CUP MUCOUS MEM ONE; -CLEVIDIPINE BUTYRATE 25 MG in EMPTY BAG 1 BAG IV ONE; +CLOPIDOGREL 75 MG TAB ONE; -DEXTROSE 5% IN WATER 1,000 ML with POTASSIUM CHLORIDE 110 MEQ, MAGNESIUM SULFATE 16 MEQ... IV ONE; -DEXTROSE 5% IN WATER 1,000 ML with POTASSIUM CHLORIDE 25 MEQ, SODIUM CHLORIDE 4MEQ/ML V... IV ONE; -HEPARIN SODIUM 1,000 UNIT/ML VIAL IV ONE; -HEPARIN SODIUM,PORCINE 5,000 UNIT in SODIUM CHLORIDE 0.9% 500 ML IV ONE; -INSULIN REGULAR 100 UNIT in SODIUM CHLORIDE 0.9% 100 ML IV ONE; -LACTATED RINGERS 1,000 ML IV ONE; -LACTATED RINGERS 1,000 ML IV SCH; +LIDOCAINE 2% INJ 20 MG/ML (20 ML MDV) ONE; -MAGNESIUM SULFATE MG 500 MG/ML VIAL IV ONE; -MANNITOL 25% 12.5 GM/50 ML VIAL IV ONE; -METOPROLOL TARTRATE 12.5 MG TAB PO ONE; -MIDAZOLAM 2 MG/2 ML VIAL IV PRN; +MIDAZOLAM 2 MG/2 ML VIAL ONE; -NITROGLYCERIN SL TABS 0.4 MG TAB SUBLINGUAL ONE; -NITROGLYCERIN-D5W PMX 25 MG/250 ML BTL IV ONE; -NITROGLYCERIN-D5W PMX 50 MG in DEXTROSE/WATER 1 250ML.BAG IV ONE; -NOREPINEPHRINE 4 MG in SODIUM CHLORIDE 0.9% 250 ML IV ONE; -PAPAVERINE 360 MG in SODIUM CHLORIDE 0.9% 90 ML IV ONE; -PHENYLEPHRINE 40 MG in SODIUM CHLORIDE 0.9% 250 ML IV ONE; -PHENYLEPHRINE-0.9% NACL SYG 1 MG/10 ML SYRINGE IV ONE; -PROPOFOL 50 ML IV ONE; -PROTAMINE SULFATE 10 MG/ML 25 ML VIAL IV ONE; -PROTAMINE SULFATE 250 MG in EMPTY BAG 1 BAG IV ONE; -SODIUM BICARB 8.4% 50 ML SYR (1 MEQ/ML) IV ONE; -SODIUM CHLORIDE 0.9% 1,000 ML IV ONE; -ceFAZolin 2,000 MG in SODIUM CHLORIDE 0.9% 30 ML IVPB ONE; +diphenhydrAMINE 50 MG/ML 1 ML VIAL ONE; +fentaNYL (PF) 50 MCG/ML 2 ML AMP ONE
--- NOTE | 2016-11-26 11:56 | P.ARTDOP ---
Arterial Doppler LOWER EXTREMITY ARTERIAL DOPPLER: DATE OF SERVICE: 11/18/2016 Reason for study: Numbness in toes. Doppler waveforms: Multiphasic bilaterally throughout. Pulse volume recording: Normal configuration. Pressure gradients: None. Ankle-brachial indices: Greater than 1 bilaterally. Toe pressures: 81 on the right, 83 on the left Impression: Normal study.
== END ==
LOC: RADUSWWP 13:21
PROVIDERS: ATTEND Family Medicine
DX: I25.9 Chronic ischemic heart disease, unspecified (principal)
CPT/HCPCS: 93923

== ENCOUNTER → 2016-12-08 | Outpatient (CLI) | payer BC ==
--- NOTE | 2016-12-09 01:00 | BD ---
EXAMINATION TYPE: MG DEXA axial skeleton. DATE OF EXAM: 12/08/2016 8:52 AM COMPARISON: NONE CLINICAL HISTORY: 61-year-old female screening for osteoporosis Height: 64.5 IN Weight: 142 LBS FRAX RISK QUESTIONS: Alcohol (3 or more units per day): NO Family History (Parent hip fracture): NO Glucocorticoids (More than 3mos): NO (Ex: prednisone, prednisolone, methylprednisolone, dexamethasone, and hydrocortisone). History of Fracture in Adulthood: YES LT THUMB AGE 60 Secondary Osteoporosis: 1. Type 1 Diabetes: NO 2. Hyperthyroidism: NO 3. Menopause before 45: YES AGE 25 4. Malnutrition: NO 5. Chronic liver disease: NO Rheumatoid Arthritis: NO Current Tobacco Use: NO RISK FACTORS HISTORY OF: Other Fractures since Age 51: YES LT THUMB When: AGE 60 Active: YES Diet low in dairy products/other sources of calcium: YES Postmenopausal woman: AGE 25 Take estrogen and/or progesterone medications: NOT NOW How long: AGE 25 - 26 Frequent falls: YES CLUMSY Poor Health: YES MEDICATIONS: Additional Medications: CALCIUM, METOPROLOL TARTRATE, AMLODIPINE, ATORVASTATIN, SPIRONOLACTONE, ISOSO RBIDE, LISINOPRIL, ASPIRIN, CLOPIDOGREL, HYDRALAZINE, NITROSTAT, ADDERALL, NORCO, XANAX, RESTASIS Additional History: EXAM MEASUREMENTS: Bone mineral densitometry was performed using the [employer] System. Bone mineral density as measured about the Lumbar spine is: ----- L1-L4(G/cm2): 1.180 T Score Values are as follows: ----- L2: -1.0 ----- L3: 0.0 ----- L4: 1.0 ----- L1-L4: 0.0 Bone mineral density BASELINE Bone mineral density about the R hip (g/cm2): 0.729 Bone mineral density about the L hip (g/cm2): 0.680 T Score values are as follows: -----R Neck: -2.2 -----L Neck: -2.6 -----R Total: -1.6 -----L Total: -1.7 Bone mineral density BASELINE IMPRESSION: Osteoporosis as indicated by T score values within the left hip. There is increased fracture risk and therapy is usually indicated based on age. Re-Screen 1-2 years. NOTE: T-SCORE=SD OF THE YOUNG ADULT MEAN.
== END ==
LOC: RADBDWWP 08:50
PROVIDERS: ATTEND Family Medicine
DX: Z13.820 Encounter for screening for osteoporosis (principal); M81.0 Age-related osteoporosis without current pathological fracture
CPT/HCPCS: 77080

== ENCOUNTER → 2016-12-09 | Outpatient (CLI) | payer BC ==
--- NOTE | 2016-12-09 11:32 | XR ---
EXAMINATION TYPE: XR Hip Bilateral Complete DATE OF EXAM: 12/09/2016 11:26 AM COMPARISON: NONE HISTORY: Pain TECHNIQUE: 2 views submitted FINDINGS: There is no evidence of erosive change or acute fracture. Mild axial narrowing of the joint space bilaterally. IMPRESSION: 1. No evidence of acute fracture or dislocation. 2. Mild arthritic changes.
== END | disposition home or self-care (01) ==
LOC: RADXRMAIN 11:12
PROVIDERS: ATTEND Family Medicine
DX: M16.0 Bilateral primary osteoarthritis of hip (principal)
CPT/HCPCS: 73521

== ENCOUNTER → 2017-06-24 | Outpatient (CLI) | payer BC ==
--- NOTE | 2017-06-24 17:05 | US ---
EXAMINATION TYPE: US gallbladder DATE OF EXAM: 06/24/2017 COMPARISON: NONE CLINICAL HISTORY: K81.9 Cholecystitis. EXAM MEASUREMENTS: Liver Length: 11.3 cm Gallbladder Wall: 0.2 cm CBD: 0.4 cm Right Kidney: 9.9 x 3.9 x 4.4 cm Pancreas: visualized portions wnl Liver: wnl Gallbladder: No stones seen Evidence for sonographic Valentine's sign: No CBD: wnl Right Kidney: No hydronephrosis or masses seen IMPRESSION: Normal right upper quadrant abdominal sonogram. No gallstones or dilated ducts.
== END | disposition home or self-care (01) ==
LOC: RADUSMAIN 16:29
PROVIDERS: ATTEND Family Medicine
DX: K81.9 Cholecystitis, unspecified (principal)
CPT/HCPCS: 76705

== ENCOUNTER → 2017-09-10 | Outpatient (CLI) | payer BC ==
[2017-09-10 17:15] LABS: ALT 22 U/L (9-52); AST 21 U/L (14-36); Albumin 4.1 g/dL (3.5-5.0); Alkaline Phosphatase 79 U/L (38-126); Anion Gap 8 mmol/L; Blood Urea Nitrogen 12 mg/dL (7-17); Calcium 9.5 mg/dL (8.4-10.2); Carbon Dioxide 27 mmol/L (22-30); Chloride 105 mmol/L (98-107); Cholesterol 196 mg/dL (<200); Glucose 96 mg/dL (74-99); HDL Cholesterol 40 mg/dL (40-60); LDL Cholesterol,Calculated 118 mg/dL (0-99); Potassium 5.2 mmol/L (3.5-5.1); Sodium 140 mmol/L (137-145); Total Bilirubin 0.2 mg/dL (0.2-1.3); Total Protein 7.3 g/dL (6.3-8.2); Triglycerides 191 mg/dL (<150)
== END | disposition home or self-care (01) ==
LOC: LABWHC1 16:36
PROVIDERS: ATTEND Internal Medicine Clinical Cardiac Electrophysiology
DX: I25.10 Atherosclerotic heart disease of native coronary artery without angina pectoris (principal); I10 Essential (primary) hypertension; E78.5 Hyperlipidemia, unspecified; Z95.1 Presence of aortocoronary bypass graft
CPT/HCPCS: 36415; 80053; 80061

== ENCOUNTER → 2018-01-26 | Outpatient (CLI) | payer BC ==
--- NOTE | 2018-01-28 07:58 | MM ---
Reason for exam: screening (asymptomatic). Last mammogram was performed 14 years and 3 months ago. History: Patient is postmenopausal and history of other cancer. Family history of breast cancer in aunt. Took hormonal contraceptives for 1 year. Took estrogen for 1 year. Physical Findings: A clinical breast exam by your physician is recommended on an annual basis and results should be correlated with mammographic findings. MG Screening Mammo w CAD Bilateral CC and MLO view(s) were taken. XCCL view(s) were taken of the right breast. Prior study comparison: August 01, 2014, mammogram, performed at [facility]. January 03, 2011, mammogram, performed at [facility]. There are scattered fibroglandular densities. No suspicious abnormality. No significant changes when compared with prior studies. ASSESSMENT: Negative, BI-RAD 1 RECOMMENDATION: Routine screening mammogram of both breasts in 1 year.
== END | disposition home or self-care (01) ==
LOC: RADMAMWWP 07:42
PROVIDERS: ATTEND Family Medicine
DX: Z12.31 Encounter for screening mammogram for malignant neoplasm of breast (principal)
CPT/HCPCS: 77067

== ENCOUNTER → 2018-02-19 | Outpatient (CLI) | payer BC ==
[~2018-02-19] MED LIST changes: -CLOPIDOGREL 75 MG TAB ONE; -LIDOCAINE 2% INJ 20 MG/ML (20 ML MDV) ONE; -MIDAZOLAM 2 MG/2 ML VIAL ONE; +SODIUM CHLORIDE 0.9% 500 ML in EMPTY BAG 1 BAG IV PRN; +ZOLEDRONIC ACID 5 MG in SODIUM CHLORIDE 0.9% 100 ML IV ONE; -diphenhydrAMINE 50 MG/ML 1 ML VIAL ONE; -fentaNYL (PF) 50 MCG/ML 2 ML AMP ONE
[2018-02-19 09:23] VITALS: BP 109/55; PULSE 75; RESP 15; TEMP 97.7
[2018-02-19 11:06] LABS: T4, Free (Free Thyroxine) 0.99 ng/dL (0.78-2.19)
[2018-02-19 17:08] LABS: Hemoglobin A1C 5.4 % (4.0-6.0)
[2018-02-19 17:34] LABS: Rheumatoid Factor 9 IU/mL (0-15)
[2018-02-19 17:42] LABS: Vitamin D 25 Hydroxy 48.8 ng/mL (30.0-100.0)
== END | disposition home or self-care (01) ==
LOC: PROCWHC3 08:52
PROVIDERS: ATTEND Family Medicine
DX: M81.0 Age-related osteoporosis without current pathological fracture (principal); M79.7 Fibromyalgia; R51 Headache; M25.50 Pain in unspecified joint
CPT/HCPCS: 84439; 82747; 85652; 82533; 82607; 82550; 84443; 86431; 86618; 82306; 86038; 83036; 96365; J3489

== ENCOUNTER 2018-02-22 14:12 | Inpatient (IN) | payer BC ==
--- NOTE | 2018-02-22 14:37 | ED ---
Chest Pain HPI - General Chief Complaint: Chest Pain Stated Complaint: Chest Pain Time Seen by Provider: 02/22/18 14:14 Source: patient, EMS Mode of arrival: EMS Limitations: no limitations - History of Present Illness Initial Comments: 62-year-old female patient presents to the emergency department today for evaluation of chest and upper back pain. Patient states that for the last 3 days she has been experiencing a burning pain to her upper back and chest. Patient states that she has been short of breath and nauseous with this. Patient states that she didn't get off the couch Thursday and Thursday because she felt so bad. Patient states whenever she stood up she felt like she was going to pass out. Patient states that she did have an appointment with her primary care physician today, he did an EKG in the office and called an ambulance to send her here. She did receive nitro and aspirin in the ambulance and she is feeling better. Patient does have an extensive cardiac history including CABG, stent placement, and multiple heart catheterizations. Patient denies any recent rash, fever, chills, abdominal pain, diarrhea, constipation, back pain, numbness, tingling, hematuria, dysuria, urinary urgency, urinary frequency, headache, visual changes, or any other complaints. - Related Data Home Medications Medication Instructions Recorded Confirmed ALPRAZolam [Xanax] 1 mg PO TID 08/15/16 02/22/18 Aspirin EC [Ecotrin Low Dose] 162 mg PO DAILY 11/11/16 02/22/18 Dextroamphetamine/Amphetamine 10 mg PO TID 11/11/16 02/22/18 [Adderall] Dextroamphetamine/Amphetamine 20 mg PO TID 11/11/16 02/22/18 [Dextroamp-Amphetamin 20 mg Tab] Hydrocodone/Acetaminophen 1 tab PO BID 11/11/16 02/22/18 [Hydrocodone-Acetamin 10-325 mg] Isosorbide Mononitrate ER [Imdur] 30 mg PO DAILY 11/11/16 02/22/18 Clopidogrel [Plavix] 75 mg PO DAILY 02/19/18 02/22/18 Cyclobenzaprine [Flexeril] 10 mg PO BID 02/19/18 02/22/18 DULoxetine HCL [Cymbalta] 20 mg PO DAILY 02/19/18 02/22/18 Gabapentin [Neurontin] 100 mg PO TID 02/19/18 02/22/18 hydrALAZINE HCL [Apresoline] 25 mg PO TID 02/19/18 02/22/18 traZODone HCL 50 mg PO HS 02/19/18 02/22/18 Furosemide [Lasix] 20 mg PO DAILY PRN 02/22/18 02/22/18 Metoprolol Tartrate [Lopressor] 75 mg PO BID 02/22/18 02/22/18 amLODIPine [Norvasc] 2.5 mg PO DAILY 02/22/18 02/22/18 Previous Rx's Medication Instructions Recorded Lisinopril [Zestril] 5 mg PO DAILY #30 tab 08/25/16 Spironolactone [Aldactone] 25 mg PO DAILY #30 tab 08/25/16 Atorvastatin [Lipitor] 40 mg PO DAILY #30 tab 11/12/16 Nitroglycerin Sl Tabs [Nitrostat] 0.4 mg SUBLINGUAL Q5M PRN #25 tab 11/14/16 Allergies Allergy/AdvReac Type Severity Reaction Status Date / Time oxycodone [From Percocet] AdvReac Confusion Verified 02/22/18 14:31 sulfamethoxazole AdvReac Hallucinati Verified 02/22/18 14:31 [From Bactrim] ons trimethoprim [From Bactrim] AdvReac Hallucinati Verified 02/22/18 14:31 ons Review of Systems ROS Statement: Those systems with pertinent positive or pertinent negative responses have been documented in the HPI. ROS Other: All systems not noted in ROS Statement are negative. EKG Findings - EKG Comments: EKG Findings:: EKG obtained at 1418 shows sinus rhythm with premature atrial complexes with aberrant conduction. Ventricular rate is 99, SD interval 184, QRS duration 106, QT 366, QTc 469. No evidence of ST elevation or depression. Past Medical History Past Medical History: Chest Pain / Angina, Fibromyalgia, GERD/Reflux, Hyperlipidemia, Hypertension, Musculoskeletal Disorder, Osteoarthritis (OA), Vascular Disorder Additional Past Medical History / Comment(s): recent EKG abnormal per pt. & echo , herniated discs in neck & lower back, tingling lower legs-"they fall asleep," L lower lwt numbness and pain and very sensitive to touch since CABG-L foot was discolored and swollen and had blistering-all but 1 blister has healed, arthritis down spine and bilateral hips, PAD, migraines, palpitations and presyncopy in past, urine urgency. History of Any Multi-Drug Resistant Organisms: None Reported Past Surgical History: Breast Surgery, Coronary Bypass/CABG, Heart Catheterization, Hysterectomy, Orthopedic Surgery Additional Past Surgical History / Comment(s): cardiac cath, 08/20/16 CABG-4 vessel with coronary artery endartectomy, repair hole, excision L atrial appendage and ANDREA, R foot surg., EGD/colonoscopy. Past Anesthesia/Blood Transfusion Reactions: Previous Problems w/ Anesthesia Additional Past Anesthesia/Blood Transfusion Reaction / Comment(s): Slow to wake up. Pt has received blood without reaction. Past Psychological History: ADD/ADHD, Anxiety, Depression Smoking Status: Former smoker Past Alcohol Use History: None Reported Past Drug Use History: None Reported - Past Family History Mother Family Medical History: Diabetes Mellitus Father History Unknown: Yes General Exam Limitations: no limitations Course Vital Signs 02/22/18 14:25 Temperature 98 F Pulse Rate 89 Respiratory 18 Rate Blood Pressure 114/58 O2 Sat by Pulse 100 Oximetry Chest Pain MDM - MDM 62-year-old female patient presents to the emergency department today for complaints of chest pain and upper back pain for the last 2-3 days. Physical examination is unremarkable. Initial lab and EKG evaluation unremarkable, however given patient's history do feel it prudent to admit to observation to monitor her labs and consult cardiology. My attending Dr. Esqueda did discuss the case with Dr. Espino, she accepts admission. Requests Echo and Lovenox. RADIOLOGY: No acute abnormalities noted on 2 view chest xray. Disposition Clinical Impression: Chest pain Disposition: ADMITTED IP TO THIS [facility] Condition: Serious Referrals: Dennis Shrestha DO [Primary Care Provider] - 1-2 days Decision to Admit Reason: Admit from EC Decision Date: 02/22/18 Decision Time: 16:20
--- NOTE | 2018-02-22 15:02 | XR ---
EXAMINATION TYPE: XR chest 2V DATE OF EXAM: 02/22/2018 COMPARISON: 11/11/2016 TECHNIQUE: PA and lateral views submitted. HISTORY: Chest pain FINDINGS: The lungs are clear and there is no pneumothorax, pleural effusion, or focal pneumonia. Prominence of the left hilum is stable dating back to 2017. There is evidence of previous surgery. No overt fail ure. Heart size stable. Hypertrophic and degenerative change of the spine. IMPRESSION: 1. No acute process. Stable persistent prominence of the left hilum unchanged from 2017.
[2018-02-22 15:06] LABS: Albumin 4.1 g/dL (3.5-5.0); Calcium 8.6 mg/dL (8.4-10.2); Magnesium 2.2 mg/dL (1.6-2.3); Partial Thromboplastin Time 24.3 sec (22.0-30.0); Total Bilirubin 0.4 mg/dL (0.2-1.3)
[2018-02-22 15:08] LABS: Basophils % (A) 1 %; Eosinophils # (A) 0.1 k/uL (0-0.7); Eosinophils % (A) 2 %; HCT 36.6 % (34.0-46.0); HGB 12.1 gm/dL (11.4-16.0); Lymphocytes # (A) 1.1 k/uL (1.0-4.8); Lymphocytes % (A) 17 %; MCH 29.6 pg (25.0-35.0); MCHC 33.2 g/dL (31.0-37.0); MCV 89.3 fL (80.0-100.0); Mean Platelet Volume 7.2; Monocytes # (A) 0.6 k/uL (0-1.0); Monocytes % (A) 9 %; Neutrophils # (A) 4.1 k/uL (1.3-7.7); Neutrophils % (A) 67 %; Platelet Count 246 k/uL (150-450); RDW 14.1 % (11.5-15.5); WBC 6.1 k/uL (3.8-10.6)
[2018-02-22 15:18] LABS: Creatine Kinase 36 U/L (30-135)
[2018-02-22 15:32] LABS: Creatine Kinase MB 0.7 ng/mL (0.0-2.4); Troponin I <0.012 ng/mL (0.000-0.034)
[2018-02-22] MEDS ORDERED: NITROGLYCERIN SL TABS 0.4 MG TAB SUBLINGUAL PRN (16:12)
[2018-02-22] MEDS ORDERED: FUROSEMIDE 20 MG TAB PO PRN (16:15)
[2018-02-22] MEDS: ALPRAZolam 1 MG TAB PO SCH (18:50)
[2018-02-22] MEDS: HYDROcodone/APAP 10-325MG 1 EACH TAB PO SCH (20:16)
[2018-02-22 21:24] LABS: Creatine Kinase 39 U/L (30-135)
[2018-02-22 21:37] LABS: Creatine Kinase MB 0.8 ng/mL (0.0-2.4); Troponin I <0.012 ng/mL (0.000-0.034)
[2018-02-23] MEDS: traZODone HCL 50 MG TAB PO SCH ×2 (01:16→22:06)
[2018-02-23] MEDS: METOPROLOL TARTRATE 25 MG TAB PO SCH ×3 (01:16→22:08)
[2018-02-23] MEDS: CYCLOBENZAPRINE 10 MG TAB PO SCH ×3 (01:16→22:06)
[2018-02-23] MEDS: AMPHETAMINE PO SCH ×4 (01:17→22:07)
[2018-02-23] MEDS: NON-FORMULARY DRUG (Dextroamphetamine/Amphetamine [Adderall] 10 MG) PO SCH ×4 (01:17→22:07)
[2018-02-23] MEDS: GABAPENTIN 100 MG CAP PO SCH ×4 (01:17→22:07)
[2018-02-23] MEDS: [UNRECOGNIZED DRUG - OTHER] PO SCH ×4 (01:17→22:07)
[2018-02-23] MEDS: hydrALAZINE HCL 25 MG TAB PO SCH ×4 (01:17→22:09)
[2018-02-23] MEDS: DEXTROAMPHETAMINE PO SCH ×4 (01:17→22:07)
[2018-02-23 01:35] LABS: Cholesterol 208 mg/dL (<200); HDL Cholesterol 42 mg/dL (40-60); LDL Cholesterol,Calculated 137 mg/dL (0-99); Triglycerides 144 mg/dL (<150)
[2018-02-23 03:04] LABS: Creatine Kinase 36 U/L (30-135)
[2018-02-23 03:17] LABS: Creatine Kinase MB 0.8 ng/mL (0.0-2.4); Troponin I <0.012 ng/mL (0.000-0.034)
[2018-02-23] MEDS ORDERED: REGADENOSON 0.4 MG/5 ML SYRINGE IV ONE (08:53)
[2018-02-23] MEDS ORDERED: AMINOPHYLLINE 500 MG/20 ML VIAL IV PRN (08:53)
[2018-02-23] MEDS ORDERED: ISOSORBIDE MONONITRATE ER 30 MG TAB.ER.24H PO SCH (09:00)
[2018-02-23] MEDS ORDERED: SPIRONOLACTONE 25 MG TAB PO SCH (09:00)
[2018-02-23] MEDS ORDERED: ATORVASTATIN 40 MG TAB PO SCH (09:00)
[2018-02-23] MEDS ORDERED: LISINOPRIL 5 MG TAB PO SCH (09:00)
--- NOTE | 2018-02-23 09:44 | CONS ---
THONY Mortensen is a 62-year-old lady with history of coronary artery disease, status post CABG with SMILEY to LAD, venous graft to diagonal, OM and distal RCA, who subsequently has had cardiac catheterization and angioplasty. She also has a history of mitral valve repair with annuloplasty, comes into hospital after receiving an injection for osteoporosis, has had some itching, felt unwell, a little dizzy and yesterday had an episode of chest discomfort. It was mild in intensity, primarily in the interscapular area. She also had some discomfort in the left arm. Due to this she came to hospital and got admitted with a diagnosis of unstable angina. Since being admitted to the hospital, she remained chest pain-free, has had 2 cardiac enzymes that are both within normal limits. The patient had a cardiac catheterization in October of 2016 that revealed an atrophic SMILEY to LAD. Hence she went on to have stenting of proximal and mid LAD with drug- eluting stent. She apparently had a stress test subsequently. I do not have the results, but she was told this stress test appears normal. On this admission, the EKG showed sinus rhythm with PVCs, evidence of prior inferior wall UT and nonspecific ST-T wave changes. PAST MEDICAL HISTORY: Significant for coronary artery disease, status post CABG, hypertension, dyslipidemia. MEDICATIONS: Medications include hydralazine 25 t.i.d., Aldactone 25 mg daily, Lopressor 75 b.i.d., Zestril 5 mg daily, Imdur 30 mg daily, Neurontin, Lasix, Adderall 10 mg t.i.d., Cymbalta, Flexeril, Plavix, Lipitor 40 mg daily, aspirin and Xanax. ALLERGIES: The patient is allergic to PERCOCET, BACTRIM. FAMILY HISTORY: Family history is negative for premature coronary artery disease. SOCIAL HISTORY: She quit smoking around the time of her bypass surgery. There is no history of EtOH abuse or drug abuse. REVIEW OF SYSTEMS: HEENT is unremarkable. CARDIAC: As described above. RESPIRATORY: Negative. GI: Negative. GENITOURINARY: Negative. ALLERGY/IMMUNOLOGY: Significant for possible allergic reaction to medication she received. PSYCHOSOCIAL: Negative. DERM: Negative. CONSTITUTIONAL: Negative. ONCOLOGICAL: Negative. Rest of the system review is not relevant. PHYSICAL EXAMINATION: On exam, comfortable at rest. Afebrile. Heart rate is 80 beats per minute. Blood pressure is 111/73. Respiratory rate is 18. O2 sat is 100%. There is no jugular venous distention. Carotid upstroke is normal. There is no bruit. Chest exam reveals good air entry bilaterally. Heart exam reveals first and second heart sounds. No gallop. No murmur. No rub. Abdomen is soft, nontender. Examination of extremities did not reveal any edema. Peripheral pulses are felt. NETEZZA ARCHITECT exam did not reveal focal neurological deficits. LABS: Labs show a hemoglobin of 12, platelet count is 246. Potassium is 4. Creatinine is 0.9. Three sets of troponins are negative. LDL cholesterol is elevated at 137. ASSESSMENT: 1. Precordial chest pain, rule out ischemia. 2. Coronary artery disease, status post coronary artery bypass grafting. 3. Hypertension. 4. Dyslipidemia. PLAN: Patient will undergo an echocardiogram and Lexiscan today. If this is abnormal, she will undergo cardiac catheterization by me. MMJANN / BOBBYN: [id number] /
--- NOTE | 2018-02-23 10:27 | ECHOF ---
Referral Reason:Chest Pain MEASUREMENTS -------- HEIGHT: 165.1 cm WEIGHT: 68.0 kg BP: 95/58 IVSd: 1.5 cm (0.6 - 1.1) LVIDd: 3.2 cm (3.9 - 5.3) LVPWd: 1.8 cm (0.6 - 1.1) IVSs: 1.4 cm LVIDs: 3.1 cm LVPWs: 1.6 cm Ao Diam: 2.6 cm (2.0 - 3.7) AV Cusp: 1.5 cm (1.5 - 2.6) LA Diam: 4.2 cm (2.7 - 3.8) MV E Anupam: 1.21 m/s MV DecT: 251 ms MV A Anupam: 0.97 m/s MV E/A Ratio: 1.26 RAP: 5.00 mmHg RVSP: 17.18 mmHg FINDINGS -------- Sinus rhythm. This was a technically adequate study. The left ventricular size is normal. There is moderate concentric left ventricular hypertrophy. O verall left ventricular systolic function is mild-moderately impaired with, an EF between 40 - 45 %. Inferior Hypokinesis Basal septal hypokinesis The right ventricle is normal in size. The left atrium is mildly dilated. The right atrial size is normal. The aortic valve is trileaflet, and appears structurally normal. No aortic stenosis or regurgitation. The peak and mean MV gradients are 8.39mmHg 3.08mmHg as measured by doppler. There is mild regurgit ation of the bioprosthetic mitral valve. Mild tricuspid regurgitation present. There is no evidence of pulmonary hypertension. The right v entricular systolic pressure, as measured by Doppler, is 17.18mmHg. Trace/mild (physiologic) pulmonic regurgitation. The aortic root size is normal. There is no pericardial effusion. CONCLUSIONS -------- 1. The left ventricular size is normal. 2. There is moderate concentric left ventricular hypertrophy. 3. Overall left ventricular systolic function is mild-moderately impaired with, an EF between 40 - 45 %. 4. Inferior Hypokinesis 5. Basal septal hypokinesis 6. The right ventricle is normal in size. 7. The left atrium is mildly dilated. 8. The right atrial size is normal. 9. The aortic valve is trileaflet, and appears structurally normal. No aortic stenosis or regurgitati on. 10. The peak and mean MV gradients are 8.39mmHg 3.08mmHg as measured by doppler. 11. There is mild regurgitation of the bioprosthetic mitral valve. 12. Mild tricuspid regurgitation present. 13. There is no evidence of pulmonary hypertension. 14. The right ventricular systolic pressure, as measured by Doppler, is 17.18mmHg. 15. Trace/mild (physiologic) pulmonic regurgitation. 16. The aortic root size is normal. 17. There is no pericardial effusion. CURING FINISHER: Yumiko Gamino RDCS
[2018-02-23] MEDS: HYDROcodone/APAP 10-325MG 1 EACH TAB PO SCH ×2 (11:26→22:05)
--- NOTE | 2018-02-23 11:27 | NM ---
EXAMINATION TYPE: NM stress lexiscan cardiolite DATE OF EXAM: 02/23/2018 COMPARISON: 11/12/2016 HISTORY: Chest pain TECHNIQUE: After the intravenous administration of 10.35 mCi Tc 99m Sestamibi - Cardiolite resting S PECT images acquired 45 minutes post injection. The patient received 0.4mg Lexiscan, 25.8 mCi Tc 99m Sestamibi - Stress images obtained [address] injection FINDINGS: Review of stress and rest SPECT images demonstrates defect involving the apical and apical lateral po rtion of the myocardium. This extends along the anterior wall as previously noted.. Gated analysis s hows reduced wall motion with an estimated left ventricular ejection fraction of 38 %. IMPRESSION: 1. Abnormal ejection fraction of only 38%. Persistent areas of abnormal uptake involving the anterior , apical and lateral wall the myocardium suggestive of previous infarct. There is a suggestion of an area of stress-induced reversibility involving the apical and apical anterior portions of the myocard ium. Correlate clinically.
[2018-02-23] MEDS: ASPIRIN 325 MG TAB PO SCH (11:28)
[2018-02-23] MEDS: CLOPIDOGREL 75 MG TAB PO SCH (11:28)
[2018-02-23] MEDS: ALPRAZolam 1 MG TAB PO SCH ×3 (11:28→22:05)
[2018-02-23] MEDS: amLODIPine 2.5 MG TAB PO SCH (11:28)
[2018-02-23] MEDS: DULoxetine HCL 20 MG CAPSULE.DR PO SCH (11:29)
--- NOTE | 2018-02-23 11:29 | EST ---
EXERCISE STRESS DATE OF SERVICE: 02/23/2018 AGE: 62 SEX: Female HT: 65" WT: 150 pounds PROTOCOL: Lexiscan Cardiolite STAGE: DURATION OF EXERCISE: HEART RATE REST: 77 BLOOD PRESSURE REST: 118/62 MAXIMUM HEART RATE ACHIEVED: 90 MAXIMUM BLOOD PRESSURE: 133/61 85% MPHR: 135 100% MPHR: 159 METS: INDICATIONS: Chest pain. CLINICAL INFORMATION: Baseline EKG shows sinus rhythm, normal axis, normal intervals. Patient was given intravenous Lexiscan as per protocol. Did not have chest pain or diagnostic ST-segment depression. CONCLUSIONS: 1. Negative stress test by EKG criteria. 2. Cardiolite portion of the stress test will be reported separately. MMODL / IJN: [id number] /
[2018-02-23] MEDS ORDERED: SODIUM CHLORIDE 0.9% 1,000 ML in EMPTY BAG 1 BAG IV ONE (13:59)
--- NOTE | 2018-02-23 14:02 | P.PN ---
Progress Note - Text Lexiscan stress test was reported with persistent areas of abnormal uptake along the anterior, apical and lateral romero the myocardium suggestive of previous infarct. There is a suggestion of an area of stress-induced reversibility involving the apical and apical anterior portions of the myocardium. We recommended she move forward with cardiac catheterization to further investigate. This has been explained in detail to the patient. I have discussed the risks, benefits and alternative therapies for the above-mentioned procedure and for both sedation/analgesia as well as necessary blood product administration, if indicated, as they pertain to this patient. The patient has indicated understanding and acceptance of the risks and procedures discussed. Questions have been answered appropriate and she is agreeable to move forward with the above-stated procedure. This case is boarded for tomorrow morning with Dr. Geiger.
--- NOTE | 2018-02-23 15:09 | P.HPIM ---
History of Present Illness H&P Date: 02/23/18 This is a 62-year-old female patient of Dr. Shrestha with past medical history of quadruple CABG with mitral valve repair, patent foramen ovale repair in July 2016 followed by heart catheterization in October 2016 finding 99% stenosis of the proximal LAD, 70% lesion in the mid LAD with competent flow into the distal LAD from the vein graft. Mild disease in the OM branch of circumflex and patent graft to the OM. Total occlusion of the PDA and distal RCA. Patent vein graft to the distal RCA filling mainly PLV branch status post stenting of the proximal and mid LAD by Dr. Pimentel. History of hypertension, hyperlipidemia, TIA and chronic low back pain. Patient states that she has chest pain shortness of breath on and off forever. On Thursday she had a re-classed injection done and she has not felt very well ever since. She had an upgoing home and laid on the couch and her chest pain became worse and radiated to the back with left arm heaviness as well. She had an appointment on Thursday and waited to go see Dr. Shrestha yesterday. He did an EKG in the office and then sent her to [facility] emergency center by EMS for further evaluation. Troponins have been negative on 3 draws. Triglycerides 144, cholesterol 208, LDL 137, HDL 42. Patient has been evaluated by Dr. Geiger and a stress test was ordered that came back positive. She is scheduled for cardiac cath tomorrow. Echocardiogram revealed moderate concentric left ventricular hypertrophy, EF 40-45%, mild regurgitation of a bioprosthetic mitral valve, mild tricuspid regurgitation, no pulmonary hypertension. She also gives history of chronic neck pain for which she has received cortisone injection by Dr. Shrestha and Dr. Jain. Her last one was done 3 weeks ago and she does not wish to go any further with these as her blood sugars have been elevated and she is a strong history of diabetes in her family. Review of Systems All systems: negative Constitutional: Denies chills, Denies fever Eyes: denies blurred vision, denies pain Ears, nose, mouth and throat: Denies headache, Denies sore throat Cardiovascular: Reports chest pain, Reports shortness of breath, Denies lightheadedness, Denies syncope Respiratory: Denies cough, Denies cough with sputum, Denies dyspnea, Denies excessive sputum, Denies wheezing Gastrointestinal: Denies abdominal pain, Denies diarrhea, Denies nausea, Denies vomiting Genitourinary: Denies dysuria, Denies hematuria Musculoskeletal: Denies myalgias Integumentary: Denies pruritus, Denies rash Neurological: Denies numbness, Denies weakness Psychiatric: Denies anxiety, Denies depression Endocrine: Denies fatigue, Denies weight change Past Medical History Past Medical History: Chest Pain / Angina, Fibromyalgia, GERD/Reflux, Hyperlipidemia, Hypertension, Musculoskeletal Disorder, Osteoarthritis (OA), Vascular Disorder Additional Past Medical History / Comment(s): recent EKG abnormal per pt. & echo , "herniated discs in neck & lower back" and "bulginh disc in neck", tingling lower legs-"they fall asleep," L lower ext numbness and pain and very sensitive to touch since CABG-(L foot was discolored and swollen and had blistering-all healed), arthritis down spine and bilateral hips, PAD, migraines, palpitations and presyncopy in past, urine urgency.brochitis. History of Any Multi-Drug Resistant Organisms: None Reported Past Surgical History: Breast Surgery, Coronary Bypass/CABG, Heart Catheterization, Heart Catheterization With Stent, Hysterectomy, Orthopedic Surgery Additional Past Surgical History / Comment(s): 2 cardaic stents, 08/20/16 CABG-4 vessel with coronary artery endartectomy, repair hole, excision L atrial appendage and ANDREA, R foot surg., EGD/colonoscopy. Past Anesthesia/Blood Transfusion Reactions: Previous Problems w/ Anesthesia Additional Past Anesthesia/Blood Transfusion Reaction / Comment(s): Slow to wake up. Pt has received blood without reaction. Date of Last Stent Placement:: unk Smoking Status: Former smoker Additional Past Alcohol Use History / Comment(s): Patient was a smoker of less than one pack per day since she was 17 years of age and quit in July 2016 when she had her open heart surgery. She denies any alcohol use. - Past Family History Mother Family Medical History: Diabetes Mellitus Additional Family Medical History / Comment(s): Mother has history of diabetes. Patient does not know any of her father's history. Father History Unknown: Yes Brother(s) Additional Family Medical History / Comment(s): Patient has 4 brothers with high cholesterol. Patient does not have any sisters. Patient has 2 sons with no major medical problems. Medications and Allergies Home Medications Medication Instructions Recorded Confirmed Type ALPRAZolam [Xanax] 1 mg PO TID 08/15/16 02/22/18 History Lisinopril [Zestril] 5 mg PO DAILY #30 tab 08/25/16 02/22/18 Rx Spironolactone [Aldactone] 25 mg PO DAILY #30 tab 08/25/16 02/22/18 Rx Aspirin EC [Ecotrin Low Dose] 162 mg PO DAILY 11/11/16 02/22/18 History Dextroamphetamine/Amphetamine 10 mg PO TID 11/11/16 02/22/18 History [Adderall] Dextroamphetamine/Amphetamine 20 mg PO TID 11/11/16 02/22/18 History [Dextroamp-Amphetamin 20 mg Tab] Hydrocodone/Acetaminophen 1 tab PO BID 11/11/16 02/22/18 History [Hydrocodone-Acetamin 10-325 mg] Isosorbide Mononitrate ER [Imdur] 30 mg PO DAILY 11/11/16 02/22/18 History Atorvastatin [Lipitor] 40 mg PO DAILY #30 tab 11/12/16 02/22/18 Rx Nitroglycerin Sl Tabs [Nitrostat] 0.4 mg SUBLINGUAL Q5M PRN #25 tab 11/14/16 Rx Clopidogrel [Plavix] 75 mg PO DAILY 02/19/18 02/22/18 History Cyclobenzaprine [Flexeril] 10 mg PO BID 02/19/18 02/22/18 History DULoxetine HCL [Cymbalta] 20 mg PO DAILY 02/19/18 02/22/18 History Gabapentin [Neurontin] 100 mg PO TID 02/19/18 02/22/18 History hydrALAZINE HCL [Apresoline] 25 mg PO TID 02/19/18 02/22/18 History traZODone HCL 50 mg PO HS 02/19/18 02/22/18 History Furosemide [Lasix] 20 mg PO DAILY PRN 02/22/18 02/22/18 History Metoprolol Tartrate [Lopressor] 75 mg PO BID 02/22/18 02/22/18 History amLODIPine [Norvasc] 2.5 mg PO DAILY 02/22/18 02/22/18 History Allergies Allergy/AdvReac Type Severity Reaction Status Date / Time oxycodone [From Percocet] AdvReac Confusion Verified 02/22/18 14:31 sulfamethoxazole AdvReac Hallucinati Verified 02/22/18 14:31 [From Bactrim] ons trimethoprim [From Bactrim] AdvReac Hallucinati Verified 02/22/18 14:31 ons Physical Exam Vitals: Vital Signs Temp Pulse Pulse Resp BP BP BP 02/23/18 12:00 98.4 F 55 L 18 101/52 02/23/18 08:00 18 02/23/18 07:10 98.3 F 83 18 111/73 02/23/18 04:00 16 02/23/18 03:23 97.5 F L 75 16 87/54 02/23/18 00:00 75 16 02/22/18 23:47 97.3 F L 83 16 95/58 02/22/18 20:00 16 02/22/18 18:54 89.2 F L 78 16 98/61 02/22/18 18:35 02/22/18 18:13 18 02/22/18 17:40 98.3 F 85 18 134/74 02/22/18 17:18 98 F 80 16 129/80 02/22/18 14:25 98 F 89 18 114/58 Pulse Ox 02/23/18 12:00 95 02/23/18 08:00 02/23/18 07:10 100 02/23/18 04:00 02/23/18 03:23 100 02/23/18 00:00 02/22/18 23:47 99 02/22/18 20:00 02/22/18 18:54 97 02/22/18 18:35 98 02/22/18 18:13 02/22/18 17:40 100 02/22/18 17:18 99 02/22/18 14:25 100 Intake and Output 02/22/18 02/23/18 02/23/18 22:59 06:59 14:59 Intake Total 200 Balance 200 Intake: Oral 200 Other: Voiding Method Toilet Toilet Toilet # Voids 1 Weight 68.2 kg 68.039 kg Gen: This is a 62-year-old female. She is resting in bed appears to be comfortable. No acute distress is noted. HEENT: Head is atraumatic, normocephalic. Pupils equal, round. Sclerae is anicteric. NECK: Supple. No JVD. No lymphadenopathy. No thyromegaly. LUNGS: Clear to auscultation. No wheezes or rhonchi. No intercostal retractions. HEART: Regular rate and rhythm. Systolic murmur. ABDOMEN: Soft. Bowel sounds are present. No masses. No tenderness. EXTREMITIES: No pedal edema. No calf tenderness. NEUROLOGICAL: Patient is awake, alert and oriented x3. Cranial nerves 2 through 12 are grossly intact. Results CBC & Chem 7: 02/22/18 14:46 02/22/18 14:46 Labs: Abnormal Lab Results - Last 24 Hours (Table) 02/22/18 02/22/18 Range/Units 14:46 14:46 Sodium 136 L (137-145) mmol/L Carbon Dioxide 21 L (22-30) mmol/L Glucose 118 H (74-99) mg/dL Cholesterol 208 H (<200) mg/dL LDL Cholesterol, Calc 137 H (0-99) mg/dL Thrombosis Risk Factor Assmnt - DVT/VTE Prophylaxis DVT/VTE Prophylaxis: Pharmacologic Prophylaxis ordered - Choose All That Apply Each Risk Factor Represents 2 Points: Age 61-74 years Thrombosis Risk Factor Assessment Total Risk Factor Score: 2 Thrombosis Risk Factor Assessment Level: Low Risk Assessment and Plan Plan: 1 unstable angina: With known coronary artery disease post recent bypass surgery , audiology consult is appreciated. Patient is scheduled for heart catheterization tomorrow. Continue aspirin 325 mg daily, Lipitor increased to 80 mg daily, Plavix 75 mg daily, Lopressor 75 mg twice daily, Imdur 30 mg daily. 2 history of coronary artery disease status post quadruple coronary artery bypass grafting with mitral valve repair and left atrial appendage patent morelos ovale repair in July 2016 followed by stenting of the mid and proximal LAD. Continue as above. 3 hypertension: Remain on Lopressor 75 mg twice a day along with Zestril 5 mg daily, Norvasc 2.5 mg daily, hydralazine 25 mg 3 times daily. 4 hyperlipidemia: Has been on atorvastatin increased to 80 mg a day. 5 chronic edema: Remain on Lasix and spironolactone. 6 mitral valve disease: Post mitral valve repair has been doing well. 7 history of ADD: Medication on hold. 8 hyperglycemia: On diet control. Hemoglobin A1c is 5.4. 9 GI prophylaxis: Patient will be on Pepcid 20 mg daily. 10 DVT prophylaxis: On Lovenox. CODE STATUS: Full code. Patient as observation status. Discharge plan: Home Impression and plan of care have been directed as dictated by the signing physician. Christiane Garza nurse practitioner acting as scribe for signing physician.
[2018-02-23] MEDS ORDERED: ONDANSETRON 4 MG/2 ML VIAL IVP PRN (15:38)
[2018-02-23] MEDS: PANTOPRAZOLE 40 MG TABLET PO SCH (18:32)
[2018-02-23] MEDS ORDERED: ENOXAPARIN 60 MG/0.6 ML SYRINGE SQ SCH (21:00)
[2018-02-24 00:03] VITALS: TEMP 97.5
[2018-02-24] MEDS: PANTOPRAZOLE 40 MG TABLET PO SCH (06:50)
[2018-02-24] MEDS: ALPRAZolam 1 MG TAB PO SCH (06:51)
[2018-02-24] MEDS: CLOPIDOGREL 75 MG TAB PO SCH (06:51)
[2018-02-24] MEDS: DULoxetine HCL 20 MG CAPSULE.DR PO SCH (06:52)
[2018-02-24] MEDS: amLODIPine 2.5 MG TAB PO SCH (06:52)
[2018-02-24] MEDS: ASPIRIN 325 MG TAB PO SCH (06:52)
[2018-02-24] MEDS ORDERED: ATORVASTATIN 80 MG TAB PO SCH (09:00)
[2018-02-24] MEDS ORDERED: IV FLUID CONTINUATION 950 ML IV ONE (09:12)
[2018-02-24] MEDS ORDERED: MIDAZOLAM 2 MG/2 ML VIAL IV ONE (09:22)
[2018-02-24] MEDS ORDERED: LIDOCAINE 1% INJ 10MG/ML (20 ML MDV) SQ ONE (09:26)
[2018-02-24] MEDS ORDERED: IOPAMIDOL-370 125ML BTL INJ ONE (09:49)
[2018-02-24] MEDS ORDERED: IOPAMIDOL-370 100ML BTL INJ ONE ×2 (09:54→10:17)
[2018-02-24] MEDS ORDERED: NITROGLYCERIN 1000MCG/10ML SYRINGE INTRACORON ONE (10:15)
[2018-02-24] MEDS ORDERED: RX INFO: IV CONTRAST WAS GIVEN 1 EACH MISC MISCELLANE PRN (10:18)
[2018-02-24 10:36] VITALS: RESP 16
--- NOTE | 2018-02-24 12:03 | CC ---
CARDIAC CATHETERIZATION REPORT INDICATION: Chest pain with abnormal stress test showing ischemia in LAD distribution. The patient has known coronary artery disease, status post CABG with SMILEY to LAD, venous graft to right coronary artery, diagonal, OM. Last year she came in with chest pain and had abnormal stress test and catheterization at that time showed SMILEY and she had angioplasty of the LAD. The patient has been explained the risks, benefits and alternatives understood and accepted. PROCEDURE NOTE: After obtaining informed consent, left heart catheterization, coronary angiogram, selective injection of the bypass grafts is performed via the right femoral artery using standard Catarino catheters. The patient tolerated the procedure well without any obvious immediate complications. FINDINGS: 1. HEMODYNAMICS: Left ventricular end-diastolic pressure is 12 to 14 mm. There is no significant gradient across aortic valve. 2. LEFT VENTRICULOGRAM: Left ventriculogram is not performed. 3. ANGIOGRAPHIC DATA: [place] CORONARIES: Left main coronary artery appears calcified but is free of significant stenosis. Divides into left anterior descending coronary artery and circumflex coronary artery. Circumflex coronary artery shows competitive flow into the OM branch from the from the venous graft. LAD: The previously stented segment in the midportion initially appeared stenosed, but on subsequent injections seemed to be open with a good flow into the venous graft. We went back and injected the left coronary system with intracoronary nitro and the LAD appeared widely patent. This is suggestive of vasospasm Right coronary artery appears chronically occluded in its midportion. SELECTIVE INJECTION OF THE BYPASS GRAFTS: SMILEY was atretic on a previous cath. I did not attempt to engage at this time. Venous graft to diagonal appears patent. Proximal and distal anastomotic sites are patent. The [place] coronary is patent. Venous graft to the OM branch appears patent. Venous graft to the right coronary artery is occluded. CONCLUSION: [place] 3-vessel coronary artery disease with LIMA to LAD, occluded venous graft to the right coronary artery with patent stent within the mid LAD. Patient's chest discomfort seems to be related to vasospasm. PLAN: I am going to increase the dose of Imdur from 30 to 60 mg. Patient received moderate conscious sedation for this study. Total sedation time was 26 minutes. MMODL / IJN: [id number] /
[2018-02-24 12:39] VITALS: BP 103/51; PULSE 71
--- NOTE | 2018-02-25 08:16 | P.DS ---
Providers Date of admission: 02/23/18 15:25 Expected date of discharge: 02/24/18 Attending physician: Beth Espino Consults: 02/22/18 16:13 Consult Physician Urgent Consulting Provider: [facility] Consult Reason/Comments: Chest Pain Do you want consulting provider notified?: Yes Primary care physician: Dennis Shrestha [facility] Course: This is a 62-year-old female patient of Dr. Shrestha with past medical history of quadruple CABG with mitral valve repair, patent foramen ovale repair in July 2016 followed by heart catheterization in October 2016 finding 99% stenosis of the proximal LAD, 70% lesion in the mid LAD with competent flow into the distal LAD from the vein graft. Mild disease in the OM branch of circumflex and patent graft to the OM. Total occlusion of the PDA and distal RCA. Patent vein graft to the distal RCA filling mainly PLV branch status post stenting of the proximal and mid LAD by Dr. Pimentel. History of hypertension, hyperlipidemia, TIA and chronic low back pain. Patient states that she has chest pain shortness of breath on and off forever. On Thursday she had a re-classed injection done and she has not felt very well ever since. She had an upgoing home and laid on the couch and her chest pain became worse and radiated to the back with left arm heaviness as well. She had an appointment on Thursday and waited to go see Dr. Shrestha yesterday. He did an EKG in the office and then sent her to [facility] emergency center by EMS for further evaluation. Troponins have been negative on 3 draws. Triglycerides 144, cholesterol 208, LDL 137, HDL 42. Patient has been evaluated by Dr. Geiger and a stress test was ordered that came back positive. She is scheduled for cardiac cath tomorrow. Echocardiogram revealed moderate concentric left ventricular hypertrophy, EF 40-45%, mild regurgitation of a bioprosthetic mitral valve, mild tricuspid regurgitation, no pulmonary hypertension. She also gives history of chronic neck pain for which she has received cortisone injection by Dr. Shrestha and Dr. Jani. Her last one was done 3 weeks ago and she does not wish to go any further with these as her blood sugars have been elevated and she is a strong history of diabetes in her family. 02/24: Heart catheterization was done by Dr. Ann which revealed [place] three- vessel coronary artery disease with SMILEY to LAD, occluded venous graft to the right coronary artery with patent stent within the mid LAD. Patient's chest discomfort seems to be related to vasospasm. Imdur was increased from 30 mg to 60 mg and patient was cleared for discharge by cardiology. Patient will be discharged home today in stable condition. Discharge Diagnoses: 1 unstable angina 2 history of coronary artery disease status post quadruple coronary artery bypass grafting with mitral valve repair and left atrial appendage patent morelos ovale repair in July 2016 followed by stenting of the mid and proximal LAD. 3 hypertension 4 hyperlipidemia 5 chronic edema 6 mitral valve disease: Post mitral valve repair 7 history of ADD 8 hyperglycemia: On diet control. Hemoglobin A1c is 5.4 Discharge plan: Home Impression and plan of care have been directed as dictated by the signing physician. Christiane Garza nurse practitioner acting as scribe for signing physician. Patient Condition at Discharge: Good Plan - Discharge Summary Discharge Rx Participant: No New Discharge Prescriptions: New Atorvastatin [Lipitor] 80 mg PO DAILY #30 tab Isosorbide Mononitrate ER [Imdur] 60 mg PO DAILY #30 tab.er.24h Continue ALPRAZolam [Xanax] 1 mg PO TID Lisinopril [Zestril] 5 mg PO DAILY #30 tab Spironolactone [Aldactone] 25 mg PO DAILY #30 tab Aspirin EC [Ecotrin Low Dose] 162 mg PO DAILY Hydrocodone/Acetaminophen [Hydrocodone-Acetamin 10-325 mg] 1 tab PO BID Dextroamphetamine/Amphetamine [Dextroamp-Amphetamin 20 mg Tab] 20 mg PO TID Dextroamphetamine/Amphetamine [Adderall] 10 mg PO TID Nitroglycerin Sl Tabs [Nitrostat] 0.4 mg SUBLINGUAL Q5M PRN #25 tab PRN Reason: Chest Pain DULoxetine HCL [Cymbalta] 20 mg PO DAILY hydrALAZINE HCL [Apresoline] 25 mg PO TID Cyclobenzaprine [Flexeril] 10 mg PO BID Gabapentin [Neurontin] 100 mg PO TID Clopidogrel [Plavix] 75 mg PO DAILY traZODone HCL 50 mg PO HS amLODIPine [Norvasc] 2.5 mg PO DAILY Furosemide [Lasix] 20 mg PO DAILY PRN PRN Reason: Edema Metoprolol Tartrate [Lopressor] 75 mg PO BID Discontinued Isosorbide Mononitrate ER [Imdur] 30 mg PO DAILY Atorvastatin [Lipitor] 40 mg PO DAILY #30 tab Discharge Medication List ALPRAZolam [Xanax] 1 mg PO TID 08/15/16 [History] Lisinopril [Zestril] 5 mg PO DAILY #30 tab 08/25/16 [Rx] Spironolactone [Aldactone] 25 mg PO DAILY #30 tab 08/25/16 [Rx] Aspirin EC [Ecotrin Low Dose] 162 mg PO DAILY 11/11/16 [History] Dextroamphetamine/Amphetamine [Adderall] 10 mg PO TID 11/11/16 [History] Dextroamphetamine/Amphetamine [Dextroamp-Amphetamin 20 mg Tab] 20 mg PO TID [History] Hydrocodone/Acetaminophen [Hydrocodone-Acetamin 10-325 mg] 1 tab PO BID [History] Nitroglycerin Sl Tabs [Nitrostat] 0.4 mg SUBLINGUAL Q5M PRN #25 tab 11/14/16 [Rx ] Clopidogrel [Plavix] 75 mg PO DAILY 02/19/18 [History] Cyclobenzaprine [Flexeril] 10 mg PO BID 02/19/18 [History] DULoxetine HCL [Cymbalta] 20 mg PO DAILY 02/19/18 [History] Gabapentin [Neurontin] 100 mg PO TID 02/19/18 [History] hydrALAZINE HCL [Apresoline] 25 mg PO TID 02/19/18 [History] traZODone HCL 50 mg PO HS 02/19/18 [History] Furosemide [Lasix] 20 mg PO DAILY PRN 02/22/18 [History] Metoprolol Tartrate [Lopressor] 75 mg PO BID 02/22/18 [History] amLODIPine [Norvasc] 2.5 mg PO DAILY 02/22/18 [History] Atorvastatin [Lipitor] 80 mg PO DAILY #30 tab 02/24/18 [Rx] Isosorbide Mononitrate ER [Imdur] 60 mg PO DAILY #30 tab.er.24h 02/24/18 [Rx] Follow up Appointment(s)/Referral(s): Dennis Shrestha DO [Primary Care Provider] - 1 Week (office is closed,please call for appointment date and time) Eric Geiger MD [STAFF PHYSICIAN] - 03/08/18 4:30 pm Patient Instructions/Handouts: *Surgery [facility] - After Heart Catheterization - [facility] [employer] [facility] Instructions, Chest Pain (DC), Left Heart Catheterization (DC) Activity/Diet/Wound Care/Special Instructions: Right groin site care,signs and symptoms to report,follow up appointments,and medication changes discussed Risk factor for heart disease including heart healthy diet,lowering cholesterol, managing stress,exercise and medication management Discharge Disposition: HOME SELF-CARE
[2018-02-25] MEDS ORDERED: ISOSORBIDE MONONITRATE ER 60 MG TAB.ER.24H PO SCH (09:00)
== END 2018-02-24 16:26 | disposition home or self-care (01) | DRG 287 ==
LOC: EC 14:12 → INTOOBSV 15:59 → 3OBS 15:59 → OBSVTOIN 02-23 15:25
PROVIDERS: ADMIT Family Medicine; ATTEND Family Medicine
PROC: B2111ZZ Fluoroscopy of Multiple Coronary Arteries using Low Osmolar Contrast (ICD-10-PCS; 2018-02-24)
PROC: 4A023N7 Measurement of Cardiac Sampling and Pressure, Left Heart, Percutaneous Approach (ICD-10-PCS; 2018-02-24)
PROC: B2131ZZ Fluoroscopy of Multiple Coronary Artery Bypass Grafts using Low Osmolar Contrast (ICD-10-PCS; 2018-02-24)
PROC: 4A023N7 Measurement of Cardiac Sampling and Pressure, Left Heart, Percutaneous Approach (ICD-10-PCS; principal; 2018-02-24 09:00)
DX: I25.710 Atherosclerosis of autologous vein coronary artery bypass graft(s) with unstable angina pectoris (principal); I10 Essential (primary) hypertension; E78.5 Hyperlipidemia, unspecified; I25.10 Atherosclerotic heart disease of native coronary artery without angina pectoris; F32.9 Major depressive disorder, single episode, unspecified; F41.9 Anxiety disorder, unspecified; F90.9 Attention-deficit hyperactivity disorder, unspecified type; I49.3 Ventricular premature depolarization; I25.82 Chronic total occlusion of coronary artery; M79.7 Fibromyalgia; K21.9 Gastro-esophageal reflux disease without esophagitis; M50.20 Other cervical disc displacement, unspecified cervical region; M51.26 Other intervertebral disc displacement, lumbar region; Z88.5 Allergy status to narcotic agent; Z88.2 Allergy status to sulfonamides; Z87.891 Personal history of nicotine dependence; Z79.02 Long term (current) use of antithrombotics/antiplatelets; Z79.82 Long term (current) use of aspirin; Z79.899 Other long term (current) drug therapy; Z83.3 Family history of diabetes mellitus; Z86.73 Personal history of transient ischemic attack (TIA), and cerebral infarction without residual deficits; Z90.710 Acquired absence of both cervix and uterus; Z95.5 Presence of coronary angioplasty implant and graft
CPT/HCPCS: 36415; 71046; 78452; 80053; 80061; 82150; 82550; 82553; 83690; 83735; 84484; 85025; 85610; 85730; 93005; 93017; 93306; 93459; 99285

== ENCOUNTER → 2018-05-28 | Outpatient (CLI) | payer BC | END | disposition home or self-care (01) | LOC: RADUSWWP 07:48 | PROVIDERS: ATTEND Family Medicine | DX: R60.9 Edema, unspecified (principal); I73.9 Peripheral vascular disease, unspecified; I25.10 Atherosclerotic heart disease of native coronary artery without angina pectoris | CPT/HCPCS: 93923 ==

== ENCOUNTER → 2018-09-30 | Outpatient (CLI) | payer BC ==
--- NOTE | 2018-09-30 12:57 | XR ---
EXAMINATION TYPE: XR hand complete LT DATE OF EXAM: 09/30/2018 COMPARISON: NONE HISTORY: Pain TECHNIQUE: Three views are submitted. FINDINGS: The osseous structures are intact. There is severe arthropathy of the first carpal metacarpal joint. Mild diffuse osteopenia.. IMPRESSION: 1. No definite acute fracture or dislocation if symptoms persist, follow-up study in 7 to 10 days wo uld be suggested. 2. Severe arthropathy first carpal metacarpal joint in a pattern typical of osteoarthritis.
--- NOTE | 2018-09-30 12:58 | XR ---
EXAMINATION TYPE: XR wrist complete LT DATE OF EXAM: 09/30/2018 COMPARISON: NONE HISTORY: Pain TECHNIQUE: Four views submitted. FINDINGS: The osseous structures are intact. Severe arthropathy first carpal metacarpal joint and there is no a cute fracture or dislocation. IMPRESSION: 1. No definite acute fracture or dislocation if symptoms persist, follow-up study in 7 to 10 days wo uld be suggested
--- NOTE | 2018-09-30 13:00 | XR ---
EXAMINATION TYPE: XR thoracic spine complete DATE OF EXAM: 09/30/2018 COMPARISON: NONE HISTORY: Pain Alignment is anatomic. There is no compression deformities. Hypertrophic and degenerative change sp ine. Postsurgical change involving the mediastinum. No compression IMPRESSION: 1. Multilevel degenerative disc disease.
--- NOTE | 2018-09-30 13:06 | XR ---
EXAM TYPE: LUMBAR SPINE X RAY SERIES COMPARISON: NONE HISTORY: Back pain TECHNIQUE: 4 views are submitted. FINDINGS: Alignment is anatomic. The pedicles are intact. The transverse processes are intact. There is yolis re degenerative disc disease L4-L5 with mild degenerative disc disease L5-S1. Facet arthropathy level s L3-S1. Mild hypertrophic spurring. Vascular calcifications noted. Arthropathy of the SI joints grea ter on the right noted. No spondylolysis or spondylolisthesis. IMPRESSION: 1. Severe degenerative disc disease L4-L5 with multilevel facet arthropathy. 2. Bilateral SI joint arthropathy.
== END | disposition home or self-care (01) ==
LOC: RADXRMAIN 12:10
PROVIDERS: ATTEND Family Medicine
DX: M51.35 Other intervertebral disc degeneration, thoracolumbar region (principal); M46.96 Unspecified inflammatory spondylopathy, lumbar region; M19.032 Primary osteoarthritis, left wrist
CPT/HCPCS: 72072; 72110

== ENCOUNTER → 2019-01-31 | Outpatient (CLI) | payer BC ==
--- NOTE | 2019-02-01 11:06 | MM ---
Reason for exam: screening (asymptomatic). Last mammogram was performed 1 year ago. History: Patient is postmenopausal and history of other cancer. Family history of breast cancer in aunt. Took hormonal contraceptives for 1 year. Took estrogen for 1 year. Physical Findings: A clinical breast exam by your physician is recommended on an annual basis and results should be correlated with mammographic findings. MG Screening Mammo w CAD Bilateral CC and MLO view(s) were taken. Prior study comparison: January 26, 2018, bilateral MG screening mammo w CAD. August 01, 2014, mammogram, performed at [facility]. Medial middle depth right asymmetry and lateral middle posterior depth left asymmetry are both new. ASSESSMENT: Incomplete: need additional imaging evaluation, BI-RAD 0 RECOMMENDATION: Special view mammogram of both breasts. If lesion persists on supplemental views, image directed ultrasound is recommended. [facility] will attempt to contact patient to return for supplemental views and ultrasound if indicated.
== END | disposition home or self-care (01) ==
LOC: RADMAMWWP 10:34
PROVIDERS: ATTEND Family Medicine
DX: Z12.31 Encounter for screening mammogram for malignant neoplasm of breast (principal)
CPT/HCPCS: 77067

== ENCOUNTER → 2019-02-07 | Outpatient (CLI) | payer BC ==
--- NOTE | 2019-02-07 12:13 | MM ---
Reason for exam: additional evaluation requested from abnormal screening. Last mammogram was performed less than 1 month ago. History: Patient is postmenopausal and history of other cancer. Family history of breast cancer in aunt. Took hormonal contraceptives for 1 year. Took estrogen for 1 year. Physical Findings: Nurse did not find any significant physical abnormalities on exam. MG 3D Work Up W/Cad ETHAN Bilateral spot compression CC and ML view(s) were taken. Prior study comparison: January 31, 2019, bilateral MG screening mammo w CAD. January 26, 2018, bilateral MG screening mammo w CAD. The breast tissue is heterogeneously dense. This may lower the sensitivity of mammography. These results were verbally communicated with the patient and result sheet given to the patient on 02/07/19. ASSESSMENT: Incomplete: need additional imaging evaluation, BI-RAD 0 RECOMMENDATION: Ultrasound of the right breast.
--- NOTE | 2019-02-07 12:14 | USB ---
Reason for exam: additional evaluation requested from abnormal screening. History: Patient is postmenopausal and history of other cancer. Family history of breast cancer in aunt. Took hormonal contraceptives for 1 year. Took estrogen for 1 year. US Breast Workup Limited RT Right limited breast ultrasound including focal area of concern, retroareolar and axilla demonstrates a 1.4 x 0.9 x 0.6cm oval nodes at the axilla. These results were verbally communicated with the patient and result sheet given to the patient on 02/07/19. ASSESSMENT: Probably benign, BI-RAD 3 RECOMMENDATION: Follow-up diagnostic mammogram of both breasts in 6 months.
== END | disposition home or self-care (01) ==
LOC: RADMAMWWP 09:52
PROVIDERS: ATTEND Family Medicine
DX: R92.8 Other abnormal and inconclusive findings on diagnostic imaging of breast (principal)
CPT/HCPCS: 77062; 77066

== ENCOUNTER → 2019-08-09 | Outpatient (CLI) | payer BC ==
--- NOTE | 2019-08-09 10:05 | XR ---
EXAMINATION TYPE: XR chest 2V DATE OF EXAM: 08/09/2019 COMPARISON: Prior chest x-ray 02/22/2018 HISTORY: Hypertension, chest pain TECHNIQUE: Frontal and lateral views of the chest are obtained. FINDINGS: Postop changes are stable status post median sternotomy, atrial appendage clipping is, cor onary artery bypass graft and mitral valve replacement. No evident airspace disease, pneumothorax, or pleural effusion. Surgical clips present over the left breast. Thoracic spondylosis is present. IMPRESSION: No acute cardiopulmonary process. Postop changes.
== END | disposition home or self-care (01) ==
LOC: RADXRMAIN 08:20
PROVIDERS: ATTEND Family Medicine
DX: I10 Essential (primary) hypertension (principal); Z98.890 Other specified postprocedural states
CPT/HCPCS: 71046

== ENCOUNTER → 2020-02-02 | Day surgery (SDC) | payer BC ==
[2020-01-30 13:32] VITALS: BMI 25.0
--- NOTE | 2020-02-01 16:48 | HP ---
HISTORY AND PHYSICAL DATE OF SERVICE: 02/02/2020 Balbina May is a 64-year-old patient seen with progressive left shoulder pain. We discussed options regarding treatment. She elected to proceed with left shoulder arthroscopy. Consent regarding the procedure was obtained. PAST MEDICAL HISTORY: Hypertension, attention deficit disorder, chronic opioid use. PAST SURGICAL HISTORY: Foot surgery, hysterectomy. DAILY MEDICATIONS: Adderall, isosorbide, Lasix, metoprolol, [place], Plavix. ALLERGIES: BACTRIM, PERCOCET. SOCIAL HISTORY: She denies current tobacco use. PHYSICAL EVALUATION OF THE LEFT SHOULDER: Flexion 90 degrees, abduction is 80 degrees, external rotation is 30 degrees with pain and weakness. Tenderness along the anterolateral acromion rotator cuff insertion site. Impingement sign positive 70 degrees, drop-arm sign positive. Distal neurovascular exam is intact. RADIOGRAPHS OF THE LEFT SHOULDER: Reveal a type 2 anterior acromion, cystic changes of the greater tuberosity. Left shoulder MRI revealed rotator cuff tendon tear, acromioclavicular joint osteoarthritis, biceps tendinitis. IMPRESSION: 1. Left shoulder impingement with rotator cuff tear. 2. Left shoulder acromioclavicular joint osteoarthritis. 3. Left shoulder biceps tendinitis. 4. Hypertension. 5. Chronic opioid use. PLAN: Left shoulder arthroscopy, subacromial decompression, arthroscopic rotator cuff repair, Cher procedure and debridement. MMODL / IJN: [id number] /
[~2020-02-02] MED LIST changes: +DEXAMETHASONE SOD PHOSPHATE 10 MG/ML 1 ML VIAL IV ONE; +HYDROmorphone 0.5 MG/0.5 ML SYRINGE IVP PRN; +LACTATED RINGERS 1,000 ML IV SCH; +LIDOCAINE 1% (10MG/ML) FOR IV START INTRADERMA ONE; +LIDOCAINE 1% INJ 10MG/ML (20 ML MDV) ONE; +MIDAZOLAM 2 MG/2 ML VIAL IV ONE; +MIDAZOLAM 2 MG/2 ML VIAL IV PRN; +ONDANSETRON 4 MG/2 ML VIAL IVP ONE; +PHENYLEPHRINE-0.9% NACL SYG 1 MG/10 ML SYRINGE ONE; +PROPOFOL 10 MG/ML 20 ML VIAL IV ONE; +ROPIVACAINE 5 MG/ML 30 ML VIAL ONE; -SODIUM CHLORIDE 0.9% 500 ML in EMPTY BAG 1 BAG IV PRN; +SUCCINYLCHOLINE CHLORIDE 100 MG/5 ML SYR IV ONE; -ZOLEDRONIC ACID 5 MG in SODIUM CHLORIDE 0.9% 100 ML IV ONE; +fentaNYL (PF) 50 MCG/ML 2 ML AMP ONE
--- NOTE | 2020-02-02 08:39 | P.CRDCN ---
History of Present Illness History of present illness: HISTORY OF PRESENTING ILLNESS This is a pleasant 64-year-old female past medical history significant for coronary artery disease status post bypass grafting, ischemic cardiomyopathy, hypertension, dyslipidemia, former nicotine dependence and fibromyalgia. She follows in the office with Dr. Geiger. We have been asked to see in consultation for abnormal EKG. She presented to the hospital for an elective left shoulder scope. Upon arriving into the preoperative area she was found to be diaphoretic and stated she was feeling significant palpitations. EKG was obtained revealing sinus mechanism with frequent PVCs in the bigeminal pattern with first-degree AV block heart rate of 60. She was placed on the potline monitor. At the time of my exam she is maintaining sinus mechanism with frequent PVCs however less frequent bigeminy. She denies symptoms of chest pain, shortness of breath, dizziness. She continues to feel palpitations intermittently. He saw Dr. Geiger preoperatively and was deemed acceptable risk to undergo surgery with anesthesia. She had a Lexiscan stress test in November 2018 revealed inconclusive EKG part of the stress test due to baseline EKG abnormality and a probably normal myocardial perfusion and function.. Echocardiogram obtained 08/15/2019 revealed preserved LV systolic function with ejection fraction 50%, mild concentric hypertrophy, hypokinesia of the septum at the base, akinesia of the inferior wall at the base and evidence of a percu taneous closure device in the interatrial septum. Current daily cardiac medications include aspirin 243 mg daily, Plavix 75 mg daily, Lasix 20 mg daily as needed, Imdur 60 mg daily, Lopressor 75 mg daily and hydralazine 25 mg 3 times a day. No recent lab data. Electrolytes ordered. REVIEW OF SYSTEMS At the time of my exam: CONSTITUTIONAL: Denies fever or chills. CARDIOVASCULAR: Complains of palpitations. Denies chest pain, shortness of breath, orthopnea or PND. RESPIRATORY: Denies cough. GASTROINTESTINAL: Denies abdominal pain, diarrhea, constipation, nausea or vomiting. MUSCULOSKELETAL: Denies myalgias. NEUROLOGIC: Denies numbness, tingling or weakness. ENDOCRINE: Denies fatigue, weight change, polydipsia or polyurina. GENITOURINARY: Denies burning, hematuria or urgency with micturation. HEMATOLOGIC: Denies history of anemia or bleeding. PHYSICAL EXAMINATION Blood pressure 138/61 heart rate 65 afebrile and maintaining oxygen saturation on nasal cannula CONSTITUTIONAL: No apparent distress. HEENT: Head is normocephalic. Pupils are equal, round. Sclerae anicteric. Mucous membranes of the mouth are moist. No JVD. No carotid bruit. CHEST EXAMINATION: Lungs are clear to auscultation. No chest wall tenderness is noted on palpation or with deep breathing. HEART EXAMINATION: Irregular rate and rhythm. S1, S2 heard. No murmurs, gallops or rub. ABDOMEN: Soft, nontender. Positive bowel sounds. EXTREMITIES: 2+ peripheral pulses, no lower extremity edema and no calf tenderness. NEUROLOGIC EXAMINATION: Patient is awake, alert and oriented x3. ASSESSMENT Frequent PVC's History of coronary artery disease s/p bypass grafting Hypertension Dyslipidemia Septal defect s/p repair PLAN Stable to proceed with recommend surgery as previously discussed. Clarify the metoprolol. The office records indicate she takes toprol and the records here indicate lopressor. Follow up with Dr. Geiger in the office. Thank you kindly for this consultation. Nurse Practitioner note has been reviewed, I agree with a documented findings and plan of care. Patient was seen and examined. Past Medical History Past Medical History: Chest Pain / Angina, Fibromyalgia, GERD/Reflux, Hyperlipidemia, Hypertension, Myocardial Infarction (AK), Musculoskeletal Disorder, Osteoarthritis (OA), Vascular Disorder Additional Past Medical History / Comment(s): Herniated discs in neck & lower back, bulging disc in neck. AK X3. Hx [place] Palsy at 22-23 yrs old. Tingling lower legs, left lower extremity numbness and pain, PAD, hx migraines, heart skips beats. Hx bronchitis. recent decreased urine output - ? low functioning kidneys. Last Myocardial Infarction Date:: 2017 History of Any Multi-Drug Resistant Organisms: None Reported Past Surgical History: Breast Surgery, Coronary Bypass/CABG, Heart Catheterization, Heart Catheterization With Stent, Hysterectomy, Orthopedic Surgery Additional Past Surgical History / Comment(s): 2 cardicc stents, 08/20/16 CABG-4 vessel with coronary artery endartectomy, repair hole, excision L atrial appendage and ANDREA, left foot surgery, EGD/colonoscopy. Past Anesthesia/Blood Transfusion Reactions: Previous Problems w/ Anesthesia, Motion Sickness Additional Past Anesthesia/Blood Transfusion Reaction / Comment(s): Slow to wake up. Pt has received blood without reaction. Date of Last Stent Placement:: unk Past Psychological History: ADD/ADHD, Anxiety, Depression Additional Psychological History / Comment(s): Highly Clausterphobic. Smoking Status: Former smoker Past Alcohol Use History: None Reported Additional Past Alcohol Use History / Comment(s): Patient was a smoker of less than one pack per day since she was 17 years of age and quit in July 2016. Past Drug Use History: None Reported - Past Family History Mother Family Medical History: Diabetes Mellitus Additional Family Medical History / Comment(s): Mother has history of diabetes. Patient does not know any of her father's history. Father History Unknown: Yes Brother(s) Family Medical History: No Reported History Additional Family Medical History / Comment(s): Patient has 4 brothers with high cholesterol. Patient does not have any sisters. Patient has 2 sons with no major medical problems. Medications and Allergies Home Medications Medication Instructions Recorded Confirmed Type Aspirin EC [Ecotrin Low Dose] 243 mg PO DAILY 11/11/16 02/02/20 History Dextroamphetamine/Amphetamine 30 mg PO TID 11/11/16 02/02/20 History [Adderall] Hydrocodone/Acetaminophen 1 tab PO TID 11/11/16 02/02/20 History [Hydrocodone-Acetamin 10-325 mg] Nitroglycerin Sl Tabs [Nitrostat] 0.4 mg SUBLINGUAL Q5M PRN #25 tab 11/14/16 02/02/20 Rx Clopidogrel [Plavix] 75 mg PO DAILY 02/19/18 02/02/20 History hydrALAZINE HCL [Apresoline] 25 mg PO TID 02/19/18 02/02/20 History Furosemide [Lasix] 20 mg PO DAILY PRN 02/22/18 02/02/20 History Metoprolol Tartrate [Lopressor] 75 mg PO QAM 02/22/18 02/02/20 History Isosorbide Mononitrate ER [Imdur] 60 mg PO QAM 01/30/20 02/02/20 History Allergies Allergy/AdvReac Type Severity Reaction Status Date / Time oxycodone [From Percocet] AdvReac Confusion Verified 02/02/20 06:20 sulfamethoxazole AdvReac Hallucinati Verified 02/02/20 06:20 [From Bactrim] ons trimethoprim [From Bactrim] AdvReac Hallucinati Verified 02/02/20 06:20 ons Physical Exam Vitals: Vital Signs Temp Pulse Resp BP Pulse Ox 02/02/20 08:20 65 18 99 02/02/20 06:40 52 L 128/68 02/02/20 06:33 57 L 18 99 02/02/20 06:30 97.7 F 33 L 18 99 Intake and Output 02/01/20 02/02/20 02/02/20 22:59 06:59 14:59 Other: Weight 71.4 kg Results Current Medications Generic Name Dose Route Start Last Admin Trade Name Freq PRN Reason Stop Dose Admin Hydromorphone HCl 0.5 mg 02/02/20 05:54 Dilaudid IVP 02/03/20 05:55 Q5M PRN Pain Control Lactated Ringer's 1,000 mls @ 20 mls/hr 02/02/20 05:54 02/02/20 07:04 Lactated Ringers IV 0 mls .Q24H TIMOTHY Administration Midazolam HCl 2 mg 02/02/20 05:54 Versed IV 02/03/20 05:55 ONCE PRN Anxiety Intake and Output 02/01/20 02/02/20 02/02/20 22:59 06:59 14:59 Other: Weight 71.4 kg
[2020-02-02 09:19] LABS: Potassium 4.6 mmol/L (3.5-5.1)
--- NOTE | 2020-02-02 12:33 | P.OP ---
Date of Procedure: 02/02/20 Preoperative Diagnosis: Left shoulder impingement Postoperative Diagnosis: 1. Left shoulder rotator cuff tear 2. Left shoulder impingement 3. Left shoulder acromioclavicular joint osteoarthritis 4. Left shoulder partial long head biceps tendon tear 5. Left shoulder superficial labral tear Procedure(s) Performed: 1. Left shoulder arthroscopic rotator cuff repair 2. Left shoulder arthroscopic subacromial decompression 3. Left shoulder arthroscopic Cher procedure 4. Left shoulder arthroscopic biceps tenotomy 5. Left shoulder arthroscopic debridement labral tear Implants: 15.5 Arthrex swivel lock anchor Anesthesia: GETA, regional (Interscalene block) Surgeon: Dat Ventura Steward[employer] Car #1: Aniket Rodrigues Estimated Blood Loss (ml): 7 Pathology: none sent Condition: stable Disposition: PACU Indications for Procedure: 64-year-old patient seen with progressive left shoulder pain. After treatment options were discussed, she elected to proceed with arthroscopy. Operative Findings: see description of procedure Description of Procedure: Patient underwent an interscalene block by department of anesthesia. The patient was then taken to the operative suite. The patient underwent a general anesthetic by the department of anesthesia. The patient was placed into a lateral position and secured. There was appropriate padding of the bony prominence. Left with shoulder was then prepped and draped in normal sterile orthopedic fashion. We placed the extremity in 10 pounds of longitudinal traction. A posterior incision was now made for a posterior working portal site. The trocar and cannula were inserted into the glenohumeral joint. Arthroscopy was initiated. Spinal needle was now inserted anteriorly, to ascertain the anterior working portal site. An incision was now made in that area, a trocar was inserted followed by a probe. There was superficial tearing of the anterior and superior labrum. There were grade 1 chondromalacia changes of the anterior portion of the glenoid fossa. There was partial tearing and hyperemia long head biceps tendon. I performed an arthroscopic biceps tenotomy. I debrided that superficial labral tear. I now probed the remaining labrum and it was found to be stable. At this point instruments removed from the glenohumeral joint. Utilizing the posterior working portal site, the trocar and cannula were inserted into the subacromial space. Arthroscopy initiated. I made an incision 2 fingerbreadths lateral to the acromion. I introduced my trocar followed by my ArthroCare ablator. I now began ablating thick subacromial bursal tissue, which exposed the undersurface of the anterior acromion. There was diminished subacromial space. There was a very prominent anterior acromion. A motorized bur was introduced and a subacromial decompression was performed. I also excised some osteophytes off the inferior aspect of the distal clavicle. The AC joint was visualized and noted to be fairly arthritic. The motorized bur was introduced in the anterior portal site and a Cher procedure was performed without difficulty, decompressing the AC joint nicely. I turned my attention to the rotator cuff. There was some significant partial tearing along the midportion distal supraspinatus. Upon probing the area and there were multiple full-thickness perforations. I introduced a motorize shaver to get down to some stable tendon tissue. The defect measured 1.5 cm. It was freely mobile over the footprint. I abraded the footprint with a motorized bur. I now passed 2 everted mattress sutures good bites of rotator cuff tendon. I now placed a hole in the area of the footprint for insertion of an anchor. I then passed all 4 limbs of suture through the eyelet of a 5.5 Arthrex swivel lock anchor. I now introduced anchor into the pre-punch hole. I held it in position while Reji CAO tension the sutures and deployed the anchor. We good fixation. All residual suture limbs were now clipped. We had good compression of the tendon along the entire footprint. I injected 1 mL Renyte intra-articular. Instruments now removed from the portal sites. All portal sites were approximated with nylon suture. Sterile dressings were applied followed by a shoulder sling. Aniket CAO assisted in this complex case. The patient was awakened, transferred to a bed, and taken to recovery in stable condition.
[2020-02-02 15:41] LABS: Glucose,Whole Blood 108 mg/dL (75-99)
--- NOTE | 2020-02-02 19:32 | P.ANPRN ---
Procedure Note - Anesthesia - Nerve Block Performed Left Interscalene Single Time Out Performed: Yes Date of Procedure: 02/02/20 Location of Patient: PreOp Indication: Acute Post-Operative Pain, Dx/Pain Location, Requested by Surgeon Sedation Type: Sedate with meaningful contact maintained Preparation: Sterile Prep Position: Supine Catheter: None Needle Types: Pajunk Needle Gauge: 21 Ultrasound used to visualize needle placement: Yes Ultrasound used to observe medication spread: Yes Injectate: Other (see comment) (0.25% Ropivacaine 20ml) Blood Aspirated: No Pain Paresthesia on Injection Noted: No Resistance on Injection: Normal Image Stored and Saved: Yes Events: Uneventful and Well Tolerated
[2020-02-03 08:06] VITALS: BP 127/64; PULSE 59; RESP 16; TEMP 97.8
== END | disposition home or self-care (01) ==
LOC: OR 05:30
PROVIDERS: ATTEND Orthopaedic Surgery
DX: M75.122 Complete rotator cuff tear or rupture of left shoulder, not specified as traumatic (principal); M75.42 Impingement syndrome of left shoulder; M19.012 Primary osteoarthritis, left shoulder; S43.432A Superior glenoid labrum lesion of left shoulder, initial encounter; S46.112A Strain of muscle, fascia and tendon of long head of biceps, left arm, initial encounter; M94.212 Chondromalacia, left shoulder; I25.2 Old myocardial infarction; I73.9 Peripheral vascular disease, unspecified; F90.9 Attention-deficit hyperactivity disorder, unspecified type; F41.9 Anxiety disorder, unspecified; F32.9 Major depressive disorder, single episode, unspecified; F40.240 Claustrophobia; I11.0 Hypertensive heart disease with heart failure; I50.9 Heart failure, unspecified; I49.3 Ventricular premature depolarization; M79.7 Fibromyalgia; K21.9 Gastro-esophageal reflux disease without esophagitis; G51.0 Bell's palsy; G43.909 Migraine, unspecified, not intractable, without status migrainosus; I25.810 Atherosclerosis of coronary artery bypass graft(s) without angina pectoris; I34.0 Nonrheumatic mitral (valve) insufficiency; E78.2 Mixed hyperlipidemia; Z95.1 Presence of aortocoronary bypass graft; Z79.82 Long term (current) use of aspirin; Z79.02 Long term (current) use of antithrombotics/antiplatelets; Z79.891 Long term (current) use of opiate analgesic; Z79.899 Other long term (current) drug therapy; Z88.6 Allergy status to analgesic agent; Z88.5 Allergy status to narcotic agent; Z88.2 Allergy status to sulfonamides; Z88.8 Allergy status to other drugs, medicaments and biological substances; Z90.710 Acquired absence of both cervix and uterus; Z95.5 Presence of coronary angioplasty implant and graft; Z98.890 Other specified postprocedural states; Z87.891 Personal history of nicotine dependence; Z83.3 Family history of diabetes mellitus; X58.XXXA Exposure to other specified factors, initial encounter
CPT/HCPCS: 93005; 64415; 76942; 80051; 83735; 29827; 29826; 29824; C1713; J2250; J1100; J0690; J2001; J3010; J2795; J2370; J0330; J2704

== ENCOUNTER → 2020-04-11 | Outpatient (CLI) | payer BC ==
--- NOTE | 2020-04-11 14:26 | XR ---
EXAMINATION TYPE: XR Hip Complete LT DATE OF EXAM: 04/11/2020 COMPARISON: NONE HISTORY: Pain TECHNIQUE: 2 views submitted FINDINGS: There is no evidence of erosive change or acute fracture. Mild narrowing of the hip joint. IMPRESSION: 1. No evidence of acute fracture or dislocation.
--- NOTE | 2020-04-11 14:27 | XR ---
EXAM TYPE: LUMBAR SPINE X RAY SERIES COMPARISON: NONE HISTORY: Pain TECHNIQUE: 4 views are submitted. FINDINGS: Alignment is anatomic. The pedicles are intact. The transverse processes are intact. There is no s pondylolysis or spondylolisthesis. There is severe narrowing of the L4-L5 disc space with facet arth ropathy. Vascular calcifications noted. Hypertrophic changes at the thoracolumbar junction. Sclerosis involving the bilateral SI joint incidentally noted. IMPRESSION: 1. Severe degenerative disc disease L4-L5 with facet arthropathy. Foraminal encroachment suspected. 2. Multilevel additional mild degenerative disc disease. 3. Bilateral sacroiliitis.
--- NOTE | 2020-04-11 14:29 | XR ---
EXAMINATION TYPE: XR sacrum coccyx DATE OF EXAM: 04/11/2020 COMPARISON: NONE HISTORY: Pain FINDINGS: Three views are submitted. Severe degenerative disc disease L4-5. There is sclerosis involving the SI joints greater on the right. Mild arthropathy of the hips. Sacral foramen appear to be intact. IMPRESSION: 1. Bilateral sacroiliitis greater on the right. 2. Severe degenerative disc disease L4-L5.
== END | disposition home or self-care (01) ==
LOC: RADXRMAIN 13:44
PROVIDERS: ATTEND Family Medicine
DX: M51.36 Other intervertebral disc degeneration, lumbar region (principal); M47.816 Spondylosis without myelopathy or radiculopathy, lumbar region; M46.1 Sacroiliitis, not elsewhere classified
CPT/HCPCS: 72110; 72220; 73502

== ENCOUNTER → 2020-05-29 | Outpatient (CLI) | payer BC | END | disposition home or self-care (01) | LOC: LABWHC1 12:34 | PROVIDERS: ATTEND Family Medicine | DX: Z03.818 Encounter for observation for suspected exposure to other biological agents ruled out (principal) | CPT/HCPCS: 85379; 36415; U0003; C9803 ==

== ENCOUNTER → 2020-07-18 | Outpatient (CLI) | payer BC ==
[2020-07-19 00:02] LABS: Chol/HDL Ratio 2.7
== END | disposition home or self-care (01) ==
LOC: LABWHC1 12:42
PROVIDERS: ATTEND Internal Medicine Cardiovascular Disease
DX: E78.2 Mixed hyperlipidemia (principal)
CPT/HCPCS: 36415; 80061; 84450; 84460

== ENCOUNTER 2021-01-07 20:33 | Emergency (ER) | payer BC ==
[2021-01-07 20:50] VITALS: BP 122/64; PULSE 78; RESP 18; TEMP 98.2
[2021-01-07] MEDS ORDERED: methylPREDNISolone SOD SUCCI 125 MG/2 ML VIAL IM ONE (21:23)
[2021-01-07] MEDS ORDERED: MORPHINE SULFATE 4 MG/ML SYRINGE IVP STA (21:23)
--- NOTE | 2021-01-07 22:07 | XR ---
EXAMINATION TYPE: XR Hip Complete RT DATE OF EXAM: 01/07/2021 COMPARISON: NONE HISTORY: Hip pain TECHNIQUE: 2 views FINDINGS: There is no evidence of fracture nor dislocation. Hip joint space is fairly normal. Sacroil iac joint is intact. IMPRESSION: Negative right hip exam.
--- NOTE | 2021-01-07 22:09 | XR ---
EXAMINATION TYPE: XR lumbar spine 2 or 3V DATE OF EXAM: 01/07/2021 COMPARISON: 04/11/2020 HISTORY: Back pain TECHNIQUE: 3 views FINDINGS: There is L4-5 disc space narrowing with spur formation. There is a slight dextroscoliosis. Sacroiliac joints are intact. There is no compression fracture. IMPRESSION: L4-5 spondylotic changes. No fracture seen. No change compared to old exam.
[2021-01-07] MEDS ORDERED: ACET/COD 300 MG/30 MG STARTER PACK 6 TAB BTL PO STA (22:20)
--- NOTE | 2021-01-07 22:22 | ED ---
General Adult HPI - General Chief complaint: Extremity Injury, Lower Stated complaint: hip pain Time Seen by Provider: 01/07/21 21:17 Source: patient, RN notes reviewed Mode of arrival: wheelchair Limitations: no limitations - History of Present Illness Initial comments: Patient is a 65-year-old female that presents to the emergency room complaining of right lower back and right hip pain. She notes that she was lifting a ladder when she felt something pop in noted that she had acute pain in her right lower back to radiate down her right leg. She notes that she can walk on it but it does cause pain. She notes she does have history of back pain. She noted that she has had sciatica pain in the past. She denied any other complaints or issues. She noted the pain was approximately an 8 out of 10 with no relief. She did have tenderness over her right low back. She denied any chest pain shortness of breath headache nausea vomiting diarrhea constipation fever fatigue chills decreased range of motion or strength in her right lower extremity. She denied any bladder or bowel incontinence or retention. She denied any chest pain first breath diarrhea constipation fever fatigue chills. - Related Data Home Medications Medication Instructions Recorded Confirmed Aspirin EC [Ecotrin Low Dose] 243 mg PO DAILY 11/11/16 02/02/20 Dextroamphetamine/Amphetamine 30 mg PO TID 11/11/16 02/02/20 [Adderall] Hydrocodone/Acetaminophen 1 tab PO TID 11/11/16 02/02/20 [Hydrocodone-Acetamin 10-325 mg] Clopidogrel [Plavix] 75 mg PO DAILY 02/19/18 02/02/20 hydrALAZINE HCL [Apresoline] 25 mg PO Q8H 02/19/18 02/02/20 Furosemide [Lasix] 20 mg PO DAILY PRN 02/22/18 02/02/20 Metoprolol Tartrate [Lopressor] 75 mg PO QAM 02/22/18 02/02/20 Isosorbide Mononitrate ER [Imdur] 60 mg PO QAM 01/30/20 02/02/20 Acyclovir 400 mg PO TID PRN 02/02/20 02/02/20 Previous Rx's Medication Instructions Recorded Nitroglycerin Sl Tabs [Nitrostat] 0.4 mg SUBLINGUAL Q5M PRN #25 tab 04/21/17 predniSONE 50 mg PO DAILY #5 tab 01/07/21 Allergies Allergy/AdvReac Type Severity Reaction Status Date / Time oxycodone [From Percocet] AdvReac Confusion Verified 01/07/21 20:46 sulfamethoxazole AdvReac Hallucinati Verified 01/07/21 20:46 [From Bactrim] ons trimethoprim [From Bactrim] AdvReac Hallucinati Verified 01/07/21 20:46 ons Review of Systems ROS Statement: Those systems with pertinent positive or pertinent negative responses have been documented in the HPI. ROS Other: All systems not noted in ROS Statement are negative. Past Medical History Past Medical History: Chest Pain / Angina, Fibromyalgia, GERD/Reflux, Hyperlipidemia, Hypertension, Musculoskeletal Disorder, Osteoarthritis (OA), Vascular Disorder Additional Past Medical History / Comment(s): recent EKG abnormal per pt. & echo, "herniated discs in neck & lower back" and "bulginh disc in neck", tingling lower legs-"they fall asleep," L lower ext numbness and pain and very sensitive to touch since CABG-(L foot was discolored and swollen and had blistering-all healed), arthritis down spine and bilateral hips, PAD, migraines, palpitations and presyncopy in past, urine urgency.brochitis. History of Any Multi-Drug Resistant Organisms: None Reported Past Surgical History: Breast Surgery, Coronary Bypass/CABG, Heart Catheterization, Heart Catheterization With Stent, Hysterectomy, Orthopedic Surgery Additional Past Surgical History / Comment(s): 2 cardaic stents, 08/20/16 CABG-4 vessel with coronary artery endartectomy, repair hole, excision L atrial appendage and ANDREA, R foot surg., EGD/colonoscopy. Past Anesthesia/Blood Transfusion Reactions: Previous Problems w/ Anesthesia Additional Past Anesthesia/Blood Transfusion Reaction / Comment(s): Slow to wake up. Pt has received blood without reaction. Date of Last Stent Placement:: unk Past Psychological History: ADD/ADHD, Anxiety, Depression Smoking Status: Never smoker Past Alcohol Use History: None Reported Past Drug Use History: None Reported - Past Family History Mother Family Medical History: Diabetes Mellitus Additional Family Medical History / Comment(s): Mother has history of diabetes. Patient does not know any of her father's history. Father History Unknown: Yes Brother(s) Family Medical History: No Reported History Additional Family Medical History / Comment(s): Patient has 4 brothers with high cholesterol. Patient does not have any sisters. Patient has 2 sons with no major medical problems. General Exam Limitations: no limitations General appearance: alert, in no apparent distress Head exam: Present: atraumatic, normocephalic, normal inspection Eye exam: Present: normal appearance, PERRL, EOMI. Absent: scleral icterus, conjunctival injection, periorbital swelling Neck exam: Present: normal inspection Respiratory exam: Present: normal lung sounds bilaterally. Absent: respiratory distress, wheezes, rales, rhonchi, stridor Cardiovascular Exam: Present: regular rate, normal rhythm, normal heart sounds. Absent: systolic murmur, diastolic murmur, rubs, gallop, clicks Extremities exam: Present: normal inspection, full ROM, normal capillary refill. Absent: tenderness, pedal edema, joint swelling, calf tenderness Back exam: Present: normal inspection, tenderness (Over the right SI) Neurological exam: Present: alert, oriented X3 Psychiatric exam: Present: normal affect, normal mood Skin exam: Present: warm, dry, intact, normal color. Absent: rash Course Vital Signs 01/07/21 20:47 Temperature 98.2 F Pulse Rate 78 Respiratory 18 Rate Blood Pressure 122/64 O2 Sat by Pulse 97 Oximetry Medical Decision Making - Medical Decision Making 65-year-old female complaining of right lower back pain with radiation down her right leg after try to move the ladder. X-ray of the right hip and lumbar spine, 4 mg of morphine, 125 mg of Solu-Medrol ordered. X-rays negative for any acute processes. Injury most likely lumbar strain from lifting a ladder. Case discussed with Dr. Quach, patient discharge home with follow-up to primary care. Disposition Clinical Impression: Mechanical back pain, Lumbar strain, Lumbar radiculopathy, right Disposition: HOME SELF-CARE Condition: Stable Instructions (If sedation given, give patient instructions): Acute Low Back Pain (ED) Additional Instructions: Please return to the Emergency Department if symptoms worsen or any other concerns. Follow-up with primary care in the next 1-2 days. Take medications as prescribed. Avoid any strenuous lifting or exercise. Take it easy at home a lot back to rest. Can take Tylenol Motrin as needed for pain control. Is patient prescribed a controlled substance at d/c from ED?: No Referrals: Dennis Shrestha DO [Primary Care Provider] - 1-2 days Time of Disposition: 22:22
--- NOTE | 2021-01-07 22:32 | ED ---
Medical Decision Making - Radiology Data Radiology results: report reviewed, image reviewed X-ray lumbar spine: L4-L5 spondylitic changes. No fracture seen. No changes compared to old exam. Line right hip x-ray: Negative right hip exam. Disposition Clinical Impression: Mechanical back pain, Lumbar strain, Lumbar radiculopathy, right Disposition: HOME SELF-CARE Condition: Stable Instructions (If sedation given, give patient instructions): Acute Low Back Pain (ED) Additional Instructions: Please return to the Emergency Department if symptoms worsen or any other concerns. Follow-up with primary care in the next 1-2 days. Take medications as prescribed. Avoid any strenuous lifting or exercise. Take it easy at home a lot back to rest. Can take Tylenol Motrin as needed for pain control. Prescriptions: predniSONE 50 mg PO DAILY #5 tab Is patient prescribed a controlled substance at d/c from ED?: No Referrals: Dennis Shrestha DO [Primary Care Provider] - 1-2 days
== END 2021-01-07 22:56 | disposition home or self-care (01) ==
LOC: EC 20:33
DX: S39.012A Strain of muscle, fascia and tendon of lower back, initial encounter (principal); M25.551 Pain in right hip; I10 Essential (primary) hypertension; E78.5 Hyperlipidemia, unspecified; M79.7 Fibromyalgia; F32.9 Major depressive disorder, single episode, unspecified; F41.9 Anxiety disorder, unspecified; F90.9 Attention-deficit hyperactivity disorder, unspecified type; M16.0 Bilateral primary osteoarthritis of hip; K21.9 Gastro-esophageal reflux disease without esophagitis; G43.909 Migraine, unspecified, not intractable, without status migrainosus; Z79.82 Long term (current) use of aspirin; X50.0XXA Overexertion from strenuous movement or load, initial encounter
CPT/HCPCS: 72100; 73502; 99283; 96374; 96372; J2270; J2930

== ENCOUNTER → 2021-03-19 | Outpatient (CLI) | payer BC ==
--- NOTE | 2021-03-19 15:54 | NM ---
EXAMINATION TYPE: NM bone scan whole body DATE OF EXAM: 03/19/2021 COMPARISON: Plain film 02/28/2021 from outside institution pelvis, thoracic and lumbar spine, prior bon e scan limited dated 11/12/2015 HISTORY: M25.50 Pain in unspecified joint Delayed whole-body scanning was performed following the injection of 24.3 mCi Tc 99m MDP. Images acq uired 3 hours post injection. FINDINGS: Uptake is present in the lower lumbar spine likely corresponding to patient's underlying degenerative disc disease and likely facet arthropathy. Soft tissue uptake is normal. Uptake is noted in the left wrist as on prior exam at the carpometacarpal region. There is a slight spinal curvature. Uptake wit hin the shoulders, wrists, knees, feet and ankles is likely degenerative. There is no abnormal uptake to suggest metastatic disease. IMPRESSION: Degenerative disc disease, facet arthropathy, osteoarthritis
== END | disposition home or self-care (01) ==
LOC: RADNMMAIN 03-13 10:56
PROVIDERS: ATTEND Family Medicine
DX: M51.36 Other intervertebral disc degeneration, lumbar region (principal); M12.88 Other specific arthropathies, not elsewhere classified, other specified site
CPT/HCPCS: 78306; A9503

== ENCOUNTER 2021-08-08 18:13 | Emergency (ER) | payer BC, MEDICARE ==
[2021-08-08 18:21] VITALS: BP 127/51; PULSE 71; RESP 18; TEMP 98.1
[2021-08-08] MEDS ORDERED: IBUPROFEN 600 MG TAB PO STA (18:32)
[2021-08-08] MEDS ORDERED: DIPH,PERTUS(ACELL)TETVAC-LF 0.5 ML VIAL IM ONE (18:33)
--- NOTE | 2021-08-08 18:36 | ED ---
General Adult HPI - General Chief complaint: Extremity Problem,Nontraumatic Stated complaint: Rt Leg Pain/Swelling Time Seen by Provider: 08/08/21 18:25 Source: patient, RN notes reviewed, old records reviewed Mode of arrival: ambulatory Limitations: no limitations - History of Present Illness Initial comments: This is a well-appearing 66-year-old female, alert and oriented 4, presents to the emergency room with complaints of right doyle pain and right ankle bruising and swelling. Patient states that she tripped over a tote last week and fell forward. She injured her doyle at that time and state the abrasion bled for a long time but did not seek medical care. She has been able to ambulate however over the past week she has had increased pain and swelling to the calf and bruising to her ankle. Her tetanus shot is not up-to-date. She does take Plavix and aspirin daily. She does have a history of cardiac stents, vascular disease and OA. -: week(s) (1) Location: right, lower extremity (Doyle and ankle) Severity scale (1-10): 8 Quality: constant Consistency: constant Improves with: none Worsens with: none Associated Symptoms: denies other symptoms - Related Data Home Medications Medication Instructions Recorded Confirmed Aspirin EC [Ecotrin Low Dose] 162 mg PO DAILY 11/11/16 08/08/21 Hydrocodone/Acetaminophen 1 tab PO QID PRN 11/11/16 08/08/21 [Hydrocodone-Acetamin 10-325 mg] Clopidogrel [Plavix] 75 mg PO DAILY 02/19/18 08/08/21 hydrALAZINE HCL [Apresoline] 25 mg PO TID 02/19/18 08/08/21 Furosemide [Lasix] 20 mg PO DAILY PRN 02/22/18 08/08/21 Isosorbide Mononitrate ER [Imdur] 60 mg PO DAILY 01/30/20 08/08/21 Atorvastatin Calcium [Lipitor] 80 mg PO DAILY 08/08/21 08/08/21 Dextroamphetamine/Amphetamine 30 mg PO TID 08/08/21 08/08/21 [Adderall] Estradiol Cream [Estrace Cream 1 gm VAGINAL KNOWLES 08/08/21 08/08/21 0.01%] Metoprolol Succinate (ER) [Toprol 75 mg PO DAILY 08/08/21 08/08/21 Xl] Previous Rx's Medication Instructions Recorded Nitroglycerin Sl Tabs [Nitrostat] 0.4 mg SUBLINGUAL Q5M PRN #25 tab 11/14/16 Allergies Allergy/AdvReac Type Severity Reaction Status Date / Time oxycodone [From Percocet] AdvReac Confusion Verified 08/08/21 20:09 sulfamethoxazole AdvReac Hallucinati Verified 08/08/21 20:09 [From Bactrim] ons trimethoprim [From Bactrim] AdvReac Hallucinati Verified 08/08/21 20:09 ons Review of Systems ROS Statement: Those systems with pertinent positive or pertinent negative responses have been documented in the HPI. ROS Other: All systems not noted in ROS Statement are negative. Past Medical History Past Medical History: Chest Pain / Angina, Fibromyalgia, GERD/Reflux, Hyperlipidemia, Hypertension, Musculoskeletal Disorder, Osteoarthritis (OA), Vascular Disorder Additional Past Medical History / Comment(s): recent EKG abnormal per pt. & echo, "herniated discs in neck & lower back" and "bulginh disc in neck", tingling lower legs-"they fall asleep," L lower ext numbness and pain and very sensitive to touch since CABG-(L foot was discolored and swollen and had blistering-all healed), arthritis down spine and bilateral hips, PAD, migraines, palpitations and presyncopy in past, urine urgency.brochitis. History of Any Multi-Drug Resistant Organisms: None Reported Past Surgical History: Breast Surgery, Coronary Bypass/CABG, Heart Catheterization, Heart Catheterization With Stent, Hysterectomy, Orthopedic Surgery Additional Past Surgical History / Comment(s): 2 cardaic stents, 08/20/16 CABG-4 vessel with coronary artery endartectomy, repair hole, excision L atrial appendage and ANDREA, R foot surg., EGD/colonoscopy. Past Anesthesia/Blood Transfusion Reactions: Previous Problems w/ Anesthesia Additional Past Anesthesia/Blood Transfusion Reaction / Comment(s): Slow to wake up. Pt has received blood without reaction. Date of Last Stent Placement:: unk Past Psychological History: ADD/ADHD, Anxiety, Depression Smoking Status: Never smoker Past Alcohol Use History: None Reported Past Drug Use History: None Reported - Past Family History Mother Family Medical History: Diabetes Mellitus Additional Family Medical History / Comment(s): Mother has history of diabetes. Patient does not know any of her father's history. Father History Unknown: Yes Brother(s) Family Medical History: No Reported History Additional Family Medical History / Comment(s): Patient has 4 brothers with high cholesterol. Patient does not have any sisters. Patient has 2 sons with no major medical problems. General Exam Limitations: no limitations General appearance: alert, in no apparent distress Head exam: Present: atraumatic, normocephalic, normal inspection Eye exam: Present: normal appearance Neck exam: Present: normal inspection, full ROM. Absent: tenderness, meningismus, lymphadenopathy Respiratory exam: Present: normal lung sounds bilaterally. Absent: respiratory distress, wheezes, rales, rhonchi, stridor Cardiovascular Exam: Present: normal rhythm. Absent: JVD Right Lower Leg exam: Present: tenderness, swelling, abrasion (Her mid tibia), Homans' sign. Absent: erythema Ankle exam: Present: tenderness, swelling, ecchymosis. Absent: crepitus, erythema Foot/Toe exam: Absent: swelling Neurovascular tendon exam: Absent: abnormal cap refill, sensory deficit, extremity cold to touch, pallor, foot drop Back exam: Present: normal inspection, full ROM. Absent: tenderness, CVA tenderness (R), CVA tenderness (L), rash noted Neurological exam: Present: alert, oriented X3 Psychiatric exam: Present: normal affect, normal mood Skin exam: Present: warm, dry, intact, normal color. Absent: rash, cyanosis, diaphoretic Course Vital Signs 08/08/21 18:18 Temperature 98.1 F Pulse Rate 71 Respiratory 18 Rate Blood Pressure 127/51 O2 Sat by Pulse 98 Oximetry Medical Decision Making - Medical Decision Making 66-year-old female presents with complaints of right doyle pain and right ankle bruising and swelling after fall a week ago. She has been able to ambulate however over the past week she has had increased pain and swelling to the calf and bruising to her ankle. Her tetanus shot was updated at this visit. She does take Plavix and aspirin daily. Ultrasound of the right lower extremity negative for DVT. X-ray of the right ankle shows no acute fracture or malalignment, no acute process. There is no evidence of erythema or cellulitis. Pedal pulses are present, foot is pink, warm and capillary refill less than 2 seconds. This likely bruising related to dependency from initial injury in addition to her Plavix and aspirin use. District to rest, ice, and elevate the extremity. Return to the emergency room with any new or worsening symptoms and follow up with her primary care doctor next week. Case discussed with Dr. Collins Disposition Clinical Impression: Leg pain, Ecchymosis Disposition: HOME SELF-CARE Condition: Good Instructions (If sedation given, give patient instructions): Leg Pain (ED), Ecchymosis (ED) Additional Instructions: Rest, ice, elevate your right leg. Return to the emergency room with any new or worsening symptoms including increased pain, numbness, tingling or cold and pale foot. Follow-up with your primary care doctor next week. Is patient prescribed a controlled substance at d/c from ED?: No Referrals: Dennis Shrestha DO [Primary Care Provider] - 1-2 days Time of Disposition: 20:04
--- NOTE | 2021-08-08 19:44 | US ---
EXAMINATION TYPE: US venous doppler duplex LE RT DATE OF EXAM: 08/08/2021 7:33 PM COMPARISON: US CLINICAL HISTORY: Pain. SIDE PERFORMED: Right TECHNIQUE: The lower extremity deep venous system is examined utilizing real time linear array sonog sharon with graded compression, doppler sonography and color-flow sonography. VESSELS IMAGED: Common Femoral Vein Deep Femoral Vein Greater Saphenous Vein * Femoral Vein Popliteal Vein Small Saphenous Vein * Proximal Calf Veins (* superficial vessels) Findings: No direct or indirect evidence of filling defect within the deep venous system of the right lower extremity. IMPRESSION: NEGATIVE FOR DVT, RIGHT LOWER EXTREMITY.
--- NOTE | 2021-08-08 19:49 | XR ---
PROCEDURE: XR ankle complete RT - 3V DATE AND TIME: 08/08/2021 6:59 PM CLINICAL INDICATION: pain / swelling TECHNIQUE: Department protocol COMPARISON: None FINDINGS: There is no fracture or malalignment. The soft tissues are unremarkable. IMPRESSION: NO ACUTE PROCESS.
== END 2021-08-08 20:17 | disposition home or self-care (01) ==
LOC: EC 18:13
DX: M79.661 Pain in right lower leg (principal); R58 Hemorrhage, not elsewhere classified; K21.9 Gastro-esophageal reflux disease without esophagitis; E78.5 Hyperlipidemia, unspecified; M79.7 Fibromyalgia; I10 Essential (primary) hypertension; M19.90 Unspecified osteoarthritis, unspecified site; F90.9 Attention-deficit hyperactivity disorder, unspecified type; F41.9 Anxiety disorder, unspecified; F32.A Depression, unspecified; Z79.82 Long term (current) use of aspirin; Z79.02 Long term (current) use of antithrombotics/antiplatelets; Z88.1 Allergy status to other antibiotic agents; Z88.2 Allergy status to sulfonamides; Z88.5 Allergy status to narcotic agent; Z95.5 Presence of coronary angioplasty implant and graft; Z90.710 Acquired absence of both cervix and uterus
CPT/HCPCS: 90471; 90715; 99284

== ENCOUNTER → 2021-10-03 | Outpatient (CLI) | payer BC, MEDICARE ==
--- NOTE | 2021-10-23 21:08 | EM ---
EVENT MONITOR DATE OF THE STUDY: October 03, 2021. REFERRING: Dr. Shrestha. INDICATION: Rule out arrhythmia. The patient was monitored for 14 days. The baseline rhythm appeared to be a sinus mechanism. The patient did have multiple episodes of ventricular bigeminy, as well as multiple episodes of atrial bigeminy, as well as PVCs. No significant sinus pause or sinus arrest seen. No atrial arrhythmia noted. CONCLUSION: 1. This is a 14 day event monitor. 2. The baseline rhythm appeared to be sinus mechanism. 3. The patient did have multiple episodes of PVCs as well as ventricular bigeminy. 4. The patient did have multiple episodes of atrial bigeminy. 5. No evidence of any sinus pause or sinus arrest. MMODL / IJN: [id number] /
== END | disposition home or self-care (01) ==
LOC: RADECHMAIN 11:38
PROVIDERS: ATTEND Family Medicine
DX: I49.3 Ventricular premature depolarization (principal)
CPT/HCPCS: 93270

== ENCOUNTER → 2022-08-01 | Outpatient (CLI) | payer MEDICARE ==
--- NOTE | 2022-08-04 08:02 | MM ---
Reason for Exam: Screening (asymptomatic). Last mammogram was performed 3 year(s) and 6 month(s) ago. Patient History: Menarche at age 18. First Full-Term at age 22. Left ovary removed at age 25. Right ovary removed at age 25. Hysterectomy at age 25. Postmenopausal. Other cancer. Patient used Estrogen for 1 year. Patient used Hormonal Contraceptives for 1 year. Maternal aunt had breast cancer. Risk Values: Susi 5 year model risk: 1.4%. NCI Lifetime model risk: 4.9%. Prior Study Comparison: 01/26/2018 Bilateral Screening Mammogram, [facility]. 01/31/2019 Bilateral Screening Mammogram, [facility]. 02/07/2019 Bilateral Diagnostic Mammogram, [facility]. Tissue Density: The breast tissue is heterogeneously dense. This may lower the sensitivity of mammography. Findings: Analyzed By CAD. Prominent but benign-appearing bilateral axillary lymph nodes are redemonstrated. There is no suspicious group of microcalcifications or new suspicious mass in either breast. Overall Assessment: Negative, BI-RAD 1 Management: Screening Mammogram of both breasts in 1 year. Manage patient's symptoms of bilateral pain and rash on clinical basis. A clinical breast exam by your physician is recommended on an annual basis and results should be correlated with mammographic findings. Electronically signed and approved by: Mauri Goncalves M.D.
== END | disposition home or self-care (01) ==
LOC: RADMAMWWP 09:54
PROVIDERS: ATTEND Family Medicine
DX: Z12.31 Encounter for screening mammogram for malignant neoplasm of breast (principal); Z80.3 Family history of malignant neoplasm of breast; Z78.0 Asymptomatic menopausal state
CPT/HCPCS: 77063; 77067

== ENCOUNTER → 2022-12-12 | Outpatient (CLI) | payer MEDICARE ==
--- NOTE | 2022-12-12 12:44 | XR ---
EXAMINATION TYPE: XR chest 2V DATE OF EXAM: 12/12/2022 COMPARISON: 08/09/2019 TECHNIQUE: PA and lateral views submitted. HISTORY: Cough FINDINGS: The lungs are clear and there is no pneumothorax, pleural effusion, or focal pneumonia. Heart size normal and no overt failure. Osseous structures demonstrate hypertrophic and degenerative changes of the spine. Postoperative changes are noted. Metallic density overlying the left costophrenic angle ma y relate to previous clip. Aortic valve replacement surgery noted. Mild hyperexpansion correlation fo r COPD. IMPRESSION: 1. No acute process.
== END | disposition home or self-care (01) ==
LOC: RADXRMAIN 12:13
PROVIDERS: ATTEND Family Medicine
DX: J18.9 Pneumonia, unspecified organism (principal)
CPT/HCPCS: 71046

== ENCOUNTER → 2022-12-26 | Outpatient (CLI) | payer MEDICARE ==
--- NOTE | 2022-12-26 13:18 | FL ---
Modified barium swallow. HISTORY: Dysphagia. Modified barium swallow was performed with the department of speech pathology. The patient was prese nted with various consistencies of barium. There is no evidence for aspiration or penetration. Full report is to follow from the department of speech pathology. Impression: Normal study.
== END | disposition home or self-care (01) ==
LOC: RADFLMAIN 11:10
PROVIDERS: ATTEND Family Medicine
DX: R13.10 Dysphagia, unspecified (principal)
CPT/HCPCS: 74230

== ENCOUNTER → 2025-01-05 | Outpatient (CLI) | payer MEDICARE ==
--- NOTE | 2025-01-05 15:28 | XR ---
EXAMINATION TYPE: XR thoracic spine complete DATE OF EXAM: 01/05/2025 3:11 PM COMPARISON: 09/30/2018 CLINICAL INDICATION: Female, 69 years old with history of M54.6 dorsalgia, pain TECHNIQUE: 3 view(s) obtained. FINDINGS: There are 12 thoracic type vertebral bodies. Pedicles are intact. Mild thoracic spine scoliosis is pr esent. Vertebral body heights are preserved. Disc heights are preserved. Minimal spondylosis in the upper th oracic spine. IMPRESSION: 1. Mild spondylosis. Mild scoliosis No significant change from comparison. [facility], , 01/05/2025 3:25 PM
--- NOTE | 2025-01-06 16:55 | XR ---
EXAMINATION TYPE: XR ribs RT DATE OF EXAM: 01/06/2025 12:50 PM COMPARISON: None. CLINICAL INDICATION: Female, 69 years old with history of R07.82 Trauma pain Rt Ribcage, pain TECHNIQUE: 2 view(s) obtained. FINDINGS: No displaced fractures evident. No pneumothorax evident. Follow-up can be performed as clinically ind icated. IMPRESSION: 1. No acute left rib fractures identified. [facility], , 01/06/2025 4:53 PM
--- NOTE | 2025-01-06 16:56 | XR ---
EXAMINATION TYPE: XR shoulder complete RT DATE OF EXAM: 01/06/2025 12:50 PM COMPARISON: None. CLINICAL INDICATION: Female, 69 years old with history of M25.511 Rt shoulder, Pain TECHNIQUE: XR shoulder complete RT view(s) obtained. FINDINGS: The humeral head articulates with the glenoid. The acromio-clavicular junction is normal. No acute fractures or dislocations are evident. A follow up study can be performed 7-10 days from acute trauma for continued pain. MRI can be perfor med if soft tissue evaluation would be of benefit. IMPRESSION: 1. No acute osseous right shoulder abnormality. [facility], , 01/06/2025 4:54 PM
== END | disposition home or self-care (01) ==
LOC: RADXRMAIN 13:48
PROVIDERS: ATTEND Family Medicine
DX: M47.814 Spondylosis without myelopathy or radiculopathy, thoracic region (principal); M41.84 Other forms of scoliosis, thoracic region; M25.511 Pain in right shoulder
CPT/HCPCS: 72072